=== PATIENT | female | born 1975 | race Caucasian/White ===

== ENCOUNTER 2020-03-01 13:54 | Outpatient (REF) | payer OTHER, SELFPAY ==
--- NOTE | 2020-03-01 | US_ITS ---
EXAMINATION: US RETROPERITONEAL LIMITED (RENAL ONLY) CLINICAL INFORMATION: Renal stones. COMPARISON: Previous KUB most recent September 2019, renal ultrasound most recent September [address] most recent November 1999 and TECHNIQUE: Grayscale and color imaging of the kidneys FINDINGS: RIGHT KIDNEY: 13.3 x 5.2 x 4.9 cm (SAG x AP x TRV). The kidney is normal in size, contour, and echogenicity. Renal cortical thickness is normal. There are echogenic pyramids suggestive of medullary nephrocalcinosis. No discrete stone is seen. No focal parenchymal lesions. No hydronephrosis. LEFT KIDNEY: 11.8 x 6.5 x 6.3 cm (SAG x AP x TRV). The kidney is normal in size, contour, and echogenicity. Renal cortical thickness is normal. There are echogenic pyramids suggestive of medullary nephrocalcinosis. No discrete stone is seen. No focal parenchymal lesions. No hydronephrosis. IMPRESSION: Echogenic renal pyramids suggestive of medullary nephrocalcinosis.
== END 2020-03-01 13:55 | disposition home or self-care (01) ==
LOC: HO.HMGCX 13:54
PROVIDERS: PCP Internal Medicine; Visit Provider Urology
DX: R10.9 Unspecified abdominal pain (principal)
CPT/HCPCS: 76775

== ENCOUNTER 2020-03-07 15:45 | Outpatient (REF) | payer OTHER, SELFPAY ==
--- NOTE | 2020-03-07 | MM_ITS ---
EXAMINATION: MM SCREENING DIGITAL BREAST TOMOSYNTHESIS, BILATERAL CLINICAL INFORMATION: Screening. Asymptomatic. Family history premenopausal breast cancer in paternal cousin. The lifetime risk of breast cancer based on the Tyrer-Cuzick Model is 6%. COMPARISON: Mammography: 02/22/2018, 07/14/2014 (baseline). TECHNIQUE: Digital breast tomosynthesis is performed in both the craniocaudal and mediolateral oblique views along with computer-aided detection (CAD). Synthesized 2D images are generated from the tomosynthesis. FINDINGS: There are scattered areas of fibroglandular density (ACR BI-RADS breast composition Category b). There are no significant masses, abnormal calcifications, or other abnormalities. Parenchymal pattern is similar to prior studies. MM/MM tomosynthesis screening BI IMPRESSION: No significant changes from prior exams. ASSESSMENT: BI-RADS 1: Negative RECOMMENDATION: Routine annual mammography screening. This patient's information was entered into a reminder system with a target due date for their next mammogram.
== END 2020-03-07 15:46 | disposition home or self-care (01) ==
LOC: HO.MAMMO 15:45
PROVIDERS: PCP Internal Medicine; Visit Provider Internal Medicine
DX: Z12.31 Encounter for screening mammogram for malignant neoplasm of breast (principal)
CPT/HCPCS: 77063; 77067

== ENCOUNTER → 2020-05-03 14:36 | Outpatient (BNVA) | payer OTHER, SELFPAY | PROVIDERS: PCP Internal Medicine; Visit Provider Internal Medicine Pulmonary Disease | DX: D86.9 Sarcoidosis, unspecified (principal); R91.8 Other nonspecific abnormal finding of lung field | CPT/HCPCS: 99212 ==

== ENCOUNTER 2020-05-04 08:00 | Outpatient (RCR) | payer OTHER, SELFPAY ==
--- NOTE | 2020-04-06 09:54 | MHC.PT.EP ---
[facility] [place] [facility] [place] [facility] [address] Ronaldo Fisher [address] [phone] F: [phone] F: [phone] F: [phone] F: [phone] Physical Therapy Plan of Care Date of Evaluation: 04/06/20 Date of Surgery: n/a Diagnosis: R sided sciatica Assessment: Patient is a 44 year old R handed female who presents with s/s consistent with R sided sciatica. She works with daily job demands including driving, sitting, walking. Patient past medical history includes RA. Current impairments include pain, ROM, strength, safety, independence, activity tolerance and functional mobility. Functional limitations include decreased ability to walk, stand, transfer, negotiate stairs, and perform weight bearing activities.. Patient is motivated with good rehab potential. Skilled PT will address impairments and functional limitations in order to achieve goals. Frequency and Duration: The patient will be seen 2x/week for 6 weeks Short Term Goals: I with HEP - 2 weeks s/s centralized - 3 weeks I with transfer/squat mechanics - 3 weeks Halfway Goals: Pain free ADLs - 5 weeks Oswestry 10% or less - 6 weeks Pain free full sleep - 6 weeks Treatment Plan: Modalities to reduce pain, spasms and effusion. Manual therapy to restore motion and function. Therapeutic exercise to improve strength and flexibility. Neuromuscular re-education for posture and balance. Therapeutic activities to return to functional activities of daily living. Please sign and return to therapist. Thank you for your referral.
--- NOTE | 2020-06-06 11:29 | MHC.PT.DC ---
[facility] [place] [facility] [place] [facility] [place] [facility] [address] Ronaldo Fisher [address] [phone] F: [phone] F: [phone] F: [phone] F: [phone] Physical Therapy Discharge Report Diagnosis: R sided sciatica Date of Surgery: n/a Date of Evaluation: 04/06/20 Date of Discharge: 06/06/20 Treatments to Date: 6 Cancellations to Date: No Shows to Date: Discharge Status: Achieved Goals Discharge Summary: Pt progressed well over the course of skilled PT making progress on impairments and functional limitations resulting in an improved quality of life. Pt is I with HEP and appropriate to d/c to HEP at this time. Electronically signed by: Wily Lawrence, PT Please sign and return to therapist. Thank you for your referral.
== END 2020-06-06 11:30 | disposition home or self-care (01) ==
LOC: HO.PTCHIC 08:00
PROVIDERS: PCP Internal Medicine; Visit Provider Internal Medicine
DX: M54.31 Sciatica, right side (principal)
CPT/HCPCS: 97110; 97140; 97161

== ENCOUNTER → 2020-05-20 11:34 | Outpatient (BNVA) | payer OTHER, SELFPAY | PROVIDERS: PCP Internal Medicine; Visit Provider Urology | DX: Z76.89 Persons encountering health services in other specified circumstances (principal) ==

== ENCOUNTER 2020-07-01 09:02 | Outpatient (REF) | payer OTHER, SELFPAY ==
[2020-07-01 11:58] LABS: Alanine Aminotransferase 27 U/L (0-31); Aspartate Amino Transferase 20 U/L (5-31); Cholesterol 192 mg/dL; HDL Cholesterol 60 mg/dL; LDL Cholesterol Calculated 108 mg/dl; Triglycerides 120 mg/dL
== END 2020-07-01 09:03 | disposition home or self-care (01) ==
LOC: HO.HMGCLDS 09:02
PROVIDERS: PCP Internal Medicine; Visit Provider Internal Medicine
DX: E78.2 Mixed hyperlipidemia (principal)
CPT/HCPCS: 36415; 80061; 84450; 84460

== ENCOUNTER 2020-09-07 15:13 | Outpatient (REF) | payer OTHER, SELFPAY ==
--- NOTE | ~2020-09-07 | CT_ITS ---
EXAMINATION: CT CHEST WITHOUT CONTRAST CLINICAL INFORMATION: Pulmonary nodules COMPARISON: Previous chest CT August [address] October 2018 TECHNIQUE: Multidetector volumetric CT imaging of the chest was done. Axial MIP volume rendering provided. Sagittal and coronal reformatted images were obtained. This CT examination was performed using dose optimization techniques as appropriate, variously including the following: *Automated exposure control *Adjustment of mA and/or kV according to patient size (this includes techniques or standardized protocols for targeted exams where dose is matched to indication/reason for exam; i.e. extremities or head) *Use of iterative reconstruction technique DLP: 192 mGy-cm FINDINGS: LUNGS: There is no appreciable change in the numerous bilateral pulmonary nodules from previous exams. Largest right pulmonary nodule is a peripheral or subpleural right middle lobe nodule adjacent to the minor fissure axial image 194 series 7 and measures 4 mm. Largest left pulmonary nodule is a 3 mm peripheral left lower lobe nodule axial image 317 series 7. No new pulmonary nodules are seen. MEDIASTINUM: The mediastinum is normal. The previously identified mediastinal lymphadenopathy is no longer seen. PLEURA: There is no pleural effusion. No pleural mass or thickening. AXILLA: No lymphadenopathy. UPPER ABDOMEN: The gallbladder has been removed. There is a small stone in the upper pole of the left kidney. There may be diverticulosis of the colon OSSEOUS STRUCTURES: There are degenerative changes of the spine. CT/CT chest wo con IMPRESSION: No appreciable change in the multiple small bilateral pulmonary nodules. Resolved mediastinal lymphadenopathy.
== END 2020-09-07 15:14 | disposition home or self-care (01) ==
LOC: HO.CT 15:13
PROVIDERS: Visit Provider Internal Medicine Pulmonary Disease
DX: R91.8 Other nonspecific abnormal finding of lung field (principal)
CPT/HCPCS: 71250

== ENCOUNTER → 2020-09-13 14:55 | Outpatient (BNVA) | payer OTHER, SELFPAY | PROVIDERS: PCP Internal Medicine; Visit Provider Internal Medicine Pulmonary Disease | DX: D86.9 Sarcoidosis, unspecified (principal) | CPT/HCPCS: 99212 ==

== ENCOUNTER 2020-09-30 11:30 | Outpatient (REF) | payer OTHER, SELFPAY ==
--- NOTE | ~2020-09-30 | US_ITS ---
EXAMINATION: US RETROPERITONEAL COMPLETE (RENAL) CLINICAL INFORMATION: Abdominal pain. COMPARISON: None TECHNIQUE: Real-time imaging of the kidneys and bladder. FINDINGS: RIGHT KIDNEY: 12.7 x 5 x 5.9 cm (SAG x AP x TRV). The kidney is normal in size and contour. Renal cortical thickness is normal. There are echogenic renal pyramids suggestive of nephrocalcinosis. No discrete stone is seen. No mass. No hydronephrosis. LEFT KIDNEY: 12.7 x 6.7 x 5.4 cm (SAG x AP x TRV). The kidney is normal in size and contour. Renal cortical thickness is normal. There are echogenic renal pyramids suggestive of nephrocalcinosis. There are several discrete stones measuring in the midpole 3 x 3 x 5 mm and lower pole 2 x 2 x 3 mm. No renal mass. No hydronephrosis. BLADDER: Well distended and normal. Bilateral ureteral jets are demonstrated. Prevoid bladder volume is 462 mL. Postvoid bladder volume is 33 mL. US/US retroperitoneal comp IMPRESSION: Echogenic renal pyramids suggestive of nephrocalcinosis. 2 small left renal stones. No hydronephrosis. Small 33 mL postvoid bladder residual.
== END 2020-09-30 11:31 | disposition home or self-care (01) ==
LOC: HO.HMGCX 11:30
PROVIDERS: PCP Internal Medicine; Visit Provider Internal Medicine
DX: R10.9 Unspecified abdominal pain (principal)
CPT/HCPCS: 76770

== ENCOUNTER → 2020-10-25 14:05 | Outpatient (BNVA) | payer OTHER, SELFPAY | PROVIDERS: PCP Internal Medicine; Visit Provider Urology ==

== ENCOUNTER 2020-11-05 08:23 | Outpatient (REF) | payer OTHER, SELFPAY ==
[2020-11-05 09:18] LABS: Alanine Aminotransferase 20 U/L (0-31); Aspartate Amino Transferase 17 U/L (5-31); Cholesterol 176 mg/dL; HDL Cholesterol 63 mg/dL; LDL Cholesterol Calculated 94 mg/dl; Triglycerides 95 mg/dL
== END 2020-11-05 08:24 | disposition home or self-care (01) ==
LOC: HO.LAB 08:23
PROVIDERS: PCP Internal Medicine; Visit Provider Internal Medicine
DX: Z00.01 Encounter for general adult medical examination with abnormal findings (principal); E78.2 Mixed hyperlipidemia
CPT/HCPCS: 36415; 80061; 84450; 84460

== ENCOUNTER → 2021-02-14 15:47 | Outpatient (BNVA) | payer OTHER, SELFPAY | PROVIDERS: PCP Internal Medicine; Referring Provider Surgery; Visit Provider Physician Assistant Surgical ==

== ENCOUNTER → 2021-03-03 08:12 | Outpatient (BNVA) | payer OTHER, SELFPAY | PROVIDERS: PCP Internal Medicine; Visit Provider Surgery ==

== ENCOUNTER 2021-03-13 15:48 | Outpatient (REF) | payer OTHER, SELFPAY ==
--- NOTE | ~2021-03-13 | XR_ITS ---
EXAMINATION: XR CHEST CLINICAL INFORMATION: Obesity COMPARISON: Previous chest x-ray August [address] August 2020 TECHNIQUE: 2 views of the chest were obtained. FINDINGS: No significant abnormality is noted involving the heart, lungs, mediastinum, bony thorax or soft tissues. The small pulmonary nodules seen by CT scan are not appreciated by chest x-ray. XR/XR chest 2V IMPRESSION: Unremarkable examination.
--- NOTE | ~2021-03-13 | MM_ITS ---
EXAMINATION: MM SCREENING DIGITAL BREAST TOMOSYNTHESIS, BILATERAL CLINICAL INFORMATION: Screening. Asymptomatic. The lifetime risk of breast cancer based on the Tyrer-Cuzick Model is 8%. COMPARISON: Mammography: 03/07/2020, 02/22/2018, 07/14/2014 TECHNIQUE: Digital breast tomosynthesis is performed in both the craniocaudal and mediolateral oblique views along with computer-aided detection (CAD). Synthesized 2D images are generated from the tomosynthesis. FINDINGS: There are scattered areas of fibroglandular density (ACR BI-RADS breast composition Category b). There are no significant masses, abnormal calcifications, or other abnormalities. MM/MM tomosynthesis screening BI IMPRESSION: No mammographic evidence of malignancy. ASSESSMENT: BI-RADS 1: Negative RECOMMENDATION: Routine annual mammography screening. This patient's information was entered into a reminder system with a target due date for their next mammogram.
== END 2021-03-13 15:49 | disposition home or self-care (01) ==
LOC: HO.MAMMO 15:48
PROVIDERS: Absent Provider Surgery; PCP Internal Medicine; Visit Provider Internal Medicine
DX: Z12.31 Encounter for screening mammogram for malignant neoplasm of breast (principal); E66.9 Obesity, unspecified; K21.9 Gastro-esophageal reflux disease without esophagitis; D86.9 Sarcoidosis, unspecified; F41.8 Other specified anxiety disorders; Z68.38 Body mass index [BMI] 38.0-38.9, adult
CPT/HCPCS: 71046; 77063; 77067

== ENCOUNTER → 2021-03-16 15:20 | Outpatient (REF) | payer OTHER, SELFPAY ==
--- NOTE | 2021-03-16 15:45 | ECG_ITS ---
Test Reason : obesity Blood Pressure : / mmHG Vent. Rate : 067 BPM Atrial Rate : 067 BPM P-R Int : 164 ms QRS Dur : 076 ms QT Int : 400 ms P-R-T Axes : 020 016 033 degrees QTc Int : 422 ms Normal sinus rhythm Normal ECG No previous ECGs available Referred By: Montana Gaffney Electronically Signed By:CHADD CAZARES MD
== END ==
LOC: HO.CARD 15:20
PROVIDERS: Absent Provider Surgery; PCP Internal Medicine; Visit Provider Internal Medicine Pulmonary Disease
DX: E66.9 Obesity, unspecified (principal); Z68.38 Body mass index [BMI] 38.0-38.9, adult; J45.909 Unspecified asthma, uncomplicated; D86.9 Sarcoidosis, unspecified; F41.8 Other specified anxiety disorders; K21.9 Gastro-esophageal reflux disease without esophagitis; Z79.899 Other long term (current) drug therapy
CPT/HCPCS: 93005; 99212

== ENCOUNTER 2021-03-24 10:57 | Outpatient (REF) | payer OTHER, SELFPAY ==
[2021-03-24 11:08] LABS: MANUAL DIFF FLAG NO
[2021-03-24 11:46] LABS: Basophils Percent Auto 0.5 % (0-2); Eosinophils Absolute Auto 0.2 X10*3/uL (0.0-0.4); Hematocrit 41.5 % (37.0-47.0); Hemoglobin 13.5 g/dl (12.0-16.0); Imm Gran Abs Auto 0.01 X10*3/uL (0.00-0.03); Imm Gran Pct Auto 0.3 % (0.0-0.4); Lymphocytes Absolute Auto 0.9 X10*3/uL (1.2-4.9); Lymphocytes Percent Auto 22.8 % (20-40); Mean Corpuscular HGB Conc 32.5 g/dl (31.0-35.0); Mean Corpuscular Hemoglobin 28.3 pg (27.0-33.0); Mean Platelet Volume 10.8 fL (9.4-12.3); Monocytes Absolute Auto 0.3 X10*3/uL (0.1-1.2); Monocytes Percent Auto 8.9 % (2-11); Neutrophils Absolute Auto 2.4 x10*3/uL (2.0-8.3); Neutrophils Percent Auto 63.5 % (45-73); Platelet Count 248 X10*3/uL (160-400); Red Blood Count 4.77 X10*6/uL (4.20-5.50); Red Cell Distribution Width 13.6 % (11.0-16.0); White Blood Count 3.7 X10*3/uL (4.8-10.8)
[2021-03-24 12:16] LABS: Alanine Aminotransferase 25 U/L (0-31); Albumin Level 4.3 g/dL (3.5-5.0); Alkaline Phosphatase 67 U/L (39-117); Anion Gap 9 (12-20); Aspartate Amino Transferase 20 U/L (5-31); Bilirubin Total 1.1 mg/dL (0.0-1.0); Blood Urea Nitrogen 14 mg/dL (9-16); C Reactive Protein 0.33 mg/dL (< or = 0.50); Calcium 9.1 mg/dL (8.4-10.2); Carbon Dioxide 27 mmol/L (22-29); Chloride 106 mmol/L (96-108); Cholesterol 149 mg/dL; Estimated Glomerular Filt Rate > 60; Glucose Random 93 mg/dL (60-115); HDL Cholesterol 47 mg/dL; Iron 80 mcg/dL (30-160); LDL Cholesterol Calculated 83 mg/dl; Percent Iron Saturation 30 % (15-50); Potassium 3.8 mmol/L (3.3-5.1); Sodium 138 mmol/L (135-145); Total Iron Binding Capacity 270 mcg/dL (228-428); Total Protein 6.9 g/dL (6.5-8.0); Triglycerides 98 mg/dL; Unsaturated Iron Binding 190 ug/dL
[2021-03-24 12:32] LABS: Ferritin 80 ng/mL (10-250); Insulin 7 uU/mL (2-29); TSH reflex Free T4 0.42 uIU/mL (0.32-4.0); Vitamin D 25-OH Total 11.2 ng/mL (>30)
[2021-03-24 12:51] LABS: Estimated Average Glucose 94 mg/dL; Hemoglobin A1c % 4.9 %
[2021-03-24 12:56] LABS: Folate 10.9 ng/mL (> or = 4.0); Vitamin B12 321 pg/mL (200-900)
[2021-03-27 06:22] LABS: Vitamin B1 7 nmol/L (8-30)
[2021-03-27 12:01] LABS: Calcium (PTHI) 9.1 mg/dL (8.6-10.2); PTHI 97 pg/mL (14-64)
[2021-03-28 02:32] LABS: Zinc 61 mcg/dL (60-130)
[2021-03-29 10:21] LABS: Vitamin A 51 mcg/dL (38-98)
== END 2021-03-24 10:58 | disposition home or self-care (01) ==
LOC: HO.LAB 10:57
PROVIDERS: Absent Provider Internal Medicine; PCP Internal Medicine; Visit Provider Surgery
DX: E66.9 Obesity, unspecified (principal); K21.9 Gastro-esophageal reflux disease without esophagitis; D86.9 Sarcoidosis, unspecified; F41.8 Other specified anxiety disorders; Z68.38 Body mass index [BMI] 38.0-38.9, adult
CPT/HCPCS: 36415; 80053; 80061; 82306; 82607; 82728; 82746; 83036; 83525; 83540; 83970; 84425; 84443; 84590; 84630; 85025; 86140

== ENCOUNTER 2021-04-04 09:43 | Outpatient (REF) | payer OTHER, SELFPAY ==
--- NOTE | ~2021-04-04 | US_ITS ---
EXAMINATION: US COMPLETE ABDOMEN WITH LIVER ELASTOGRAPHY CLINICAL INFORMATION: Obesity. COMPARISON: None. TECHNIQUE: Real-time imaging of the abdominal viscera. Noninvasive ultrasound liver fibrosis assessment is performed using Nida ElastPQ point quantification shear wave elastography (pSWE) with a C5-2 MHz transducer. Multiple elastography samples are obtained. FINDINGS: PANCREAS: Normal. The visualized pancreatic head and body are normal in appearance. The remainder of the pancreas is obscured from visualization by the overlying bowel gas. ABDOMINAL AORTA: The proximal, middle, and distal aortic segments are normal in caliber. INFERIOR VENA CAVA: Visualized portions are normal. LIVER: Normal. The liver demonstrates normal size, contour and echogenicity. No focal lesion or intrahepatic biliary duct dilatation. The right lobe measures 14.5 cm in length. The left lobe measures 10.2 cm in length. Portal flow is hepatopetal. Shear wave liver elastography median stiffness is 1.82 m/s (reference: normal median stiffness is 1.3 m/s or less). IQR/median stiffness to assess sampling precision is 0.13 (reference: good quality data set is IQR/median stiffness of 0.15 or less). GALLBLADDER: Normal. The gallbladder is physiologically distended without evidence of stones, sludge, polyps, wall thickening or pericholecystic fluid. COMMON BILE DUCT: Normal in caliber measuring 0.5 cm in diameter. RIGHT KIDNEY: Normal. No hydronephrosis. No renal calculi or focal parenchymal lesions. The kidney measures 12.6 cm in maximum dimension. LEFT KIDNEY: There are small echogenic foci with twinkle artifact. No hydronephrosis. No renal calculi or focal parenchymal lesions. The kidney measures 11.7 cm in maximum dimension. SPLEEN: Normal. The spleen measures 9.2 cm in maximum dimension. FREE FLUID: None. US/US abdomen comp w elastography IMPRESSION: 1. Mild hepatic steatosis without focal lesion. 2. Liver elastography: Median liver stiffness 1.82 m/s. Findings suggestive of cACLD. REFERENCE: Society of Radiologists in Ultrasound Liver Stiffness Thresholds (2020): LIVER STIFFNESS THRESHOLDS: *Liver Stiffness equal or less than 1.3 m/s: High probability of being normal. *Liver Stiffness less than 1.7 m/s: In the absence of other known clinical signs, rules out compensated advanced chronic liver disease. *Liver Stiffness 1.7-2.1 m/s: Suggestive of compensated advanced chronic liver disease but need further test for confirmation. *Liver Stiffness over 2.1 m/s: Rules in compensated advanced chronic liver disease. *Liver Stiffness over 2.4 m/s: Suggestive of clinically significant portal hypertension. QUALITY OF DATA SET: *IQR/Median value equal or less than 0.15 implies a quality data set. *IQR/Median value over 0.15 implies a poor quality data set. SIGNIFICANT CHANGE FROM PRIOR EXAM: Significant change if liver stiffness measurement is 10% or greater from prior exam. OTHER CONSIDERATIONS: The stage of liver fibrosis may be overestimated in the setting of acute hepatitis, liver inflammation, elevated liver function tests, hepatic vascular congestion, obstructive cholestasis, non-fasting state, and infiltrative diseases such as amyloidosis and lymphoma. In some patients with NAFLD, the liver stiffness thresholds for compensated advanced chronic liver disease may be lower. In causes other than viral hepatitis and NAFLD, liver stiffness thresholds are not well established.
== END 2021-04-04 09:44 | disposition home or self-care (01) ==
LOC: HO.SL 09:43
PROVIDERS: Visit Provider Surgery
DX: E66.9 Obesity, unspecified (principal); K21.9 Gastro-esophageal reflux disease without esophagitis; D86.9 Sarcoidosis, unspecified; F41.8 Other specified anxiety disorders; N20.0 Calculus of kidney; Z68.38 Body mass index [BMI] 38.0-38.9, adult
CPT/HCPCS: 76705; 76981; 95806

== ENCOUNTER 2021-04-05 08:15 | Outpatient (REF) | payer OTHER, SELFPAY ==
--- NOTE | ~2021-04-05 | FL_ITS ---
EXAMINATION: XR GI SERIES CLINICAL INFORMATION: Obesity. COMPARISON: None. TECHNIQUE: Routine upper GI air-contrast study was performed in upright and lying position. FINDINGS: Following oral administration of thick barium and effervescent granules, there is normal propagation bolus from the oral cavity through the pharynx and esophagus and into the stomach without any evidence of obstruction, narrowing or stricture. On placing patient supine and prone lying, the course, caliber and peristalsis of the stomach, gallbladder and the sweep are normal. The mucosal pattern of the stomach and duodenum is normal. No gastroesophageal reflux or hiatal hernia seen. FLUOROSCOPY TIME: 1.6 minutes. DOSE AREA PRODUCT: 25.201 uGy-m2 (microgray-meter squared). FL/FL upper GI series IMPRESSION: Unremarkable upper GI examination.
== END 2021-04-05 08:16 | disposition home or self-care (01) ==
LOC: HO.XRAY 08:15
PROVIDERS: Visit Provider Surgery
DX: Z01.818 Encounter for other preprocedural examination (principal); E66.9 Obesity, unspecified; K21.9 Gastro-esophageal reflux disease without esophagitis; D86.9 Sarcoidosis, unspecified; F41.8 Other specified anxiety disorders; Z68.38 Body mass index [BMI] 38.0-38.9, adult
CPT/HCPCS: 74240; 99211

== ENCOUNTER 2021-04-05 15:56 | Outpatient (REF) | payer OTHER, SELFPAY ==
[2021-04-07 07:18] LABS: H Pylori Breath Test Negative (Negative)
== END 2021-04-05 15:57 | disposition home or self-care (01) ==
LOC: HO.LNP 15:56
PROVIDERS: Visit Provider Surgery
DX: Z01.818 Encounter for other preprocedural examination (principal); E66.9 Obesity, unspecified; K21.9 Gastro-esophageal reflux disease without esophagitis; D86.9 Sarcoidosis, unspecified; F41.8 Other specified anxiety disorders; Z68.38 Body mass index [BMI] 38.0-38.9, adult; Z11.0 Encounter for screening for intestinal infectious diseases
CPT/HCPCS: 83013

== ENCOUNTER → 2021-04-21 08:09 | Outpatient (BNVA) | payer OTHER, SELFPAY | PROVIDERS: PCP Internal Medicine; Referring Provider Surgery; Visit Provider Dietitian, Registered | DX: E66.9 Obesity, unspecified (principal) | CPT/HCPCS: 97802 ==

== ENCOUNTER → 2021-05-11 13:03 | Outpatient (BNVA) | payer OTHER, SELFPAY | PROVIDERS: PCP Internal Medicine ==

== ENCOUNTER 2021-06-07 16:21 | Emergency (ER) | payer OTHER, SELFPAY ==
--- NOTE | ~2021-06-07 | CT_ITS ---
EXAMINATION: CT ABDOMEN AND PELVIS WITHOUT CONTRAST CLINICAL INFORMATION: Left flank pain COMPARISON: CT abdomen pelvis 06/06/2015 TECHNIQUE: Multidetector volumetric imaging was performed from the superior aspect of the liver through the pubic symphysis. Sagittal and coronal reformatted images were obtained on the technologist's workstation. This CT examination was performed using dose optimization techniques as appropriate, variously including the following: *Automated exposure control *Adjustment of mA and/or kV according to patient size (this includes techniques or standardized protocols for targeted exams where dose is matched to indication/reason for exam; i.e. extremities or head) *Use of iterative reconstruction technique DLP: 783 mGy-cm FINDINGS: LUNG BASES: The visualized lung bases are unremarkable. ABDOMINAL AND PELVIC WALL: Unremarkable. LIVER AND BILIARY TREE: Unremarkable GALLBLADDER: Unremarkable PANCREAS: Unremarkable SPLEEN: Unremarkable ADRENAL GLANDS: Unremarkable. KIDNEYS AND URETERS: Increased density in the renal medullary pyramids. No hydronephrosis. No obstructive ureterolithiasis. Bilateral nonobstructing renal stones the largest of which measures 2 mm in the left upper pole, the remainder of which appear punctate. UPPER GASTROINTESTINAL TRACT: The stomach and duodenum are unremarkable. VASCULAR: Unremarkable. LYMPH NODES: No lymphadenopathy. BLADDER: Unremarkable PELVIC VISCERA: Status post hysterectomy. LOWER GASTROINTESTINAL TRACT: The small and large bowel are unremarkable. No findings to suggest appendicitis. OSSEOUS STRUCTURES: Unremarkable CT/CT abdomen pelvis wo con IMPRESSION: Bilateral nonobstructing renal stones the largest of which measures 2 mm in the left upper pole, the remainder of which appear punctate. No hydronephrosis. No obstructive ureterolithiasis. Increased density in the renal medullary pyramids which can be seen in the setting of medullary nephrocalcinosis.
[2021-06-07 16:55] VITALS: BP 139/84; PULSE 75; RESP 18; TEMP 36.7; O2SAT 98; BMI 36.6
[2021-06-07 17:19] LABS: MANUAL DIFF FLAG NO
[2021-06-07 17:22] LABS: Appearance Urine CLEAR; Basophils Absolute Auto 0.1 X10*3/uL (0.0-0.2); Basophils Percent Auto 1.1 % (0-2); Color Urine STRAW; Eosinophils Absolute Auto 0.2 X10*3/uL (0.0-0.4); Eosinophils Percent Auto 3.4 % (0-4); Glucose Urine UA NEG (NEG); Hematocrit 40.5 % (37.0-47.0); Imm Gran Abs Auto 0.02 X10*3/uL (0.00-0.03); Imm Gran Pct Auto 0.4 % (0.0-0.4); Leukocyte Esterase Urine NEG (NEG); Lymphocytes Absolute Auto 1.1 X10*3/uL (1.2-4.9); Lymphocytes Percent Auto 22.7 % (20-40); Mean Corpuscular HGB Conc 32.1 g/dl (31.0-35.0); Mean Corpuscular Hemoglobin 29.2 pg (27.0-33.0); Mean Platelet Volume 9.6 fL (9.4-12.3); Monocytes Absolute Auto 0.6 X10*3/uL (0.1-1.2); Monocytes Percent Auto 11.8 % (2-11); Neutrophils Absolute Auto 2.9 x10*3/uL (2.0-8.3); Neutrophils Percent Auto 60.6 % (45-73); Nitrite Urine NEG (NEG); PH 6.5 (5.0-8.0); Platelet Count 288 X10*3/uL (160-400); Red Blood Count 4.45 X10*6/uL (4.20-5.50); Red Cell Distribution Width 14.1 % (11.0-16.0); Specific Gravity - Urine <= 1.005 (1.005-1.025); Urine Blood NEG (NEG); Urine Ketones NEG (NEG); Urine Protein NEG (NEG-TRACE); White Blood Count 4.8 X10*3/uL (4.8-10.8)
--- NOTE | 2021-06-07 17:44 | ED_ITS ---
HPI - Female Genitourinary General Chief complaint: Urogenital-Female Stated complaint: kidney pain Time Seen by Provider: 06/07/21 17:44 Source: patient Mode of arrival: ambulatory Limitations: no limitations History of Present Illness HPI Narrative: 45 year old female past medical history rheumatoid arthritis, depression, anxiety, recurrent nephrolithiasis, sarcoidosis presents to the emergency department left lower back pain, and nausea X1 week. Patient tells me this feels like her typical kidney stone. She cannot tell me what makes this pain better or worse. She denies urinary frequency, urgency, fevers, chills, chest pain, shortness of breath. She has had lithotripsy in the past. Pertinent past history: other (Previous nephrolithiasis.) Severity: severe Vaginal bleeding: none Exacerbating factors: none Treatment prior to arrival: none Patient : No Related Data Home Medications Medication Instructions Recorded Confirmed tofacitinib 11 mg tablet,extended 11 mg PO DAILY 03/09/20 03/17/21 release 24 hr (Xeljanz XR) lamotrigine 25 mg tablet 50 mg PO DAILY 05/20/20 03/17/21 leflunomide 20 mg tablet 20 mg PO DAILY 05/20/20 03/17/21 meloxicam 15 mg tablet 15 mg PO DAILY 05/20/20 03/17/21 omega-3 fatty acids 1,000 mg 1,000 mg PO DAILY 07/05/20 03/17/21 capsule (Fish Oil Concentrate) hydroxyzine HCl 10 mg tablet 10 mg PO BID PRN 10/25/20 03/17/21 omeprazole 20 mg capsule,delayed 20 mg PO DAILY 03/03/21 03/17/21 release lamotrigine 200 mg tablet 200 mg PO DAILY 03/16/21 03/17/21 Previous Rx's Medication Instructions Recorded pyridoxine (vitamin B6) 100 mg 100 mg PO DAILY 90 Days #90 tab 10/25/20 tablet rosuvastatin 5 mg tablet 5 mg PO DAILY #30 tab 11/07/20 conjugated estrogens 0.3 mg tablet 0.3 mg PO DAILY #30 tab 03/21/21 (Premarin) Symbicort 160 mcg-4.5 2 puff PO BID #10.2 g NS 04/03/21 mcg/actuation HFA aerosol inhaler (budesonide-formoterol) cholecalciferol (vitamin D3) 125 125 mcg PO DAILY #30 cap 04/08/21 mcg (5,000 unit) capsule mecobalamin (vitamin B12) 1,000 1,000 mcg SUBLINGUAL DAILY #30 04/08/21 tab mcg disintegrating tablet,sublingual thiamine HCl (vitamin B1) 100 mg 100 mg PO DAILY #30 tab 04/08/21 tablet morphine 15 mg immediate release 15 mg PO BID PRN #10 tab 06/07/21 tablet ondansetron 4 mg disintegrating 4 mg PO ONCE PRN #10 tab 06/07/21 tablet prednisone 20 mg tablet 40 mg PO DAILY 5 Days #10 tab 06/07/21 tamsulosin 0.4 mg capsule (Flomax) 0.4 mg PO DAILY #20 cap 06/07/21 Allergies Allergy/AdvReac Type Severity Reaction Status Date / Time tocilizumab [From Allergy Severe Difficulty Verified 06/07/21 15:08 Actemra] Breathing Review of Systems Verdana 4l Review of Systems: Verdana 4d Verdana 4d Constitutional : No Fever, No Chills ENT/Mouth : No sore throat Eyes: No Eye Pain, No Swelling, No Redness Cardiovascular : No Chest Pain, No SOB Respiratory : No Cough, No Sputum, No Wheezing Gastrointestinal : positive Nausea, No VomitingVomiting, No Diarrhea, positive abdominal pain Genitourinary : No Dysuria, No urinary frequency, No Hematuria, positive Flank Pain, No hesitancy Musculoskeletal : No joint pain, No Myalgias Skin : No Skin Lesions, No rash Neuro : No Weakness, No Numbness, No Headache Psych : No Anxiety/Panic, No Depression All other systems reviewed and are negative Yes all other systems are reviewed and are negative [facility] Past Medical History Attestation statement: The following information was validated with the patient. Source: old records reviewed and nursing notes reviewed Medical History Bilateral sacroiliitis BMI 38.0-38.9,adult Depression with anxiety GERD (gastroesophageal reflux disease) Mixed dyslipidemia Nephrolithiasis Obesity Obesity (BMI 35.0-39.9 without comorbidity) Renal stones Rheumatoid arthritis Surgical History H/O dilation and curettage H/O excision of ganglion cyst History of bilateral salpingectomy History of robot-assisted laparoscopic hysterectomy History of tubal ligation Hx laparoscopic cholecystectomy Hx of appendectomy Hx of myringotomy Hx of ovarian cystectomy Hx of tonsillectomy Previous section Status post laser lithotripsy of ureteral calculus Family History Family History Father HTN (hypertension) Diabetes mellitus Depression Dyslipidemia Substance use disorder Mental health disorder Mother Pancreatic cancer Anxiety Brother Substance use disorder Mental health disorder Daughter Mental health disorder Sister Substance use disorder Mental health disorder Maternal Uncle Mental health disorder Daughter Mental health disorder Daughter Mental health disorder Social History Social History Housing: Apartment Alcohol intake: current Alcohol intake frequency: holidays/special occasions only Patient Tobacco Use Status: Former Tobacco user Years Smoked: 25 yrs e-Cigarette/Vaping Use: Never Used Second Hand Smoke Exposure: No Advance Directives: No Advance Directives Information Provided: No Patient : No service: No Physical Exam Verdana 4l Vital Signs: Verdana 4d Verdana 4d Vital Signs: Verdana 4d Verdana 4Bd Last Vital Signs Verdana 4d Health And Wellness Coordinator New 4d Health And Wellness Coordinator New 4d Temp 98.0 F 06/07/21 16:55 Health And Wellness Coordinator New 4d Pulse 75 06/07/21 16:55 Health And Wellness Coordinator New 4d Resp 18 06/07/21 16:55 BP 139/84 06/07/21 16:55 Pulse Ox 98 06/07/21 16:55 BMI result Body Mass Index 36.6 VSS Appearance: Alert.? Oriented X3.? No acute distress.? Head: Normocephalic, atraumatic, no step-offs or deformities Eyes: Pupils equal, round and reactive to light.? ENT: Pharynx normal.? Neck: Normal inspection.? Neck supple.? CVS: Normal heart rate and rhythm.? Pulses normal.? Respiratory: No respiratory distress.? Breath sounds normal.? Abdomen: Soft and nontender.? Skin: Skin warm and dry.? Normal skin color.? Normal skin turgor.? Extremities: No lower extremity edema.? No calf ttp. 5/5 strength to bilateral upper and lower extremities Back: No midline tenderness, no C-spine tenderness, full range of motion, no CVA tenderness bilaterally Neuro: Oriented X 3.? No motor deficit.? No sensory deficit. Course Reevaluation(s) Reevaluation #1: CBC appears to be at patients baseline. Chemistry WNL. UA clean. CT scan with bilateral 2 mm nonobstructing stones. Based off patient's history, laboratory studies, imaging and physical examination unlikely that this is pyelonephritis, or obstructive uropathy. Pain likely secondary to small kidney stone that is passing, it is likely that patient already passed another stone due to her history and presentation. I will send her home on prednisone, Flomax, and provide her with Urology as contact information for follow-up. Patient agrees to the plan, educated patient on plan. Answered all questions. I outlined red flag symptoms and have advised her to return with new or worsening symptoms. Comfortable with discharge Time: 18:26 MDM - Female Genitourinary MDM Narrative Medical decision making narrative: 45 yo F pmhx RA, depression, anxiety, recurrent nephrolithiasis, sarcoidosis presents to ED w/ left sided back pain and nausea X1 week worsening. Denies urinary symptom, vomiting. Patient was covid + on 05/25/2021 PE significant for CVA tenderness b/l. Plan- labs, ct, UA, Medical Records Attestation: I reviewed the patient's medical records. Lab Data Attestation: I reviewed the patient's lab results. Result diagrams: 06/07/21 17:12 06/07/21 17:12 Labs: Lab Results 06/07/21 06/07/21 06/07/21 Range/Units 17:12 17:12 17:12 WBC 4.8 (4.8-10.8) X10*3/uL RBC 4.45 (4.20-5.50) X10*6/uL Hgb 13.0 (12.0-16.0) g/dl Hct 40.5 (37.0-47.0) % MCV 91.0 (80.0-98.0) fL MCH 29.2 (27.0-33.0) pg MCHC 32.1 (31.0-35.0) g/dl RDW 14.1 (11.0-16.0) % Plt Count 288 (160-400) X10*3/uL MPV 9.6 (9.4-12.3) fL Immature Gran % (Auto) 0.4 (0.0-0.4) % Neut % (Auto) 60.6 (45-73) % Lymph % (Auto) 22.7 (20-40) % [place] % (Auto) 11.8 H (2-11) % Eos % (Auto) 3.4 (0-4) % Baso % (Auto) 1.1 (0-2) % Lymph # (Auto) 1.1 L (1.2-4.9) X10*3/uL [place] # (Auto) 0.6 (0.1-1.2) X10*3/uL Eos # (Auto) 0.2 (0.0-0.4) X10*3/uL Baso # (Auto) 0.1 (0.0-0.2) X10*3/uL Abs Immat Gran (auto) 0.02 (0.00-0.03) X10*3/uL Absolute Neuts (auto) 2.9 (2.0-8.3) x10*3/uL Absolute Nucleated RBC 0.000 (0.0-0.012) X10*3/uL Nucleated RBC % (auto) 0.0 (0.0-0.2) /100WBC Sodium 141 (135-145) mmol/L Potassium 3.9 (3.3-5.1) mmol/L Chloride 106 (96-108) mmol/L Carbon Dioxide 29 (22-29) mmol/L Anion Gap 10 L (12-20) BUN 11 (9-16) mg/dL Creatinine 0.81 (0.5-1.4) mg/dL Estim Creat Clear Calc 96.5 Estimated GFR > 60 Random Glucose 86 (60-115) mg/dL Calcium 9.5 (8.4-10.2) mg/dL Urine Color STRAW Urine Appearance CLEAR Urine pH 6.5 (5.0-8.0) Ur Specific [place] <= 1.005 (1.005-1.025) Urine Protein NEG (NEG-TRACE) MG/DL Urine Glucose (UA) NEG (NEG) MG/DL Urine Ketones NEG (NEG) MG/DL Urine Blood NEG (NEG) Urine Nitrite NEG (NEG) Ur Leukocyte Esterase NEG (NEG) Critical Care Time Critical Care Time Critical Care Time: No Discharge Plan Discharge Clinical Impression: Nephrolithiasis Patient Disposition: Home, Self-Care Instructions: Kidney Stones (ED) Additional Instructions: Take your medications as prescribed. If you were prescribed antibiotics today, it is important that you take your medication to their entirety, do not skip any doses, do not finish them early. Follow-up with your primary care provider this week. Follow-up with urology if symptoms persist for more than a week. Or if your having severe symptoms even after said treatment. Return to the emergency department with new or worsening symptoms. In case of emergency call 911 Prescriptions: New tamsulosin [Flomax] 0.4 mg capsule 0.4 mg PO DAILY Qty: 20 0RF prednisone 20 mg tablet 40 mg PO DAILY 5 Days Qty: 10 0RF morphine 15 mg tablet 15 mg PO BID PRN (Reason: pain) Qty: 10 0RF Rx Instructions: Patient can partially fill prescription upon request. ondansetron 4 mg tablet,disintegrating 4 mg PO ONCE PRN (Reason: nausea and vomiting) Qty: 10 0RF No Action rosuvastatin 5 mg tablet 5 mg PO DAILY Qty: 30 6RF Premarin 0.3 mg tablet 0.3 mg PO DAILY Qty: 30 1RF budesonide-formoterol [Symbicort] 160-4.5 mcg/actuation HFA aerosol inhaler 2 puff PO BID Qty: 10.2 6RF thiamine HCl (vitamin B1) 100 mg tablet 100 mg PO DAILY Qty: 30 2RF mecobalamin (vitamin B12) 1,000 mcg tablet,disintegrating 1,000 mcg sublingual DAILY Qty: 30 2RF Rx Instructions: place tablet under tongue and allow to dissolve for at least30 secs before swallowing cholecalciferol (vitamin D3) 125 mcg (5,000 unit) capsule 125 mcg PO DAILY Qty: 30 2RF Xeljanz XR 11 mg tablet extended release 24 hr 11 mg PO DAILY 0RF omega-3 fatty acids [Fish Oil Concentrate] 1,000 mg capsule 1,000 mg PO DAILY 0RF leflunomide 20 mg tablet 20 mg PO DAILY 0RF lamotrigine 25 mg tablet 50 mg PO DAILY 0RF meloxicam 15 mg tablet 15 mg PO DAILY 0RF lamotrigine 200 mg tablet 200 mg PO DAILY 0RF hydroxyzine HCl 10 mg tablet 10 mg PO BID PRN0RF pyridoxine (vitamin B6) 100 mg tablet 100 mg PO DAILY 90 Days Qty: 90 1RF omeprazole 20 mg capsule,delayed release(DR/EC) 20 mg PO DAILY 0RF Referrals: Devon Jung MD [Physician] - 1 week Jeri Snyder MD [Primary Care Provider] - 2 days Stand Alone Forms: Work/School Release
[2021-06-07 17:59] LABS: Anion Gap 10 (12-20); Blood Urea Nitrogen 11 mg/dL (9-16); Calcium 9.5 mg/dL (8.4-10.2); Carbon Dioxide 29 mmol/L (22-29); Chloride 106 mmol/L (96-108); Creatinine Clr Calc Pharmacy 96.5; Estimated Glomerular Filt Rate > 60; Glucose Random 86 mg/dL (60-115); Potassium 3.9 mmol/L (3.3-5.1); Sodium 141 mmol/L (135-145)
== END 2021-06-07 18:56 | disposition home or self-care (01) ==
PROVIDERS: Emergency Provider Emergency Medicine; PCP Internal Medicine
DX: N20.0 Calculus of kidney (principal); M54.50 Low back pain, unspecified; Z87.442 Personal history of urinary calculi
CPT/HCPCS: 36415; 74176; 80048; 81003; 85025; 99284

== ENCOUNTER 2021-09-15 15:23 | Outpatient (REF) | payer OTHER, SELFPAY ==
--- NOTE | ~2021-09-15 | US_ITS ---
EXAMINATION: US RETROPERITONEAL LIMITED (RENAL ONLY) CLINICAL INFORMATION: Calculus of kidney. COMPARISON: CT abdomen and pelvis without contrast dated 06/07/2021. TECHNIQUE: Real-time imaging of the kidneys. FINDINGS: RIGHT KIDNEY: 12.8 x 4.3 x 5.6 cm (SAG x AP x TRV). The kidney is normal in size, contour, and echogenicity. Renal cortical thickness is normal. No focal parenchymal lesions or hydronephrosis. There are a few echogenic stones without caliectasis or hydronephrosis: 1. Upper pole calculi measuring 0.3 x 0.23 cm. 2. Midpole calculi measuring 0.46 x 0.47 cm. 3. Lower pole echogenic calculi measuring 0.32 x 0.16 cm. There is no caliectasis or hydronephrosis. LEFT KIDNEY: 12.1 x 6.3 x 5.0 cm (SAG x AP x TRV). The kidney is normal in size, contour, and echogenicity. Renal cortical thickness is normal. No focal parenchymal lesions or hydronephrosis. There are a few echogenic stones without caliectasis or hydronephrosis: 1. Midpole 0.5 x 0.256 cm. 2. Upper pole measuring 0.21 cm and 0.3 cm. 3. Lower pole 0.3 x 0.16. US/US renal BI IMPRESSION: Bilateral nonobstructive echogenic renal calculi. No hydronephrosis seen.
== END 2021-09-15 15:24 | disposition home or self-care (01) ==
LOC: HO.US 15:23
DX: N20.0 Calculus of kidney (principal)
CPT/HCPCS: 76775

== ENCOUNTER → 2021-09-26 15:03 | Outpatient (BNVA) | payer OTHER, SELFPAY | PROVIDERS: PCP Internal Medicine; Visit Provider Internal Medicine Pulmonary Disease | DX: D86.9 Sarcoidosis, unspecified (principal); U09.9 Post COVID-19 condition, unspecified; R06.00 Dyspnea, unspecified; Z87.891 Personal history of nicotine dependence | CPT/HCPCS: 99212 ==

== ENCOUNTER 2021-10-27 15:46 | Outpatient (REF) | payer OTHER, SELFPAY ==
--- NOTE | 2021-10-27 17:31 | PFT_ITS ---
INDICATION: Dyspnea. SPIROMETRY: FEV1 to FVC of 86% with an FEV1 of 2.8 L, which is 97% predicted. FVC of 3.25 L, which is 90% predicted. No significant response to bronchodilators noted. Maximum voluntary ventilation 108% predicted. LUNG VOLUMES: Total lung capacity 89% predicted with an expiratory reserve volume of 48% predicted. DIFFUSION CAPACITY: DLCO 103% predicted. COMPARISONS: PFTs in 2019. INTERPRETATION: No obstructive nor restrictive ventilatory defects identified. No significant response to bronchodilators noted. Normal maximum voluntary ventilation. Lung volumes are normal except for decrease in the expiratory reserve volume secondary to an elevated BMI. Diffusion capacity is within normal limits. When compared to 2019, there is a significant decrease in the FVC, a significant decrease in the FEV1, a trend increase in the total lung capacity, a significant decrease in the expiratory reserve volume, and a trend increase in the diffusing capacity. Clinical correlation warranted. MD RICARDO Maldonado/JIMBO / [id number]
== END 2021-10-27 15:47 | disposition home or self-care (01) ==
LOC: HO.RESP 15:46
PROVIDERS: PCP Internal Medicine; Visit Provider Internal Medicine Pulmonary Disease
DX: U09.9 Post COVID-19 condition, unspecified (principal)
CPT/HCPCS: 94060; 94727; 94729

== ENCOUNTER 2021-11-08 14:00 | Outpatient (RCR) | payer OTHER, SELFPAY ==
--- NOTE | 2021-10-11 16:01 | MHC.PT.EP ---
[facility] [place] Office [place] [facility] [place] Office [address] Ronaldo Fisher [address] [phone] F: [phone] F: [phone] F: [phone] F: [phone] Physical Therapy Plan of Care Date of Evaluation: Date of Surgery: n/a Diagnosis: strain of lower back Assessment: Patient is a 45 year old female presenting to PT with complaints of pain in her low back. Pt reports onset of pain began 1 month ago due to insidious onset. She presents today with impairments in pain, ROM, hip strength, core strength, posture, tenderness to piriformis. 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 Pt expresses jail goal of reducing pain, and is motivated to work towards this in PT. Clinical presentation today is most consistent with signs and sx associated with possible piriformis syndrome and pt will benefit from skilled PT to address the following problems and impairments noted upon evaluation: pain, ROM, hip strength, core strength, posture, tenderness to piriformis. These problems limit the patient with the following functional activities: ambulation, standing, ADLs. The prescribed treatment plan of care is medically necessary. Co-morbidities of RA were identified and taken into considerations of plan of care. Pt was educated on HEP, role of PT, prognosis, POC. Frequency and Duration: The patient will be seen 2 x week x 4 weeks Short Term Goals: Pt will demonstrate minimal tenderness to piriformis in 2 weeks. Pt will demonstrate improved hip abd to at least 4+/5 in 2 weeks for improved lumbopelvic stability. Pt will demonstrate ability to perform PPT with good TA recruitment in 2 weeks. Pt will demonstrate improved postural awareness by sitting with biomechanically correct posture without cues throughout session to improve overall postural function in 2 weeks. Mcfp Goals: Pt will demonstrate improved Sridvei score by 10% in 4 weeks for improved functional mobility. Pt will demonstrate ability to ambulate with min to no pain in 4 weeks for improved tolerance to community ambulation. Pt will demonstrate ability to complete ADLs with min to no pain in 4 weeks for return to PLOF. Treatment Plan: Modalities to reduce pain, spasms and effusion. Manual therapy to restore motion and function. Therapeutic exercise to improve strength and flexibility. Neuromuscular re-education for posture and balance. Therapeutic activities to return to functional activities of daily living. Electronically signed by: Mecca Matos PT, DPT, ATC Please sign and return to therapist. Thank you for your referral.
--- NOTE | 2021-11-20 12:49 | MHC.PT.DC ---
[facility] [place] [facility] [place] Office [place] Office [address] Ronaldo Fisher [address] [facility] [phone] F: [phone] F: [phone] F: [phone] F: [phone] Physical Therapy Discharge Report Diagnosis: strain of lower back Date of Surgery: n/a Date of Evaluation: 10/11/21 Date of Discharge: 11/20/21 Treatments to Date: 7 Cancellations to Date: 2 No Shows to Date: 2 Discharge Status: Patient Elected to Stop Discharge Summary: Pt requesting to stop PT as she is following up with her doctor and getting imaging. Electronically signed by: Mecca Matos, PT, DPT, ATC Please sign and return to therapist. Thank you for your referral.
== END 2021-11-20 12:49 | disposition home or self-care (01) ==
LOC: HO.PTCHIC 14:00
PROVIDERS: PCP Internal Medicine; Visit Provider Physician Assistant
DX: S39.012D Strain of muscle, fascia and tendon of lower back, subsequent encounter (principal)
CPT/HCPCS: 97110; 97140; 97161

== ENCOUNTER 2021-11-16 16:41 | Outpatient (REF) | payer OTHER, SELFPAY ==
--- NOTE | ~2021-11-16 | XR_ITS ---
EXAMINATION: XR HIP, RIGHT CLINICAL INFORMATION: M54.16 - Radiculopathy, lumbar region COMPARISON: CT abdomen and pelvis 06/07/2021 TECHNIQUE: AP view pelvis is performed along with AP and frog-lateral projections of the right hip. FINDINGS: Normal bony mineralization. No fracture, dislocation, destructive process. The SI joints appear normal. There is mild spurring from the superior pubis. No erosive change. The right hip shows no fracture or dislocation or arthropathy. No joint narrowing or erosive change. Soft tissue planes are unremarkable. XR/XR hip RT w PEL1V IMPRESSION: Normal right hip.
== END 2021-11-16 16:42 | disposition home or self-care (01) ==
LOC: HO.XRAY 16:41
PROVIDERS: PCP Internal Medicine; Visit Provider Internal Medicine
DX: M54.16 Radiculopathy, lumbar region (principal)
CPT/HCPCS: 73502

== ENCOUNTER → 2021-11-24 15:38 | Outpatient (BNVA) | payer OTHER, SELFPAY | PROVIDERS: PCP Internal Medicine; Visit Provider Internal Medicine Pulmonary Disease | DX: D86.9 Sarcoidosis, unspecified (principal); J45.909 Unspecified asthma, uncomplicated; Z87.891 Personal history of nicotine dependence | CPT/HCPCS: 99212 ==

== ENCOUNTER 2022-02-22 08:39 | Outpatient (REF) | payer OTHER, SELFPAY ==
[2022-02-22 12:02] LABS: Vitamin D 25-OH Total 69.8 ng/mL (>30)
[2022-02-22 12:05] LABS: Alanine Aminotransferase 36 U/L (0-31); Anion Gap 14 (12-20); Aspartate Amino Transferase 30 U/L (5-31); Blood Urea Nitrogen 14 mg/dL (9-16); Calcium 9.8 mg/dL (8.4-10.2); Carbon Dioxide 28 mmol/L (22-29); Chloride 104 mmol/L (96-108); Cholesterol 215 mg/dL; Estimated Glomerular Filt Rate > 60; Glucose Fasting 96 mg/dL (60-99); HDL Cholesterol 60 mg/dL; LDL Cholesterol Calculated 120 mg/dl; Potassium 4.2 mmol/L (3.3-5.1); Sodium 142 mmol/L (135-145); Triglycerides 176 mg/dL
== END 2022-02-22 08:40 | disposition home or self-care (01) ==
LOC: HO.HMGCLDS 08:39
PROVIDERS: PCP Internal Medicine; Visit Provider Internal Medicine
DX: Z00.01 Encounter for general adult medical examination with abnormal findings (principal); E66.9 Obesity, unspecified; E55.9 Vitamin D deficiency, unspecified; D86.9 Sarcoidosis, unspecified; E78.2 Mixed hyperlipidemia; M06.9 Rheumatoid arthritis, unspecified
CPT/HCPCS: 36415; 80048; 80061; 82306; 84450; 84460

== ENCOUNTER 2022-03-01 19:20 | Emergency (ER) | payer OTHER, SELFPAY ==
--- NOTE | 2022-03-01 19:26 | ECG_ITS ---
Test Reason : HEART PALP Blood Pressure : / mmHG Vent. Rate : 073 BPM Atrial Rate : 073 BPM P-R Int : 192 ms QRS Dur : 074 ms QT Int : 380 ms P-R-T Axes : 028 014 025 degrees QTc Int : 418 ms Normal sinus rhythm Normal ECG When compared with ECG of 16-MAR-2021 15:47, No significant change was found Referred By: Generic ED Physician Electronically Signed By:CHADD CAZARES MD
[2022-03-01 19:43] VITALS: BP 152/71; PULSE 82; RESP 16; TEMP 36.4; O2SAT 96; BMI 40.1
[2022-03-01 19:58] LABS: Hematocrit 40.6 % (37.0-47.0); Hemoglobin 13.3 g/dl (12.0-16.0); Mean Corpuscular HGB Conc 32.8 g/dl (31.0-35.0); Mean Corpuscular Volume 88.5 fL (80.0-98.0); Platelet Count 230 X10*3/uL (160-400); Red Blood Count 4.59 X10*6/uL (4.20-5.50); Red Cell Distribution Width 13.2 % (11.0-16.0); White Blood Count 5.5 X10*3/uL (4.8-10.8)
[2022-03-01 20:10] LABS: Anion Gap 15 (12-20); Blood Urea Nitrogen 13 mg/dL (9-16); Calcium 9.8 mg/dL (8.4-10.2); Carbon Dioxide 26 mmol/L (22-29); Chloride 105 mmol/L (96-108); Creatinine Clr Calc Pharmacy 99.3; Estimated Glomerular Filt Rate > 60; Glucose Random 91 mg/dL (60-115); Potassium 3.6 mmol/L (3.3-5.1); Sodium 142 mmol/L (135-145)
[2022-03-01 20:16] LABS: Troponin-I High Sensitivity < 3.5 ng/L (<3.5-17.0)
[2022-03-01 21:33] VITALS: BP 146/71; PULSE 72; RESP 18; TEMP 36.6; O2SAT 98
--- NOTE | 2022-03-01 21:35 | ED_ITS ---
HPI - Arrhythmia/Palpitations General Chief Complaint: Arrhythmia/Palpitations Stated Complaint: Palpitations Time Seen by Provider: 03/01/22 21:33 Mode of arrival: ambulatory Limitations: no limitations History of Present Illness HPI narrative: Patient with history of asthma chronic back pain, sarcoidosis been having episode of palpitation for last 1 week lasting 2-3 minutes with dizziness no chest pain no shortness of breath no fever since arrival in the ER patient did not have any episodes Related Data Home Medications Medication Instructions Recorded Confirmed tofacitinib 11 mg tablet,extended 11 mg PO DAILY 03/09/20 03/17/21 release 24 hr (Xeljanz XR) lamotrigine 25 mg tablet 50 mg PO DAILY 05/20/20 03/17/21 leflunomide 20 mg tablet 20 mg PO DAILY 05/20/20 03/17/21 meloxicam 15 mg tablet 15 mg PO DAILY 05/20/20 03/17/21 omega-3 fatty acids 1,000 mg 1,000 mg PO DAILY 07/05/20 03/17/21 capsule (Fish Oil Concentrate) hydroxyzine HCl 10 mg tablet 10 mg PO BID PRN 10/25/20 03/17/21 omeprazole 20 mg capsule,delayed 20 mg PO DAILY 03/03/21 03/17/21 release lamotrigine 200 mg tablet 200 mg PO DAILY 03/16/21 03/17/21 Previous Rx's Medication Instructions Recorded pyridoxine (vitamin B6) 100 mg 100 mg PO DAILY 90 days #90 tabs 10/25/20 tablet cholecalciferol (vitamin D3) 125 125 mcg PO DAILY #30 caps 04/08/21 mcg (5,000 unit) capsule mecobalamin (vitamin B12) 1,000 1,000 mcg sublingual DAILY #30 tabs 04/08/21 mcg disintegrating tablet,sublingual rosuvastatin 5 mg tablet 5 mg PO DAILY #90 tabs 06/23/21 Breo Ellipta 200 mcg-25 mcg/dose 1 inh inhalation DAILY 30 days #1 11/24/21 powder for inhalation (fluticasone ea furoate-vilanterol) Allergies Allergy/AdvReac Type Severity Reaction Status Date / Time tocilizumab [From Actemra] Allergy Severe Difficulty Verified 01/09/22 13:05 Breathing Review of Systems Review of Systems: Yes all other systems are reviewed and are negative PMFSH Past Medical History Attestation statement: The following information was validated with the patient. Medical History Bilateral sacroiliitis BMI 38.0-38.9,adult Depression with anxiety GERD (gastroesophageal reflux disease) Mixed dyslipidemia Nephrolithiasis Obesity Obesity (BMI 35.0-39.9 without comorbidity) Renal stones Rheumatoid arthritis Skin tag Surgical History H/O dilation and curettage H/O excision of ganglion cyst History of bilateral salpingectomy History of robot-assisted laparoscopic hysterectomy History of tubal ligation Hx laparoscopic cholecystectomy Hx of appendectomy Hx of myringotomy Hx of ovarian cystectomy Hx of tonsillectomy Previous section Status post laser lithotripsy of ureteral calculus Family History Family History Father HTN (hypertension) Diabetes mellitus Depression Dyslipidemia Substance use disorder Mental health disorder Mother Pancreatic cancer Anxiety Brother Substance use disorder Mental health disorder Daughter Mental health disorder Sister Substance use disorder Mental health disorder Maternal Uncle Mental health disorder Daughter Mental health disorder Daughter Mental health disorder Social History Social History Housing: Apartment Alcohol intake: current Alcohol intake frequency: holidays/special occasions only Patient Tobacco Use Status: Former Tobacco user Years Smoked: 25 yrs e-Cigarette/Vaping Use: Never Used Second Hand Smoke Exposure: No Advance Directives: No Advance Directives Information Provided: No service: No Cognitive needs: No Hearing needs: No Vision needs: No Physical Exam Vital Signs: Vital Signs: Last Vital Signs Temp 97.9 F 03/01/22 21:33 Pulse 77 03/01/22 22:23 Resp 18 03/01/22 21:33 BP 126/80 03/01/22 22:23 Pulse Ox 98 03/01/22 21:33 O2 Del Method 03/01/22 21:33 BMI result Body Mass Index 40.1 Appearance: Alert. Oriented X3. No acute distress. Eyes: PERRLA, No Nystagmus ENT: Pharynx normal. Oral Mucosa moist Neck: Normal inspection. Neck supple. CVS: Normal heart rate and rhythm. Pulses normal. No murmur rub or gallop Respiratory: No respiratory distress. Equal air entry bilateral, no whee zing/rales/rhonchi Abdomen: Soft and nontender. Bowel sounds are present, no mass palpable, no CVA tenderness Skin: Skin warm and dry. Normal skin color. Normal skin turgor. Extremities: No lower extremity edema. No calf tenderness Neuro: Oriented X 3. No motor deficit. No sensory deficit.No cerebellar signs , cranial nerves II-XII intact MDM - Arrhythmia/Palpitations MDM Narrative Medical decision making narrative: Since patient came here any episode palpate clinically seems benign sinus tachycardia likely SVT patient denies any caffeine intake plan to DC Lab Data Attestation: I reviewed the patient's lab results. Result diagrams: 03/01/22 19:50 03/01/22 19:50 Labs: Lab Results 03/01/22 03/01/22 03/01/22 Range/Units 19:50 19:50 19:50 WBC 5.5 (4.8-10.8) X10*3/uL RBC 4.59 (4.20-5.50) X10*6/uL Hgb 13.3 (12.0-16.0) g/dl Hct 40.6 (37.0-47.0) % MCV 88.5 (80.0-98.0) fL MCH 29.0 (27.0-33.0) pg MCHC 32.8 (31.0-35.0) g/dl RDW 13.2 (11.0-16.0) % Plt Count 230 (160-400) X10*3/uL MPV 10.0 (9.4-12.3) fL Absolute Nucleated RBC 0.000 (0.0-0.012) X10*3/uL Nucleated RBC % (auto) 0.0 (0.0-0.2) /100WBC Sodium 142 (135-145) mmol/L Potassium 3.6 (3.3-5.1) mmol/L Chloride 105 (96-108) mmol/L Carbon Dioxide 26 (22-29) mmol/L Anion Gap 15 (12-20) BUN 13 (9-16) mg/dL Creatinine 0.82 (0.5-1.4) mg/dL Estim Creat Clear Calc 99.3 Estimated GFR > 60 Random Glucose 91 (60-115) mg/dL Calcium 9.8 (8.4-10.2) mg/dL Troponin I High Sens < 3.5 (<3.5-17.0) ng/L ECG Data Attestation: I personally reviewed and interpreted this ECG as follows: Interpretation: Normal sinus rhythm heart rate 73 beats per minute normal intervals normal axis no acute ST changes no acute ischemic Discharge Plan Discharge Clinical Impression: Palpitations Patient Disposition: Home, Self-Care Instructions: Heart Palpitations (ED) Additional Instructions: Cause of your palpitations not very clear you to follow-up reimbursement manager for Holter monitoring and further evaluation Report to the ED if episode of palpitation last longer than usual/passing out episode Prescriptions: No Action mecobalamin (vitamin B12) 1,000 mcg tablet,disintegrating 1,000 mcg sublingual DAILY Qty: 30 2RF Rx Instructions: place tablet under tongue and allow to dissolve for at least30 secs before swallowing cholecalciferol (vitamin D3) 125 mcg (5,000 unit) capsule 125 mcg PO DAILY Qty: 30 2RF rosuvastatin 5 mg tablet 5 mg PO DAILY Qty: 90 3RF Xeljanz XR 11 mg tablet extended release 24 hr 11 mg PO DAILY omega-3 fatty acids [Fish Oil Concentrate] 1,000 mg capsule 1,000 mg PO DAILY leflunomide 20 mg tablet 20 mg PO DAILY lamotrigine 25 mg tablet 50 mg PO DAILY meloxicam 15 mg tablet 15 mg PO DAILY lamotrigine 200 mg tablet 200 mg PO DAILY hydroxyzine HCl 10 mg tablet 10 mg PO BID PRN pyridoxine (vitamin B6) 100 mg tablet 100 mg PO DAILY 90 Days Qty: 90 1RF omeprazole 20 mg capsule,delayed release(DR/EC) 20 mg PO DAILY fluticasone furoate-vilanterol [Breo Ellipta] 200-25 mcg/dose blister with device 1 inh inhalation DAILY 30 Days Qty: 1 6RF Referrals: Danny Almonte MD [Physician] - 5 days Interventions: ED Discharge Assessment Last Done: 03/01/22 23:21 Discharge Date/Time: 03/01/22 23:21
[2022-03-01 22:22] VITALS: BP 129/68; BP 133/75; PULSE 74; PULSE 78
[2022-03-01 22:23] VITALS: BP 126/80; PULSE 77
--- NOTE | 2022-03-01 23:16 | PC.NURSE ---
pt denies any chest pain or sob. Reviewed discharge instruction with pt . pt verbalized understanding.
== END 2022-03-01 23:21 | disposition home or self-care (01) ==
PROVIDERS: Emergency Provider Internal Medicine; PCP Internal Medicine
DX: R00.2 Palpitations (principal); M54.50 Low back pain, unspecified; Z20.822 Contact with and (suspected) exposure to COVID-19; Z79.899 Other long term (current) drug therapy; Z87.891 Personal history of nicotine dependence
CPT/HCPCS: 36415; 80048; 84484; 85027; 93005; 99283; 99284

== ENCOUNTER 2022-03-07 12:31 | Outpatient (REF) | payer OTHER, SELFPAY ==
[2022-03-07 14:50] LABS: TSH reflex Free T4 0.81 uIU/mL (0.32-4.0)
== END 2022-03-07 12:32 | disposition home or self-care (01) ==
LOC: HO.HMGCLDS 12:31
PROVIDERS: PCP Internal Medicine; Visit Provider Internal Medicine
DX: R00.2 Palpitations (principal)
CPT/HCPCS: 36415; 84443

== ENCOUNTER 2022-03-19 15:32 | Outpatient (REF) | payer OTHER, SELFPAY ==
--- NOTE | ~2022-03-19 | MM_ITS ---
EXAMINATION: MM SCREENING DIGITAL BREAST TOMOSYNTHESIS, BILATERAL CLINICAL INFORMATION: Screening. Asymptomatic. COMPARISON: Mammography: March 13, 2021 and studies dating back to July 14, 2014 TECHNIQUE: Digital breast tomosynthesis is performed in both the craniocaudal and mediolateral oblique views along with computer-aided detection (CAD). Synthesized 2D images are generated from the tomosynthesis. FINDINGS: There are scattered areas of fibroglandular density (ACR BI-RADS breast composition Category b). There are no significant masses, abnormal calcifications, or other abnormalities. MM/MM tomosynthesis screening BI IMPRESSION: No significant changes from prior exam. ASSESSMENT: BI-RADS 1: Negative RECOMMENDATION: Routine annual mammography screening. This patient's information was entered into a reminder system with a target due date for their next mammogram.
== END 2022-03-19 15:33 | disposition home or self-care (01) ==
LOC: HO.MAMMO 15:32
PROVIDERS: PCP Internal Medicine; Visit Provider Internal Medicine
DX: Z12.31 Encounter for screening mammogram for malignant neoplasm of breast (principal)
CPT/HCPCS: 77063; 77067

== ENCOUNTER → 2022-03-21 15:33 | Outpatient (BNVA) | payer OTHER, SELFPAY | PROVIDERS: PCP Internal Medicine; Visit Provider Internal Medicine Pulmonary Disease | DX: J45.909 Unspecified asthma, uncomplicated (principal); D86.9 Sarcoidosis, unspecified | CPT/HCPCS: 99212 ==

== ENCOUNTER → 2022-03-27 14:33 | Outpatient (BNVA) | payer OTHER, SELFPAY | PROVIDERS: PCP Internal Medicine; Visit Provider Nurse Practitioner Family | DX: R00.2 Palpitations (principal); R42 Dizziness and giddiness; E66.9 Obesity, unspecified; Z68.41 Body mass index [BMI] 40.0-44.9, adult | CPT/HCPCS: 99202 ==

== ENCOUNTER → 2022-04-02 12:55 | Outpatient (REF) | payer OTHER, SELFPAY ==
--- NOTE | 2022-04-02 12:57 | CA_ITS ---
Transthoracic Echocardiogram Amended Patient (Last, First, Middle): Alejandra Ortega L Gender: Female Date of : 1975 Age: 46 Procedure Date: 04/02/2022 Procedure Type: Transthoracic Echocardiogram Location: OP Height: 160.02 cm Weight: 102.97 kg BSA: 2.04 m2 Heart Rate: bpm BP: 155 / 96 mmHg Manager Cost: DASIA Referring MD: Araceli Leonard DRAWER MAKERLincoln Symptoms: R00.2 - Palpitations Study Quality: Adequate ECG Rhythm: Sinus Conclusions: - The left ventricular systolic function is normal. The visually estimated ejection fraction is between 65-70%. - No obvious valvular pathology seen on this study. Findings Left Ventricle Normal left ventricular cavity size. There is normal left ventricular wall thickness. The left ventricular systolic function is normal. The visually estimated ejection fraction is between 65-70%. There is no evidence of regional wall motion abnormalities. There is mild septal asymmetric hypertrophy. LV peak GLS -19%. Right Ventricle Normal right ventricular cavity size and systolic function. Atria Both atria are normal in size. Aortic Valve There is a normal trileaflet aortic valve. There is no aortic valve stenosis. There is no aortic valve regurgitation. Mitral Valve The mitral valve appears normal. There is no mitral valve regurgitation. There is no mitral valve stenosis. Pulmonic Valve The pulmonic valve is likely normal. Tricuspid Valve Normal tricuspid valve structure. There is trace tricuspid valve regurgitation. There is no evidence of pulmonary hypertension. Great Vessels The asc aorta and aortic arch are normal in size. Venous The inferior vena cava is normal in size and collapses greater than 50% with inspiration. Pericardium/Pleural There is no evidence of pericardial effusion. Prior Study Comparison No significant change compared to prior study dated: 02/19/2018. Recommendations, Care & Conclusions No obvious valvular pathology seen on this study. Measurements 2D Linear Measurements IVSd: 0.90 0.6-0.9/0.6-1.0 cm LVIDd: 4.99 3.9-5.3/4.2-5.9 cm LVIDd Index: 2.45 2.4-3.2/2.2-3.1 cm/m2 LVIDs: 2.43 2.0-3.6 cm LVPWd: 0.97 0.7-1.1 cm LA Diam: 3.40 2.7-3.8/3.0-4.0 cm LAIDs Index: 1.67 1.5-2.3 cm/m2 LV Mass: 205.79 67-162/88-224 g LV Mass Index: 100.88 43-95/49-115 g/m2 LVOT Diam: 2.00 3.0+(-)1.3 cm 2D Volumes LA Vol: 23.00 2D Systolic Function EF 4C: 63.90 >55% EF 2C: 55.80 >55% EF BiP: 61.30 >55% Mitral Valve MV Pk E: 0.74 MV PK A: 0.69 MV Decel Time: 227.00 E/A: 1.10 E'Lateral: 10.30 E'Medial: 7.29 E/E' Med: 10.10 E/E' Lat: 7.20 PHT: 67.00 MVA PHT: 3.28 Decel [place]: 3.24 Aortic Valve AoV Pk Brooks: 1.55 AoV Mn Brooks: 1.00 AoV VTI: 0.33 AoV Pk Grad: 10.00 Aov Mn Grad: 5.00 JUSTYNA Cont.VTI: 2.36 LVOT LVOT Pk Brooks: 1.23 LVOT Mn [place]: 0.81 LVOT VTI: 0.25 LVOT Pk Grad: 6.00 LVOT Mn Grad: 3.00 LVOT Diam: 2.00 LVOT Area: 3.14 Diastolic Function MV Pk E: 0.74 MV Pk A: 0.69 E/A: 1.10 E'Medial: 7.29 E/E' Med: 10.10 E' Laterial: 10.30 E/E' Lat: 7.20 Right Ventricle TAPSE (mm): 18.90 TVS' Brooks: 10.30 Tricuspid Valve TR Pk Brooks: 1.97 TR Pk Grad: 16.00 RA Press: 3.00 RVSP: 19.00 Great Vessels Aorta Sinus of Valsalva: 3.01 2.0-3.[address] [place]: 2.52 1.7-3.4 cm Ao Asc: 3.00 2.1-3.4 cm Ao Arch: 2.70 Updated in Other Vendor System with Status of Final Jamie Hood MD electronically signed on 04/03/2022 1:21:38 PM with status of Final
== END ==
LOC: HO.CARD 12:55
PROVIDERS: PCP Internal Medicine; Visit Provider Nurse Practitioner Family
DX: R00.2 Palpitations (principal); R42 Dizziness and giddiness
CPT/HCPCS: 93306; 93356

== ENCOUNTER 2022-04-11 08:41 | Outpatient (REF) | payer OTHER, SELFPAY ==
--- NOTE | ~2022-04-11 | US_ITS ---
EXAMINATION: US RETROPERITONEAL LIMITED (RENAL ONLY) CLINICAL INFORMATION: Calculus of kidney. COMPARISON: Renal ultrasound 09/15/2021. CT abdomen and pelvis 06/07/2021. TECHNIQUE: Real-time imaging of the kidneys. FINDINGS: RIGHT KIDNEY: 12.5 x 4.6 x 5.0 cm (SAG x AP x TRV). The kidney is normal in size, contour, and echogenicity. Renal cortical thickness is normal. No focal parenchymal lesions or hydronephrosis. A previously seen 3 mm upper pole renal stone is no longer identified. A 3 mm midpole renal stone previously measured 5 mm and a 4 mm lower pole renal stone previously measured 3 mm. LEFT KIDNEY: 11.5 x 6.4 x 4.8 cm (SAG x AP x TRV). The kidney is normal in size, contour, and echogenicity. Renal cortical thickness is normal. No focal parenchymal lesions or hydronephrosis. Multiple previously seen stones are no longer identified. A 3 mm lower pole renal stone is unchanged. US/US renal BI IMPRESSION: Bilateral nonobstructing renal stones as detailed above multiple of which are no longer identified, and others are stable, slightly increased or slightly decreased in size, the largest measuring 4 mm in the right lower pole.
== END 2022-04-11 08:42 | disposition home or self-care (01) ==
LOC: HO.US 08:41
DX: N20.0 Calculus of kidney (principal)
CPT/HCPCS: 76775

== ENCOUNTER → 2022-04-23 10:54 | Outpatient (REF) | payer OTHER, SELFPAY ==
--- NOTE | 2022-04-23 10:57 | HM_ITS ---
* Total monitoring time about 7 days. * Underlying rhythm is sinus. Average ventricular rate 82/Min. Range 61 to 129/Min. * No evidence of atrial fibrillation or flutter. * Very rare PACs. * No significant pauses or AV blocks. * Patient symptoms including racing, dizzy, lightheadedness, heavy chest, associated with sinus rhythm and sinus tachycardia. MTDD
== END ==
LOC: HO.CARD 10:54
PROVIDERS: PCP Internal Medicine; Visit Provider Nurse Practitioner Family
DX: R00.2 Palpitations (principal); R42 Dizziness and giddiness
CPT/HCPCS: 93242

== ENCOUNTER 2022-05-25 11:19 | Outpatient (REF) | payer OTHER, SELFPAY ==
[2022-05-25 12:31] LABS: Influenza A PCR NEGATIVE (Negative); Influenza B PCR NEGATIVE (Negative); Resp Syncy Virus RNA Qual PCR NEGATIVE (Negative); SARS COV2 PCR INHOUSE NEGATIVE (Negative)
== END 2022-05-25 11:20 | disposition home or self-care (01) ==
LOC: HO.LNP 11:19
PROVIDERS: Visit Provider Nurse Practitioner Family
DX: R09.89 Other specified symptoms and signs involving the circulatory and respiratory systems (principal); J06.9 Acute upper respiratory infection, unspecified; Z20.822 Contact with and (suspected) exposure to COVID-19
CPT/HCPCS: 0241U

== ENCOUNTER → 2022-06-12 15:10 | Outpatient (BNVA) | payer OTHER, SELFPAY | PROVIDERS: PCP Internal Medicine; Visit Provider Nurse Practitioner Family | DX: N20.0 Calculus of kidney (principal) | CPT/HCPCS: 99212 ==

== ENCOUNTER → 2022-06-19 13:00 | Outpatient (BNVA) | payer OTHER, SELFPAY | PROVIDERS: PCP Internal Medicine; Referring Provider Internal Medicine; Visit Provider Nurse Practitioner Family | DX: R00.2 Palpitations (principal); I42.2 Other hypertrophic cardiomyopathy; E66.9 Obesity, unspecified; Z68.41 Body mass index [BMI] 40.0-44.9, adult | CPT/HCPCS: 99212 ==

== ENCOUNTER 2022-08-14 08:45 | Outpatient (REF) | payer OTHER, SELFPAY ==
--- NOTE | ~2022-08-14 | CT_ITS ---
EXAMINATION: CT CHEST WITHOUT CONTRAST CLINICAL INFORMATION: Sarcoidosis. COMPARISON: 09/07/2020 TECHNIQUE: Multidetector volumetric CT imaging of the chest was done. Axial MIP volume rendering provided. Sagittal and coronal reformatted images were obtained. This CT examination was performed using dose optimization techniques as appropriate, variously including the following: *Automated exposure control *Adjustment of mA and/or kV according to patient size (this includes techniques or standardized protocols for targeted exams where dose is matched to indication/reason for exam; i.e. extremities or head) *Use of iterative reconstruction technique DLP: 200 mGy-cm FINDINGS: LUNGS: Central airways are patent. No bronchial wall thickening is seen. No bronchiectasis. No confluent parenchymal disease. There is a noncalcified well-circumscribed 4 mm nodule seen within the left lower lobe on image [address] series #9. No significant interstitial lung disease is appreciated. No reticulonodular disease is seen. No significant air trapping is appreciated. MEDIASTINUM: Visualized thyroid gland appears unremarkable. Heart normal size. No pericardial effusion. No thoracic aortic aneurysm. No mediastinal or hilar lymphadenopathy. CORONARY ARTERY CALCIFICATION: None visualized on this study. PLEURA: There is no pleural effusion. No pleural mass or thickening. AXILLA: No lymphadenopathy. UPPER ABDOMEN: Unremarkable. OSSEOUS STRUCTURES: No acute or destructive bony lesions identified. CT/CT chest wo IV con IMPRESSION: No significant changes of sarcoidosis identified with no evidence of reticulonodular disease or interstitial lung disease and without mediastinal lymphadenopathy. No specific findings of air trapping identified. Solitary 4 mm noncalcified nodule within the left lower lobe. According to the UPDATED 2017 Fleischner Society recommendations, the advised follow-up imaging for solid nodules < 6 mm is: LOW RISK PATIENT: No routine follow-up. HIGH RISK PATIENT: Optional CT at 12 months.
== END 2022-08-14 08:46 | disposition home or self-care (01) ==
LOC: HO.CT 08:45
PROVIDERS: PCP Internal Medicine; Visit Provider Internal Medicine Pulmonary Disease
DX: D86.9 Sarcoidosis, unspecified (principal)
CPT/HCPCS: 71250

== ENCOUNTER 2022-09-27 09:04 | Outpatient (REF) | payer OTHER, SELFPAY ==
--- NOTE | ~2022-09-27 | XR_ITS ---
EXAMINATION: XR FOOT, RIGHT CLINICAL INFORMATION: Right foot pain COMPARISON: None available. TECHNIQUE: AP, lateral, and oblique views of the right foot. FINDINGS: The bones and soft tissues are normal. No fracture. Alignment is anatomic. Joint spaces are maintained. XR/XR foot RT min 3V IMPRESSION: Normal right foot.
== END 2022-09-27 09:05 | disposition home or self-care (01) ==
LOC: HO.HMGCX 09:04
PROVIDERS: PCP Internal Medicine; Visit Provider Internal Medicine
DX: M79.671 Pain in right foot (principal)
CPT/HCPCS: 73630

== ENCOUNTER 2022-12-31 10:47 | Outpatient (REF) | payer OTHER, SELFPAY ==
--- NOTE | ~2022-12-31 | US_ITS ---
EXAMINATION: US RETROPERITONEAL LIMITED (RENAL ONLY) CLINICAL INFORMATION: Calculus of kidney. COMPARISON: Bilateral renal ultrasound dated 04/11/2022 and 09/15/2021. CT abdomen and pelvis without contrast dated 06/07/2021. KUB dated 09/16/2019 and 08/08/2016. TECHNIQUE: Real-time imaging of the kidneys. Limited visualization due to bowel gas. FINDINGS: RIGHT KIDNEY: 12.3 x 5.1 x 5.9 cm (SAG x AP x TRV). Right renal 0.3 cm upper pole echogenic focus characteristic of a calculus. No hydronephrosis. Limited visualization. LEFT KIDNEY: 11.9 x 5.7 x 4.8 cm (SAG x AP x TRV). Renal 0.3 cm mid pole echogenic focus characteristic of a calculus. No hydronephrosis. Limited visualization. US/US renal BI IMPRESSION: Tiny bilateral renal calculi. No hydronephrosis.
[2022-12-31 14:28] LABS: Alanine Aminotransferase 56 U/L (0-31); Aspartate Amino Transferase 35 U/L (5-31); Cholesterol 188 mg/dL (<200); Glucose Fasting 92 mg/dL (60-99); HDL Cholesterol 61 mg/dL (>40); LDL Cholesterol Calculated 97 mg/dL (<100); Triglycerides 150 mg/dL (<150)
== END 2022-12-31 10:48 | disposition home or self-care (01) ==
LOC: HO.HMGCX 10:47
PROVIDERS: Absent Provider Internal Medicine; PCP Internal Medicine; Visit Provider Nurse Practitioner Family
DX: Z00.01 Encounter for general adult medical examination with abnormal findings (principal); E78.2 Mixed hyperlipidemia; D86.9 Sarcoidosis, unspecified; E55.9 Vitamin D deficiency, unspecified; E66.9 Obesity, unspecified; M06.9 Rheumatoid arthritis, unspecified; N20.0 Calculus of kidney
CPT/HCPCS: 36415; 76775; 80061; 82947; 84450; 84460

== ENCOUNTER 2023-01-01 09:06 | Outpatient (AMB) | payer OTHER, SELFPAY ==
--- NOTE | 2023-01-01 09:16 | A.OFFVIS_ITS ---
Intake Vital Signs 01/01/23 09:18 Height 5 ft 3 in Weight 237 lb BMI 42.0 BP 117/77 Blood Pressure Location Rt brachial Position Sitting Pulse 72 Pulse Oximetry (%) 96 Oxygen Delivery Method Room Air Intake Visit Reasons: Asthma Allergies tocilizumab [From Actemra] Allergy (Severe, Verified 01/01/23 09:17) Difficulty Breathing HPI Asthma HPI Details 47-year-old lady, recent approximately 15 pack-year smoker, quit 2018, with underlying rheumatoid arthritis followed for sarcoidosis with asthma features and pulmonary nodules. Patient continues on Breo and albuterol MDI with excellent control of her symptoms. She has had her CT chest in August of 2022 showing new 4 mm nodules, otherwise stable. She denies any recent exacerbations. [facility] Medical History Bilateral sacroiliitis BMI 38.0-38.9,adult Depression with anxiety GERD (gastroesophageal reflux disease) Intermittent palpitations Mixed dyslipidemia Nephrolithiasis Obesity Obesity (BMI 35.0-39.9 without comorbidity) Renal stones Rheumatoid arthritis Skin tag Surgical History H/O dilation and curettage H/O excision of ganglion cyst History of bilateral salpingectomy History of robot-assisted laparoscopic hysterectomy History of tubal ligation Hx laparoscopic cholecystectomy Hx of appendectomy Hx of myringotomy Hx of ovarian cystectomy Hx of tonsillectomy Previous section Status post laser lithotripsy of ureteral calculus Family History Father HTN (hypertension) Diabetes mellitus Depression Dyslipidemia Substance use disorder Mental health disorder Mother Pancreatic cancer Anxiety Brother Substance use disorder Mental health disorder Daughter Mental health disorder Sister Substance use disorder Mental health disorder Maternal Uncle Mental health disorder Daughter Mental health disorder Daughter Mental health disorder Social History Housing: Apartment Alcohol intake: current Alcohol intake frequency: holidays/special occasions only Patient Tobacco Use Status: Former Tobacco user Years Smoked: 25 yrs e-Cigarette/Vaping Use: Never Used Second Hand Smoke Exposure: No service: No Current occupational status: employed Cognitive needs: No Hearing needs: No Vision needs: No Review of Systems Const Denies daytime sleepiness, Denies excessive sweating, Denies fatigue, Denies fever(s), Denies lethargy, Denies malaise, Denies night sweats, Denies snoring and Denies weight loss Eyes Denies blurry vision and Denies itchy eyes ENT Denies nasal congestion, Denies post nasal drip, Denies sinus pain, Denies sinus pressure and Denies other ( Thrush) Card Denies chest pain, Denies pedal edema, Denies dyspnea, Denies orthopnea and Denies paroxysmal nocturnal dyspnea Resp Denies cough, Denies hemoptysis, Denies excessive phlegm production, Denies dyspnea, Denies snoring and Denies wheezing GI Denies abdominal pain and Denies heartburn Musc Denies myalgias, Denies arthralgias and Denies joint swelling Skin/Breast Denies rash Neuro Denies memory loss and Denies seizure-like activity Psych Denies abnormal sleep pattern, Denies anxiety and Denies memory loss Endo Denies excessive sweating, Denies fatigue and Denies heat intolerance Tim/Lymph Denies easy bruising Aller/Immun Denies itchy eyes, Denies seasonal rhinorrhea and Denies wheezing Physical Exam Vital Signs: Last Vital Signs Pulse 72 01/01/23 09:18 BP 117/77 01/01/23 09:18 Pulse Ox 96 01/01/23 09:18 Oxygen Delivery Method Room Air 01/01/23 09:18 BMI result Body Mass Index 42.0 Const General: no acute distress and alert Nutritional Appearance: not obese Orientation/consciousness: Other orientation findings ( oriented) HEENT Head: Yes atraumatic Eyes General: appearance normal, both eyes and all related structures Sclerae: sclerae normal EOM: EOMs intact bilaterally Neck Neck: Yes supple Lymphatic: no lymphadenopathy noted Resp Effort & Inspection: normal respiratory effort and no use of accessory muscles Auscultation: clear to auscultation bilaterally Cardio Rate: regular rate Rhythm: regular rhythm Heart sounds: no gallops, no murmurs and no rubs Skin General skin exam: other ( warm) Extrem General: No clubbing, No cyanosis and No edema Assessment & Plan Assessment & Plan (1) Sarcoidosis: Code(s): D86.9 - Sarcoidosis, unspecified Plan: No recent exacerbations. Continue to monitor clinically. (2) Asthma: Code(s): J45.909 - Unspecified asthma, uncomplicated Plan: Well controlled on current regimen of Breo and albuterol MDI. Continue current regimen. (3) Pulmonary nodule: Code(s): R91.1 - Solitary pulmonary nodule Plan: Results of CT chest from August of 2022 reviewed, new 4 mm nodule. Will repeat CT chest in August of 2023. Orders: Orders CT chest wo IV con 09/02/23 R91.1 - Solitary pulmonary nodule Coding Level of Care Code Est Pt Level 4 (83909) Diagnoses Sarcoidosis D86.9 Asthma J45.909 Pulmonary nodule R91.1
[2023-01-01 09:18] VITALS: BP 117/77; PULSE 72; O2SAT 96; BMI 42.0
== END 2023-01-01 09:46 | disposition home or self-care (01) ==
PROVIDERS: PCP Internal Medicine; Visit Provider Internal Medicine Pulmonary Disease
DX: D86.9 Sarcoidosis, unspecified (principal); J45.909 Unspecified asthma, uncomplicated; R91.1 Solitary pulmonary nodule
CPT/HCPCS: 99214

== ENCOUNTER → 2023-01-01 09:06 | Outpatient (BNVA) | payer OTHER, SELFPAY | PROVIDERS: Visit Provider Internal Medicine Pulmonary Disease ==

== ENCOUNTER 2023-01-10 13:51 | Outpatient (AMB) | payer OTHER, SELFPAY ==
--- NOTE | 2023-01-10 14:00 | A.OFFPC_ITS ---
<Statement entered by Jeri Snyder MD - 09/16/24 15:20> This note has been administratively?closed. Vital Signs 01/10/23 14:03 Height 5 ft 3 in Weight 232 lb BMI 41.1 BP 120/78 Blood Pressure Location Lt brachial Position Sitting Pulse 76 Pulse Source Pulse Oximeter Pulse Oximetry (%) 96 Oxygen Delivery Method Room Air Intake Visit Reasons: PE Intake Note: Pt is here today for her PE Allergies tocilizumab [From Actemra] Allergy (Severe, Verified 01/29/24 14:42) Difficulty Breathing Medication List - Last Reconciled 01/10/23 by Jeri Snyder MD Breo Ellipta 200-25 mcg/dose (fluticasone furoate-vilanterol) 1 inh inhalation DAILY 30 days NS cholecalciferol (vitamin D3) 125 mcg PO DAILY hydroxyzine HCl 10 mg PO BID PRN lamotrigine 50 mg PO DAILY lamotrigine 200 mg PO DAILY leflunomide 20 mg PO DAILY meloxicam 15 mg PO DAILY omega-3 fatty acids (Fish Oil Concentrate) 1,000 mg PO DAILY pyridoxine (vitamin B6) 100 mg PO DAILY 90 days rosuvastatin 5 mg PO DAILY tofacitinib ER (Xeljanz XR) 11 mg PO DAILY Tobacco use date assessed: 01/10/23 Dental Screening Dental Screen Date: 01/10/23 Did you have a dental visit in the last 12 months?: Yes Did you have a dental problem in the last 6 months where you did not have access to dental care?: No Was dental information given to patient?: Patient has dentist HPI PE HPI Details 47-year-old lady here today for physical exam. She has history of kidney stones bilateral, mild intermittent asthma, history of binge eating disorder, GERD, obesity, sarcoidosis and depression anxiety followed at [facility]. She is up-to-date with her screening mammogram, due again March 2023 [facility] Medical History Restless leg syndrome History of nephrolithiasis GERD (gastroesophageal reflux disease) BMI 38.0-38.9,adult Obesity (BMI 35.0-39.9 without comorbidity) Nephrolithiasis Bilateral sacroiliitis Depression with anxiety Rheumatoid arthritis Mixed dyslipidemia Surgical History History of bilateral salpingectomy History of robot-assisted laparoscopic hysterectomy Hx of ovarian cystectomy H/O dilation and curettage Status post laser lithotripsy of ureteral calculus History of tubal ligation Hx of myringotomy H/O excision of ganglion cyst Previous section Hx of appendectomy Hx laparoscopic cholecystectomy Hx of tonsillectomy Family History Father HTN (hypertension) Diabetes mellitus Depression Dyslipidemia Substance use disorder Mental health disorder Mother Pancreatic cancer Anxiety Brother Substance use disorder Mental health disorder Daughter Mental health disorder Sister Substance use disorder Mental health disorder Maternal Uncle Mental health disorder Daughter Mental health disorder Daughter Mental health disorder Social History Housing: Apartment Alcohol intake: current Alcohol intake frequency: does not drink Patient Tobacco Use Status: Former Tobacco user Years Smoked: 25 yrs e-Cigarette/Vaping Use: Never Used Second Hand Smoke Exposure: No service: No Current occupational status: employed Cognitive needs: No Hearing needs: No Vision needs: Yes Questionnaire PHQ-9 Over the last 2 weeks, how often have you been bothered by any of the following problems? 1. Little interest or pleasure in doing things: not at all 2. Feeling down, depressed, or hopeless: not at all 3. Trouble falling or staying asleep, or sleeping too much: more than half the days 4. Feeling tired or having little energy: several days 5. Poor appetite or overeating: not at all 6. Feeling bad about yourself - or that you are a failure or have let yourself or your family down: not at all 7. Trouble concentrating on things, such as reading the newspaper or watching television: several days 8. Moving or speaking so slowly that other people could have noticed. Or the opposite - being so fidgety or restless that you have been moving around a lot more than usual: not at all 9. Thoughts that you would be better off or of hurting yourself in some way: not at all Total score: 4 Source: Developed by Drs. Ralph Dozier, Gogo Larkin, Christopher Patrick and colleagues, with an educational annabelle from [employer]. Thrive Questionnaire Date Thrive assessed: 01/10/23 I am a: Patient What is your living situation today?: I have a steady place to live Within the past 12 months, did the food you bought not last and you didn't have the money to get more?: Never true Within the past 12 months, did you worry whether your food would run out before you got money to buy more?: Sometimes True Do you have trouble paying for medicines?: Yes Do you have trouble getting transportation to medical appointments?: No Do you have trouble paying your heating and electricity bill?: No Do you have trouble taking care of your child, family member or friend?: No Do you have trouble with day-to-day activities such as bathing, preparing meals, shopping, managing finances, etc.?: No Are you currently unemployed and looking for a job?: No Are you interested in more education?: No AUDIT C Alcohol Use Questionnaire (AUDIT-C) 1. How often do you have a drink containing alcohol?: Monthly or less 2. How many drinks containing alcohol do you have on a typical day when you are drinking?: 1 or 2 3. How often do you have six or more drinks on one occasion?: Never Total Score: 1 MATT-7 AMB Questionnaire MATT-7 Date MATT - 7 assessed: 01/10/23 Feeling nervous, anxious, or on edge: 1 = Several days Not being able to stop or control worryin = Not at all Worrying too much about different things: 0 = Not at all Trouble relaxin = Several days Being so restless that it is hard to sit still: 0 = Not at all Becoming easily annoyed or irritable: 0 = Not at all Feeling afraid as if something awful might happen: 0 = Not at all Total MATT-7 score (0-4 normal; 5-9 mild; 10-14 moderate; 15-21 severe): 2 Source: Developed by Drs. aRlph Dozier, Gogo Larkin, Christopher Patrick and colleagues, with an educational annabelle from [employer]. ACT Questionnaire In the past 4 weeks, how much of the time did your asthma keep you from getting as much done at work, school or at home?: A little of the time During the past 4 weeks, how often have you had shortness of breath?: 3-6 times a week During the past 4 weeks, how often did your asthma symptoms wake you up at night or earlier than usual in the morning?: Not at all During the past 4 weeks, how often have you had to use your rescue inhaler or nebulizer medication?: Once a week or less How would you rate your asthma control during the past 4 weeks?: Well controlled Score: 20 Physical exam (Primary Care) Vital Signs: Last Vital Signs Pulse 76 01/10/23 14:03 BP 120/78 01/10/23 14:03 Pulse Ox 96 01/10/23 14:03 Oxygen Delivery Method Room Air 01/10/23 14:03 BMI result Body Mass Index 41.1 Tobacco/Smoking Status: Tobacco use Status Tobacco use date assessed 01/10/23 01/10/23 14:09 Patient Tobacco Use Status Former Tobacco user 01/10/23 14:03 e-Cigarette/Vaping Use Never Used 01/10/23 14:03 PHQ-9: PHQ-9 Score PHQ-9: Total score 4 01/10/23 15:01 Thrive Assessment: Date of Thrive Assessment Date Thrive assessed 01/10/23 01/10/23 14:29 Assessment and Plan Assessment & Plan (1) Mixed dyslipidemia: Code(s): E78.2 - Mixed hyperlipidemia (2) Colon cancer screening: Code(s): Z12.11 - Encounter for screening for malignant neoplasm of colon (3) Chronic heartburn: Code(s): R12 - Heartburn (4) Vitamin B12 deficiency: Code(s): E53.8 - Deficiency of other specified B group vitamins Orders: Orders Lipid Panel 07/12/23 E53.8 - Deficiency of other specified B group vitamins, E55.9 - Vitamin D deficiency, unspecified, E78.2 - Mixed hyperlipidemia Vitamin D 25-OH Total 07/12/23 E53.8 - Deficiency of other specified B group vitamins, E55.9 - Vitamin D deficiency, unspecified, E78.2 - Mixed hyperlipidemia Vitamin B12 and Folate 07/12/23 E53.8 - Deficiency of other specified B group vitamins, E55.9 - Vitamin D deficiency, unspecified, E78.2 - Mixed hyperlipidemia Referrals Gastroenterology Referral Z12.11 - Encounter for screening for malignant neoplasm of colon, E78.2 - Mixed hyperlipidemia Medications: New omeprazole 20 mg PO DAILY PRN 30 caps 1RF heartburn R12 - Heartburn omeprazole 20 mg PO DAILY PRN 30 caps 1RF heartburn R12 - Heartburn Coding Level of Care Code Est Pt Prev Care 40-64y(68222) Diagnoses Mixed dyslipidemia E78.2 Colon cancer screening Z12.11 Chronic heartburn R12 Vitamin B12 deficiency E53.8
[2023-01-10 14:03] VITALS: BP 120/78; PULSE 76; O2SAT 96; BMI 41.1
== END 2023-01-10 15:04 | disposition home or self-care (01) ==
PROVIDERS: PCP Internal Medicine; Visit Provider Internal Medicine
DX: E78.2 Mixed hyperlipidemia (principal); Z12.11 Encounter for screening for malignant neoplasm of colon; R12 Heartburn; E53.8 Deficiency of other specified B group vitamins
CPT/HCPCS: 99499

== ENCOUNTER 2023-01-11 15:18 | Outpatient (AMB) | payer OTHER, SELFPAY ==
--- NOTE | 2023-01-11 15:25 | MHC.OFFVIS ---
Intake Intake Visit Reasons: 6m follow up/US(SET) Intake Note: Patient presents for ultrasound follow up renal stones (imaging 12/31/22) Urology Medication: Vitamin B6 Blood Thinner: none Weight And Balance Control Agent Required: No Accompanied by: Self / Same As Patient Allergies tocilizumab [From Actemra] Allergy (Severe, Verified 01/11/23 15:49) Difficulty Breathing Medication List - Last Reconciled 01/11/23 by SUNITA Suarez Breo Ellipta 200-25 mcg/dose (fluticasone furoate-vilanterol) 1 inh inhalation DAILY 30 days NS cholecalciferol (vitamin D3) 125 mcg PO DAILY hydroxyzine HCl 10 mg PO BID PRN lamotrigine 50 mg PO DAILY lamotrigine 200 mg PO DAILY leflunomide 20 mg PO DAILY meloxicam 15 mg PO DAILY omega-3 fatty acids (Fish Oil Concentrate) 1,000 mg PO DAILY omeprazole 20 mg PO DAILY PRN pyridoxine (vitamin B6) 100 mg PO DAILY 90 days rosuvastatin 5 mg PO DAILY tofacitinib ER (Xeljanz XR) 11 mg PO DAILY HPI HPI Comments History of Present Illness Details Alejandra Lennon is a pleasant 47-year-old female patient of Dr. Snyder. She has past medical history of depression, anxiety, GERD, mixed dyslipidemia, obesity, rheumatoid arthritis, and nephrolithiasis. She presents to the office today for follow-up regarding her nephrolithiasis. When asked patient reports to be doing well. Recent renal imaging results reviewed with the patient today. Right renal 0.3 cm upper pole echogenic focus characteristic of a calculus. No hydronephrosis noted. Left kidney with 0.3 cm mid pole echogenic focus characteristic the calculus. No hydronephrosis noted. She denies any urological issues/concerns at this time. Patient denies flank pain, fever, chills, and or hematuria. Patient continues to be compliant with vitamin B6 and drinks plenty of fluid daily and adds lemon juice to her water. In office urinalysis results reviewed with the patient today. She otherwise offers no other issues or concerns at this time. [facility] Medical History Bilateral sacroiliitis BMI 38.0-38.9,adult Chronic heartburn Depression with anxiety GERD (gastroesophageal reflux disease) Intermittent palpitations Mixed dyslipidemia Nephrolithiasis Obesity Obesity (BMI 35.0-39.9 without comorbidity) Renal stones Rheumatoid arthritis Skin tag Surgical History H/O dilation and curettage H/O excision of ganglion cyst History of bilateral salpingectomy History of robot-assisted laparoscopic hysterectomy History of tubal ligation Hx laparoscopic cholecystectomy Hx of appendectomy Hx of myringotomy Hx of ovarian cystectomy Hx of tonsillectomy Previous section Status post laser lithotripsy of ureteral calculus Family History Father HTN (hypertension) Diabetes mellitus Depression Dyslipidemia Substance use disorder Mental health disorder Mother Pancreatic cancer Anxiety Brother Substance use disorder Mental health disorder Daughter Mental health disorder Sister Substance use disorder Mental health disorder Maternal Uncle Mental health disorder Daughter Mental health disorder Daughter Mental health disorder Social History Housing: Apartment Alcohol intake: current Alcohol intake frequency: holidays/special occasions only Patient Tobacco Use Status: Former Tobacco user Years Smoked: 25 yrs e-Cigarette/Vaping Use: Never Used Second Hand Smoke Exposure: No service: No Current occupational status: employed Cognitive needs: No Hearing needs: No Vision needs: Yes Review of Systems Const All systems reviewed & are unremarkable except as noted in HPI and below Reports no additional complaints Eyes Reports no additional complaints ENT Reports no additional complaints Card Reports no additional complaints Resp Reports no additional complaints GI Reports no additional complaints Reports as per HPI Musc Reports no additional complaints Neuro Reports no additional complaints Psych Reports no additional complaints Endo Reports no additional complaints Tim/Lymph Reports no additional complaints and Reports lymphadenopathy Aller/Immun Reports no additional complaints Physical Exam Const General: cooperative, healthy appearing, comfortable, no acute distress, well developed, alert and awake Orientation/consciousness: patient oriented x3 Limitations: no limitations HEENT Head: Yes normal to inspection, Yes normocephalic and Yes atraumatic Ears: hearing grossly normal bilaterally Eyes General: appearance normal, both eyes and all related structures Neck Neck: Yes normal visual inspection and Yes trachea midline Chest Chest palpation & inspection: normal inspection of the chest Resp Effort & Inspection: normal respiratory effort and able to speak in complete sentences Cardio Rate: regular rate General: Yes no CVA tenderness Back/Spine/Pelvis Back: no CVA tenderness Neuro General: patient oriented x3 Extrem General: Yes normal to inspection and Yes full ROM Psych Appearance: grossly normal and well kempt Mental Status: mental status grossly normal Speech and movement: Normal speech and movement present and Clear speech present Affect: normal affect Attitude: cooperative Thought process: Normal thought process present Thought content: Normal thought content present Insight: Good insight present (Psych) Judgement: Good judgement present (Psych) Results AMB Urinalysis, Automated UA Leukoctes 0 Garth/uL Last Edit by [employer] on 01/11/23 15:48 UA Nitrite Last Edit by [employer] on 01/11/23 15:48 UA Urobilinogen 0.2 mg/dL Last Edit by [employer] on 01/11/23 15:48 UA Protein 0 mg/dL Last Edit by [employer] on 01/11/23 15:48 UA pH 6.0 Last Edit by [employer] on 01/11/23 15:48 UA Blood 0 Maicol/uL Last Edit by [employer] on 01/11/23 15:48 UA Specific Buda 1.015 Last Edit by [employer] on 01/11/23 15:48 UA Ketone Negative Last Edit by [employer] on 01/11/23 15:48 UA Bilirubin 0 mg/dL Last Edit by [employer] on 01/11/23 15:48 UA Glucose 0 mg/dL Last Edit by [employer] on 01/11/23 15:48 Results Reviewed Results Reviewed: Laboratory Last Values Urine pH (Auto) 6.0 01/11/23 15:31 Specific Buda (Auto) 1.015 01/11/23 15:31 Urine Protein (Auto) 0 mg/dL 01/11/23 15:31 Glucose (UA)(Auto) 0 mg/dL 01/11/23 15:31 Urine Ketones (Auto) Negative 01/11/23 15:31 Urine Blood (Auto) 0 Maicol/uL 01/11/23 15:31 Urine Bilirubin (Auto) 0 mg/dL 01/11/23 15:31 Urine Urobilinogen (Auto) 0.2 mg/dL 01/11/23 15:31 Leukocyte Esterase (Auto) 0 Garth/uL 01/11/23 15:31 Date of Service: 12/31/22 EXAMINATION: US RETROPERITONEAL LIMITED (RENAL ONLY) FINDINGS: RIGHT KIDNEY: 12.3 x 5.1 x 5.9 cm (SAG x AP x TRV). Right renal 0.3 cm upper pole echogenic focus characteristic of a calculus. No hydronephrosis. Limited visualization. LEFT KIDNEY: 11.9 x 5.7 x 4.8 cm (SAG x AP x TRV). Renal 0.3 cm mid pole echogenic focus characteristic of a calculus. No hydronephrosis. Limited visualization. IMPRESSION: Tiny bilateral renal calculi. No hydronephrosis. Assessment & Plan Assessment & Plan (1) Renal calculus, bilateral: Code(s): N20.0 - Calculus of kidney Plan In office urinalysis results reviewed with the patient today; as noted above. Recent renal imaging results reviewed with the patient today; as noted above; stable Will continue with surveillance monitoring Continue vitamin B6 as discussed and prescribed. Patient denies any bothersome urinary issues or concerns at this time. Educated, encouraged, instructed on the importance of drinking plenty of water daily. Renal ultrasound in 1 year. Follow-up in 1 year with imaging to be completed prior; or sooner with any issues, concerns, and or questions Orders: Orders AMB Urinalysis Automated 01/11/23 Z13.9 - Encounter for screening, unspecified Patient Instructions: The patient had an opportunity to ask questions regarding the treatment plan. All questions were answered. Physical exam, labs, and imaging were discussed and reviewed in detail. As well as risks, benefits, and discussion of treatment choices. No major barriers to understanding were identified. The patient expressed understanding and agreement with the above treatment plan. The patient was made aware they should contact our office by phone for worsening of their current condition, the appearance of new symptoms, or with any questions or concerns. Compliance is encouraged with any medications and follow up testing that is ordered. It is a privilege to be allowed the opportunity to participate in? your urological care.? Again, if you have any questions or concerns If you have any questions or concerns please do not hesitate to contact me. The office is [phone]. This note is constructed using voice recognition software. While every effort has been made to ensure accuracy dinkey dispatcher errors may have been included. Yours sincerely, Joelle Cruz, OPHTHALMIC LENS INSPECTOR-BC Coding Level of Care Code Est Pt Level 3 (11623) Diagnoses Renal calculus, bilateral N20.0
== END 2023-01-11 15:49 | disposition home or self-care (01) ==
PROVIDERS: PCP Internal Medicine; Visit Provider Nurse Practitioner Family
DX: N20.0 Calculus of kidney (principal)
CPT/HCPCS: 99213

== ENCOUNTER → 2023-01-11 15:18 | Outpatient (BNVA) | payer OTHER, SELFPAY | PROVIDERS: Visit Provider Nurse Practitioner Family | DX: N20.0 Calculus of kidney (principal) | CPT/HCPCS: 81003 ==

== ENCOUNTER 2023-01-13 22:13 | Emergency (ER) | payer OTHER, SELFPAY ==
--- NOTE | ~2023-01-13 | XR_ITS ---
EXAMINATION: XR SHOULDER, RIGHT CLINICAL INFORMATION: Pain COMPARISON: None available. TECHNIQUE: 3 views of the right shoulder. FINDINGS: The bones and soft tissues are normal. No fracture. Glenohumeral and acromioclavicular alignment is anatomic with normal joint space. No abnormal soft tissue calcifications. XR/XR shoulder RT min 2V IMPRESSION: No significant abnormality identified.
[2023-01-13 22:22] VITALS: BP 124/67; PULSE 78; RESP 15; TEMP 36.6; O2SAT 94; BMI 40.2
[2023-01-14 00:13] VITALS: BP 130/67; PULSE 74; RESP 14; TEMP 36.5; O2SAT 94
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
[2023-01-14] MEDS: Ketorolac Tromethamine 15 MG/ML VIAL IM (00:54)
[2023-01-14] MEDS: Lidocaine 4 % Patch ADH..PATCH 1 PATCH TRANSDERMA (00:54)
[2023-01-14] MEDS: Acetaminophen 325 MG TABLET 975 MG PO (00:54)
== END 2023-01-14 01:20 | disposition home or self-care (01) ==
PROVIDERS: Emergency Provider Student in an Organized Health Care Education/Training Program; PCP Internal Medicine
DX: S13.4XXA Sprain of ligaments of cervical spine, initial encounter (principal); M54.50 Low back pain, unspecified; R51.9 Headache, unspecified; M54.2 Cervicalgia; M79.10 Myalgia, unspecified site; M25.511 Pain in right shoulder; V43.52XA Car driver injured in collision with other type car in traffic accident, initial encounter; Y93.9 Activity, unspecified; Y92.410 Unspecified street and highway as the place of occurrence of the external cause; Y99.9 Unspecified external cause status; Z79.899 Other long term (current) drug therapy
CPT/HCPCS: 73030; 96372; 99284; J1885

== ENCOUNTER 2023-01-25 15:21 | Outpatient (AMB) | payer OTHER, SELFPAY ==
--- NOTE | 2023-01-25 15:26 | A.OFFVIS_ITS ---
Intake Vital Signs 01/25/23 15:35 Height 5 ft 3 in Weight 227 lb BMI 40.2 BP 133/66 Blood Pressure Location Lt brachial Position Sitting Pulse 83 Intake Visit Reasons: colonoscopy screening Intake Note: Patient new consult for Pre Colonoscopy and EGD screening Patient cc: acid reflex with burning sensation, nauseas, abdominal pain with bloating, and really gassy. Evaporator Supervisor Required: No Accompanied by: Self / Same As Patient Allergies tocilizumab [From Actemra] Allergy (Severe, Verified 01/25/23 15:26) Difficulty Breathing HPI colonoscopy screening HPI Details 47 year old? female with past medical hi story of plantar fasciitis, asthma, vitamin-D deficiency, vitamin B12 deficiency, GERD, obesity, sarcoidosis, depression, rheumatoid arthritis is here today for pre colonoscopy screening.? Patient was sent to us by her PCP.? This is her first colonoscopy screening.? Patient denies any gastrointestinal symptoms in the past or at present.? However patient does report acid reflux. In the past couple of months she reports that she has been having increased dyspepsia. Patient denies dysphagia or odynophagia. Reports that omeprazole 20 mg is not working. Patient also reports postprandial abdominal bloating. Denies any personal or family history of gastrointestinal disease, colon polyps, or cancer.? Denies history of difficulty with sedation or anesthesia in the past.? Negative for history of sleep apnea.? Denies any history of cardiac, renal, pulmonary, or hepatic disease.?? No history of infectious? diseases like hepatitis A, B, C, HIV or tuberculosis.? Patient is not on any anticoagulation therapy. [facility] Medical History Bilateral sacroiliitis BMI 38.0-38.9,adult Chronic heartburn Depression with anxiety GERD (gastroesophageal reflux disease) Intermittent palpitations Mixed dyslipidemia Nephrolithiasis Obesity Obesity (BMI 35.0-39.9 without comorbidity) Renal stones Rheumatoid arthritis Skin tag Surgical History History of bilateral salpingectomy History of robot-assisted laparoscopic hysterectomy Hx of ovarian cystectomy H/O dilation and curettage Status post laser lithotripsy of ureteral calculus History of tubal ligation Hx of myringotomy H/O excision of ganglion cyst Previous section Hx of appendectomy Hx laparoscopic cholecystectomy Hx of tonsillectomy Family History Father HTN (hypertension) Diabetes mellitus Depression Dyslipidemia Substance use disorder Mental health disorder Mother Pancreatic cancer Anxiety Brother Substance use disorder Mental health disorder Daughter Mental health disorder Sister Substance use disorder Mental health disorder Maternal Uncle Mental health disorder Daughter Mental health disorder Daughter Mental health disorder Social History Housing: Apartment Alcohol intake: current Alcohol intake frequency: does not drink Patient Tobacco Use Status: Former Tobacco user Years Smoked: 25 yrs e-Cigarette/Vaping Use: Never Used Second Hand Smoke Exposure: No service: No Current occupational status: employed Cognitive needs: No Hearing needs: No Vision needs: Yes Review of Systems Const Denies weight gain and Denies weight loss ENT Reports no additional complaints, Denies dysphagia and Denies odynophagia Card Reports no additional complaints Resp Reports no additional complaints GI Denies abdominal pain, Denies belching, Denies melena, Denies bloating, Denies change in bowel habits, Denies dysphagia, Denies excessive flatus, Reports dyspepsia, Reports heartburn, Denies diarrhea, Denies loose stools, Reports nausea, Denies odynophagia and Denies vomiting Reports no additional complaints Musc Reports no additional complaints Neuro Reports no additional complaints Psych Reports no additional complaints Endo Reports no additional complaints Physical Exam Vital Signs: Last Vital Signs Pulse 83 01/25/23 15:35 BP 133/66 01/25/23 15:35 BMI result Body Mass Index 40.2 Const General: healthy appearing, no acute distress and well developed Nutritional Appearance: obese Orientation/consciousness: patient oriented x3 HEENT Head: Yes normal to inspection, Yes normocephalic and Yes atraumatic Face and sinus: Yes normal facial exam Mouth: Normal oral and palatal mucosa present Throat: Yes posterior oropharynx normal, Yes tonsils normal and Yes uvula midline Eyes General: appearance normal, both eyes and all related structures Neck Neck: Yes normal visual inspection, Yes full ROM and Yes trachea midline Thyroid: Thyroid normal Resp Effort & Inspection: normal respiratory effort, able to speak in complete sentences, no tracheal deviation and symmetric chest movement Auscultation: clear to auscultation bilaterally Cardio Rate: regular rate Heart sounds: S1 normal heart sound present and S2 normal heart sound present GI Inspection: Yes normal to inspection, No distended and Yes obesity Palpation (GI): Soft to palpation, not firm, nontender and No hepatosplenomegaly present Auscultation: normal bowel sounds General: Yes no CVA tenderness Back/Spine/Pelvis Back: no CVA tenderness Skin General skin exam: elasticity normal, turgor normal and dry skin Neuro General: patient oriented x3 Psych Appearance: grossly normal Mental Status: mental status grossly normal Speech and movement: Normal speech and movement present Assessment & Plan Assessment & Plan (1) Chronic heartburn: Code(s): R12 - Heartburn (2) GERD (gastroesophageal reflux disease): Code(s): K21.9 - Gastro-esophageal reflux disease without esophagitis Qualifiers: Esophagitis presence: esophagitis presence not specified Qualified Code(s): K21.9 - Gastro-esophageal reflux disease without esophagitis Plan: Will start patient on pantoprazole and stop omeprazole. Patient reports in the morning she wakes up feeling nauseous and feeling better after eating breakfast. Will send script for famotidine. Discussed with patient the importance of avoiding dietary triggers in late night snacking. Staying upright for minimum 3 hours after meals discussed with patient. Patient will be sent for upper endoscopy to rule out gastritis, duodenitis, esophagitis, gastric or peptic ulcers, H pylori. Patient does have a history of rheumatoid arthritis and is taking NSAIDs frequently. Patient was encouraged to decrease the amount of medications she is taking and take it with food (3) Colon cancer screening: Code(s): Z12.11 - Encounter for screening for malignant neoplasm of colon Plan: Patient denies any cardiac or respiratory symptoms.? Denies any issues with anesthesia in the past.? Denies any history of sleep apnea.? No history infectious diseases in the past or present.? Not on any anticoagulation therapy.? No family or personal history of colon cancer or polyps.? Patient denies melena, hematochezia, unintentional weight loss or ribbon like stools.? Discussed at length the pre-procedure,? prep, diet & medications as well as what to expect prior, during and after the procedure.?? Stressed the importance of good bowel prep. ?Recommended the use of Vaseline or Calmoseptine OTC & baby w ipes with bowel movements to promote comfort.? ?History of sarcoidosis and asthma. 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 Patient verbalizes understanding and agrees to plan of care.? She was given the opportunity to ask questions and all questions answered.? We will see her after the procedure.? Medications: New pantoprazole take one tablet half an hour before breakfast 40 mg PO DAILY 30 tabs 2RF K21.9 - Gastro-esophageal reflux disease without esophagitis bisacodyl (Dulcolax (bisacodyl)) take 2 tabs at noon the day before your colonoscopy 10 mg (2 x 5 mg) PO ONCE 1 day 2 tabs 0RF Z12.11 - Encounter for screening for malignant neoplasm of colon polyethylene glycol 3350 (Miralax) As directed by gastroenterology department at [facility] 238 grams PO ONCE 238 grams 0RF Z12.11 - Encounter for screening for malignant neoplasm of colon famotidine (Pepcid) 20 mg PO BEDTIME 30 tabs 3RF K21.9 - Gastro-esophageal reflux disease without esophagitis Discontinued ketorolac Patient received Toradol in the emergency room. Discontinued Reason: Doctor's Order 10 mg PO Q6H 5 days PRN 20 tabs 0RF pain omeprazole Discontinued Reason: Doctor's Order 20 mg PO DAILY PRN 30 caps 1RF heartburn R12 - Heartburn Coding Level of Care Code New Pt Level 3 (42120) Diagnoses Chronic heartburn R12 Gastroesophageal reflux disease, unspecified whether esophagitis present K21.9 Esophagitis presence: esophagitis presence not specified Colon cancer screening Z12.11 Time Spent (min) 40 Comment 30 minutes spent with patient and additional 10 minutes spent reviewing records
[2023-01-25 15:35] VITALS: BP 133/66; PULSE 83; BMI 40.2
== END 2023-01-25 16:03 | disposition home or self-care (01) ==
PROVIDERS: PCP Internal Medicine; Visit Provider Nurse Practitioner Family
DX: R12 Heartburn (principal); K21.9 Gastro-esophageal reflux disease without esophagitis; Z12.11 Encounter for screening for malignant neoplasm of colon
CPT/HCPCS: 99203

== ENCOUNTER → 2023-01-25 15:21 | Outpatient (BNVA) | payer OTHER, SELFPAY | PROVIDERS: PCP Internal Medicine; Visit Provider Nurse Practitioner Family ==

== ENCOUNTER 2023-03-14 12:29 | Outpatient (AMB) | payer OTHER, SELFPAY ==
[2023-03-14 13:07] VITALS: BP 126/80; PULSE 85; TEMP 36.6; O2SAT 98; BMI 41.9
--- NOTE | 2023-03-14 13:07 | MHC.OFFWIV ---
Intake Vital Signs 03/14/23 13:07 Height 5 ft 3 in Weight 236 lb 8 oz BMI 41.9 BP 126/80 Blood Pressure Location Lt brachial Position Sitting Pulse 85 Pulse Source Pulse Oximeter Temp 97.8 F Temp Source Temporal Artery Scan Pulse Oximetry (%) 98 Intake Visit Reasons: EP Left Knee pain Intake Note: pt is here for c/o leftk nee pain, fell at home moping the floor Patient Tobacco Use Status: Former Tobacco user Allergies tocilizumab [From Actemra] Allergy (Severe, Verified 03/14/23 13:08) Difficulty Breathing Do you need a note to return to daycare/school/sports/work: Yes HPI EP Left Knee pain HPI Details Patient is a 47-year-old female in today for a sick visit. Patient has a past medical history significant for rheumatoid arthritis. Three days prior to appointment patient states she slipped on the floor while mopping and hurt her left knee. Patient has poor point tenderness on the medial aspect of her left knee. Patient has been utilizing meloxicam which she uses for her rheumatoid arthritis. In addition patient also states 1 day prior to visit that she developed dull left calf pain. Also reports swelling. Findings from the physical exam noted swelling of the left knee, point tenderness to the medial aspect of the knee, with no bruising, scarring or erythema. Popliteal and pedal pulses are +2. Swelling to the left calf with no erythema or bruising. Patient able to bear weight on extremity. Likely left knee strain with reference pain down calf. Will obtain venous ultrasound of left calf to rule out deep VT, patient at increased risk of clotting due to rheumatoid arthritis. Obtained left venous lower extremity ultrasound. Obtained x-ray of left knee. Provide stabilizing knee device. Patient does not want pain medication. Educated on signs and symptoms in which she should return to the office. [facility] Medical History Bilateral sacroiliitis BMI 38.0-38.9,adult Chronic heartburn Depression with anxiety GERD (gastroesophageal reflux disease) Intermittent palpitations Mixed dyslipidemia Nephrolithiasis Obesity Obesity (BMI 35.0-39.9 without comorbidity) Renal stones Rheumatoid arthritis Skin tag Surgical History History of bilateral salpingectomy History of robot-assisted laparoscopic hysterectomy Hx of ovarian cystectomy H/O dilation and curettage Status post laser lithotripsy of ureteral calculus History of tubal ligation Hx of myringotomy H/O excision of ganglion cyst Previous section Hx of appendectomy Hx laparoscopic cholecystectomy Hx of tonsillectomy Family History Father HTN (hypertension) Diabetes mellitus Depression Dyslipidemia Substance use disorder Mental health disorder Mother Pancreatic cancer Anxiety Brother Substance use disorder Mental health disorder Daughter Mental health disorder Sister Substance use disorder Mental health disorder Maternal Uncle Mental health disorder Daughter Mental health disorder Daughter Mental health disorder Social History Housing: Apartment Alcohol intake: current Alcohol intake frequency: does not drink Patient Tobacco Use Status: Former Tobacco user Years Smoked: 25 yrs e-Cigarette/Vaping Use: Never Used Second Hand Smoke Exposure: No service: No Current occupational status: employed Cognitive needs: No Hearing needs: No Vision needs: Yes Review of Systems Const Details: Constitutional : No Weight loss, No Fever, No Chills, No Fatigue, No Malaise Musculoskeletal : Reports left knee pain, left calf pain, left calf swelling. Skin : Denies bruising Neuro : No Numbness or tingling. Psych : No Anxiety/Panic, No Depression PV: + 2 pedal and popliteal pulses All other systems reviewed and are negative All systems reviewed & are unremarkable except as noted in HPI and below Physical Exam Vital Signs: Last Vital Signs Temp 97.8 F 03/14/23 13:07 Pulse 85 03/14/23 13:07 BP 126/80 03/14/23 13:07 Pulse Ox 98 03/14/23 13:07 BMI result Body Mass Index 41.9 Vital signs reviewed and stable Appearance: Alert.? Oriented X3.? No acute distress.? Skin: Skin warm and dry.? Normal skin color.? Normal skin turgor.? Extremities: LLE Swelling. Pain with flexion. No gross deformities. Point tenderness the left knee. Back: No midline tenderness, no C-spine tenderness, full range of motion, no CVA tenderness bilaterally Neuro: Oriented X 3.? Assessment & Plan Assessment & Plan (1) Left knee pain: Code(s): M25.562 - Pain in left knee Qualifiers: Chronicity: acute Qualified Code(s): M25.562 - Pain in left knee Plan: Patient will get x-ray of left knee. Will be given knee stabilization device. Patient denies medication, already taking meloxicam home. Patient advised to follow-up if condition does not improve over the next week. (2) Pain of left calf: Code(s): M79.662 - Pain in left lower leg Plan: Will obtain ultrasound of the left calf muscle to rule out DVT. Patient educated on signs and symptoms in which she should return to the clinic or emergency room. Patient denies medication for the pain. Orders: Orders US venous duplex LE LT Today M79.89 - Other specified soft tissue disorders Coding Level of Care Code Est Pt Level 4 (16114) Diagnoses Acute pain of left knee M25.562 Chronicity: acute Pain of left calf M79.662 Time Spent (min) 30
== END 2023-03-14 16:02 | disposition home or self-care (01) ==
PROVIDERS: PCP Internal Medicine; Visit Provider Nurse Practitioner Primary Care
DX: M25.562 Pain in left knee (principal); M79.662 Pain in left lower leg
CPT/HCPCS: 99214; 99499

== ENCOUNTER 2023-03-14 14:01 | Outpatient (REF) | payer OTHER, SELFPAY ==
--- NOTE | ~2023-03-14 | XR_ITS ---
EXAMINATION: XR KNEE, LEFT CLINICAL INFORMATION: Pain COMPARISON: None available. TECHNIQUE: Four views of the left knee. FINDINGS: There does appear to be joint effusion. Some spurring at the insertion of the quadriceps on the patella. There is no acute fracture or dislocation. Some tibial spine spurring is seen and some medial compartment joint space loss is noted. No bony erosion. XR/XR knee LT 4V IMPRESSION: Mild degenerative changes and possible small effusion.
--- NOTE | ~2023-03-14 | US_ITS ---
EXAMINATION: US VENOUS ULTRASOUND WITH DOPPLER LOWER EXTREMITY, LEFT CLINICAL INFORMATION: Left calf swelling, pain. COMPARISON: No similar priors. TECHNIQUE: Ultrasound of the deep veins is performed from the hip to the calf with compression sonography and color and pulse Doppler assessment. Spectral analysis with color-flow imaging is performed. FINDINGS: There is normal venous compression and respiratory variation and augmented flow. The visualized left common femoral vein, superficial femoral vein, profunda femoral vein, popliteal vein, and the trifurcation region shows no evidence of deep venous thrombosis. There is a 4 x 0.6 x 3.3 cm avascular, anechoic fluid collection along the inferior aspect of the popliteal fossa. US/US venous duplex LE LT IMPRESSION: 1. No DVT demonstrated in the left lower extremity. If the patient's symptoms persist, followup ultrasound in 5 days 7 days might be of value to exclude proximal propagation from a non-visualized calf vein. 2. There is a 4 cm avascular, anechoic fluid collection along the inferior aspect of the popliteal fossa which could represent a Mahoney's cyst, although it does not demonstrate the typical location/shape. Recommend correlation with physical examination and a short-term follow-up ultrasound.
== END 2023-03-14 14:02 | disposition home or self-care (01) ==
LOC: HO.HMGCX 14:01
PROVIDERS: PCP Internal Medicine; Visit Provider Nurse Practitioner Primary Care
DX: M25.562 Pain in left knee (principal); R60.0 Localized edema
CPT/HCPCS: 73564; 93971

== ENCOUNTER 2023-03-29 11:30 | Outpatient (REF) | payer OTHER, SELFPAY ==
[2023-03-29 14:20] LABS: B Type Natriuretic Peptide < 10 pg/mL (<100)
[2023-03-29 14:21] LABS: Anion Gap 12 (12-20); Blood Urea Nitrogen 15 mg/dL (9-16); Calcium 9.6 mg/dL (8.4-10.2); Carbon Dioxide 28 mmol/L (22-29); Chloride 106 mmol/L (96-108); Estimated Glomerular Filt Rate > 60; Glucose Random 102 mg/dL (60-115); Potassium 3.8 mmol/L (3.3-5.1); Sodium 142 mmol/L (135-145)
== END 2023-03-29 11:31 | disposition home or self-care (01) ==
LOC: HO.HMGCLDS 11:30
PROVIDERS: PCP Internal Medicine; Visit Provider Nurse Practitioner Family
DX: R60.9 Edema, unspecified (principal)
CPT/HCPCS: 36415; 80048; 83880

== ENCOUNTER 2023-03-30 09:48 | Outpatient (REF) | payer OTHER, SELFPAY | END 2023-03-30 09:49 | disposition home or self-care (01) | LOC: HO.MAMMO 09:48 | PROVIDERS: PCP Internal Medicine; Visit Provider Internal Medicine | DX: Z12.31 Encounter for screening mammogram for malignant neoplasm of breast (principal) | CPT/HCPCS: 77063; 77067 ==

== ENCOUNTER → 2023-03-30 10:00 | Outpatient (BNV) | payer OTHER, SELFPAY | PROVIDERS: PCP Internal Medicine; Visit Provider Radiology Diagnostic Radiology | DX: Z12.31 Encounter for screening mammogram for malignant neoplasm of breast (principal) | CPT/HCPCS: 77063; 77067 ==

== ENCOUNTER 2023-04-19 13:02 | Outpatient (AMB) | payer OTHER, SELFPAY ==
[2023-04-19 14:06] VITALS: BP 120/80; PULSE 93; TEMP 36.2; O2SAT 98; BMI 42.2
--- NOTE | 2023-04-19 14:06 | MHC.OFFWIV ---
Intake Vital Signs 04/19/23 14:06 Height 5 ft 3 in Weight 238 lb BMI 42.2 BP 120/80 Blood Pressure Location Rt brachial Position Sitting Pulse 93 Pulse Source Pulse Oximeter Temp 97.1 F Temp Source Temporal Artery Scan Pulse Oximetry (%) 98 Oxygen Delivery Method Room Air Intake Visit Reasons: EST/rash that is really itchy(lobby masked) Intake Note: pt is here today for rash that is really itchy started this morning Patient Tobacco Use Status: Former Tobacco user Allergies tocilizumab [From Actemra] Allergy (Severe, Verified 04/19/23 14:11) Difficulty Breathing Do you need a note to return to daycare/school/sports/work: Yes HPI HPI Comments History of Present Illness Details This is a 47-year-old female who presents to the office today complaining of a rash. The patient states she woke up this morning with a pruritic rash of her face, chest, and back. She denies any known exposure to new creams, lotions, detergents, soaps, medications, or foods. She denies any chest tightness, wheezing, shortness of breath, difficulty swallowing, or throat swelling. She does report a mildly scratchy throat. [facility] Medical History Bilateral sacroiliitis BMI 38.0-38.9,adult Chronic heartburn Depression with anxiety GERD (gastroesophageal reflux disease) Intermittent palpitations Mixed dyslipidemia Nephrolithiasis Obesity Obesity (BMI 35.0-39.9 without comorbidity) Renal stones Rheumatoid arthritis Skin tag Surgical History History of bilateral salpingectomy History of robot-assisted laparoscopic hysterectomy Hx of ovarian cystectomy H/O dilation and curettage Status post laser lithotripsy of ureteral calculus History of tubal ligation Hx of myringotomy H/O excision of ganglion cyst Previous section Hx of appendectomy Hx laparoscopic cholecystectomy Hx of tonsillectomy Family History Father HTN (hypertension) Diabetes mellitus Depression Dyslipidemia Substance use disorder Mental health disorder Mother Pancreatic cancer Anxiety Brother Substance use disorder Mental health disorder Daughter Mental health disorder Sister Substance use disorder Mental health disorder Maternal Uncle Mental health disorder Daughter Mental health disorder Daughter Mental health disorder Social History Housing: Apartment Alcohol intake: current Alcohol intake frequency: does not drink Patient Tobacco Use Status: Former Tobacco user Years Smoked: 25 yrs e-Cigarette/Vaping Use: Never Used Second Hand Smoke Exposure: No service: No Current occupational status: employed Cognitive needs: No Hearing needs: No Vision needs: Yes Review of Systems Const All systems reviewed & are unremarkable except as noted in HPI and below Reports no additional complaints Eyes Reports no additional complaints ENT Reports no additional complaints Card Reports no additional complaints Resp Reports no additional complaints GI Reports no additional complaints Reports no additional complaints Musc Reports no additional complaints Skin/Breast Reports system reviewed and no additional complaints, except as documented Neuro Reports no additional complaints Psych Reports no additional complaints Endo Reports no additional complaints Tim/Lymph Reports no additional complaints Aller/Immun Reports no additional complaints Physical Exam Vital Signs: Last Vital Signs Temp 97.1 F 04/19/23 14:06 Pulse 93 04/19/23 14:06 BP 120/80 04/19/23 14:06 Pulse Ox 98 04/19/23 14:06 Oxygen Delivery Method Room Air 04/19/23 14:06 BMI result Body Mass Index 42.2 Const Other: Vital signs reviewed. Constitutional: Non-toxic appearing. No acute distress. Well-developed and well-nourished. HEENT: Normocephalic and atraumatic. Skin: Diffuse maculopapular rash on patient's neck, chest, and upper back. Neck: Full and painless range of motion. No cervical lymphadenopathy. Cardio: Regular rate and rhythm. No murmurs, gallops, or rubs. No lower extremity edema. No JVD. Pulmonary: No respiratory distress. No accessory muscle usage. No wheezing or stridor. Gastrointestinal: Soft, non-tender, and non-distended in all 4 quadrants. Musculoskeletal: Normal range of motion in joints throughout the body. No deformity or other signs of injury. Neuro: Alert and oriented x4. Cranial nerves 2-12 grossly intact. No focal deficits appreciated. Psych: Normal mood and affect. Assessment & Plan Assessment & Plan (1) Irritant contact dermatitis: Code(s): L24.9 - Irritant contact dermatitis, unspecified cause Plan: This is a 47-year-old female who presented to the office complaining of a pruritic rash of her face, chest, and back. She denies any known exposures to new creams, soaps, detergents, medications, or food. On physical examination, she has a diffuse maculopapular rash of her lower face, neck, chest, and upper back. History and physical most consistent with an irritant contact dermatitis of unknown etiology. Patient has been sent home on oral prednisone taper given the rash is widespread as well as triamcinolone ointment for the chest and back for itch relief. Patient was advised not to use the steroid cream on her face. Patient was advised to proceed directly to the emergency room if she were to develop wheezing, stridor, chest tightness, difficulty breathing, throat swelling, or trouble swallowing. Patient verbalized understanding and she is in agreement with the plan. Medications: New prednisone take 4 tablets daily x 2 days followed by 3 tablets daily x 2 days followed by 2 tablets x 2 days followed by 1 tablet daily x 2 days follower by 1/2 tablet daily x 2 days 10 mg PO DIRECTED 21 tabs 0RF triamcinolone acetonide 0.5% DO not apply to face. 1 appl topical BID 15 grams 0RF Coding Level of Care Code Est Pt Level 3 (37077) Diagnoses Irritant contact dermatitis L24.9
== END 2023-04-19 15:27 | disposition home or self-care (01) ==
PROVIDERS: PCP Internal Medicine; Visit Provider Physician Assistant Medical
DX: L24.9 Irritant contact dermatitis, unspecified cause (principal)
CPT/HCPCS: 99213

== ENCOUNTER 2023-06-17 13:19 | Outpatient (REF) | payer OTHER, SELFPAY ==
--- NOTE | ~2023-06-17 | XR_ITS ---
EXAMINATION: XR ABDOMEN KUB CLINICAL INDICATION: Calculus of kidney COMPARISON: Renal ultrasound 12/31/2022, abdominal ultrasound 04/05/2021, KUB 09/16/2019 TECHNIQUE: AP view of the abdomen. FINDINGS: The bowel gas pattern is normal with no evidence of ileus or obstruction. No visible urinary tract calculi are seen. The kidneys are partly obscured by overlying bowel gas and stool. 2 small calculi in the right side of the pelvis are unchanged and likely represent phleboliths. Surgical clips are again seen in the right upper quadrant consistent with prior cholecystectomy. There is moderate stool within the ascending, transverse and descending colon. A tampon is in place. The lung bases are clear. Bones are unremarkable. XR/XR KUB IMPRESSION: No visible urinary tract calculi on plain film.
== END 2023-06-17 13:20 | disposition home or self-care (01) ==
LOC: HO.HMGCX 13:19
PROVIDERS: PCP Internal Medicine; Visit Provider Nurse Practitioner Family
DX: N20.0 Calculus of kidney (principal); R10.9 Unspecified abdominal pain
CPT/HCPCS: 74018

== ENCOUNTER 2023-06-20 08:07 | Day surgery (SDC) | payer OTHER, SELFPAY ==
[2023-06-18 11:06] VITALS: BMI 40.2
--- NOTE | 2023-06-19 10:02 | HO.ANESPROP2 ---
HPI - Anesthesia Eval Consult details Narrative: 47yo F for Upper Endoscopy and Colonoscopy s/p hysterectomy RA and sarcoid - no chronic steroid PMFSH Active Problems Active Problems: All Active Problems (Updated 03/28/23 @ 21:46 by Araceli Leonard NP-C) Edema (Acute) Chronic heartburn (Acute) Pulmonary nodule (Acute) Plantar fasciitis of right foot (Acute) Foot pain, right (Acute) Asymmetric septal hypertrophy (Acute) Renal calculus, bilateral (Acute) Upper respiratory infection (Acute) Dizziness (Acute) Heart palpitations (Acute) Intermittent palpitations (Acute) Asthma (Acute) Lumbar back pain with radiculopathy affecting right lower extremity (Acute) Post covid-19 condition, unspecified (Acute) Lumbar strain (Acute) Skin tag (Acute) Acute left flank pain (Acute) Vitamin D deficiency (Acute) Vitamin B12 deficiency (Acute) Vitamin B1 deficiency (Acute) Binge eating disorder (Acute) Hot flashes due to surgical menopause (Acute) GERD (gastroesophageal reflux disease) (Acute) BMI 38.0-38.9,adult (Acute) Obesity (Acute) Hx of ovarian cystectomy (Acute) Obesity (BMI 35.0-39.9 without comorbidity) (Acute) Hot flashes due to surgical menopause (Chronic) Renal stones (Acute) Sarcoidosis (Acute) Nephrolithiasis (Acute) Bilateral sacroiliitis (Acute) Depression with anxiety (Acute) Rheumatoid arthritis (Acute) Mixed dyslipidemia (Acute) Sciatica associated with disorder of lumbar spine (Acute) Past Medical History Medical History Bilateral sacroiliitis BMI 38.0-38.9,adult Chronic heartburn Depression with anxiety GERD (gastroesophageal reflux disease) Intermittent palpitations Mixed dyslipidemia Nephrolithiasis Obesity Obesity (BMI 35.0-39.9 without comorbidity) Renal stones Rheumatoid arthritis Skin tag Family History Family History Father HTN (hypertension) Diabetes mellitus Depression Dyslipidemia Substance use disorder Mental health disorder Mother Pancreatic cancer Anxiety Brother Substance use disorder Mental health disorder Daughter Mental health disorder Sister Substance use disorder Mental health disorder Maternal Uncle Mental health disorder Daughter Mental health disorder Daughter Mental health disorder Surgical History Surgical History History of bilateral salpingectomy History of robot-assisted laparoscopic hysterectomy Hx of ovarian cystectomy H/O dilation and curettage Status post laser lithotripsy of ureteral calculus History of tubal ligation Hx of myringotomy H/O excision of ganglion cyst Previous section Hx of appendectomy Hx laparoscopic cholecystectomy Hx of tonsillectomy Social History Social History Housing: Apartment Alcohol intake: current Alcohol intake frequency: does not drink Patient Tobacco Use Status: Former Tobacco user Years Smoked: 25 yrs e-Cigarette/Vaping Use: Never Used Second Hand Smoke Exposure: No service: No Current occupational status: employed Cognitive needs: No Hearing needs: No Vision needs: Yes Meds Allergies Allergy/AdvReac Type Severity Reaction Status Date / Time tocilizumab [From Actemra] Allergy Severe Difficulty Verified 04/19/23 14:11 Breathing Home Medications Medication Instructions Recorded Confirmed Last Taken Type tofacitinib 11 mg tablet,extended 11 mg PO DAILY 03/09/20 01/10/23 Unknown History release 24 hr (Xeljanz XR) lamotrigine 25 mg tablet 50 mg PO DAILY 05/20/20 01/10/23 Unknown History leflunomide 20 mg tablet 20 mg PO DAILY 05/20/20 01/10/23 Unknown History omega-3 fatty acids 1,000 mg 1,000 mg PO DAILY 07/05/20 01/10/23 Unknown History capsule (Fish Oil Concentrate) hydroxyzine HCl 10 mg tablet 10 mg PO BID PRN 10/25/20 01/10/23 Unknown History lamotrigine 200 mg tablet 200 mg PO DAILY 03/16/21 01/10/23 Unknown History omeprazole 20 mg capsule,delayed 20 mg PO DAILY 03/14/23 Unknown History release Exam Height,Weight and Vital Signs: Height 5 ft 3 in Weight 102.965 kg Pertinent Lab Results Pertinent Lab Results: Laboratory Tests 03/29/23 11:37 Sodium 142 Potassium 3.8 Chloride 106 Carbon Dioxide 28 BUN 15 Creatinine 0.81 Narrative Narrative: ECHO 2021 Conclusions: - The left ventricular systolic function is normal. The visually estimated ejection fraction is between 65-70%. - No obvious valvular pathology seen on this study. Assessment and Plan Assessment Anesthesia Assessment: Chart Reviewed
[2023-06-20 08:17] VITALS: BP 150/101; PULSE 84; RESP 20; TEMP 36.6; O2SAT 97; BMI 46.4
[2023-06-20 08:35] VITALS: BP 140/85
[2023-06-20] MEDS: Lactated Ringers 1,000 ML 100 ML IVCONT (08:40)
--- NOTE | 2023-06-20 09:31 | P.HPSUR_ITS ---
Pre-Procedural Eval Section A - 24 Hr Update-Section A only Date of Service: 06/20/23 Section B - Complete if H&P > 30 days Chief Complaint: reflux and colon screening Relevant Family History (Specify if Yes): No Relevant Social History: None Present Medications: see Short Stay Collaborative assessment Medical History: Significant History (Bilateral sacroiliitis BMI 38.0-38.9,adult Chronic heartburn Depression with anxiety GERD (gastroesophageal reflux disease) Intermittent palpitations Mixed dyslipidemia Nephrolithiasis Obesity Obesity (BMI 35.0-39.9 without comorbidity) Renal stones Rheumatoid arthritis Skin tag) History of Previous Operations: Relevant previous surgery/procedure and date(s) (History of bilateral salpingectomy History of robot-assisted laparoscopic hys terectomy Hx of ovarian cystectomy H/O dilation and curettage Status post laser lithotripsy of ureteral calculus History of tubal ligation Hx of myringotomy H/O excision of ganglion cyst Previous section Hx of appe) Allergies: Allergies Allergy/AdvReac Type Severity Reaction Status Date / Time tocilizumab [From Actemra] Allergy Severe Difficulty Verified 04/19/23 14:11 Breathing Review of Systems Sugical H&P ROS: Negative: Constitution, Cardiovascular, Respiratory, Neurological, Psychiatric, Hem-Onc, Allergic/Immunologic, Gastrointestinal, Genitourinary, Musculoskeletal, Integumentary, Endocrine and Eyes/Ears/Nose/Throat Exam Surgical H&P Exam: Normal: HEENT, Normal: Heart, Normal: Lungs, Normal: Extremities, Normal: Abdomen, Normal: Skin and Normal: Neurological Plan Diagnosis/Plan: Unchanged I have reviewed the history and physical and performed a pertinent physical examination on my patient. No changes have occurred unless specified. Time Spent With Patient Time: Total time managing care of this patient today ____ minutes.
--- NOTE | 2023-06-20 09:34 | P.OP_ITS ---
Operative Note Operative Note Date of Service: 06/20/23 Narrative: Operative Information Procedure Description: EGD, Colonoscopy Indication: screening, and GERD Anesthesia: MAC FLEXIBLE TRANSORAL UPPER GASTROINTESTINAL ENDOSCOPY AND COLONOSCOPY PROCEDURE NOTE UPPER ENDOSCOPY Consent: Indications for the procedure and potential complications of bleeding, perforation, reaction to medications and missed diagnosis were discussed with the patient and informed consent was obtained. Instrument: Olympus GIF H 190 J mid size upper endoscope Monitoring: Vital signs and clinical assessment, continuous EKG monitoring, Pulse oximetry, Carbon Dioxide monitoring and blood pressure monitoring were done throughout the procedure. Procedure: The patient was placed in the left lateral decubitis position and pre-procedure medications were administered and a bite block was placed. The endoscope was inserted into the mouth and advanced under direct vision to the third part of duodenum. A careful inspection was made as the upper endoscope was withdrawn including a retroflexed examination of the proximal stomach; Findings and interventions are described below. Findings: Larynx:normal Esophagus: GE junction at 35 cm, diaphragm hiatus at 37 cm, consistent with 2 cm sliding hiatal hernia, schatzki ring also noted along with LA grade B streaky erosive esophagitis. bx taken from GEJ, distal and proximal esophagus Stomach: granularity and erythema. Biopsies were obtained. Grade 2 flap valve on retroflexed examination of the cardia. Duodenum: Mild duodenitis, bx taken Intervention: Biopsies as noted above COLONOSCOPY Instrument: Olympus variable stiffness pediatric scope 190L Colonoscopy Monitoring: Vital signs and clinical assessment, continuous EKG monitoring, Pulse oximetry, Carbon Dioxide monitoring and blood pressure monitoring were done throughout the procedure. Colon withdrawal time was 8 minutes. Procedure: The patient was placed in the left lateral decubitis position and pre-procedure medications were administered. After a digital rectal examination of the ano-rectum, the video colonoscope was inserted into the rectum and advanced through the colon to the cecum/TI. The colonoscope was slowly withdrawn in a retrograde panoramic fashion and the colon mucosa was carefully examined including a retroflexed view of the rectum. Findings and interventions are described below. Procedure Difficulty:easy Findings: Terminal Ileum-normal Cecum:normal Right sided retroflexion- normal Ascending Colon: normal Transverse Colon -normal Descending Colon:normal Sigmoid Colon: normal Rectum: Retroflexion with small internal hemorrhoids, grade I Anorectum - normal Colon preparation: [place] Bowel Preparation Scale Right colon; 2 Transverse colon: 2 Left colon; 3 (0 = Unprepared colon segment with mucosa not seen due to solid stool that cannot be cleared. 1 = Portion of mucosa of the colon segment seen, but other areas of the colon segment not well seen due to staining, residual stool and/or opaque liquid. 2 = Minor amount of residual staining, small fragments of stool and/or opaque liquid, but mucosa of colon segment seen well. 3 = Entire mucosa of colon segment seen well with no residual staining, small fragments of stool or opaque liquid) Impression and Post Procedure Diagnosis: Endoscopy Findings: schatzki ring hiatal hernia gastritis erosive esophagitis Colonoscopy Findings: internal hemorrhoids Plan: Await Pathology results Repeat Colonoscopy in 10 years or earlier if clinically indicated High fiber diet leaflet avoid straining at stool, epsom salts and sitz bath, anusol supps or cream check compliance with PPI, might need to increase dose or change Above findings were reviewed with the patient and relevant handouts were provided if indicated.
[2023-06-20 10:22] VITALS: BP 132/92; PULSE 97; RESP 16; TEMP 36.5
[2023-06-20 10:37] VITALS: BP 154/103; PULSE 82; RESP 20; TEMP 36.2; O2SAT 97
--- NOTE | 2023-06-20 11:02 | PC.NURSE ---
patient aware to stop taking meloxicam as ordered by doctor and to supervisor opening and picking prescription for celebrex as ordered.
== END 2023-06-20 11:08 | disposition home or self-care (01) ==
PROVIDERS: PCP Internal Medicine; Visit Provider Internal Medicine Gastroenterology
PROC: (CPT 43239; principal; 2023-06-20 10:10)
DX: K22.2 Esophageal obstruction (principal); K22.10 Ulcer of esophagus without bleeding; K29.80 Duodenitis without bleeding; K29.60 Other gastritis without bleeding; K44.9 Diaphragmatic hernia without obstruction or gangrene; K21.9 Gastro-esophageal reflux disease without esophagitis; Z12.11 Encounter for screening for malignant neoplasm of colon; K64.0 First degree hemorrhoids
CPT/HCPCS: 43239; 45378; 88305; 88313; 88342; J1596; J2704

== ENCOUNTER → 2023-06-20 08:07 | Outpatient (BNV) | payer OTHER, SELFPAY | PROVIDERS: PCP Internal Medicine; Visit Provider Internal Medicine Gastroenterology | DX: Z12.11 Encounter for screening for malignant neoplasm of colon (principal); K64.0 First degree hemorrhoids; K21.00 Gastro-esophageal reflux disease with esophagitis, without bleeding; K22.2 Esophageal obstruction; K29.80 Duodenitis without bleeding; K29.70 Gastritis, unspecified, without bleeding | CPT/HCPCS: 43239; 45378 ==

== ENCOUNTER 2023-07-05 10:20 | Outpatient (AMB) | payer OTHER, SELFPAY ==
--- NOTE | 2023-07-05 10:23 | A.OFFVIS_ITS ---
Intake Vital Signs 07/05/23 10:24 Height 5 ft 3 in Weight 235 lb BMI 41.6 BP 138/76 Blood Pressure Location Lt brachial Position Sitting Pulse 80 Pulse Source Monitor Intake Visit Reasons: s/p DBL Intake Note: Patient states shes feeling fine no GI concerns at this moment. Calender Inspector Required: No Accompanied by: Self / Same As Patient Allergies tocilizumab [From Actemra] Allergy (Severe, Verified 07/05/23 10:26) Difficulty Breathing HPI s/p DBL HPI Details LAST VISIT Chronic heartburn GERD (gastroesophageal reflux disease) Will start patient on pantoprazole and stop omeprazole. Patient reports in the morning she wakes up feeling nauseous and feeling better after eating breakfast. Will send script for famotidine. Discussed with patient the importance of avoiding dietary triggers in late night snacking. Staying upright for minimum 3 hours after meals discussed with patient. Patient will be sent for upper endoscopy to rule out gastritis, duodenitis, esophagitis, gastric or peptic ulcers, H pylori. Patient does have a history of rheumatoid arthritis and is taking NSAIDs frequently. Patient was encouraged to decrease the amount of medications she is taking and take it with food Colon cancer screening ? Patient denies any cardiac or respiratory symptoms.? Denies any issues with anesthesia in the past.? Denies any history of sleep apnea.? No history infectious diseases in the past or present.? Not on any anticoagulation therapy.? No family or personal history of colon cancer or polyps.? Patient denies melena, hematochezia, unintentional weight loss or ribbon like stools.? Discussed at length the pre-procedure,? prep, diet & medications as well as what to expect prior, during and after the procedure.?? Stressed the importance of good bowel prep. ?Recommended the use of Vaseline or Calmoseptine OTC & baby wipes with bowel movements to promote comfort.? ?History of sarcoidosis and asthma. Seen by her [employer] resource [employer] teacher last month, doing well. Patient verbalizes understanding and agrees to plan of care.? She was given the opportunity to ask questions and all questions answered.? We will see her after the procedure.? Plan Medications New pantoprazole take one tablet half an hour before breakfast 40 mg PO DAILY 30 tabs 2RF K21.9 bisacodyl (Dulcolax (bisacodyl)) take 2 tabs at noon the day before your colonoscopy 10 mg (2 x 5 mg) PO ONCE 1 day 2 tabs 0R F Z12.11 polyethylene glycol 3350 (Miralax) As directed by gastroenterology department at [facility] 238 grams PO ONCE 238 grams 0RF Z12.11 famotidine (Pepcid) 20 mg PO BEDTIME 30 tabs 3RF K21.9 Discontinued ketorolac Patient received Toradol in the emergency room. Discontinued Reason: Doctor's Order 10 mg PO Q6H 5 days PRN 20 tabs 0RF pain omeprazole Discontinued Reason: Doctor's Order 20 mg PO DAILY PRN 30 caps 1RF heartburn R12 UPPER ENDOSCOPY AND COLONOSCOPY Findings: Larynx:normal Esophagus: GE junction at 35 cm, diaphragm hiatus at 37 cm, consistent with 2 cm sliding hiatal hernia, schatzki ring also noted along with LA grade B streaky erosive esophagitis. bx taken from GEJ, distal and proximal esophagus Stomach: granularity and erythema. Biopsies were obtained. Grade 2 flap valve on retroflexed examination of the cardia. Duodenum: Mild duodenitis, bx taken Intervention: Biopsies as noted above Findings: Terminal Ileum-normal Cecum:normal Right sided retroflexion- normal Ascending Colon: normal Transverse Colon -normal Descending Colon:normal Sigmoid Colon: normal Rectum: Retroflexion with small internal hemorrhoids, grade I Anorectum - normal Colon preparation: [place] Bowel Preparation Scale Right colon; 2 Transverse colon: 2 Left colon; 3 (0 = Unprepared colon segment with mucos a not seen due to solid stool that cannot be cleared. 1 = Portion of mucosa of the colon segme nt seen, but other areas of the colon segment not well seen due to staining, residual stool and/or opaque liquid. 2 = Minor amount of residual staining, s mall fragments of stool and/or opaque liquid, but mucosa of colon segment seen well. 3 = Entire mucosa of colon segment seen well with no residual staining, small fragments of stool or opaque liquid) Impression and Post Procedure Diagnosis: Endoscopy Findings: schatzki ring hiatal hernia gastritis erosive esophagitis Colonoscopy Findings: internal hemorrhoids Plan: Await Pathology results Repeat Colonoscopy in 10 years or earlier if clinically indicated High fiber diet leaflet avoid straining at stool, epsom salts and sitz bath, anusol supps or cream check compliance with PPI, might need to increase dose or change PATHOLOGY RESULTS Diagnosis A. Duodenum, biopsy: Chronic inactive duodenitis. B. Stomach, biopsy: Antral-type and oxyntic mucosa within normal limits; no Helicobacter organisms seen. C. EG junction, biopsy: - Cardiac-type mucosa with mild chronic inactive inflammation; no intestinal metaplasia seen. - Active erosive esophagitis (neutrophil s). D. Esophagus, distal, biopsy: Squamous epithelium within normal limits; no inflammation seen. E. Esophagus, proximal, biopsy: Squamous epithelium within normal limits; no inflammation seen TODAY'S VISIT: Patient is here today for follow-up and to discuss upper endoscopy and colonoscopy results. Patient denies any effects from the prep, anesthesia or procedure itself. Patient reports to have sore throat for few days after the procedure. Her meloxicam was changed to Celebrex as duodenitis found on endoscopy. Patient reports that she forgets to take pantoprazole in the morning and sometimes forgets to take famotidine at bedtime. Patient reports feeling frustrated with her weight. Is trying to lose weight, however she now that sometimes she does not eat food that is right. Patient admits that she is dizzy and sometimes will drive to [employer] for fast food quick meal. Patient tried to see bariatric 6, however unable to do medical weight management at that time. Patient states that only surgical weight loss was offered. Patient would like not to go for surgery if she does not have to. Would like to lose weight on her own. [facility] Medical History Bilateral sacroiliitis BMI 38.0-38.9,adult Chronic heartburn Depression with anxiety GERD (gastroesophageal reflux disease) Intermittent palpitations Mixed dyslipidemia Nephrolithiasis Obesity Obesity (BMI 35.0-39.9 without comorbidity) Renal stones Rheumatoid arthritis Skin tag Surgical History History of bilateral salpingectomy History of robot-assisted laparoscopic hysterectomy Hx of ovarian cystectomy H/O dilation and curettage Status post laser lithotripsy of ureteral calculus History of tubal ligation Hx of myringotomy H/O excision of ganglion cyst Previous section Hx of appendectomy Hx laparoscopic cholecystectomy Hx of tonsillectomy Family History Father HTN (hypertension) Diabetes mellitus Depression Dyslipidemia Substance use disorder Mental health disorder Mother Pancreatic cancer Anxiety Brother Substance use disorder Mental health disorder Daughter Mental health disorder Sister Substance use disorder Mental health disorder Maternal Uncle Mental health disorder Daughter Mental health disorder Daughter Mental health disorder Social History Housing: Apartment Alcohol intake: current Alcohol intake frequency: does not drink Patient Tobacco Use Status: Former Tobacco user Years Smoked: 25 yrs e-Cigarette/Vaping Use: Never Used Second Hand Smoke Exposure: No service: No Current occupational status: employed Cognitive needs: No Hearing needs: No Vision needs: Yes Review of Systems Const Denies weight gain and Denies weight loss ENT Reports no additional complaints, Denies dysphagia and Denies odynophagia Card Reports no additional complaints Resp Reports no additional complaints GI Denies abdominal pain, Denies belching, Denies melena, Denies bloating, Denies change in bowel habits, Denies dysphagia, Denies excessive flatus, Denies dyspepsia, Reports heartburn (Occasional), Denies diarrhea, Denies loose stools, Denies nausea, Denies odynophagia and Denies vomiting Musc Reports no additional complaints Neuro Reports no additional complaints Psych Reports no additional complaints Endo Reports no additional complaints Physical Exam Vital Signs: Last Vital Signs Pulse 80 07/05/23 10:24 BP 138/76 07/05/23 10:24 BMI result Body Mass Index 41.6 Const General: healthy appearing, no acute distress and well developed Nutritional Appearance: obese Orientation/consciousness: patient oriented x3 Resp Effort & Inspection: normal respiratory effort, able to speak in complete sentences, no tracheal deviation and symmetric chest movement Auscultation: clear to auscultation bilaterally Cardio Rate: regular rate GI Inspection: Yes normal to inspection, No distended and Yes obesity Palpation (GI): Soft to palpation, not firm, nontender and No hepatosplenomegaly present Auscultation: normal bowel sounds General: Yes no CVA tenderness Back/Spine/Pelvis Back: no CVA tenderness Skin General skin exam: elasticity normal, turgor normal and dry skin Neuro General: patient oriented x3 Psych Appearance: grossly normal Mental Status: mental status grossly normal Assessment & Plan Assessment & Plan (1) Chronic heartburn: Code(s): R12 - Heartburn (2) GERD (gastroesophageal reflux disease): Code(s): K21.9 - Gastro-esophageal reflux disease without esophagitis Qualifiers: Esophagitis presence: esophagitis presence not specified Qualified Code(s): K21.9 - Gastro-esophageal reflux disease without esophagitis (3) Obesity: Code(s): E66.9 - Obesity, unspecified Qualifiers: Obesity type: due to excess calories Obesity classification: adult class 3 (BMI >= 40) Serious obesity comorbidity presence: unspecified whether serious comorbidity present Body mass index: BMI 40.0-44.9 Qualified Code(s): E66.01 - Morbid (severe) obesity due to excess calories; Z68.41 - Body mass index [BMI] 40.0-44.9, adult Plan Patient will continue pantoprazole in the morning and famotidine at bedtime. Patient was encouraged to try to remember to take the medications without skipping. Patient will continue avoiding dietary triggers in late night snacking. Staying upright for minimum 3 hours after meals discussed with everardo younger. Discussed with patient good choices in order to help her lose weight. Eating more vegetables, avoiding sugars. Patient was also encouraged to increase fluid intake and activity to promote better bowel motility. I will see patient in 6 months, sooner on as needed basis. Patient is agreeable to this and verbalizes understanding of instructions. She was given the opportunity to ask questions and all questions answered. Thank you for allowing me to participate in her care Coding Level of Care Code Est Pt Level 4 (36725) Diagnoses Chronic heartburn R12 Gastroesophageal reflux disease, unspecified whether esophagitis present K21.9 Esophagitis presence: esophagitis presence not specified Class 3 severe obesity due to excess calories with body mass index (BMI) of 40.0 to 44.9 in adult, unspecified whether serious comorbidity present E66.01; Z68.41 Obesity type: due to excess calories Obesity classification: adult class 3 (BMI >= 40) Serious obesity comorbidity presence: unspecified whether serious comorbidity present Body mass index: BMI 40.0-44.9 Time Spent (min) 35 Comment 20 minutes spent with patient and additional 15 minutes spent reviewing her records
[2023-07-05 10:24] VITALS: BP 138/76; PULSE 80; BMI 41.6
== END 2023-07-05 11:14 | disposition home or self-care (01) ==
PROVIDERS: PCP Internal Medicine; Visit Provider Nurse Practitioner Family
DX: R12 Heartburn (principal); K21.9 Gastro-esophageal reflux disease without esophagitis; E66.01 Morbid (severe) obesity due to excess calories; Z68.41 Body mass index [BMI] 40.0-44.9, adult
CPT/HCPCS: 99214

== ENCOUNTER → 2023-07-05 10:20 | Outpatient (BNVA) | payer OTHER, SELFPAY | PROVIDERS: PCP Internal Medicine; Visit Provider Nurse Practitioner Family ==

== ENCOUNTER 2023-07-12 08:27 | Outpatient (REF) | payer OTHER, SELFPAY ==
[2023-07-12 11:42] LABS: Cholesterol 219 mg/dL (<200); HDL Cholesterol 57 mg/dL (>40); LDL Cholesterol Calculated 129 mg/dL (<100); Triglycerides 169 mg/dL (<150)
[2023-07-12 12:07] LABS: Vitamin B12 1298 pg/mL (200-900); Vitamin D 25-OH Total 66.8 ng/mL (>30)
== END 2023-07-12 08:28 | disposition home or self-care (01) ==
LOC: HO.HMGCLDS 08:27
PROVIDERS: PCP Internal Medicine; Visit Provider Internal Medicine
DX: E53.8 Deficiency of other specified B group vitamins (principal); E55.9 Vitamin D deficiency, unspecified; E78.2 Mixed hyperlipidemia
CPT/HCPCS: 36415; 80061; 82306; 82607; 82746

== ENCOUNTER 2023-07-15 10:42 | Outpatient (AMB) | payer OTHER, SELFPAY ==
[2023-07-15 10:44] VITALS: BP 110/74; PULSE 76; O2SAT 97; BMI 41.1
--- NOTE | 2023-07-15 10:44 | MHC.PC.OV ---
Vital Signs 07/15/23 10:44 Height 5 ft 3 in Weight 232 lb BMI 41.1 BP 110/74 Blood Pressure Location Lt brachial Position Sitting Pulse 76 Pulse Source Pulse Oximeter Pulse Oximetry (%) 97 Oxygen Delivery Method Room Air Intake Visit Reasons: 6 month follow up Intake Note: Pt is here today for 6 months follow up visit. Allergies tocilizumab [From Actemra] Allergy (Severe, Verified 07/15/23 11:17) Difficulty Breathing Medication List - Last Reconciled 07/15/23 by Jeri Snyder MD betamethasone dipropionate 0.05% 1 appl topical BID Breo Ellipta 200-25 mcg/dose (fluticasone furoate-vilanterol) 1 inh inhalation DAILY 30 days NS celecoxib (Celebrex) 100 mg PO Q12H cholecalciferol (vitamin D3) 125 mcg PO DAILY clindamycin phosphate 1% topical doxycycline hyclate 100 mg PO BID famotidine (Pepcid) 20 mg PO BEDTIME hydroxyzine HCl 10 mg PO BID PRN lamotrigine 50 mg PO DAILY lamotrigine 200 mg PO DAILY leflunomide 20 mg PO DAILY omega-3 fatty acids (Fish Oil Concentrate) 1,000 mg PO DAILY pantoprazole 40 mg PO DAILY pyridoxine (vitamin B6) 100 mg PO DAILY 90 days rosuvastatin 5 mg PO DAILY spironolactone 50 mg PO BID tofacitinib ER (Xeljanz XR) 11 mg PO DAILY Tobacco use date assessed: 07/15/23 Dental Screening Dental Screen Date: 07/15/23 Did you have a dental visit in the last 12 months?: Yes Did you have a dental problem in the last 6 months where you did not have access to dental care?: No Was dental information given to patient?: Patient has dentist HPI 6 month follow up HPI Details 47-year-old lady with mixed dyslipidemia, depression with anxiety, and history of vitamin B12 deficiency, here today for her follow-up. She has been taking her medications as directed but has not been compliant with diet, admits to frequent snacking and eating late at night. She also states that she has not been exercising regularly and hand has gained weight over the last several months. [facility] Medical History Chronic heartburn Intermittent palpitations Skin tag GERD (gastroesophageal reflux disease) BMI 38.0-38.9,adult Obesity Obesity (BMI 35.0-39.9 without comorbidity) Renal stones Nephrolithiasis Bilateral sacroiliitis Depression with anxiety Rheumatoid arthritis Mixed dyslipidemia Surgical History History of bilateral salpingectomy History of robot-assisted laparoscopic hysterectomy Hx of ovarian cystectomy H/O dilation and curettage Status post laser lithotripsy of ureteral calculus History of tubal ligation Hx of myringotomy H/O excision of ganglion cyst Previous section Hx of appendectomy Hx laparoscopic cholecystectomy Hx of tonsillectomy Family History Father HTN (hypertension) Diabetes mellitus Depression Dyslipidemia Substance use disorder Mental health disorder Mother Pancreatic cancer Anxiety Brother Substance use disorder Mental health disorder Daughter Mental health disorder Sister Substance use disorder Mental health disorder Maternal Uncle Mental health disorder Daughter Mental health disorder Daughter Mental health disorder Social History Housing: Apartment Alcohol intake: current Alcohol intake frequency: does not drink Patient Tobacco Use Status: Former Tobacco user Years Smoked: 25 yrs e-Cigarette/Vaping Use: Never Used Second Hand Smoke Exposure: No service: No Current occupational status: employed Cognitive needs: No Hearing needs: No Vision needs: Yes Questionnaire PHQ-9 Over the last 2 weeks, how often have you been bothered by any of the following problems? Depression Screening Interpretation: Negative Depression Screening Done: Yes Source: Developed by Drs. Ralph Dozier, Gogo Larkin, Christopher Patrick and colleagues, with an educational annabelle from [employer].. Thrive Questionnaire Date Thrive assessed: 01/10/23 I am a: Patient What is your living situation today?: I have a steady place to live Within the past 12 months, did the food you bought not last and you didn't have the money to get more?: Never true Within the past 12 months, did you worry whether your food would run out before you got money to buy more?: Never true THRIVE Score: 0 AUDIT C Alcohol Use Questionnaire (AUDIT-C) 1. How often do you have a drink containing alcohol?: Monthly or less 2. How many drinks containing alcohol do you have on a typical day when you are drinking?: 3 or 4 3. How often do you have six or more drinks on one occasion?: Never Total Score: 2 MATT-7 AMB Questionnaire MATT-7 Date MATT - 7 assessed: 01/10/23 Feeling nervous, anxious, or on edge: 1 = Several days Not being able to stop or control worryin = Not at all Worrying too much about different things: 0 = Not at all Trouble relaxin = Several days Being so restless that it is hard to sit still: 0 = Not at all Becoming easily annoyed or irritable: 1 = Several days Feeling afraid as if something awful might happen: 0 = Not at all Total MATT-7 score (0-4 normal; 5-9 mild; 10-14 moderate; 15-21 severe): 3 Source: Developed by Drs. Ralph Dozier, Gogo Larkin, Christopher Patrick and colleagues, with an educational annabelle from [employer].. Review of Systems Const Denies chills, Denies fever(s) and Denies weakness Eyes Denies change in vision ENT Reports no additional complaints Card Denies chest pain, Denies rapid heart rate, Denies edema, Denies claudication, Denies leg edema, Denies dyspnea and Denies orthopnea Resp Denies cough and Denies dyspnea GI Denies abdominal pain, Denies change in bowel habits, Denies change in stool character and Denies heartburn Denies hematuria, Denies urinary frequency and Denies dysuria Musc Reports arthralgias, Denies muscle weakness and Reports stiffness Skin/Breast Details: Sees Dr. Ghosh for tx of hydradenitis suppurativa, mainly under breasts and inguinal area Neuro Reports no additional complaints and Denies weakness Endo Reports no additional complaints Aller/Immun Reports no additional complaints Physical exam (Primary Care) Vital Signs: Last Vital Signs Pulse 76 07/15/23 10:44 BP 110/74 07/15/23 10:44 Pulse Ox 97 07/15/23 10:44 Oxygen Delivery Method Room Air 07/15/23 10:44 BMI result Body Mass Index 41.1 BMI Assessment/Plan discussion: High BMI High, discussed plan: lifestyle, weight reduction, dietary and physical activity Tobacco/Smoking Status: Tobacco use Status Tobacco use date assessed 07/15/23 07/15/23 10:52 Patient Tobacco Use Status Former Tobacco user 07/15/23 10:52 e-Cigarette/Vaping Use Never Used 07/15/23 10:46 Depression Screening Interpretation: Negative Thrive Assessment: Date of Thrive Assessment Date Thrive assessed 01/10/23 07/15/23 10:46 Const General: no acute distress Orientation/consciousness: patient oriented x3 HENMT Ears: hearing grossly normal bilaterally, external ears normal and TM's normal bilaterally General nose exam: Normal external nose present Mouth: Normal oral and palatal mucosa present and moist mucous membranes Eyes General: appearance normal, both eyes and all related structures Neck Neck: Yes full ROM, Yes no lymphadenopathy and Yes supple Resp Effort & Inspection: normal respiratory effort and able to speak in complete sentences Auscultation: clear to auscultation bilaterally Cardio Rate: regular rate Rhythm: regular rhythm Heart sounds: S1 normal heart sound present and S2 normal heart sound present GI Inspection: Yes normal to inspection Palpation (GI): Soft to palpation, nontender and no masses Auscultation: normal bowel sounds Skin Other: Red slightly raised dry patches under both breasts Neuro General: patient oriented x3, tone normal, moves all extremities, no focal motor deficits and CN's II-XI intact bilaterally Extrem General: Yes full ROM, Yes no joint enlargement, Yes no clubbing, cyanosis or edema and Yes normal gait Results Reviewed Results Reviewed: SPEC : [id number] JANE: 07/12/23 STATUS: COMP REQ : [id number] RECD: 07/12/[address]: Jeri Snyder MD COMP: 07/12/23 ENTERED: 07/12/23 [facility]: ORDERED: Lipid Panel, Vitamin D 25-OH Test Result Flag Reference Triglyceride 169 H <150 mg/dL Desirable Triglyceride: less than 150 mg/dL Borderline High Triglyceride 150-199 mg/dL High Triglyceride: 200-499 mg/dL Very High Triglyceride: greater than or equal to 5OO mg/dL Cholesterol 219 H <200 mg/dL Desirable Cholesterol: less than 200 mg/dL Borderline High Cholesterol: 200-239 mg/dL High Cholesterol: greater than 239 mg/dL LDL Calculated 129 H <100 mg/dL Desirable LDL: less than 100 mg/dL Near Optimal/Above Optimal LDL: 110-129 mg/dL Borderline High LDL: 130-159 mg/dL High LDL: 160-189 mg/dL Very High LDL: greater than or equal to 190 mg/dL HDL 57 >40 mg/dL Desirable HDL: greater than 40 mg/dL Note: This HDL assay may give artificially low results in patients with liver disease. Vit D 25-OH Tot 66.8 >30 ng/mL Health Based Reference Values* < 20 ng/mL Deficient 20-30 ng/mL Insufficient > 30 ng/mL Sufficient Assessment and Plan Assessment & Plan (1) Mixed dyslipidemia: Code(s): E78.2 - Mixed hyperlipidemia Plan: Reviewed recent fasting lipid profile with patient with mild elevation in both triglycerides and LDL cholesterol . Continue with rosuvastatin 5 mg daily , in addition to adherence to low-cholesterol diet and regular exercise, at least 30 minutes 3 to 4 times a week. Advised patient to make healthy food choices, eat more fruits, vegetables, whole grains, wild caught fish and low-fat dairy. Limit amount of meat and fried or fatty food products, as well as processed foods and fast foods. Follow-up scheduled with repeat fasting lipid panel in 3 months. Orders: Orders Lipid Panel 10/28/23 E78.2 - Mixed hyperlipidemia Aspartate Amino Transferase 10/28/23 E78.2 - Mixed hyperlipidemia Vitamin B12 and Folate 10/28/23 E78.2 - Mixed hyperlipidemia Alanine Aminotransferase 10/28/23 E78.2 - Mixed hyperlipidemia Medications: Refilled rosuvastatin 5 mg PO DAILY 90 tabs 1RF E78.2 - Mixed hyperlipidemia Coding Level of Care Code Est Pt Level 3 (51653) Diagnoses Mixed dyslipidemia E78.2
== END 2023-07-15 11:35 | disposition home or self-care (01) ==
PROVIDERS: PCP Internal Medicine; Visit Provider Internal Medicine
DX: E78.2 Mixed hyperlipidemia (principal)
CPT/HCPCS: 99213

== ENCOUNTER 2023-09-03 08:47 | Outpatient (REF) | payer OTHER, SELFPAY ==
--- NOTE | ~2023-09-03 | CT_ITS ---
EXAMINATION: CT CHEST WITHOUT CONTRAST CLINICAL INFORMATION: Solitary pulmonary nodule. COMPARISON: Prior chest CT examinations, most recently 08/14/2022. TECHNIQUE: Multidetector volumetric CT imaging of the chest was done. Axial MIP volume rendering provided. Sagittal and coronal reformatted images were obtained. This CT examination was performed using dose optimization techniques as appropriate, variously including the following: *Automated exposure control *Adjustment of mA and/or kV according to patient size (this includes techniques or standardized protocols for targeted exams where dose is matched to indication/reason for exam; i.e. extremities or head) *Use of iterative reconstruction technique DLP: 201 mGy-cm FINDINGS: BACKSIDE GRINDER: The lungs are symmetrically well-expanded and grossly clear. There are right upper quadrant surgical clips. LUNGS: At the lateral basal segment of the left lower lobe (7:375), a stable 4 mm noncalcified nodule is seen, unchanged from prior CT examinations including 10/31/2018 (6:381). There is minimal adjacent linear scar/atelectasis, without associated focal airway obstruction. There are foci of minor scar/subsegmental atelectasis within the lingula and at the medial right base, without associated focal airway obstruction. No new nodule, mass, infiltrate or groundglass opacity is seen. There is no generalized increase in peripheral interlobular septal markings. No bleb or bullous formation is seen. No generalized small airway thickening is seen. The central airways appear patent. MEDIASTINUM: The thyroid is unremarkable. There is no thoracic aortic aneurysm. There is very mild atherosclerotic calcification of the thoracic aorta. No mediastinal or hilar lymphadenopathy is seen. CORONARY ARTERY CALCIFICATION: None visualized on this study. PLEURA: There is no pleural effusion. No pleural mass or thickening. AXILLA: No lymphadenopathy. UPPER ABDOMEN: The gallbladder surgically absent. The adrenal glands are normal. OSSEOUS STRUCTURES: There is multi-level mild thoracic spondylosis. No acute or aggressive osseous finding is seen. CT/CT chest wo IV con IMPRESSION: 1. A benign, stable 4 mm nodule is redemonstrated at the lateral basal segment of the left lower lobe. No further imaging follow-up is recommended. 2. No new nodule, mass, infiltrate or groundglass opacity is seen. 3. There are bilateral scattered foci of minor scar/subsegmental atelectasis, without associated focal airway obstruction. 4. No thoracic lymphadenopathy or pleural effusion is seen. 5. There is no aggressive osseous lesion. Fleischner guidelines were followed.
== END 2023-09-03 08:48 | disposition home or self-care (01) ==
LOC: HO.CT 08:47
PROVIDERS: PCP Internal Medicine; Visit Provider Internal Medicine Pulmonary Disease
DX: R91.1 Solitary pulmonary nodule (principal)
CPT/HCPCS: 71250

== ENCOUNTER 2023-09-17 10:28 | Outpatient (AMB) | payer OTHER, SELFPAY ==
--- NOTE | 2023-09-17 10:53 | A.OFFPC_ITS ---
Vital Signs 09/17/23 10:54 Height 5 ft 3 in Weight 235 lb BMI 41.6 BP 112/70 Blood Pressure Location Rt brachial Position Sitting Pulse 72 Pulse Source Pulse Oximeter Pulse Oximetry (%) 97 Oxygen Delivery Method Room Air Intake Visit Reasons: possible TIA Intake Note: pt is here for follow up regarding a possible TIA Lithographic Platemaker Required: No Accompanied by: Self / Same As Patient Allergies tocilizumab [From Actemra] Allergy (Severe, Verified 09/17/23 11:17) Difficulty Breathing Medication List - Last Reconciled 09/17/23 by Jeri Snyder MD betamethasone dipropionate 0.05% 1 appl topical BID Breo Ellipta 200-25 mcg/dose (fluticasone furoate-vilanterol) 1 inh inhalation DAILY 30 days NS celecoxib (Celebrex) 100 mg PO Q12H cholecalciferol (vitamin D3) 125 mcg PO DAILY clindamycin phosphate 1% topical famotidine (Pepcid) 20 mg PO BEDTIME hydroxyzine HCl 10 mg PO BID PRN lamotrigine 50 mg PO DAILY lamotrigine 200 mg PO DAILY leflunomide 20 mg PO DAILY omega-3 fatty acids (Fish Oil Concentrate) 1,000 mg PO DAILY pantoprazole 40 mg PO DAILY pyridoxine (vitamin B6) 100 mg PO DAILY 90 days rosuvastatin 5 mg PO DAILY spironolactone 50 mg PO BID tofacitinib ER (Xeljanz XR) 11 mg PO DAILY Tobacco use date assessed: 07/15/23 Dental Screening Dental Screen Date: 07/15/23 HPI possible TIA HPI Details 47-year-old lady history of rheumatoid a rthritis, hyperlipidemia , sarcoidosis, GERD, depression, nephrolithiasis, obesity, here today for follow- up after recent hospital admission at [place] September 08-2023, where she presented with sudden onset left facial numbness left arm numbness that began proximally 45 minutes prior to her arrival to ER. There was no accompanying visual field changes, no slurred speech, altered mental status, no weakness, or gait disturbance. Labs drawn during admission were unrevealing my EKG showed normal sinus rhythm, CT of the brain without contrast showed no acute intracranial findings, CTA of neck showed no hemodynamically significant stenosis or occlusion, MRI of brain without contrast, also came back negative. Symptoms resolve spontaneously and patient was discharged home and continued on her current medication. Lyme titer was also obtain with results still pending. At present patient states that she is back to her baseline , except for some pain and stiffness in posterior neck and occasional tingling going down left arm, no weakness. [facility] Medical History (Updated 09/18/23 @ 01:26 by Jeri Snyder MD) Intermittent palpitations GERD (gastroesophageal reflux disease) BMI 38.0-38.9,adult Obesity (BMI 35.0-39.9 without comorbidity) Nephrolithiasis Bilateral sacroiliitis Depression with anxiety Rheumatoid arthritis Mixed dyslipidemia Surgical History History of bilateral salpingectomy History of robot-assisted laparoscopic hysterectomy Hx of ovarian cystectomy H/O dilation and curettage Status post laser lithotripsy of ureteral calculus History of tubal ligation Hx of myringotomy H/O excision of ganglion cyst Previous section Hx of appendectomy Hx laparoscopic cholecystectomy Hx of tonsillectomy Family History Father HTN (hypertension) Diabetes mellitus Depression Dyslipidemia Substance use disorder Mental health disorder Mother Pancreatic cancer Anxiety Brother Substance use disorder Mental health disorder Daughter Mental health disorder Sister Substance use disorder Mental health disorder Maternal Uncle Mental health disorder Daughter Mental health disorder Daughter Mental health disorder Social History Housing: Apartment Alcohol intake: current Alcohol intake frequency: does not drink Patient Tobacco Use Status: Former Tobacco user Years Smoked: 25 yrs e-Cigarette/Vaping Use: Never Used Second Hand Smoke Exposure: No service: No Current occupational status: employed Cognitive needs: No Hearing needs: No Vision needs: Yes Questionnaire Thrive Questionnaire Date Thrive assessed: 09/17/23 I am a: Patient What is your living situation today?: I have a steady place to live Within the past 12 months, did the food you bought not last and you didn't have the money to get more?: Never true Within the past 12 months, did you worry whether your food would run out before you got money to buy more?: Never true Do you have trouble paying for medicines?: No Do you have trouble getting transportation to medical appointments?: No Do you have trouble paying your heating and electricity bill?: No Do you have trouble taking care of your child, family member or friend?: No Do you have trouble with day-to-day activities such as bathing, preparing meals, shopping, managing finances, etc.?: No Are you currently unemployed and looking for a job?: No Are you interested in more education?: No THRIVE Score: 0 MATT-7 AMB Questionnaire MATT-7 Date MATT - 7 assessed: 01/10/23 Source: Developed by Drs. Ralph Dozier, Gogo Larkin, Christopher Patrick and colleagues, with an educational annabelle from [employer]. Review of Systems Const Denies chills, Denies fever(s) and Denies weakness Eyes Denies change in vision ENT Reports no additional complaints Card Denies chest pain, Denies rapid heart rate, Denies edema, Denies claudication, Denies leg edema and Denies dyspnea Resp Denies cough and Denies dyspnea GI Denies abdominal pain, Denies change in bowel habits, Denies change in stool character and Denies heartburn Denies urinary frequency and Denies dysuria Musc Reports arthralgias, Denies muscle weakness and Reports stiffness Neuro Reports no additional complaints and Denies weakness Endo Reports no additional complaints Tim/Lymph Reports no additional complaints Aller/Immun Reports no additional complaints Physical exam (Primary Care) Vital Signs: Last Vital Signs Pulse 72 09/17/23 10:54 BP 112/70 09/17/23 10:54 Pulse Ox 97 09/17/23 10:54 Oxygen Delivery Method Room Air 09/17/23 10:54 BMI result Body Mass Index 41.6 Tobacco/Smoking Status: Tobacco use Status Tobacco use date assessed 07/15/23 09/17/23 10:56 Patient Tobacco Use Status Former Tobacco user 09/17/23 10:56 e-Cigarette/Vaping Use Never Used 09/17/23 10:56 Thrive Assessment: Date of Thrive Assessment Date Thrive assessed 01/10/23 09/17/23 10:56 Const General: no acute distress Orientation/consciousness: patient oriented x3 HENMT Ears: hearing grossly normal bilaterally and external ears normal General nose exam: Normal external nose present Mouth: Normal oral and palatal mucosa present and moist mucous membranes Eyes General: appearance normal, both eyes and all related structures Neck Neck: Yes full ROM, Yes no lymphadenopathy and Yes supple Resp Effort & Inspection: normal respiratory effort and able to speak in complete sentences Auscultation: clear to auscultation bilaterally Cardio Rate: regular rate Rhythm: regular rhythm Heart sounds: S1 normal heart sound present and S2 normal heart sound present GI Inspection: Yes normal to inspection Palpation (GI): Soft to palpation, nontender and no masses Auscultation: normal bowel sounds Back/Spine/Pelvis Other: Slight tenderness over posterior neck and trapezius muscle Skin General skin exam: no rashes or lesions noted Neuro General: patient oriented x3, tone normal, moves all extremities, no focal motor deficits and CN's II-XI intact bilaterally Cognition (Neuro): normal cognition Gait exam (Neuro): Normal gait present Sensory Exam: double simultaneous stimulation for sensation normal Coordination: tandem gait normal and Romberg test negative Romberg Test: Negative Extrem General: Yes full ROM, Yes no joint enlargement, Yes no clubbing, cyanosis or edema and Yes normal gait Assessment and Plan Assessment & Plan (1) Neck Pain: Code(s): M54.2 - Cervicalgia Plan: Ordered cervical spine x-ray, (2) History of weakness of extremity: Code(s): Z87.39 - Personal history of other diseases of the musculoskeletal system and connective tissue Plan: Completely resolved, reinforced importance of getting blood pressure, cholesterol levels and fasting glucose levels under good control. Advised patient to go to the ER if symptoms recurs. Coding Level of Care Code Est Pt Level 4 (96596) Diagnoses Neck Pain M54.2 History of weakness of extremity Z87.39
[2023-09-17 10:54] VITALS: BP 112/70; PULSE 72; O2SAT 97; BMI 41.6
== END 2023-09-17 12:20 | disposition home or self-care (01) ==
PROVIDERS: PCP Internal Medicine; Visit Provider Internal Medicine
DX: M54.2 Cervicalgia (principal); Z87.39 Personal history of other diseases of the musculoskeletal system and connective tissue
CPT/HCPCS: 99214

== ENCOUNTER 2023-09-17 11:36 | Outpatient (REF) | payer OTHER, SELFPAY ==
--- NOTE | ~2023-09-17 | XR_ITS ---
EXAMINATION: XR CERVICAL SPINE CLINICAL INFORMATION: Cervicalgia COMPARISON: None available. TECHNIQUE: 5 views of the cervical spine, inclusive of both oblique views, were obtained. FINDINGS: C7 is obscured by the soft tissues of the patient's shoulders on the lateral view and is obscured by the clavicle on the Swimmer's view. No fracture. Prevertebral soft tissues are within normal limits. There is straightening of the usual cervical lordosis which can be seen with muscle spasm or due to patient positioning. There is disc space narrowing at C6-C7 consistent with degenerative disc disease. The neural foramina are patent. XR/XR cervical spine 5V IMPRESSION: 1. Degenerative disc disease at C6-C7. 2. Straightening of the usual cervical lordosis which can be seen with muscle spasm or due to patient positioning.
== END 2023-09-17 11:37 | disposition home or self-care (01) ==
LOC: HO.HMGCX 11:36
PROVIDERS: PCP Internal Medicine; Visit Provider Internal Medicine
DX: M54.2 Cervicalgia (principal)
CPT/HCPCS: 72050

== ENCOUNTER → 2023-10-03 15:19 | Outpatient (BNVA) | payer OTHER, SELFPAY | PROVIDERS: PCP Internal Medicine; Visit Provider Physician Assistant Surgical ==

== ENCOUNTER 2023-11-09 08:34 | Outpatient (REF) | payer OTHER, SELFPAY ==
[2023-11-09 11:47] LABS: Alanine Aminotransferase 40 U/L (0-31); Aspartate Amino Transferase 25 U/L (5-31); Cholesterol 221 mg/dL (<200); HDL Cholesterol 68 mg/dL (>40); LDL Cholesterol Calculated 123 mg/dL (<100); Triglycerides 150 mg/dL (<150)
[2023-11-09 12:07] LABS: Folate 3.7 ng/mL (> or = 4.0); Vitamin B12 495 pg/mL (200-900)
== END 2023-11-09 08:35 | disposition home or self-care (01) ==
LOC: HO.HMGCLDS 08:34
PROVIDERS: PCP Internal Medicine; Visit Provider Internal Medicine
DX: E78.2 Mixed hyperlipidemia (principal)
CPT/HCPCS: 36415; 80061; 82607; 82746; 84450; 84460

== ENCOUNTER 2023-11-15 08:32 | Outpatient (AMB) | payer OTHER, SELFPAY ==
--- NOTE | 2023-11-15 08:37 | MHC.PC.OV ---
Intake Visit Reasons: f/u labs Andriod [phone] Allergies tocilizumab [From Actemra] Allergy (Severe, Verified 11/15/23 08:42) Difficulty Breathing Medication List - Last Reconciled 11/15/23 by Jeri Snyder MD betamethasone dipropionate 0.05% 1 appl topical BID celecoxib (Celebrex) 100 mg PO Q12H cholecalciferol (vitamin D3) 125 mcg PO DAILY clindamycin phosphate 1% topical famotidine (Pepcid) 20 mg PO BEDTIME hydroxyzine HCl 10 mg PO BID PRN lamotrigine 50 mg PO DAILY lamotrigine 200 mg PO DAILY leflunomide 20 mg PO DAILY omega-3 fatty acids (Fish Oil Concentrate) 1,000 mg PO DAILY pantoprazole 40 mg PO DAILY pyridoxine (vitamin B6) 100 mg PO DAILY 90 days rosuvastatin 5 mg PO DAILY spironolactone 50 mg PO BID tofacitinib ER (Xeljanz XR) 11 mg PO DAILY Tobacco use date assessed: 07/15/23 Dental Screening Dental Screen Date: 07/15/23 HPI f/u labs Andriod [phone] HPI Details 48-year-old lady here today for follow-up on her hyperlipidemia. She is currently taking [place] 3 fatty acid supplements, and rosuvastatin 5 mg daily recent fasting labs showed LDL cholesterol at 123 with a total cholesterol of 221, HDL 68 and triglycerides 150, not much change from last visit. Has been compliant with taking her medications, and follows recommended diet but admits to not getting any regular exercise. Vitamin B12 is now within normal limits, but folic acid level is low. Complains of getting intermittent episodes of leg cramps over the last 2 weeks, [facility] Medical History (Updated 11/15/23 @ 09:09 by Jeri Snyder MD) History of nephrolithiasis GERD (gastroesophageal reflux disease) BMI 38.0-38.9,adult Obesity (BMI 35.0-39.9 without comorbidity) Nephrolithiasis Bilateral sacroiliitis Depression with anxiety Rheumatoid arthritis Mixed dyslipidemia Surgical History (Updated 11/15/23 @ 09:03 by Jeri Snyder MD) History of bilateral salpingectomy History of robot-assisted laparoscopic hysterectomy Hx of ovarian cystectomy H/O dilation and curettage Status post laser lithotripsy of ureteral calculus History of tubal ligation Hx of myringotomy H/O excision of ganglion cyst Previous section Hx of appendectomy Hx laparoscopic cholecystectomy Hx of tonsillectomy Family History Father HTN (hypertension) Diabetes mellitus Depression Dyslipidemia Substance use disorder Mental health disorder Mother Pancreatic cancer Anxiety Brother Substance use disorder Mental health disorder Daughter Mental health disorder Sister Substance use disorder Mental health disorder Maternal Uncle Mental health disorder Daughter Mental health disorder Daughter Mental health disorder Social History Housing: Apartment Alcohol intake: current Alcohol intake frequency: does not drink Patient Tobacco Use Status: Former Tobacco user Years Smoked: 25 yrs e-Cigarette/Vaping Use: Never Used Second Hand Smoke Exposure: No service: No Current occupational status: employed Cognitive needs: No Hearing needs: No Vision needs: Yes Questionnaire Thrive Questionnaire Date Thrive assessed: 09/17/23 MATT-7 AMB Questionnaire MATT-7 Date MATT - 7 assessed: 01/10/23 Source: Developed by Drs. Ralph Dozier, Gogo Larkin, Christopher Patrick and colleagues, with an educational annabelle from [employer]. Review of Systems Const Denies chills, Denies fever(s) and Denies weakness Eyes Denies change in vision ENT Reports no additional complaints Card Denies chest pain, Denies rapid heart rate, Denies edema, Denies claudication, Denies leg edema and Denies dyspnea Resp Denies cough and Denies dyspnea GI Denies abdominal pain, Denies change in bowel habits, Denies change in stool character and Denies heartburn Denies urinary frequency and Denies dysuria Musc Reports arthralgias, Denies muscle weakness and Reports stiffness Neuro Reports no additional complaints and Denies weakness Endo Reports no additional complaints Tim/Lymph Reports no additional complaints Aller/Immun Reports no additional complaints Physical exam (Primary Care) Tobacco/Smoking Status: Tobacco use Status Tobacco use date assessed 07/15/23 11/15/23 08:39 Patient Tobacco Use Status Former Tobacco user 11/15/23 08:39 e-Cigarette/Vaping Use Never Used 11/15/23 08:39 Thrive Assessment: Date of Thrive Assessment Date Thrive assessed 09/17/23 11/15/23 08:39 Telehealth Telehealth [facility] Location of provider rendering services: practice address Location of patient: address on file Patient Identification confirmed using: Name, : Yes Telehealth method: video Patient verbally consented to treatment: Yes Patient verbally consented to billing insurance company: Yes Patient informed of any privacy concerns related to visit: Yes Minutes spent on Phone/Video with Pt.: 15 Results Reviewed Results Reviewed: Name: Alejandra Ortega Age/Sex: 48/F : 1975 Unit#: [id number] Attend Dr: Jeri Snyder MD Re11/09/23 Status: DEP REF Location: [facility] Disch: SPEC : [id number] JANE: 11/09/23 STATUS: COMP REQ : [id number] RECD: 11/09/[address]: Jeri Snyder MD COMP: 11/09/23 ENTERED: 11/09/[address]: ORDERED: AST, ALT, Lipid Panel Test Result Flag Reference AST (GOT) 25 5-31 U/L ALT (GPT) 40 H 0-31 U/L Triglyceride 150 H <150 mg/dL Desirable Triglyceride: less than 150 mg/dL Borderline High Triglyceride 150-199 mg/dL High Triglyceride: 200-499 mg/dL Very High Triglyceride: greater than or equal to 5OO mg/dL Cholesterol 221 H <200 mg/dL Desirable Cholesterol: less than 200 mg/dL Borderline High Cholesterol: 200-239 mg/dL High Cholesterol: greater than 239 mg/dL LDL Calculated 123 H <100 mg/dL Desirable LDL: less than 100 mg/dL Near Optimal/Above Optimal LDL: 110-129 mg/dL Borderline High LDL: 130-159 mg/dL High LDL: 160-189 mg/dL Very High LDL: greater than or equal to 190 mg/dL HDL 68 >40 mg/dL Desirable HDL: greater than 40 mg/dL Note: This HDL assay may give artificially low results in patients with liver disease. Assessment and Plan Assessment & Plan (1) Mixed dyslipidemia: Code(s): E78.2 - Mixed hyperlipidemia Plan: Continue on rosuvastatin 5 mg daily, reinforced adherence to low-cholesterol diet and getting at least 15 minutes of cardio exercises daily. Repeat levels again in 2 months (2) Folic acid deficiency: Code(s): E53.8 - Deficiency of other specified B group vitamins Plan: Prescription sent for folic acid 800 mcg taken once a day, recheck levels again in 01/2024 (3) Cramps of lower extremity: Code(s): R25.2 - Cramp and spasm Plan: Started on magnesium oxide 250 mg per tablet taken 1 once a day recheck levels again in 2 months Orders: Orders Vitamin B12 and Folate 01/12/24 E53.8 - Deficiency of other specified B group vitamins, E78.2 - Mixed hyperlipidemia, R25.2 - Cramp and spasm Basic Metabolic Panel Fasting 01/12/24 D86.9 - Sarcoidosis, unspecified, E66.9 - Obesity, unspecified, F50.81 - Binge eating disorder, K21.9 - Gastro-esophageal reflux disease without esophagitis, M06.9 - Rheumatoid arthritis, unspecified Lipid Panel 01/12/24 E53.8 - Deficiency of other specified B group vitamins, E78.2 - Mixed hyperlipidemia, R25.2 - Cramp and spasm Creatine Kinase Total 01/12/24 E53.8 - Deficiency of other specified B group vitamins, E78.2 - Mixed hyperlipidemia, R25.2 - Cramp and spasm Aspartate Amino Transferase 01/12/24 E53.8 - Deficiency of other specified B group vitamins, E78.2 - Mixed hyperlipidemia, R25.2 - Cramp and spasm Alanine Aminotransferase 01/12/24 E53.8 - Deficiency of other specified B group vitamins, E78.2 - Mixed hyperlipidemia, R25.2 - Cramp and spasm Vitamin D 25-OH Total 01/12/24 E53.8 - Deficiency of other specified B group vitamins, E78.2 - Mixed hyperlipidemia, R25.2 - Cramp and spasm Magnesium 01/12/24 E53.8 - Deficiency of other specified B group vitamins, E78.2 - Mixed hyperlipidemia, R25.2 - Cramp and spasm Medications: New magnesium oxide 250 mg PO DAILY 30 tabs 3RF folic acid 0.8 mg PO DAILY 30 tabs 2RF E53.8 - Deficiency of other specified B group vitamins, R25.2 - Cramp and spasm Refilled rosuvastatin 5 mg PO DAILY 90 tabs 1RF E78.2 - Mixed hyperlipidemia Coding Level of Care Code Tele Est Pt Level 4 (30599) Diagnoses Mixed dyslipidemia E78.2 Folic acid deficiency E53.8 Cramps of lower extremity R25.2
== END 2023-11-15 09:13 | disposition home or self-care (01) ==
LOC: HO.HMGC 08:32
PROVIDERS: PCP Internal Medicine; Visit Provider Internal Medicine
DX: E78.2 Mixed hyperlipidemia (principal); E53.8 Deficiency of other specified B group vitamins; R25.2 Cramp and spasm
CPT/HCPCS: 99214

== ENCOUNTER 2023-12-09 09:03 | Outpatient (AMB) | payer OTHER, SELFPAY ==
--- NOTE | 2023-12-09 09:18 | AM.OFFWIN_ITS ---
Intake Vital Signs 12/09/23 09:22 Height 5 ft 3 in Weight 229 lb BMI 40.6 BP 106/76 Blood Pressure Location Lt brachial Position Sitting Pulse 70 Pulse Source Pulse Oximeter Temp 98.3 F Temp Source Oral Pulse Oximetry (%) 98 Oxygen Delivery Method Room Air Intake Visit Reasons: rash from face to mid stomach Intake Note: pt c/o rash from face to mid abdomen. Started on neck and chest Saturday. Itchy and painful Patient Tobacco Use Status: Former Tobacco user Allergies tocilizumab [From Actemra] Allergy (Severe, Verified 12/09/23 09:21) Difficulty Breathing Do you need a note to return to daycare/school/sports/work: Yes HPI rash from face to mid stomach HPI Details This note is constructed using voice recognition software. While every effort has been made to ensure accuracy, make ready mechanic errors may have been included. The patient is a 48 year old female who presents to the clinic today with rash starting on her neck and then progressing up her head and down her arm several days ago. She notes that the rash is worse when she is in the heat, or having a shower. If she applies cool the rash seems to get better. The area seems to be painful and itchy. She has had no new soaps, lotions, perfumes, detergents, or foods. The rash started flat and has remained flat, has been red, and without lesions or discharge. [facility] Medical History (Updated 11/15/23 @ 09:09 by Jeri Snyder MD) History of nephrolithiasis GERD (gastroesophageal reflux disease) BMI 38.0-38.9,adult Obesity (BMI 35.0-39.9 without comorbidity) Nephrolithiasis Bilateral sacroiliitis Depression with anxiety Rheumatoid arthritis Mixed dyslipidemia Surgical History (Updated 11/15/23 @ 09:03 by Jeri Snyder MD) History of bilateral salpingectomy History of robot-assisted laparoscopic hysterectomy Hx of ovarian cystectomy H/O dilation and curettage Status post laser lithotripsy of ureteral calculus History of tubal ligation Hx of myringotomy H/O excision of ganglion cyst Previous section Hx of appendectomy Hx laparoscopic cholecystectomy Hx of tonsillectomy Family History Father HTN (hypertension) Diabetes mellitus Depression Dyslipidemia Substance use disorder Mental health disorder Mother Pancreatic cancer Anxiety Brother Substance use disorder Mental health disorder Daughter Mental health disorder Sister Substance use disorder Mental health disorder Maternal Uncle Mental health disorder Daughter Mental health disorder Daughter Mental health disorder Social History Housing: Apartment Alcohol intake: current Alcohol intake frequency: does not drink Patient Tobacco Use Status: Former Tobacco user Years Smoked: 25 yrs e-Cigarette/Vaping Use: Never Used Second Hand Smoke Exposure: No service: No Current occupational status: employed Cognitive needs: No Hearing needs: No Vision needs: Yes Review of Systems Const All systems reviewed & are unremarkable except as noted in HPI and below Physical Exam Vital Signs: Last Vital Signs Temp 98.3 F 12/09/23 09:22 Pulse 70 12/09/23 09:22 BP 106/76 12/09/23 09:22 Pulse Ox 98 12/09/23 09:22 Oxygen Delivery Method Room Air 12/09/23 09:22 BMI result Body Mass Index 40.6 Const General: cooperative, healthy appearing, comfortable, no acute distress and alert Orientation/consciousness: patient oriented x3 Limitations: no limitations Skin Other: Erythematous macules to upper trunk and face. No warmth, discharge, open lesions. General skin exam: elasticity normal and turgor normal Neuro General: patient oriented x3 Psych Appearance: grossly normal Mental Status: mental status grossly normal Speech and movement: Normal speech and movement present Affect: normal affect Assessment & Plan Assessment & Plan (1) Tinea versicolor: Code(s): B36.0 - Pityriasis versicolor Plan: Advised trial Selsun blue shampoo, as well as ketoconazole which was prescribed. Discussed additional symptomatic treatment such as prednisone, patient to try a prednisone burst for 3 days. Reviewed risk associated with use of prednisone. Advised patient to follow up with PCP with worsening symptoms or failure to resolve. Plan See above for full details and plan. Medications: New ketoconazole 2% 1 appl topical 2XW 120 mL 0RF prednisone 40 mg (2 x 20 mg) PO DAILY 3 days 6 tabs 0RF Coding Level of Care Code Est Pt Level 3 (26116) Diagnoses Tinea versicolor B36.0
[2023-12-09 09:22] VITALS: BP 106/76; PULSE 70; TEMP 36.8; O2SAT 98; BMI 40.6
== END 2023-12-09 10:33 | disposition home or self-care (01) ==
PROVIDERS: PCP Internal Medicine; Visit Provider Registered Nurse
DX: B36.0 Pityriasis versicolor (principal)
CPT/HCPCS: 99213

== ENCOUNTER 2024-01-07 09:23 | Outpatient (REF) | payer OTHER, SELFPAY ==
--- NOTE | ~2024-01-07 | US_ITS ---
EXAMINATION: US RETROPERITONEAL COMPLETE (RENAL) CLINICAL INFORMATION: Renal calculus. COMPARISON: [facility] 06/17/2023. Renal ultrasound 12/12/2022. CT abdomen and pelvis 06/07/2021. TECHNIQUE: Real-time imaging of the kidneys. FINDINGS: RIGHT KIDNEY: 12.8 x 4.8 x 4.3 cm (SAG x AP x TRV). The kidney is normal in size, contour, and echogenicity. Renal cortical thickness is normal. No focal parenchymal lesions. Two (2) mid renal echogenic foci are seen measuring 3 mm in size each consistent with nonobstructing calculi. At the time of the prior ultrasound exam, only one small calculus was seen. Some cortical calcifications is seen in the mid kidney. No hydronephrosis. LEFT KIDNEY: 12.2 x 5.6 x 4.3 cm (SAG x AP x TRV). The kidney is normal in size, contour, and echogenicity. Renal cortical thickness is normal. No calculi or focal parenchymal lesions. No hydronephrosis. Two (2) upper pole renal calculus seen at the time of the prior CT scan are not identified on the current exam. US/US renal BI IMPRESSION: Two small nonobstructing right renal calculi. Electronically signed by: Dany Gamez MD 01/14/2024 12:36 AM EDT
== END 2024-01-07 09:24 | disposition home or self-care (01) ==
LOC: HO.US 09:23
PROVIDERS: PCP Internal Medicine; Visit Provider Nurse Practitioner Family
DX: N20.0 Calculus of kidney (principal)
CPT/HCPCS: 76775

== ENCOUNTER 2024-01-15 11:31 | Outpatient (AMB) | payer OTHER, SELFPAY ==
--- NOTE | 2024-01-15 11:41 | A.OFFVIS_ITS ---
Intake Visit Reasons: 1y/US(set) Intake Note: Patient presents for ultrasound follow up renal stones Imaging Completed: 01/07/24 Urology Medication: Vitamin B6 Blood Thinner: none Esol Teacher Assistant Required: No Accompanied by: Self / Same As Patient Allergies tocilizumab [From Actemra] Allergy (Severe, Verified 01/15/24 12:13) Difficulty Breathing Medication List - Last Reconciled 01/15/24 by Joelle Cruz, MODEL MAKER APPRENTICE- betamethasone dipropionate 0.05% 1 appl topical BID celecoxib (Celebrex) 100 mg PO Q12H cholecalciferol (vitamin D3) 125 mcg PO DAILY clindamycin phosphate 1% topical famotidine (Pepcid) 20 mg PO BEDTIME folic acid 0.8 mg PO DAILY ketoconazole 2% 1 appl topical 2XW lamotrigine 50 mg PO DAILY lamotrigine 200 mg PO DAILY leflunomide 20 mg PO DAILY magnesium oxide 250 mg PO DAILY omega-3 fatty acids (Fish Oil Concentrate) 1,000 mg PO DAILY pantoprazole 40 mg PO DAILY pyridoxine (vitamin B6) 100 mg PO DAILY 90 days rosuvastatin 5 mg PO DAILY spironolactone 50 mg PO BID tofacitinib ER (Xeljanz XR) 11 mg PO DAILY HPI Comments Details: Alejandra Lennon is a pleasant 48-year-old female patient of Dr. Snyder. She has past medical history of depression, anxiety, GERD, mixed dyslipidemia, obesity, rheumatoid arthritis, and nephrolithiasis. She presents to the office today for follow-up regarding her nephrolithiasis. When asked patient reports to be doing well. Recent renal imaging results reviewed with the patient today. Bilateral kidneys are normal in size, contour, and echogenicity, right side echogenic foci measuring approximately 3 mm consistent with nonobstructing calculi. No hydronephrosis noted bilaterally. No left-sided renal calculi noted.She denies any urological issues or concerns at this time. Patient denies flank pain, fever, chills, and or hematuria. Patient continues to be compliant with vitamin B6 and drinks plenty of fluid daily and adds lemon juice to her water daily. In office urinalysis results reviewed with the patient today. She otherwise offers no other issues or concerns at this time. [facility] Medical History History of nephrolithiasis GERD (gastroesophageal reflux disease) BMI 38.0-38.9,adult Obesity (BMI 35.0-39.9 without comorbidity) Nephrolithiasis Bilateral sacroiliitis Depression with anxiety Rheumatoid arthritis Mixed dyslipidemia Surgical History (Updated 11/15/23 @ 09:03 by Jeri Snyder MD) History of bilateral salpingectomy History of robot-assisted laparoscopic hysterectomy Hx of ovarian cystectomy H/O dilation and curettage Status post laser lithotripsy of ureteral calculus History of tubal ligation Hx of myringotomy H/O excision of ganglion cyst Previous section Hx of appendectomy Hx laparoscopic cholecystectomy Hx of tonsillectomy Family History Father HTN (hypertension) Diabetes mellitus Depression Dyslipidemia Substance use disorder Mental health disorder Mother Pancreatic cancer Anxiety Brother Substance use disorder Mental health disorder Daughter Mental health disorder Sister Substance use disorder Mental health disorder Maternal Uncle Mental health disorder Daughter Mental health disorder Daughter Mental health disorder Social History Housing: Apartment Alcohol intake: current Alcohol intake frequency: does not drink Patient Tobacco Use Status: Former Tobacco user Years Smoked: 25 yrs e-Cigarette/Vaping Use: Never Used Second Hand Smoke Exposure: No service: No Current occupational status: employed Cognitive needs: No Hearing needs: No Vision needs: Yes Review of Systems Const All systems reviewed & are unremarkable except as noted in HPI and below Reports no additional complaints Eyes Reports no additional complaints ENT Reports no additional complaints Card Reports no additional complaints Resp Reports no additional complaints GI Reports no additional complaints Reports as per HPI Musc Reports no additional complaints Neuro Reports no additional complaints Psych Reports no additional complaints Endo Reports no additional complaints Tim/Lymph Reports no additional complaints and Reports lymphadenopathy Aller/Immun Reports no additional complaints Physical Exam Const General: cooperative, healthy appearing, comfortable, no acute distress, well developed, alert and awake Orientation/consciousness: patient oriented x3 Limitations: no limitations HEENT Head: Yes normal to inspection, Yes normocephalic and Yes atraumatic Ears: hearing grossly normal bilaterally Eyes General: appearance normal, both eyes and all related structures Neck Neck: Yes normal visual inspection and Yes trachea midline Chest Chest palpation & inspection: normal inspection of the chest Resp Effort & Inspection: normal respiratory effort and able to speak in complete sentences Cardio Rate: regular rate General: Yes no CVA tenderness Back/Spine/Pelvis Back: no CVA tenderness Neuro General: patient oriented x3 Extrem General: Yes normal to inspection and Yes full ROM Psych Appearance: grossly normal and well kempt Mental Status: mental status grossly normal Speech and movement: Normal speech and movement present and Clear speech present Affect: normal affect Attitude: cooperative Thought process: Normal thought process present Thought content: Normal thought content present Insight: Fair insight present (Psych) Judgement: Fair judgement present (Psych) Results AMB Urinalysis, Automated UA Leukoctes 0 Garth/uL Last Edit by [employer] on 01/15/24 11:52 UA Nitrite Last Edit by [employer] on 01/15/24 11:52 UA Urobilinogen 0.2 mg/dL Last Edit by [employer] on 01/15/24 11:52 UA Protein 0 mg/dL Last Edit by [employer] on 01/15/24 11:52 UA pH 6.0 Last Edit by [employer] on 01/15/24 11:52 UA Blood 0 Maicol/uL Last Edit by [employer] on 01/15/24 11:52 UA Specific Bonner 1.015 Last Edit by [employer] on 01/15/24 11:52 UA Ketone Negative Last Edit by [employer] on 01/15/24 11:52 UA Bilirubin 0 mg/dL Last Edit by [employer] on 01/15/24 11:52 UA Glucose 0 mg/dL Last Edit by [employer] on 01/15/24 11:52 Results Reviewed Results Reviewed: Laboratory Last Values Urine pH (Auto) 6.0 01/15/24 11:50 Specific Bonner (Auto) 1.015 01/15/24 11:50 Urine Protein (Auto) 0 mg/dL 01/15/24 11:50 Glucose (UA)(Auto) 0 mg/dL 01/15/24 11:50 Urine Ketones (Auto) Negative 01/15/24 11:50 Urine Blood (Auto) 0 Maicol/uL 01/15/24 11:50 Urine Bilirubin (Auto) 0 mg/dL 01/15/24 11:50 Urine Urobilinogen (Auto) 0.2 mg/dL 01/15/24 11:50 Leukocyte Esterase (Auto) 0 Garth/uL 01/15/24 11:50 Date of Service: 01/07/24 EXAMINATION: US RETROPERITONEAL COMPLETE (RENAL) FINDINGS: RIGHT KIDNEY: 12.8 x 4.8 x 4.3 cm (SAG x AP x TRV). The kidney is normal in size, contour, and echogenicity. Renal cortical thickness is normal. No focal parenchymal lesions. Two (2) mid renal echogenic foci are seen measuring 3 mm in size each consistent with nonobstructing calculi. At the time of the prior ultrasound exam, only one small calculus was seen. Some cortical calcifications is seen in the mid kidney. No hydronephrosis. LEFT KIDNEY: 12.2 x 5.6 x 4.3 cm (SAG x AP x TRV). The kidney is normal in size, contour, and echogenicity. Renal cortical thickness is normal. No calculi or focal parenchymal lesions. No hydronephrosis. Two (2) upper pole renal calculus seen at the time of the prior CT scan are not identified on the current exam. IMPRESSION: Two small nonobstructing right renal calculi. Assessment & Plan Assessment & Plan (1) Renal calculus, bilateral: Code(s): N20.0 - Calculus of kidney Category: Medical Plan In office urinalysis results reviewed with the patient today; as noted above. Recent renal imaging results reviewed with the patient today; as noted above; stable Will continue with surveillance monitoring Continue vitamin B6 as discussed and prescribed. Patient denies any bothersome urinary issues or concerns at this time. Educated, encouraged, instructed on the importance of drinking plenty of water daily. Renal ultrasound in 1 year. Follow-up in 1 year with imaging to be completed prior; or sooner with any issues, concerns, and or questions Orders: Orders AMB Urinalysis Automated Today Z13.9 - Encounter for screening, unspecified US renal BI 1 Year N20.0 - Calculus of kidney Patient Instructions: The patient had an opportunity to ask questions regarding the treatment plan. All questions were answered. Physical exam, labs, and imaging were discussed and reviewed in detail. As well as risks, benefits, and discussion of treatment choices. No major barriers to understanding were identified. The patient expressed understanding and agreement with the above treatment plan. The patient was made aware they should contact our office by phone for worsening of their current condition, the appearance of new symptoms, or with any questi ons or concerns. Compliance is encouraged with any medications and follow up testing that is ordered. It is a privilege to be allowed the opportunity to participate in? your urological care.? Again, if you have any questions or concerns If you have any questions or concerns please do not hesitate to contact me. The office is [phone]. This note is constructed using voice recognition software. While every effort has been made to ensure accuracy quality control associate errors may have been included. Yours sincerely, SUNITA Suarez Coding Level of Care Code Est Pt Level 3 (95627) Diagnoses Renal calculus, bilateral N20.0
== END 2024-01-15 12:16 | disposition home or self-care (01) ==
PROVIDERS: PCP Internal Medicine; Visit Provider Nurse Practitioner Family
DX: N20.0 Calculus of kidney (principal); Z13.9 Encounter for screening, unspecified
CPT/HCPCS: 99213

== ENCOUNTER → 2024-01-15 11:31 | Outpatient (BNVA) | payer OTHER, SELFPAY | PROVIDERS: PCP Internal Medicine; Visit Provider Nurse Practitioner Family | DX: N20.0 Calculus of kidney (principal) | CPT/HCPCS: 81003 ==

== ENCOUNTER 2024-01-18 09:28 | Outpatient (AMB) | payer OTHER, SELFPAY ==
[2024-01-18 10:48] VITALS: BP 104/80; PULSE 71; TEMP 36.8; O2SAT 94; BMI 40.6
--- NOTE | 2024-01-18 10:48 | AM.OFFWIN_ITS ---
Intake Vital Signs 01/18/24 10:48 Height 5 ft 3 in Weight 229 lb BMI 40.6 BP 104/80 Blood Pressure Location Lt brachial Position Sitting Pulse 71 Pulse Source Pulse Oximeter Temp 98.2 F Temp Source Oral Pulse Oximetry (%) 94 Oxygen Delivery Method Room Air Intake Visit Reasons: EP Cough, sob, pain when breathing Intake Note: Pt is here today c/o cough,SOB bodyaches x3days Patient Tobacco Use Status: Former Tobacco user Allergies tocilizumab [From Actemra] Allergy (Severe, Verified 01/18/24 11:34) Difficulty Breathing Medication List - Last Reconciled 01/18/24 by Desire Clark, REDUCING SYSTEM OPERATOR- betamethasone dipropionate 0.05% 1 appl topical BID celecoxib (Celebrex) 100 mg PO Q12H cholecalciferol (vitamin D3) 125 mcg PO DAILY clindamycin phosphate 1% topical famotidine (Pepcid) 20 mg PO BEDTIME folic acid 0.8 mg PO DAILY hydroxyzine HCl 10 mg PO BID lamotrigine 50 mg PO DAILY lamotrigine 200 mg PO DAILY leflunomide 20 mg PO DAILY magnesium oxide 250 mg PO DAILY omega-3 fatty acids (Fish Oil Concentrate) 1,000 mg PO DAILY pantoprazole 40 mg PO DAILY pyridoxine (vitamin B6) 100 mg PO DAILY 90 days rosuvastatin 5 mg PO DAILY spironolactone 50 mg PO BID tofacitinib ER (Xeljanz XR) 11 mg PO DAILY HPI HPI Comments History of Present Illness Details 48-YEAR-OLD FEMALE WITH SARCOIDOSIS HERE TODAY WITH COMPLAINTS OF A COUGH. SHE REPORTS THAT SHE BECAME ILL ON SATURDAY WITH A RUNNY NOSE AND A COUGH. THE NEXT DAY HER COUGH BECAME WORSE. SHE HAD EPISODES OF COUGHING WHERE SHE VOMITS. SHE REPORTS THAT OVERALL THE COUGH IS BETTER. HOWEVER SHE FEELS SHORT OF BREATH WHICH IS WORSE WHEN SHE IS LYING DOWN. SHE DENIES HOME COVID TEST ON SATURDAY WHICH WAS NEGATIVE. SHE ALSO HAS A SORE THROAT. SHE DENIES ANY FEVER, CHILLS, HEMOPTYSIS, CHEST PAIN. EXAM AWAKE ALERT NAD, MILDLY ILL-APPEARING SCLERA AND CONJUNCTIVA CLEAR BILAT NARES PATENT, TURBINATES WITHIN NORMAL LIMITS, NO SINUS TENDERNESS WITH PALPATION BILAT TM INTACT AND CLEAR BILAT MMM, PHARYNX WNL RRR LS DIM THROUGHOUT, OCCASIONAL COUGH PLAN OFFERED AND DECLINED A VIRAL SWAB. SHE REPORTS THAT SHE HAS RESPONDED WELL TO BREO AND ALBUTEROL IN THE PAST. I WILL PRESCRIBE THAT TO HER ALONG WITH TESSALON TO HELP WITH THE COUGH TO AVOID VOMITING. SHE IS ACTIVE WITH A SEISMIC ENGINEER. I HAVE ADVISED HER TO CALL SATURDAY MORNING TO ARRANGE FOR FOLLOW- UP TO ENSURE SHE IS GETTING BETTER. SHE ALSO STATES SHE HAS A APPOINTMENT WITH HER PRIMARY CARE PROVIDER ON SATURDAY. EDUCATED ON REASONS TO RETURN TO THE OFFICE BUT STRONGLY ENCOURAGED FOLLOW-UP WITH HER CARE TEAM. THIS NOTE IS CONSTRUCTED USING VOICE RECOGNITION SOFTWARE. WHILE EVERY EFFORT HAS BEEN MADE TO ENSURE ACCURACY IN NETWORKS SOFTWARE CONSULTANT, STILL ERRORS MAY HAVE BEEN INCLUDED SOMETIMES, THESE ERRORS MAY AFFECT THE CONTENT OR MEANING OF THE GIVEN SENTENCE . [facility] Medical History History of nephrolithiasis GERD (gastroesophageal reflux disease) BMI 38.0-38.9,adult Obesity (BMI 35.0-39.9 without comorbidity) Nephrolithiasis Bilateral sacroiliitis Depression with anxiety Rheumatoid arthritis Mixed dyslipidemia Surgical History (Updated 11/15/23 @ 09:03 by Jrei Snyder MD) History of bilateral salpingectomy History of robot-assisted laparoscopic hysterectomy Hx of ovarian cystectomy H/O dilation and curettage Status post laser lithotripsy of ureteral calculus History of tubal ligation Hx of myringotomy H/O excision of ganglion cyst Previous section Hx of appendectomy Hx laparoscopic cholecystectomy Hx of tonsillectomy Family History Father HTN (hypertension) Diabetes mellitus Depression Dyslipidemia Substance use disorder Mental health disorder Mother Pancreatic cancer Anxiety Brother Substance use disorder Mental health disorder Daughter Mental health disorder Sister Substance use disorder Mental health disorder Maternal Uncle Mental health disorder Daughter Mental health disorder Daughter Mental health disorder Social History Housing: Apartment Alcohol intake: current Alcohol intake frequency: does not drink Patient Tobacco Use Status: Former Tobacco user Years Smoked: 25 yrs e-Cigarette/Vaping Use: Never Used Second Hand Smoke Exposure: No service: No Current occupational status: employed Cognitive needs: No Hearing needs: No Vision needs: Yes Physical Exam Vital Signs: Last Vital Signs Temp 98.2 F 01/18/24 10:48 Pulse 71 01/18/24 10:48 BP 104/80 01/18/24 10:48 Pulse Ox 94 01/18/24 10:48 Oxygen Delivery Method Room Air 01/18/24 10:48 BMI result Body Mass Index 40.6 Assessment & Plan Assessment & Plan (1) Sarcoidosis: Code(s): D86.9 - Sarcoidosis, unspecified Plan: . (2) Asthma exacerbation: Code(s): J45.901 - Unspecified asthma with (acute) exacerbation Qualifiers: Asthma severity: mild Asthma persistence: persistent Qualified Code(s): J45.31 - Mild persistent asthma with (acute) exacerbation Plan: . (3) Viral respiratory illness: Code(s): J98.8 - Other specified respiratory disorders; B97.89 - Other viral agents as the cause of diseases classified elsewhere Plan: . Medications: New albuterol sulfate 90 mcg/actuation 2 puffs inhalation Q4-6H 30 days PRN 8.5 grams 0RF shortness of breath or wheezing benzonatate 100 mg PO TID 10 days PRN 30 caps 1RF cough fluticasone furoate-vilanterol 100-25 mcg/dose (Breo Ellipta) 1 inh inhalation DAILY 30 days 60 ea 0RF Coding Level of Care Code Est Pt Level 4 (12258) Diagnoses Sarcoidosis D86.9 Mild persistent asthma with exacerbation J45.31 Asthma severity: mild Asthma persistence: persistent Viral respiratory illness J98.8; B97.89
== END 2024-01-18 12:08 | disposition home or self-care (01) ==
PROVIDERS: PCP Internal Medicine; Visit Provider Nurse Practitioner Family
DX: D86.9 Sarcoidosis, unspecified (principal); J45.31 Mild persistent asthma with (acute) exacerbation; J98.8 Other specified respiratory disorders; B97.89 Other viral agents as the cause of diseases classified elsewhere
CPT/HCPCS: 99214

== ENCOUNTER 2024-01-21 12:15 | Outpatient (AMB) | payer OTHER, SELFPAY ==
--- NOTE | 2024-01-21 12:40 | MHC.PC.OV ---
Vital Signs 01/21/24 12:41 Height 5 ft 3 in Weight 230 lb BMI 40.7 BP 126/82 Blood Pressure Location Lt brachial Position Sitting Pulse 78 Pulse Source Pulse Oximeter Pulse Oximetry (%) 97 Oxygen Delivery Method Room Air Intake Visit Reasons: PE Intake Note: Patient here for physical exam. last mammo: 2022 due this february colon: 2023 at [facility] Allergies tocilizumab [From Actemra] Allergy (Severe, Verified 01/21/24 12:49) Difficulty Breathing Medication List - Last Reconciled 01/21/24 by Jeri Snyder MD albuterol sulfate 90 mcg/actuation 2 puffs inhalation Q4-6H PRN 30 days benzonatate 100 mg PO TID PRN 10 days betamethasone dipropionate 0.05% 1 appl topical BID celecoxib (Celebrex) 100 mg PO Q12H cholecalciferol (vitamin D3) 125 mcg PO DAILY clindamycin phosphate 1% topical famotidine (Pepcid) 20 mg PO BEDTIME fluticasone furoate-vilanterol 100-25 mcg/dose (Breo Ellipta) 1 inh inhalation DAILY 30 days folic acid 0.8 mg PO DAILY hydroxyzine HCl 10 mg PO BID lamotrigine 50 mg PO DAILY lamotrigine 200 mg PO DAILY leflunomide 20 mg PO DAILY magnesium oxide 250 mg PO DAILY omega-3 fatty acids (Fish Oil Concentrate) 1,000 mg PO DAILY pantoprazole 40 mg PO DAILY pyridoxine (vitamin B6) 100 mg PO DAILY 90 days rosuvastatin 5 mg PO DAILY spironolactone 50 mg PO BID tofacitinib ER (Xeljanz XR) 11 mg PO DAILY Tobacco use date assessed: 07/15/23 Dental Screening Dental Screen Date: 07/15/23 HPI PE HPI Details 48 year-old lady history of rheumatoid arthritis, mixed dyslipidemia , sarcoidosis, GERD, depression, nephrolithiasis, mild intermittent asthma, depression with anxiety, and DUB s/p TAHBSO, here today for physical exam. She is up-to-date with her screening mammogram due again later this year. Had an upper endoscopy done 07/10/[address] Parson which showed Erosive esophagitis, gastritis, duodenitis, Schatzki's Ring, hiatal hernia, currently on pantoprazole 40 mg daily and famotidine 20 mg at bedtime. Screening colonoscopy done during the same day showed only presence of internal hemorrhoids. [facility] Medical History (Updated 01/26/24 @ 04:18 by Jeri Snyder MD) Restless leg syndrome History of nephrolithiasis GERD (gastroesophageal reflux disease) BMI 38.0-38.9,adult Obesity (BMI 35.0-39.9 without comorbidity) Nephrolithiasis Bilateral sacroiliitis Depression with anxiety Rheumatoid arthritis Mixed dyslipidemia Surgical History (Updated 01/21/24 @ 12:56 by Jeri Snyder MD) History of bilateral salpingectomy History of robot-assisted laparoscopic hysterectomy Hx of ovarian cystectomy H/O dilation and curettage Status post laser lithotripsy of ureteral calculus History of tubal ligation Hx of myringotomy H/O excision of ganglion cyst Previous section Hx of appendectomy Hx laparoscopic cholecystectomy Hx of tonsillectomy Family History Father HTN (hypertension) Diabetes mellitus Depression Dyslipidemia Substance use disorder Mental health disorder Mother Pancreatic cancer Anxiety Brother Substance use disorder Mental health disorder Daughter Mental health disorder Sister Substance use disorder Mental health disorder Maternal Uncle Mental health disorder Daughter Mental health disorder Daughter Mental health disorder Social History Housing: Apartment Alcohol intake: current Alcohol intake frequency: does not drink Patient Tobacco Use Status: Former Tobacco user Years Smoked: 25 yrs e-Cigarette/Vaping Use: Never Used Second Hand Smoke Exposure: No service: No Current occupational status: employed Cognitive needs: No Hearing needs: No Vision needs: Yes Questionnaire PHQ-9 Over the last 2 weeks, how often have you been bothered by any of the following problems? 1. Little interest or pleasure in doing things: not at all 2. Feeling down, depressed, or hopeless: not at all 3. Trouble falling or staying asleep, or sleeping too much: more than half the days 4. Feeling tired or having little energy: several days 5. Poor appetite or overeating: several days 6. Feeling bad about yourself - or that you are a failure or have let yourself or your family down: not at all 7. Trouble concentrating on things, such as reading the newspaper or watching television: several days 8. Moving or speaking so slowly that other people could have noticed. Or the opposite - being so fidgety or restless that you have been moving around a lot more than usual: not at all 9. Thoughts that you would be better off or of hurting yourself in some way: not at all Total score: 5 Depression Screening Interpretation: Negative Depression Screening Done: Yes 16800 - PHQ-9 Billing: Yes Source: Developed by Drs. Ralph Dozier, Gogo Larkin, Christopher Patrick and colleagues, with an educational annabelle from [employer]. Thrive Questionnaire Date Thrive assessed: 01/16/24 I am a: Patient What is your living situation today?: I have a steady place to live Within the past 12 months, did the food you bought not last and you didn't have the money to get more?: Never true Within the past 12 months, did you worry whether your food would run out before you got money to buy more?: Never true Do you have trouble paying for medicines?: No Do you have trouble getting transportation to medical appointments?: No Do you have trouble paying your heating and electricity bill?: No Do you have trouble taking care of your child, family member or friend?: No Do you have trouble with day-to-day activities such as bathing, preparing meals, shopping, managing finances, etc.?: No Are you currently unemployed and looking for a job?: No Are you interested in more education?: No Please select the resources that you would like help with: None Currently or been in a relationship where the following occur: No concerns reported THRIVE Score: 0 AUDIT C Alcohol Use Questionnaire (AUDIT-C) 1. How often do you have a drink containing alcohol?: Monthly or less 2. How many drinks containing alcohol do you have on a typical day when you are drinking?: 3 or 4 3. How often do you have six or more drinks on one occasion?: Less than monthly Total Score: 3 MATT-7 AMB Questionnaire MATT-7 Date MATT - 7 assessed: 01/10/23 Feeling nervous, anxious, or on edge: 1 = Several days Not being able to stop or control worryin = Not at all Worrying too much about different things: 0 = Not at all Trouble relaxin = Several days Being so restless that it is hard to sit still: 1 = Several days Becoming easily annoyed or irritable: 1 = Several days Feeling afraid as if something awful might happen: 0 = Not at all Total MATT-7 score (0-4 normal; 5-9 mild; 10-14 moderate; 15-21 severe): 4 Source: Developed by Drs. Ralph Dozier, Gogo Larkin, Christopher Patrick and colleagues, with an educational annabelle from [employer]. MATT-7 Assessment Billing MATT-7 Assessment Tool: MATT-7 Assessment 21598 Review of Systems Const Reports excessive sweating (hot flashes) Eyes Details: Goes to [facility], sees Dr. Hurtado Reports no additional complaints ENT Reports no additional complaints Card Reports no additional complaints Resp Reports no additional complaints GI Reports no additional complaints Reports as per HPI Musc Details: sees Dr Morris for her rheumatoid arthritis Denies deformity, Denies joint swelling and Reports stiffness Skin/Breast Denies breast skin changes, Denies breast pain, Denies breast mass, Denies lesions and Denies rash Neuro Reports no additional complaints Psych Details: sees Claudia Self at [facility] Reports no additional complaints Endo Reports no additional complaints and Reports excessive sweating (hot flashes) Tim/Lymph Reports no additional complaints Aller/Immun Reports no additional complaints Physical exam (Primary Care) Vital Signs: Last Vital Signs Pulse 78 01/21/24 12:41 BP 126/82 01/21/24 12:41 Pulse Ox 97 01/21/24 12:41 Oxygen Delivery Method Room Air 01/21/24 12:41 BMI result Body Mass Index 40.7 Tobacco/Smoking Status: Tobacco use Status Tobacco use date assessed 07/15/23 01/21/24 12:41 Patient Tobacco Use Status Former Tobacco user 01/21/24 12:41 e-Cigarette/Vaping Use Never Used 01/21/24 12:41 PHQ-9: PHQ-9 Score PHQ-9: Total score 5 01/21/24 12:51 Depression Screening Interpretation: Negative Thrive Assessment: Date of Thrive Assessment Date Thrive assessed 01/16/24 01/21/24 12:41 Currently or been in a relationship where the following occur: No concerns reported Const General: no acute distress Orientation/consciousness: patient oriented x3 HENMT Ears: hearing grossly normal bilaterally and external ears normal General nose exam: Normal external nose present Mouth: Normal oral and palatal mucosa present and moist mucous membranes Eyes General: appearance normal, both eyes and all related structures Neck Neck: Yes full ROM, Yes no lymphadenopathy and Yes supple Chest Breast/axilla palpation: normal palpation of the breasts Resp Effort & Inspection: normal respiratory effort and able to speak in complete sentences Auscultation: clear to auscultation bilaterally Cardio Rate: regular rate Rhythm: regular rhythm Heart sounds: S1 normal heart sound present and S2 normal heart sound present GI Inspection: Yes normal to inspection Palpation (GI): Soft to palpation, nontender and no masses Auscultation: normal bowel sounds General: Yes no CVA tenderness and Yes deferred Back/Spine/Pelvis Back: no CVA tenderness Skin General skin exam: no rashes or lesions noted Neuro General: patient oriented x3, tone normal, moves all extremities, no focal motor deficits and CN's II-XI intact bilaterally Cognition (Neuro): normal cognition Gait exam (Neuro): Normal gait present Romberg Test: Negative Extrem General: Yes full ROM, Yes no joint enlargement, Yes no clubbing, cyanosis or edema and Yes normal gait Psych Appearance: grossly normal and well kempt Mental Status: mental status grossly normal Speech and movement: Normal speech and movement present Affect: normal affect Thought process: Normal thought process present Thought content: Normal thought content present Results Reviewed Results Reviewed: Name: Alejandra Ortega Age/Sex: 48/F : 1975 Unit#: [id number] Attend Dr: Jeri Snyder MD Re11/09/23 Status: DEP REF Location: [facility] Disch: SPEC : [id number] JANE: 11/09/23 STATUS: COMP REQ : [id number] RECD: 11/09/23-[address]: Jeri Snyder MD COMP: 11/09/23 ENTERED: 11/09/[address]: ORDERED: AST, ALT, Lipid Panel Test Result Flag Reference AST (GOT) 25 5-31 U/L ALT (GPT) 40 H 0-31 U/L Triglyceride 150 H <150 mg/dL Desirable Triglyceride: less than 150 mg/dL Borderline High Triglyceride 150-199 mg/dL High Triglyceride: 200-499 mg/dL Very High Triglyceride: greater than or equal to 5OO mg/dL Cholesterol 221 H <200 mg/dL Desirable Cholesterol: less than 200 mg/dL Borderline High Cholesterol: 200-239 mg/dL High Cholesterol: greater than 239 mg/dL LDL Calculated 123 H <100 mg/dL Desirable LDL: less than 100 mg/dL Near Optimal/Above Optimal LDL: 110-129 mg/dL Borderline High LDL: 130-159 mg/dL High LDL: 160-189 mg/dL Very High LDL: greater than or equal to 190 mg/dL HDL 68 >40 mg/dL Desirable HDL: greater than 40 mg/dL Note: This HDL assay may give artificially low results in patients with liver disease. Assessment and Plan Assessment & Plan (1) Annual visit for general adult medical examination with abnormal findings: Code(s): Z00.01 - Encounter for general adult medical examination with abnormal findings Plan: Reminded to get fasting labs done, already ordered. Recommended dental visit every 6 months and regular eye exams, at least every 2 years. Take adequate calcium in diet and vitamin-D 3 at 2000 IU per cap once a day, in addition to weight-bearing exercises to help maintain good muscle tone and weight control. Instructed to do self-breast exam, and r continue with yearly mammogram, ordered. Up-to-date with her screening colonoscopy. She is up-to-date with her Tdap, reminded to get her COVID booster and yearly flu vaccine (2) Sarcoidosis: Code(s): D86.9 - Sarcoidosis, unspecified Plan: Followed at [facility] by Dr. Yepez, last seen 12/30/2022, followed for sarcoidosis with asthma features and pulmonary nodules, on Breo and albuterol MDI with excellent control of her symptoms. She has had her CT chest in August of 2022 showing new 4 mm nodules, otherwise stable with repeat CT chest this year showing a benign, stable 4 mm nodule redemonstrated at the lateral basal segment of the left lower lobe. No further imaging follow-up is recommended... No new nodule, mass, infiltrate or groundglass opacity is seen.. There are bilateral scattered foci of minor scar/subsegmental atelectasis, without associated focal airway obstruction.4. No thoracic lymphadenopathy or pleural effusion is seen.. . There is no aggressive osseous lesion. (3) Mixed dyslipidemia: Code(s): E78.2 - Mixed hyperlipidemia Plan: Reviewed last fasting lipid profile with patient with levels within normal limit, repeat lipid panel already ordered . Continue rosuvastatin 5 mg daily , in addition to adherence to low-cholesterol diet and regular exercise, at least 30 minutes 3 to 4 times a week. Advised patient to make healthy food choices, eat more fruits, vegetables, whole grains, wild caught fish and low-fat dairy. Limit amount of meat and fried or fatty food products, as well as processed foods and fast foods. (4) Obesity (BMI 35.0-39.9 without comorbidity): Code(s): E66.9 - Obesity, unspecified Plan: Referred to [facility] weight management [facility] (5) Rheumatoid arthritis: Comment: Followed by Dr. morris Code(s): M06.9 - Rheumatoid arthritis, unspecified Qualifiers: Rheumatoid arthritis location: multiple sites Plan: Currently followed by Dr. Morris, on leflunomide and Xeljanz XR, takes celecoxib as needed joint (6) Depression with anxiety: Comment: goes to [facility] Code(s): F41.8 - Other specified anxiety disorders Plan: Followed at [facility], takes hydroxyzine 10 mg twice a day as needed for anxiety attacks and is on lamotrigine (7) Restless leg syndrome: Code(s): G25.81 - Restless legs syndrome Plan: Labs ordered to check vitamin-D, vitamin B12 magnesium level. Empirically started on ropinirole 0.25 mg to take 1 tablet at bedtime 30 tablets with 1 refill. If no improvement of symptoms Orders: Orders MM tomosynthesis screening BI 01/21/24 Z12.31 - Encounter for screening mammogram for malignant neoplasm of breast Referrals Medical Weight Management Referral E66.9 - Obesity, unspecified Medications: New ropinirole administer 1-3 hours before bedtime 0.25 mg PO BEDTIME 30 tabs 1RF Coding Level of Care Code Est Pt Prev Care 40-64y(79737) Diagnoses Annual visit for general adult medical examination with abnormal findings Z00.01 Sarcoidosis D86.9 Mixed dyslipidemia E78.2 Obesity (BMI 35.0-39.9 without comorbidity) E66.9 Rheumatoid arthritis M06.9 Rheumatoid arthritis location: multiple sites Depression with anxiety F41.8 Restless leg syndrome G25.81 Additional Codes MATT-7 Assessment Billing - MATT-7 Assessment Tool: MATT-7 Assessment 19709 ([id number])
[2024-01-21 12:41] VITALS: BP 126/82; PULSE 78; O2SAT 97; BMI 40.7
== END 2024-01-21 13:15 | disposition home or self-care (01) ==
PROVIDERS: PCP Internal Medicine; Visit Provider Internal Medicine
DX: Z00.00 Encounter for general adult medical examination without abnormal findings (principal); M06.9 Rheumatoid arthritis, unspecified; Z68.41 Body mass index [BMI] 40.0-44.9, adult; E66.9 Obesity, unspecified; D86.9 Sarcoidosis, unspecified; E78.2 Mixed hyperlipidemia; F41.8 Other specified anxiety disorders; G25.81 Restless legs syndrome
CPT/HCPCS: 99396

== ENCOUNTER 2024-01-29 14:38 | Outpatient (AMB) | payer OTHER, SELFPAY ==
[2024-01-29 14:41] VITALS: BP 114/60; PULSE 70; O2SAT 97; BMI 40.5
--- NOTE | 2024-01-29 14:41 | MHC.OFFVIS ---
Vital Signs 01/29/24 14:41 Height 5 ft 3 in Weight 228 lb 13.437 oz BMI 40.5 BP 114/60 Blood Pressure Location Rt brachial Position Sitting Pulse 70 Pulse Source Pulse Oximeter Pulse Oximetry (%) 97 Oxygen Delivery Method Room Air Intake Visit Reasons: 6 mos FUV. R/S from 01/03/2024 Intake Note: Alejandra presents in office today for a scheduled 6 mos FUV. CC; Pt reports that they have remained stable since their last visit, however; they have not seen any signficant improvement since their last visit. Pt still complaining of moderate to severe nausea. Pt reports needing refills of both their famotidine and their pantoprazole. Conference Producer Required: No Allergies tocilizumab [From [employer]verify] Allergy (Severe, Verified 01/29/24 14:42) Difficulty Breathing HPI HPI 6 mos FUV. R/S from 01/03/2024: Details: LAST VISIT: Chronic heartburn GERD (gastroesophageal reflux disease) Obesity Plan Patient will continue pantoprazole in the morning and famotidine at bedtime. Patient was encouraged to try to remember to take the medications without skipping. Patient will continue avoiding dietary triggers in late night snacking. Staying upright for minimum 3 hours after meals discussed with patient. Discussed with patient good choices in order to help her lose weight. Eating more vegetables, avoiding sugars. Patient was also encouraged to increase fluid intake and activity to promote better bowel motility. I will see patient in 6 months, sooner on as needed basis. Patient is agreeable to this and verbalizes understanding of instructions. She was given the opportunity to ask questions and all questions answered. TODAY'S VISIT Patient is here today for follow-up. Patient reports that she is feeling better, however she continues to have nausea. Patient states that she wakes up with nausea in the morning. Takes pantoprazole and throughout the day her symptoms are mainly suppressed. Occasional epigastric discomfort. Patient states that she is not eating late at night. Avoiding sugars and eating more vegetables. Patient reports that she is moving her bowels well without any issues. Patient denies any melena, hematochezia, unintentional weight loss or ribbon like stools. Patient denies any other GI concerning symptoms. ? [facility] Medical History Restless leg syndrome History of nephrolithiasis GERD (gastroesophageal reflux disease) BMI 38.0-38.9,adult Obesity (BMI 35.0-39.9 without comorbidity) Nephrolithiasis Bilateral sacroiliitis Depression with anxiety Rheumatoid arthritis Mixed dyslipidemia Surgical History History of bilateral salpingectomy History of robot-assisted laparoscopic hysterectomy Hx of ovarian cystectomy H/O dilation and curettage Status post laser lithotripsy of ureteral calculus History of tubal ligation Hx of myringotomy H/O excision of ganglion cyst Previous section Hx of appendectomy Hx laparoscopic cholecystectomy Hx of tonsillectomy Family History Father HTN (hypertension) Diabetes mellitus Depression Dyslipidemia Substance use disorder Mental health disorder Mother Pancreatic cancer Anxiety Brother Substance use disorder Mental health disorder Daughter Mental health disorder Sister Substance use disorder Mental health disorder Maternal Uncle Mental health disorder Daughter Mental health disorder Daughter Mental health disorder Social History Housing: Apartment Alcohol intake: current Alcohol intake frequency: does not drink Patient Tobacco Use Status: Former Tobacco user Years Smoked: 25 yrs e-Cigarette/Vaping Use: Never Used Second Hand Smoke Exposure: No service: No Current occupational status: employed Cognitive needs: No Hearing needs: No Vision needs: Yes Review of Systems Const Denies weight gain and Denies weight loss ENT Reports no additional complaints, Denies dysphagia and Denies odynophagia Card Reports no additional complaints Resp Reports no additional complaints GI Reports abdominal pain (epigastric), Denies belching, Denies melena, Denies bloating, Denies change in bowel habits, Denies dysphagia, Denies excessive flatus, Denies dyspepsia, Reports heartburn, Denies diarrhea, Denies loose stools, Reports nausea, Denies odynophagia and Denies vomiting Reports no additional complaints Musc Reports no additional complaints Neuro Reports no additional complaints Psych Reports no additional complaints Endo Reports no additional complaints Physical Exam Vital Signs: Last Vital Signs Pulse 70 01/29/24 14:41 BP 114/60 01/29/24 14:41 Pulse Ox 97 01/29/24 14:41 Oxygen Delivery Method Room Air 01/29/24 14:41 BMI result Body Mass Index 40.5 Const General: healthy appearing, no acute distress and well developed Nutritional Appearance: obese Orientation/consciousness: patient oriented x3 Resp Effort & Inspection: normal respiratory effort, able to speak in complete sentences, no tracheal deviation and symmetric chest movement Auscultation: clear to auscultation bilaterally Cardio Rate: regular rate GI Inspection: Yes normal to inspection, No distended and Yes obesity Palpation (GI): Soft to palpation, not firm, nontender and No hepatosplenomegaly present Auscultation: normal bowel sounds General: Yes no CVA tenderness Back/Spine/Pelvis Back: no CVA tenderness Skin General skin exam: elasticity normal, turgor normal and dry skin Neuro General: patient oriented x3 Psych Appearance: grossly normal Mental Status: mental status grossly normal Assessment & Plan Assessment & Plan (1) Chronic heartburn: Code(s): R12 - Heartburn Category: Medical (2) GERD (gastroesophageal reflux disease): Code(s): K21.9 - Gastro-esophageal reflux disease without esophagitis Category: Medical Qualifiers: Esophagitis presence: esophagitis presence not specified Qualified Code(s): K21.9 - Gastro-esophageal reflux disease without esophagitis (3) Obesity: Code(s): E66.9 - Obesity, unspecified Category: Medical Qualifiers: Obesity type: due to excess calories Obesity classification: adult class 3 (BMI >= 40) Serious obesity comorbidity presence: unspecified whether serious comorbidity present Body mass index: BMI 40.0-44.9 Qualified Code(s): E66.01 - Morbid (severe) obesity due to excess calories; Z68.41 - Body mass index [BMI] 40.0-44.9, adult (4) Nausea: Code(s): R11.0 - Nausea Plan Patient continues to have nausea. Epigastric pain postprandially. Will check transglutaminase. Patient will continue taking pantoprazole and will hold famotidine for now. Start sucralfate at bedtime. Avoid dietary triggers and late night snacking. Staying upright for minimum 3 hours after meals discussed with patient. Patient will follow-up in 6 months, sooner on as needed basis. She is agreeable to this plan and verbalizes understanding of instructions. She was given the opportunity to ask questions and all questions answered. Thank you for allowing me to participate in her care Orders: Orders Transglutaminase Ab IgG 01/29/24 R10.9 - Unspecified abdominal pain Transglutaminase IgA 01/29/24 R10.9 - Unspecified abdominal pain Medications: New sucralfate 1 g PO DAILY@1700 30 tabs 4RF R19.7 - Diarrhea, unspecified Refilled pantoprazole take one tablet half an hour before breakfast 40 mg PO DAILY 90 tabs 2RF K21.9 - Gastro-esophageal reflux disease without esophagitis On Hold famotidine (Pepcid) Hold Comment: Doctor's Order 20 mg PO BEDTIME 30 tabs 3RF K21.9 - Gastro-esophageal reflux disease without esophagitis Coding Level of Care Code Est Pt Level 3 (83470) Diagnoses Chronic heartburn R12 Gastroesophageal reflux disease, unspecified whether esophagitis present K21.9 Esophagitis presence: esophagitis presence not specified Class 3 severe obesity due to excess calories with body mass index (BMI) of 40.0 to 44.9 in adult, unspecified whether serious comorbidity present E66.01; Z68.41 Obesity type: due to excess calories Obesity classification: adult class 3 (BMI >= 40) Serious obesity comorbidity presence: unspecified whether serious comorbidity present Body mass index: BMI 40.0-44.9 Nausea R11.0 Time Spent (min) 25 Comment 15 minutes spent with patient and additional 10 minutes spent reviewing her records
== END 2024-01-29 15:17 | disposition home or self-care (01) ==
PROVIDERS: PCP Internal Medicine; Visit Provider Nurse Practitioner Family
DX: R12 Heartburn (principal); K21.9 Gastro-esophageal reflux disease without esophagitis; E66.01 Morbid (severe) obesity due to excess calories; Z68.41 Body mass index [BMI] 40.0-44.9, adult; R11.0 Nausea
CPT/HCPCS: 99213

== ENCOUNTER → 2024-01-29 14:38 | Outpatient (BNVA) | payer OTHER, SELFPAY | LOC: CF 15:31 | PROVIDERS: PCP Internal Medicine; Visit Provider Nurse Practitioner Family ==

== ENCOUNTER 2024-02-28 14:19 | Outpatient (AMB) | payer OTHER, SELFPAY ==
[2024-02-28 14:22] VITALS: BP 142/74; PULSE 77; TEMP 36.7; O2SAT 96; BMI 40.4
--- NOTE | 2024-02-28 14:22 | AM.OFFWIN_ITS ---
Intake Vital Signs 3 02/28/24 14:22 Height 5 ft 3 in Weight 228 lb BMI 40.4 BP 142/74 H Blood Pressure Location Rt brachial Position Sitting Pulse 77 Pulse Source Pulse Oximeter Temp 98.1 F Temp Source Oral Pulse Oximetry (%) 96 Oxygen Delivery Method Room Air Intake Visit Reasons: EP-lt hand biten by a cat/swollen Intake Note: Pt is here today Lt hand cat bite Hand is swollen Patient Tobacco Use Status: Former Tobacco user Allergies tocilizumab [From Actemra] Allergy (Severe, Verified 02/28/24 14:23) Difficulty Breathing HPI HPI Comments 2 History of Present Illness0 Details 48 y/o female patient who presents to [facility] walk [facility] clinic with c/o Cat bite on her hand. Pt reports that, her Cats were fighting and went to break up the fight when one of them Bit her Hand. She immediately washed the area with soap and water. Reports very little bleeding, only has 3 superficial puncture wounds. These were her In door Cats, fully vaccinated with no chance of Rabies or other diseases. Pt is uptodate with Tetanus Shots. [facility] Medical History Restless leg syndrome History of nephrolithiasis GERD (gastroesophageal reflux disease) BMI 38.0-38.9,adult Obesity (BMI 35.0-39.9 without comorbidity) Nephrolithiasis Bilateral sacroiliitis Depression with anxiety Rheumatoid arthritis Mixed dyslipidemia Surgical History History of bilateral salpingectomy History of robot-assisted laparoscopic hysterectomy Hx of ovarian cystectomy H/O dilation and curettage Status post laser lithotripsy of ureteral calculus History of tubal ligation Hx of myringotomy H/O excision of ganglion cyst Previous section Hx of appendectomy Hx laparoscopic cholecystectomy Hx of tonsillectomy Family History Father HTN (hypertension) Diabetes mellitus Depression Dyslipidemia Substance use disorder Mental health disorder Mother Pancreatic cancer Anxiety Brother Substance use disorder Mental health disorder Daughter Mental health disorder Sister Substance use disorder Mental health disorder Maternal Uncle Mental health disorder Daughter Mental health disorder Daughter Mental health disorder Social History (Reviewed 01/29/24 @ 14:42 by WENDY Morocho Housing: Apartment Alcohol intake: current Alcohol intake frequency: does not drink Patient Tobacco Use Status: Former Tobacco user Years Smoked: 25 yrs e-Cigarette/Vaping Use: Never Used Second Hand Smoke Exposure: No service: No Current occupational status: employed Cognitive needs: No Hearing needs: No Vision needs: Yes Review of Systems Const All systems reviewed & are unremarkable except as noted in HPI and below Physical Exam Vital Signs: Last Vital Signs Temp 98.1 F 02/28/24 14:22 Pulse 77 02/28/24 14:22 BP 142/74 H 02/28/24 14:22 Pulse Ox 96 02/28/24 14:22 Oxygen Delivery Method Room Air 02/28/24 14:22 BMI result Body Mass Index 40.4 Const General: cooperative and no acute distress Nutritional Appearance: obese Orientation/consciousness: patient oriented x3 Skin Other: 3 Small superficial Puncture wounds left dorsal hand. Mild swelling and tender to touch. Neuro General: patient oriented x3, gait normal and moves all extremities Extrem Right upper extremity: normal to inspection and full ROM Left upper extremity: hand Details: normal capillary refill, neurosensory exam normal, tenderness Location: of the dorsal hand Location: proximally, vascular exam and normal ROM of fingers (limited due to pain) Hand/finger images: 2 1. 3 Small superficial Puncture wounds left dorsal hand. Mild swelling and tender to touch. Psych Speech and movement: Normal speech and movement present Assessment & Plan Assessment & Plan (1) Cat bite of hand: Code(s): S61.459A - Open bite of unspecified hand, initial encounter; W55.01XA - Bitten by cat, initial encounter Qualifiers: Encounter type: initial encounter Laterality: left Qualified Code(s): S61.452A - Open bite of left hand, initial encounter; W55.01XA - Bitten by cat, initial encounter Plan: Ordered Augmentin for 5 days. NSAIDs for pain relief. IceHot Wrapped Hand with Alexis bandage compress. Medications: New 2 amoxicillin-pot clavulanate 875-125 mg 1 tab PO BID 5 days 10 tabs 0RF S61.452A - Open bite of left hand, initial encounter, W55.01XA - Bitten by cat, initial encounter Coding Level of Care Code Est Pt Level 3 (44803) Diagnoses Cat bite of left hand, initial encounter S61.452A; W55.01XA Encounter type: initial encounter Laterality: left Time Spent (min) 15
== END 2024-02-28 14:46 | disposition home or self-care (01) ==
PROVIDERS: PCP Internal Medicine; Visit Provider Nurse Practitioner Family
DX: S61.452A Open bite of left hand, initial encounter (principal); W55.01XA Bitten by cat, initial encounter

== ENCOUNTER → 2024-02-28 14:19 | Outpatient (BNVA) | payer OTHER, SELFPAY | PROVIDERS: PCP Internal Medicine; Visit Provider Nurse Practitioner Family ==

== ENCOUNTER 2024-02-29 09:01 | Emergency (ER) | payer OTHER, SELFPAY ==
--- NOTE | ~2024-02-29 | XR_ITS ---
EXAMINATION: XR HAND, LEFT CLINICAL INFORMATION: Cat bite. COMPARISON: Radiograph left wrist 03/27/2018. TECHNIQUE: PA, lateral, and oblique views of the left hand. FINDINGS: No unexpected radiopaque foreign bodies. No acute fractures or dislocation. Suggestion of soft tissue swelling along the dorsal surface of the hand on the lateral view. XR/XR hand LT min 3V IMPRESSION: 1. No acute fractures or dislocation. 2. No unexpected radiopaque foreign bodies. Electronically signed by: Diana Cameron MD 02/29/2024 11:25 AM EDT
[2024-02-29 09:09] VITALS: BP 143/85; PULSE 96; RESP 18; TEMP 36.6; O2SAT 98; BMI 40.4
--- NOTE | 2024-02-29 09:35 | PC.NURSE ---
pt a&ox3, c/o 11/19 pain to area of bite. cat updated on all shorts, had recent tetanus in november.
[2024-02-29] MEDS: Ibuprofen 600 MG TABLET PO (09:38)
[2024-02-29] MEDS: Amoxicillin/Potassium Clav 875 MG TABLET PO (09:38)
--- NOTE | 2024-02-29 09:40 | PC.NURSE ---
pt medicated per order
--- NOTE | 2024-02-29 09:40 | PC.NURSE ---
pt soaking lt hand
--- NOTE | 2024-02-29 09:54 | ED.ANIMALBIT ---
HPI - Animal Bite General Chief Complaint: Animal Bite Stated Complaint: cat bite Time Seen by Provider: 02/29/24 09:34 Source: patient Mode of arrival: ambulatory Limitations: no limitations History of Present Illness ED Provider: Geraldine Mcdonald PA-C HPI narrative: 48 yo right hand dominant female presents to the ER for evaluation of cat bite to her left hand that happened yesterday. She was trying to split up a fight between her two cats and one bit her left hand. She had an immediate severe, sharp pain. She was seen at an Urgent Care yesterday and was prescribed antibiotics but was not able to get to the pharmacy to start them last night. She woke up today with worsening swelling in the back of the left hand with pain with movement of the digits. pain with making a fist. no numbness, tingling. no fevers. no streaking up the arm. cat utd on vaccinations. MD complaint: animal bite Onset (ago): day(s) (1) Animal: cat Description of animal: household pet Mechanism: bite Location - Extremities: left: hand Pain description: sharp Severity scale (1-10): 9 Context: animals fighting Associated symptoms: weakness and erythema Treatments prior to arrival: irrigation Related Data Patient tetanus UTD: Yes Home Medications ?Medication ?Instructions ?Recorded ?Confirmed tofacitinib 11 mg tablet,extended 11 mg PO DAILY 03/09/20 01/18/24 release 24 hr (Xeljanz XR) lamotrigine 25 mg tablet 50 mg PO DAILY 05/20/20 01/18/24 leflunomide 20 mg tablet 20 mg PO DAILY 05/20/20 01/18/24 omega-3 fatty acids 1,000 mg 1,000 mg PO DAILY 07/05/20 01/18/24 capsule (Fish Oil Concentrate) lamotrigine 200 mg tablet 200 mg PO DAILY 03/16/21 01/18/24 clindamycin phosphate 1 % lotion topical 07/05/23 01/18/24 spironolactone 50 mg tablet 50 mg PO BID 07/05/23 01/18/24 betamethasone dipropionate 0.05 % 1 appl topical BID 07/15/23 01/18/24 topical ointment hydroxyzine HCl 10 mg tablet 10 mg PO BID 01/18/24 01/18/24 Previous Rx's ?Medication ?Instructions ?Recorded cholecalciferol (vitamin D3) 125 125 mcg PO DAILY #30 caps 04/08/21 mcg (5,000 unit) capsule celecoxib 100 mg capsule (Celebrex) 100 mg PO Q12H #60 caps 06/20/23 pyridoxine (vitamin B6) 100 mg 100 mg PO DAILY 90 days #90 tabs 06/20/23 tablet folic acid 800 mcg tablet 0.8 mg PO DAILY #30 tabs 11/15/23 magnesium oxide 250 mg PO DAILY #30 tabs 11/15/23 rosuvastatin 5 mg tablet 5 mg PO DAILY #90 tabs 11/15/23 famotidine 20 mg tablet (Pepcid) 20 mg PO BEDTIME #30 tabs 11/25/23 fluticasone furoate 100 1 inh inhalation DAILY 30 days #60 01/18/24 mcg-vilanterol 25 mcg/dose ea inhalation powder (Breo Ellipta) ropinirole 0.25 mg tablet 0.25 mg PO BEDTIME #30 tabs 01/21/24 albuterol sulfate 90 mcg/actuation 2 puff inhalation Q6H PRN 01/28/24 aerosol inhaler (Ventolin HFA) shortness of breath or wheezing #8.5 grams pantoprazole 40 mg tablet,delayed 40 mg PO DAILY #90 tabs 01/29/24 release sucralfate 1 gram tablet 1 g PO DAILY@1700 #30 tabs 01/29/24 amoxicillin 875 mg-potassium 1 tab PO BID 5 days #10 tabs 02/28/24 clavulanate 125 mg tablet amoxicillin 875 mg-potassium 1 tab PO BID #4 tabs 02/29/24 clavulanate 125 mg tablet oxycodone 5 mg tablet 5 mg PO BID PRN severe pain (scale 02/29/24 score 7-10) #4 tabs Allergies Allergy/AdvReac Type Severity Reaction Status Date / Time tocilizumab [From Actra] Allergy Severe Difficulty Verified 02/29/24 09:11 Breathing Review of Systems Review of Systems: Yes all other systems are reviewed and are negative PMF Past Medical History Medical History Restless leg syndrome History of nephrolithiasis GERD (gastroesophageal reflux disease) BMI 38.0-38.9,adult Obesity (BMI 35.0-39.9 without comorbidity) Nephrolithiasis Bilateral sacroiliitis Depression with anxiety Rheumatoid arthritis Mixed dyslipidemia Surgical History History of bilateral salpingectomy History of robot-assisted laparoscopic hysterectomy Hx of ovarian cystectomy H/O dilation and curettage Status post laser lithotripsy of ureteral calculus History of tubal ligation Hx of myringotomy H/O excision of ganglion cyst Previous section Hx of appendectomy Hx laparoscopic cholecystectomy Hx of tonsillectomy Family History Family History Father HTN (hypertension) Diabetes mellitus Depression Dyslipidemia Substance use disorder Mental health disorder Mother Pancreatic cancer Anxiety Brother Substance use disorder Mental health disorder Daughter Mental health disorder Sister Substance use disorder Mental health disorder Maternal Uncle Mental health disorder Daughter Mental health disorder Daughter Mental health disorder Social History Social History Housing: Apartment Alcohol intake: current Alcohol intake frequency: does not drink Patient Tobacco Use Status: Former Tobacco user Years Smoked: 25 yrs e-Cigarette/Vaping Use: Never Used Second Hand Smoke Exposure: No Advance Directives: No Advance Directives Information Provided: No Do you have a plan to hurt others: No Plan service: No Current occupational status: employed Cognitive needs: No Hearing needs: No Vision needs: Yes Physical Exam ED Vital Signs: Vital Signs - 24 hr 02/29/24 09:09 02/29/24 10:41 Temperature 97.8 F 98.0 F Pulse Rate 96 91 Respiratory Rate 18 18 Blood Pressure 143/85 H 138/88 Pulse Oximetry 98 98 Oxygen Delivery Method Room Air Room Air BMI result Body Mass Index 40.4 Appearance: Alert. Oriented X3. No acute distress. HEENT: normal inspection CVS: Normal heart rate and rhythm. Pulses normal. Respiratory: No respiratory distress. Skin: Skin warm and dry. Normal skin color. Normal skin turgor. No rashes. Extremities: dorsum of the left hand is moderately swollen with 3 puncture wounds present, mild erythema and diffuse tenderness. pain with extension of the digits and flexion but she is able to fully range. left hand grasp is weak due to pain. weak finger abduction due to pain. no swelling or tenderness of the fingers. Neuro: Oriented X 3. No motor deficit. No sensory deficit. Medications Administered Discontinued Medications Generic Name Dose Route Start Last Admin Trade Name Isac PRN Reason Stop Dose Admin Amoxicillin/Clavulanate Potassium 875 mg 02/29/24 09:35 02/29/24 09:38 Amoxicillin/Potassium Clav 875 Mg Tablet PO 02/29/24 09:36 875 mg ONCE ONE Administration Ibuprofen 600 mg 02/29/24 09:35 02/29/24 09:38 Ibuprofen 600 Mg Tablet PO 02/29/24 09:36 600 mg ONCE ONE Administration Medical Decision Making Medical Decision Making MDM Narrative: 48-year-old female presents to the ER for evaluation of a cat bite to her left hand that occurred yesterday. She was prescribed antibiotics was unable to pick them up. She was given p.o. Augmentin on arrival to the ER. Her exam was consistent with cellulitis. She does have pain with flexion of the digits and extension of the digits which may be due to an early tenosynovitis versus localized inflammatory affects. She has no fever or tachycardia. No significant erythema, no fluctuance to suggest an abscess. XR unremarkable. wound care and abx course d/w patient along w/ return precautions and need for close outpatient follow up. encouraged PCP and hand evaluations this week. stable for d/c home Differential Diagnosis Differential Diagnoses: The differential diagnosis associated with the presentation includes infected cat bite, open fracture, tenosynovitis Admission/Observation Consideration of admission/observation: Escalation of care including admission/observation considered Independent Interpretation I performed an independent interpretation of an: Plain X-Ray Interpretation: no acute fx or fb appreciated Radiology Impression Discussion of test interpretation with radiology: I have reviewed the radiologist's reading. Radiologist Impression: XR/XR hand LT min 3V IMPRESSION: 1. No acute fractures or dislocation. 2. No unexpected radiopaque foreign bodies. External Record Review External record reviewed: Prior outpatient labs Tests considered The following testing was considered but not selected: considered basic labs, low suspicion for sepsis or need for surgical wash out at this time Prescription Management I considered prescription management with: Pain Medication and Antibiotic Critical Care Time Critical Care Time Critical Care Time: No Discharge Plan Discharge Clinical Impression: Cat bite Qualifiers: Encounter type: initial encounter Qualified Code(s): W55.01XA - Bitten by cat, initial encounter Patient Disposition: Home, Self-Care Instructions: Animal Bite (ED) Additional Instructions: Take the prescribed antibiotics as directed, complete the entire course and do not miss any doses. Next dose is due this evening. Complete a full 7 day course Elevate your hand whenever possible. Use warm compresses or soaks several times per day Follow up with your doctor next week Recommend following up with Orthopedics/Hand Specialist next week as well, call for an appointment If you develop new or worsening symptoms call 911 or come back to the ER for further evaluation. If your x-ray shows concerning findings, we will call you Prescriptions: New amoxicillin-pot clavulanate 875-125 mg tablet 1 tab PO BID Qty: 4 0RF oxycodone 5 mg tablet 5 mg PO BID PRN (Reason: severe pain (scale score 7-10)) Qty: 4 0RF Rx Instructions: Partial Fill upon patient request. No Action cholecalciferol (vitamin D3) 125 mcg (5,000 unit) capsule 125 mcg PO DAILY Qty: 30 2RF pyridoxine (vitamin B6) 100 mg tablet 100 mg PO DAILY 90 Days Qty: 90 3RF famotidine [Pepcid] 20 mg tablet 20 mg PO BEDTIME Qty: 30 3RF albuterol sulfate [Ventolin HFA] 90 mcg/actuation HFA aerosol inhaler 2 puff inhalation Q6H PRN (Reason: shortness of breath or wheezing) Qty: 8.5 1RF celecoxib [Celebrex] 100 mg capsule 100 mg PO Q12H Qty: 60 3RF Xeljanz XR 11 mg tablet extended release 24 hr 11 mg PO DAILY omega-3 fatty acids [Fish Oil Concentrate] 1,000 mg capsule 1,000 mg PO DAILY ropinirole 0.25 mg tablet 0.25 mg PO BEDTIME Qty: 30 1RF Rx Instructions: administer 1-3 hours before bedtime magnesium oxide 250 mg magnesium tablet 250 mg PO DAILY Qty: 30 3RF folic acid 800 mcg tablet 0.8 mg PO DAILY Qty: 30 2RF rosuvastatin 5 mg tablet 5 mg PO DAILY Qty: 90 1RF hydroxyzine HCl 10 mg tablet 10 mg PO BID fluticasone furoate-vilanterol [Breo Ellipta] 100-25 mcg/dose blister with device 1 inh inhalation DAILY 30 Days Qty: 60 0RF betamethasone dipropionate 0.05 % ointment 1 appl topical BID leflunomide 20 mg tablet 20 mg PO DAILY lamotrigine 25 mg tablet 50 mg PO DAILY lamotrigine 200 mg tablet 200 mg PO DAILY spironolactone 50 mg tablet 50 mg PO BID clindamycin phosphate 1 % lotion topical sucralfate 1 gram tablet 1 g PO DAILY@1700 Qty: 30 4RF pantoprazole 40 mg tablet,delayed release (DR/EC) 40 mg PO DAILY Qty: 90 2RF Rx Instructions: take one tablet half an hour before breakfast amoxicillin-pot clavulanate 875-125 mg tablet 1 tab PO BID 5 Days Qty: 10 0RF Referrals: [facility] [place] [facility] [Provider Group] Jeri Snyder MD [Primary Care Provider] - Stand Alone Forms: Work/School Release Interventions: ED Discharge Assessment Last Done: 02/29/24 10:41 Discharge Date/Time: 02/29/24 10:42 Print Language: Armenian
[2024-02-29 10:41] VITALS: BP 138/88; PULSE 91; RESP 18; TEMP 36.7; O2SAT 98
== END 2024-02-29 10:42 | disposition home or self-care (01) ==
PROVIDERS: Emergency Provider Emergency Medicine; PCP Internal Medicine
DX: S61.452A Open bite of left hand, initial encounter (principal); W55.01XA Bitten by cat, initial encounter; Y93.89 Activity, other specified; Y92.019 Unspecified place in single-family (private) house as the place of occurrence of the external cause; Y99.9 Unspecified external cause status
CPT/HCPCS: 73130; 99283

== ENCOUNTER 2024-03-02 14:29 | Inpatient (IN) | payer OTHER, SELFPAY ==
--- NOTE | ~2024-03-02 | XR_ITS ---
EXAMINATION: XR HAND, LEFT CLINICAL INFORMATION: Hand pain, bit by cat COMPARISON: None available. TECHNIQUE: PA, lateral, and oblique views of the left hand. FINDINGS: The bones and soft tissues are normal. No fracture. Alignment is anatomic. Joint spaces are maintained. No erosions or soft tissue calcifications. XR/XR hand LT min 3V IMPRESSION: Unremarkable plain radiographs of the left hand. Electronically signed by: Silverio Drake MD 03/02/2024 04:41 PM EDT
[2024-03-02 14:38] VITALS: BP 139/77; PULSE 86; RESP 16; TEMP 36.4; O2SAT 98; BMI 40.7
--- NOTE | 2024-03-02 14:41 | ED.GENADULT ---
HPI - General Adult General Chief complaint: Animal Bite Stated complaint: Hand injury Time Seen by Provider: 03/02/24 16:07 Source: patient Mode of arrival: ambulatory Limitations: no limitations History of Present Illness ED Provider: Rachelle Roberts PA-C HPI narrative: Patient is a 48 year old assigned female at with a history of depression, anxiety, GERD, and asthma presenting to the emergency department today with worsening left hand pain after a cat bite. Patient states that on 02/28/2024 she was bit by her cat and immediately had pain and swelling. Patient was seen on 02/29/2024 in our ED and was started on antibiotics. Patient states that she is taking her oral antibiotics as prescribed but her hand is getting worse and is painful to move. Patient denies any dizziness, lightheadedness, abdominal pain, nausea, vomiting, fever, chills, blurry vision, double vision, loss of vision, chest pain, difficulty breathing, shortness of breath, back pain, night sweats, pain with urination, increased urinary frequency, increased urinary urgency, blood in her urine or stool, syncope or a near syncopal episode, recent trauma or falls, bowel incontinence, bladder incontinence, or any other complaints at this time. Onset (ago): day(s) (3) Location: left and upper extremity Relieving factors: none Exacerbating factors: movement Associated symptoms: denies other symptoms Treatments prior to arrival: other (Augmentin as prescribed) Related Data Home Medications ?Medication ?Instructions ?Recorded ?Confirmed tofacitinib 11 mg tablet,extended 11 mg PO BEDTIME 03/09/20 03/02/24 release 24 hr (Xeljanz XR) lamotrigine 25 mg tablet 50 mg PO BEDTIME 05/20/20 03/02/24 leflunomide 20 mg tablet 20 mg PO BEDTIME 05/20/20 03/02/24 lamotrigine 200 mg tablet 200 mg PO BEDTIME 03/16/21 03/02/24 clindamycin phosphate 1 % lotion 1 appl topical DAILY 07/05/23 03/02/24 spironolactone 50 mg tablet 50 mg PO BID 07/05/23 03/02/24 betamethasone dipropionate 0.05 % 1 appl topical BID 07/15/23 03/02/24 topical ointment hydroxyzine HCl 10 mg tablet 10 mg PO BEDTIME 01/18/24 03/02/24 fluticasone furoate 100 1 ea inhalation DAILY 03/02/24 03/02/24 mcg-vilanterol 25 mcg/dose inhalation powder (Breo Ellipta) hydroxyzine HCl 10 mg tablet 5 mg PO DAILY PRN Anxiety 03/02/24 03/02/24 magnesium oxide 250 mg PO BEDTIME 03/02/24 03/02/24 omega-3 fatty acids 1,000 mg 1,000 mg PO DAILY 03/02/24 03/02/24 capsule pantoprazole 40 mg tablet,delayed 40 mg PO DAILY@0630 03/02/24 03/02/24 release rosuvastatin 5 mg tablet 5 mg PO BEDTIME 03/02/24 03/02/24 Previous Rx's ?Medication ?Instructions ?Recorded cholecalciferol (vitamin D3) 125 125 mcg PO DAILY #30 caps 04/08/21 mcg (5,000 unit) capsule celecoxib 100 mg capsule (Celebrex) 100 mg PO Q12H #60 caps 06/20/23 pyridoxine (vitamin B6) 100 mg 100 mg PO DAILY 90 days #90 tabs 06/20/23 tablet folic acid 800 mcg tablet 0.8 mg PO DAILY #30 tabs 11/15/23 famotidine 20 mg tablet (Pepcid) 20 mg PO BEDTIME #30 tabs 11/25/23 ropinirole 0.25 mg tablet 0.25 mg PO BEDTIME #30 tabs 01/21/24 albuterol sulfate 90 mcg/actuation 2 puff inhalation Q6H PRN 01/28/24 aerosol inhaler (Ventolin HFA) shortness of breath or wheezing #8.5 grams sucralfate 1 gram tablet 1 g PO DAILY@1700 #30 tabs 01/29/24 amoxicillin 875 mg-potassium 1 tab PO BID 5 days #10 tabs 02/28/24 clavulanate 125 mg tablet Allergies Allergy/AdvReac Type Severity Reaction Status Date / Time tocilizumab [From Actra] Allergy Severe Difficulty Verified 03/02/24 14:43 Breathing Review of Systems Constitutional: Constitutional: Reports no additional constitutional complaints, Denies chills, Denies fever(s) and Denies night sweats Eyes: Eyes: Reports no additional eye complaints, Denies blurry vision, Denies change in vision, Denies diplopia, Denies eye discharge, Denies loss of vision and Denies eye pain ENT: Denies dizziness Cardiovascular: Cardiovascular: Reports no additional cardiovascular complaints, Denies chest pain, Denies lightheadedness, Denies Loss of Consciousness and Denies dyspnea Respiratory: Respiratory: Reports no additional respiratory complaints and Denies dyspnea Gastrointestinal: Gastrointestinal: Reports no additional gastrointestinal complaints, Denies abdominal pain, Denies melena, Denies hematochezia, Denies change in bowel habits and Denies change in stool character Genitourinary: Genitourinary: Denies hematuria, Denies urinary frequency, Denies dysuria, Denies urinary incontinence, Denies urinary hesitancy and Denies urinary urgency Musculoskeletal: Musculoskeletal: Reports no additional musculoskeletal complaints, Denies numbness and Denies tingling Comments: left hand pain, swelling Neurologic: Denies dizziness, Denies loss of vision, Denies numbness and Denies tingling Psychiatric: Psychiatric: Reports no additional psychiatric complaints Endocrine: Endocrine: Reports no additional endocrine complaints Hematologic/Lymphatic: Hematologic/Lymphatic: Reports no additional hematologic/lymphatic complaints Allergic/Immunologic: Allergic/Immunologic: Reports no additional allergic/immunologic complaints [facility] Past Medical History Attestation statement: The following information was validated with the patient. Source: old records reviewed and nursing notes reviewed Medical History Restless leg syndrome History of nephrolithiasis GERD (gastroesophageal reflux disease) BMI 38.0-38.9,adult Obesity (BMI 35.0-39.9 without comorbidity) Nephrolithiasis Bilateral sacroiliitis Depression with anxiety Rheumatoid arthritis Mixed dyslipidemia Surgical History History of bilateral salpingectomy History of robot-assisted laparoscopic hysterectomy Hx of ovarian cystectomy H/O dilation and curettage Status post laser lithotripsy of ureteral calculus History of tubal ligation Hx of myringotomy H/O excision of ganglion cyst Previous section Hx of appendectomy Hx laparoscopic cholecystectomy Hx of tonsillectomy Family History Family History Father HTN (hypertension) Diabetes mellitus Depression Dyslipidemia Substance use disorder Mental health disorder Mother Pancreatic cancer Anxiety Brother Substance use disorder Mental health disorder Daughter Mental health disorder Sister Substance use disorder Mental health disorder Maternal Uncle Mental health disorder Daughter Mental health disorder Daughter Mental health disorder Social History Social History Housing: Apartment Alcohol intake: current Alcohol intake frequency: does not drink Patient Tobacco Use Status: Former Tobacco user Years Smoked: 25 yrs Smoked in Last 30 Days: No e-Cigarette/Vaping Use: Never Used Second Hand Smoke Exposure: No Use of substances other than those prescribed or required for medical reasons: No Advance Directives: No Advance Directives Information Provided: Yes Do you have a plan to hurt others: No Plan service: No Current occupational status: employed Cognitive needs: No Hearing needs: No Vision needs: Yes Physical Exam ED Vital Signs: Vital Signs - 24 hr 03/02/24 14:38 03/02/24 17:09 Temperature 97.6 F 97.8 F Pulse Rate 86 73 Respiratory Rate 16 16 Blood Pressure 139/77 141/64 H Pulse Oximetry 98 98 Oxygen Delivery Method Room Air Room Air BMI result Body Mass Index 40.7 Const General: cooperative, no acute distress, alert and awake Nutritional Appearance: well nourished Orientation/consciousness: patient oriented x3 Limitations: no limitations HENMT Head: Yes normal to inspection and Yes atraumatic Ears: hearing grossly normal bilaterally and external ears normal General nose exam: Normal external nose present, no nasal discharge noted and no epistaxis Face and sinus: Yes normal facial exam, No abrasion and No laceration Mouth: Normal oral and palatal mucosa present, no drooling and no muffled voice Eyes General: appearance normal, both eyes and all related structures Periorbital: periorbital findings normal Eyelids: Yes eyelids normal Conjunctivae: conjunctivae normal Pupils: Equal, round and reactive pupils present EOM: EOMs intact bilaterally Neck Neck: Yes normal visual inspection, Yes full ROM and Yes no lymphadenopathy Chest Chest palpation & inspection: normal inspection of the chest Resp Effort & Inspection: normal respiratory effort and able to speak in complete sentences GI Inspection: Yes normal to inspection Neuro General: patient oriented x3 and moves all extremities Cranial nerves: Yes Equal, round and reactive pupils present Cognition (Neuro): normal cognition Extrem Other: General: Yes capillary refill normal Psych Appearance: grossly normal Mental Status: mental status grossly normal Affect: normal affect Attitude: cooperative Thought process: Normal thought process present Thought content: Normal thought content present Insight: Good insight present (Psych) Course Course Course Narrative: RME performed by Rachelle Roberts PA-C. Patient is a 48 year old assigned female at presenting to the emergency department with left hand swelling. Patient states that she was bit by her cat, given antibiotics, but her left hand continues to swell and have pain. Detailed physical exam and review of systems are deferred to the carnival worker. Labs and imaging ordered. Patient placed back in the waiting room pending room availability and results. Medications Administered Discontinued Medications Generic Name Dose Route Start Last Admin Trade Name Isac PRN Reason Stop Dose Admin Piperacillin Sod/Tazobactam 50 mls @ 100 mls/hr 03/02/24 16:08 03/02/24 17:23 Sod 3.375 gm/ Sodium Chloride IV 03/02/24 16:37 Infused ONCE ONE Infusion Medical Decision Making Medical Decision Making MDM Narrative: Patient is a 48 year old assigned female at with a history of depression, anxiety, GERD, and asthma presenting to the emergency department today with worsening left hand pain after a cat bite. Patient's physical exam was as noted in the physical exam portion of this note. Patient's blood work showed an elevated ESR and CRP but were otherwise unremarkable. Patient's left hand x-ray showed no acute process. I explained my physical exam findings as well as all test results to the patient. I spoke with the orthopedic team who recommended medical admission with IV antibiotics. I spoke to the hospitalist team who agreed to admission. Patient was given IV Zosyn but is not considered septic. I answered all questions asked by the patient. Patient verbalized agreement and understanding with this treatment plan and admission. Differential Diagnosis Differential Diagnoses: The differential diagnosis associated with the presentation includes Hand cellulitis Cat bite Admission/Observation Consideration of admission/observation: Escalation of care including admission/observation considered Patient admitted. Consult Healthcare Provider Management of the patient was discussed with: Hospitalist (agreed to admission.) and Vocational Technical Education Teacher (spoke to the orthopedic team as noted in the MDM Rationale portion of this note.) Lab Data [facility] Lab Attestation statement: I reviewed the patient's lab results. My interpretation of these results are in the MDM Rationale portion of this note. 03/02/24 15:28 03/02/24 15:28 Labs: Lab Results 03/02/24 Range/Units 15:28 WBC 5.1 (4.8-10.8) X10*3/uL RBC 4.84 (4.20-5.50) X10*6/uL Hgb 13.5 (12.0-16.0) g/dl Hct 42.6 (37.0-47.0) % MCV 88.0 (80.0-98.0) fL MCH 27.9 (27.0-33.0) pg MCHC 31.7 (31.0-35.0) g/dl RDW 14.2 (11.0-16.0) % Plt Count 249 (160-400) X10*3/uL MPV 9.9 (9.4-12.3) fL Immature Gran % (Auto) 0.2 (0.0-0.4) % Neut % (Auto) 61.3 (45-73) % Lymph % (Auto) 22.8 (20-40) % [place] % (Auto) 11.3 H (2-11) % Eos % (Auto) 3.6 (0-4) % Baso % (Auto) 0.8 (0-2) % Lymph # (Auto) 1.2 (1.2-4.9) X10*3/uL [place] # (Auto) 0.6 (0.1-1.2) X10*3/uL Eos # (Auto) 0.2 (0.0-0.4) X10*3/uL Baso # (Auto) 0.0 (0.0-0.2) X10*3/uL Abs Immat Gran (auto) 0.01 (0.00-0.03) X10*3/uL Absolute Neuts (auto) 3.1 (2.0-8.3) x10*3/uL Absolute Nucleated RBC 0.000 (0.0-0.012) X10*3/uL Nucleated RBC % (auto) 0.0 (0.0-0.2) /100WBC ESR 67 H (0-20) MM/HR Sodium 143 (135-145) mmol/L Potassium 3.5 (3.3-5.1) mmol/L Chloride 107 (96-108) mmol/L Carbon Dioxide 26 (22-29) mmol/L Anion Gap 14 (12-20) BUN 9 (9-16) mg/dL Creatinine 0.83 (0.5-1.4) mg/dL Estim Creat Clear Calc 96.7 Estimated GFR > 60 Random Glucose 103 (60-115) mg/dL Calcium 9.9 (8.4-10.2) mg/dL Magnesium 1.9 (1.6-2.6) mg/dL Total Bilirubin 0.9 (0.0-1.0) mg/dL AST 22 (5-31) U/L ALT 29 (0-31) U/L Alkaline Phosphatase 87 (39-117) U/L C-Reactive Protein 2.21 H (< or = 0.50) mg/dL Total Protein 7.5 (6.5-8.0) g/dL Albumin 4.3 (3.5-5.0) g/dL Independent Interpretation I performed an independent interpretation of an: Plain X-Ray Interpretation: My interpretation is in agreement with the radiologist's impression of this imaging study. EXAMINATION: XR HAND, LEFT CLINICAL INFORMATION: Hand pain, bit by cat COMPARISON: None available. TECHNIQUE: PA, lateral, and oblique views of the left hand. FINDINGS: The bones and soft tissues are normal. No fracture. Alignment is anatomic. Joint spaces are maintained. No erosions or soft tissue calcifications. XR/XR hand LT min 3V IMPRESSION: Unremarkable plain radiographs of the left hand. Electronically signed by: Silverio Drake MD 03/02/2024 04:41 PM EDT Dictated By: Silverio Drake MD Signed By: Electronically signed by Silverio Drake MD 03/02/24 1645 Radiology Impression Discussion of test interpretation with radiology: I have reviewed the radiologist's reading. Critical Care Time Critical Care Time Critical Care Time: Yes Total Critical Care Time: 48 Attestation: I spent 48 minutes of Critical Care Time with this patient. This does not include time spent on separately reported billable procedures. Discharge Plan Discharge Clinical Impression: Cellulitis, Animal bite Patient Disposition: Admitted As Inpatient
[2024-03-02 15:35] LABS: MANUAL DIFF FLAG NO
[2024-03-02 15:39] LABS: Basophils Percent Auto 0.8 % (0-2); Eosinophils Absolute Auto 0.2 X10*3/uL (0.0-0.4); Eosinophils Percent Auto 3.6 % (0-4); Hematocrit 42.6 % (37.0-47.0); Hemoglobin 13.5 g/dl (12.0-16.0); Imm Gran Abs Auto 0.01 X10*3/uL (0.00-0.03); Imm Gran Pct Auto 0.2 % (0.0-0.4); Lymphocytes Absolute Auto 1.2 X10*3/uL (1.2-4.9); Lymphocytes Percent Auto 22.8 % (20-40); Mean Corpuscular HGB Conc 31.7 g/dl (31.0-35.0); Mean Corpuscular Hemoglobin 27.9 pg (27.0-33.0); Mean Platelet Volume 9.9 fL (9.4-12.3); Monocytes Absolute Auto 0.6 X10*3/uL (0.1-1.2); Monocytes Percent Auto 11.3 % (2-11); Neutrophils Absolute Auto 3.1 x10*3/uL (2.0-8.3); Neutrophils Percent Auto 61.3 % (45-73); Platelet Count 249 X10*3/uL (160-400); Red Blood Count 4.84 X10*6/uL (4.20-5.50); Red Cell Distribution Width 14.2 % (11.0-16.0); White Blood Count 5.1 X10*3/uL (4.8-10.8)
[2024-03-02 15:55] LABS: Alanine Aminotransferase 29 U/L (0-31); Albumin Level 4.3 g/dL (3.5-5.0); Alkaline Phosphatase 87 U/L (39-117); Anion Gap 14 (12-20); Aspartate Amino Transferase 22 U/L (5-31); Bilirubin Total 0.9 mg/dL (0.0-1.0); Blood Urea Nitrogen 9 mg/dL (9-16); C Reactive Protein 2.21 mg/dL (< or = 0.50); Calcium 9.9 mg/dL (8.4-10.2); Carbon Dioxide 26 mmol/L (22-29); Chloride 107 mmol/L (96-108); Creatinine Clr Calc Pharmacy 96.7; Estimated Glomerular Filt Rate > 60; Glucose Random 103 mg/dL (60-115); Magnesium 1.9 mg/dL (1.6-2.6); Potassium 3.5 mmol/L (3.3-5.1); Sodium 143 mmol/L (135-145); Total Protein 7.5 g/dL (6.5-8.0)
[2024-03-02 16:32] LABS: Erythrocyte Sedimentation Rate 67 MM/HR (0-20)
--- NOTE | 2024-03-02 16:42 | PM.IMHP ---
History of Present Illness Date of Service: 03/02/24 Chief Complaint: hand swelling 48 year old femalewith a history of depression, anxiety, GERD, and asthma presenting to the emergency department today with worsening left hand pain after a cat bite. Patient states that on 02/28/2024 she was bit by her cat and immediately had pain and swelling. Patient was seen on 02/29/2024 in our ED and was started on Augmentin. Unfortunately, seems as though her hand is not getting better and actually getting worse, she was unable to flex or extend at the wrist or make a full fist. She returned back to the ER for re-evaluation. Denied fever, chills, nausea, vomiting, diarrhea. CRP 2.21, ESR 67, no fever leukocytosis. Patient given a dose of IV Zosyn. She will be admitted for further management and treatment of cat bite requiring IV antibiotics. Review of Systems Review of Systems: Denies any recent fever chills or decrease in appetite respiratory denies any shortness of breath or cough cardiovascular denied any chest pain gastrointestinal denies any dysphagia abdominal pain nausea vomiting or diarrhea genitourinary denies any dysuria frequency or hematuria musculoskeletal see HPI neuropsych denies any weakness or seizures all other systems reviewed are negative [facility] Medical History Restless leg syndrome History of nephrolithiasis GERD (gastroesophageal reflux disease) BMI 38.0-38.9,adult Obesity (BMI 35.0-39.9 without comorbidity) Nephrolithiasis Bilateral sacroiliitis Depression with anxiety Rheumatoid arthritis Mixed dyslipidemia Family History Father HTN (hypertension) Diabetes mellitus Depression Dyslipidemia Substance use disorder Mental health disorder Mother Pancreatic cancer Anxiety Brother Substance use disorder Mental health disorder Daughter Mental health disorder Sister Substance use disorder Mental health disorder Maternal Uncle Mental health disorder Daughter Mental health disorder Daughter Mental health disorder Surgical History History of bilateral salpingectomy History of robot-assisted laparoscopic hysterectomy Hx of ovarian cystectomy H/O dilation and curettage Status post laser lithotripsy of ureteral calculus History of tubal ligation Hx of myringotomy H/O excision of ganglion cyst Previous section Hx of appendectomy Hx laparoscopic cholecystectomy Hx of tonsillectomy Social History Housing: Apartment Alcohol intake: current Alcohol intake frequency: does not drink Patient Tobacco Use Status: Former Tobacco user Years Smoked: 25 yrs Smoked in Last 30 Days: No e-Cigarette/Vaping Use: Never Used Second Hand Smoke Exposure: No Use of substances other than those prescribed or required for medical reasons: No Advance Directives: No Advance Directives Information Provided: Yes Do you have a plan to hurt others: No Plan service: No Current occupational status: employed Cognitive needs: No Hearing needs: No Vision needs: Yes Meds Allergies Allergy/AdvReac Type Severity Reaction Status Date / Time tocilizumab [From Actemra] Allergy Severe Difficulty Verified 03/02/24 14:43 Breathing Home Medications ?Medication ?Instructions ?Recorded ?Confirmed ?Last Taken ?Type tofacitinib 11 mg tablet,extended 11 mg PO DAILY 03/09/20 01/18/24 Unknown History release 24 hr (Xeljanz XR) lamotrigine 25 mg tablet 50 mg PO DAILY 05/20/20 01/18/24 Unknown History leflunomide 20 mg tablet 20 mg PO DAILY 05/20/20 01/18/24 Unknown History omega-3 fatty acids 1,000 mg 1,000 mg PO DAILY 07/05/20 01/18/24 Unknown History capsule (Fish Oil Concentrate) lamotrigine 200 mg tablet 200 mg PO DAILY 03/16/21 01/18/24 Unknown History clindamycin phosphate 1 % lotion topical 07/05/23 01/18/24 Unknown History spironolactone 50 mg tablet 50 mg PO BID 07/05/23 01/18/24 Unknown History betamethasone dipropionate 0.05 % 1 appl topical BID 07/15/23 01/18/24 Unknown History topical ointment hydroxyzine HCl 10 mg tablet 10 mg PO BID 01/18/24 01/18/24 Unknown History Physical Exam Vital Signs and Narrative: Vital Signs: Last Vital Signs Temp 97.6 F 03/02/24 14:38 Pulse 86 03/02/24 14:38 Resp 16 03/02/24 14:38 BP 139/77 03/02/24 14:38 Pulse Ox 98 03/02/24 14:38 O2 Del Method Room Air 03/02/24 14:38 BMI result Body Mass Index 40.7 Appearing in no acute distress head is normocephalic atraumatic eyes pupils are PERRLA sclera is anicteric mouth throat mucous membranes are intact and moist neck is supple no lymphadenopathy, no JVD noted lung sounds are clear to auscultation heart regular rate rhythm, clear S1, S2 positive bowel sounds, abdomen is soft, nontender neuro patient is alert x3, no focal deficits Left hand cat bite, edema, mild erythema, unable to flex or extend fully, unable to make a full fist Results Labs 03/02/24 15:28 03/02/24 15:28 Labs: Laboratory Results - last 24 hr 03/02/24 15:28 MCV 88.0 MCH 27.9 MCHC 31.7 RDW 14.2 Plt Count 249 MPV 9.9 Immature Gran % (Auto) 0.2 Neut % (Auto) 61.3 Lymph % (Auto) 22.8 [place] % (Auto) 11.3 H Eos % (Auto) 3.6 Baso % (Auto) 0.8 Lymph # (Auto) 1.2 [place] # (Auto) 0.6 Eos # (Auto) 0.2 Baso # (Auto) 0.0 Abs Immat Gran (auto) 0.01 Absolute Neuts (auto) 3.1 Absolute Nucleated RBC 0.000 Nucleated RBC % (auto) 0.0 ESR 67 H Anion Gap 14 Estim Creat Clear Calc 96.7 Estimated GFR > 60 Random Glucose 103 Calcium 9.9 Magnesium 1.9 Total Bilirubin 0.9 AST 22 ALT 29 Alkaline Phosphatase 87 C-Reactive Protein 2.21 H Total Protein 7.5 Albumin 4.3 Assessment and Plan (1) Animal bite: Status: Acute (2) Cellulitis: Status: Acute Plan 48-year-old woman admitted for cat bite requiring IV antibiotics Cat bite with cellulitis No sepsis Failed outpatient therapy with Augmentin Start IV zosyn ID, orthopedic surgery consultation Pain management Follow blood cultures Hyperlipidemia Continue statin History of rheumatoid arthritis In remission, no flare Mental health Continue home medications med rec pending DVT prophylaxis with ambulation Full code Quality Stroke Does the patient have a stroke diagnosis?: No VTE Prior VTE?: No VTE Risk Level:: Medical - moderate - high VTE Device Contraindication: Treatment Not Indicated VTE Drug Contraindication: Treatment Not Indicated
[2024-03-02] MEDS: Piperacillin Sodium/Tazobactam 3.375 GM in 0.9 % Sodium Chloride 50 ML IV ×2 (16:49→22:43)
[2024-03-02 17:09] VITALS: BP 141/64; PULSE 73; RESP 16; TEMP 36.6; O2SAT 98
--- NOTE | 2024-03-02 17:21 | PC.NURSE ---
Pt presents to ED from home, reports cat scratch from her own cat on Saturday. Reports she went to walk in clinic and got oral ABX, has been taking them. Since Saturday night noticed worsening in swelling, pain and redness. Denies fevers, N/V/D, sob, CP. Alert and oriented, breathing even and unlabored. Plan to admit for IV ABX.
--- NOTE | 2024-03-02 17:23 | P.CONOP_ITS ---
History of Present Illness HPI Consult date: 03/02/24 Chief complaint: Cat bite with cellulitis Narrative: Patient is a 48-year-old female who presented to the emergency department for repeat evaluation after a cat bite. Original injury occurred on 02/28/2024, and the patient was evaluated in our emergency department on 02/29/24. At that time, she was placed on p.o. Augmentin and discharged, however the patient did present back to the emergency department today after she noticed the pain, redness, and swelling on the dorsal aspect of the left hand worsening. Patient reports that she is significantly tender to palpation about the entire dorsum of the left hand, and she is unable to fully flex or extend the fingers of the left hand without severe amounts of pain on the dorsal right hand. The patient reports that she did have the hand wrapped in an Alexis bandage, but her fingers did grow swollen when the Alexis wrap was not applied. Patient denies any active discharge from the wound site. Patient denies numbness or tingling of the left hand. No other acute complaints or concerns at this time. [facility] Past Medical History Medical History Restless leg syndrome History of nephrolithiasis GERD (gastroesophageal reflux disease) BMI 38.0-38.9,adult Obesity (BMI 35.0-39.9 without comorbidity) Nephrolithiasis Bilateral sacroiliitis Depression with anxiety Rheumatoid arthritis Mixed dyslipidemia Family History Family History Father HTN (hypertension) Diabetes mellitus Depression Dyslipidemia Substance use disorder Mental health disorder Mother Pancreatic cancer Anxiety Brother Substance use disorder Mental health disorder Daughter Mental health disorder Sister Substance use disorder Mental health disorder Maternal Uncle Mental health disorder Daughter Mental health disorder Daughter Mental health disorder Surgical History Surgical History History of bilateral salpingectomy History of robot-assisted laparoscopic hysterectomy Hx of ovarian cystectomy H/O dilation and curettage Status post laser lithotripsy of ureteral calculus History of tubal ligation Hx of myringotomy H/O excision of ganglion cyst Previous section Hx of appendectomy Hx laparoscopic cholecystectomy Hx of tonsillectomy Social History Social History Housing: Apartment Alcohol intake: current Alcohol intake frequency: does not drink Patient Tobacco Use Status: Former Tobacco user Years Smoked: 25 yrs Smoked in Last 30 Days: No e-Cigarette/Vaping Use: Never Used Second Hand Smoke Exposure: No Use of substances other than those prescribed or required for medical reasons: No Advance Directives: No Advance Directives Information Provided: Yes Do you have a plan to hurt others: No Plan service: No Current occupational status: employed Cognitive needs: No Hearing needs: No Vision needs: Yes Meds Allergies Allergy/AdvReac Type Severity Reaction Status Date / Time tocilizumab [From Actemra] Allergy Severe Difficulty Verified 03/02/24 14:43 Breathing Active Medications: Current Medications Acetaminophen (Acetaminophen 325 Mg Tablet) 650 mg PO Q6H PRN PRN Reason: Pain, Mild (Pain Scale 1-3), fever or headache Calcium Carbonate (Calcium Carbonate 750 Mg Tab.Chew) 750 mg PO Q4H PRN PRN Reason: Heartburn Piperacillin Sod/Tazobactam (Sod 3.375 gm/ Sodium Chloride) 50 mls @ 100 mls/hr IV Q6H [facility] Magnesium Hydroxide (Milk Of Magnesia 30 Ml Oral.Susp) 30 ml PO DAILY PRN PRN Reason: Constipation Melatonin (Melatonin 3 Mg Tablet) 6 mg PO BEDTIME PRN PRN Reason: Insomnia Ondansetron HCl (Ondansetron Hcl 4 Mg/2 Ml Vial) 4 mg IVPUSH Q8H PRN PRN Reason: Nausea and Vomiting Oxycodone HCl (Oxycodone Hcl Immed Release 5 Mg Tablet) 5 mg PO Q6H PRN PRN Reason: Pain, Severe (Pain Scale 7-10) Sodium Chloride (0.9 % Sodium Chloride Flush 3 Ml Syringe) 3 ml IVFLUSH QSHIFT [facility] Home Medications ?Medication ?Instructions ?Recorded ?Confirmed ?Last Taken ?Type tofacitinib 11 mg tablet,extended 11 mg PO DAILY 03/09/20 01/18/24 Unknown History release 24 hr (Xeljanz XR) lamotrigine 25 mg tablet 50 mg PO DAILY 05/20/20 01/18/24 Unknown History leflunomide 20 mg tablet 20 mg PO DAILY 05/20/20 01/18/24 Unknown History omega-3 fatty acids 1,000 mg 1,000 mg PO DAILY 07/05/20 01/18/24 Unknown History capsule (Fish Oil Concentrate) lamotrigine 200 mg tablet 200 mg PO DAILY 03/16/21 01/18/24 Unknown History clindamycin phosphate 1 % lotion topical 07/05/23 01/18/24 Unknown History spironolactone 50 mg tablet 50 mg PO BID 07/05/23 01/18/24 Unknown History betamethasone dipropionate 0.05 % 1 appl topical BID 07/15/23 01/18/24 Unknown History topical ointment hydroxyzine HCl 10 mg tablet 10 mg PO BID 01/18/24 01/18/24 Unknown History Physical Exam 2 Vital Signs: Vital Signs: Last Vital Signs Temp 97.8 F 03/02/24 17:09 Pulse 73 03/02/24 17:09 Resp 16 03/02/24 17:09 BP 141/64 H 03/02/24 17:09 Pulse Ox 98 03/02/24 17:09 O2 Del Method Room Air 03/02/24 17:09 BMI result Body Mass Index 40.7 Extrem: Other: Patient is alert, oriented, and in no acute distress. Neuro: Normal sensation of the tips of all digits of the left hand at this time Vascular: Cap refill brisk Pain: Patient reports significant tenderness to palpation diffusely throughout the dorsum of the left hand No tenderness to palpation of the volar left hand Patient reports minimal tenderness to palpation about the dorsal left wrist Patient reports significant pain with attempted passive flexion of the left fingers No tenderness with axial loading of the left wrist or any of the digits of the left hand ROM: Flexion of the index, middle, and ring fingers limited significantly due to pain Patient is able to flex and extend the small finger of the left hand without difficulty Patient is able to extend all digits of the left hand without difficulty Patient is able to flex the left wrist to approximately 45 degrees beyond neutral without difficulty Patient is able to extend the left wrist to approximately 10 degrees beyond neutral, but experiences significant discomfort beyond this Skin: 2 small, punctate open areas noted on th e dorsum of the left hand No active discharge at this time General: There is noted to be mild edema noted on the proximal and dorsal aspect of the digits of the left hand There is also noted to be overlying edema throughout the dorsum of the left hand No ecchymosis at this time There is no area of fluctuance to palpation of the dorsal left hand Psych: Appears grossly normal Affect normal Attitude cooperative Results Labs 03/02/24 15:28 03/02/24 15:28 Labs: Abnormal lab results 03/02/24 Range/Units 15:28 Lynn % (Auto) 11.3 H (2-11) % ESR 67 H (0-20) MM/HR C-Reactive Protein 2.21 H (< or = 0.50) mg/dL H & H 03/02/24 Range/Units 15:28 Hgb 13.5 (12.0-16.0) g/dl Hct 42.6 (37.0-47.0) % All other labs normal. Diagnostic results Wrist/Hand x-ray: report reviewed and image reviewed (X-rays obtained in the ED today and independently reviewed by me, Jayy Carroll PA-C, demonstrate no fracture, acute bony abnormality, or radiopaque foreign body. ) Assessment and Plan (1) Cat bite of left hand: Status: Acute (2) Cellulitis of left hand: Status: Acute Plan 1. Cat bite of dorsum of left hand with associated cellulitis Date of injury 02/28/2024 At this time, patient should be admitted to the hospital for IV antibiotics for treatment of cellulitis No focal area of fluctuance noted No evidence of septic joint or flexor tenosynovitis at this time No acute surgical intervention indicated at this time Encourage warm compresses on the right hand for pain relief Patient will be re-evaluated in the a.m. to reassess and determine if there is any further intervention indicated at that time Continue with all other recommendations per Medicine Procedures Date of Service Date of Service: 03/02/24
--- NOTE | 2024-03-02 18:01 | PHA.MEDREC ---
Addendum entered by Benjy Forrest [facility] 03/02/24 18:30: MED REC CHECKED BY [facility] Original Note: Pharmacy Consult ? Medication Reconciliation Pharmacy has completed the medication reconciliation. Spoke to patient and she confirmed her medications. She confirmed she started her Amoxicillin 875mg- potassium Clavulanate 125mg tabs Saturday02/29/24 and is on day 3 off it and claims she took one dose of it this morning. She also claims she is still taking Hydroxyzine 10mg one tab at bed time and if needed she will take a half tab in the morning. She states she never started the Oxycodone 5mg regimen and has it at home but states she does not have to take it if she does not half to. She confirmed she is taking Hydroxizine 10mg tabs, Lamotrigine 200mg, Lamotrigine 25mg, Leflunomide 20mg, Rosuvastatin 5mg, and Tofacitinib 11mg tabs at bedtime. She states she took her morning medications this morning around 0900 and nothing else.
[2024-03-02 20:46] VITALS: BP 141/89; PULSE 71; RESP 16; TEMP 36.3; O2SAT 97
[2024-03-02 21:32] VITALS: BMI 40.7
[2024-03-02] MEDS: Atorvastatin Calcium 20 MG TABLET PO (22:40)
[2024-03-02] MEDS: Spironolactone 25 MG TABLET 50 MG PO (22:41)
[2024-03-02] MEDS: lamoTRIgine 100 MG TABLET 200 MG PO (22:41)
[2024-03-02] MEDS: hydrOXYzine HCL 10 MG TABLET PO (22:41)
[2024-03-02] MEDS: Magnesium Oxide 400 MG TABLET PO (22:41)
[2024-03-02] MEDS: lamoTRIgine 25 MG TABLET 50 MG PO (22:41)
[2024-03-02] MEDS: Famotidine 20 MG TABLET PO (22:42)
[2024-03-02] MEDS: rOPINIRole HCL 0.25 MG TABLET PO (22:42)
[2024-03-02] MEDS: Flu Vacc TS2024-25(6mos up)/PF 0.5 ML SYRINGE IM (22:45)
[2024-03-02] MEDS: Leflunomide 10 MG TABLET 20 MG PO (22:58)
[2024-03-02] MEDS: Celecoxib 100 MG CAPSULE PO (22:58)
[2024-03-02 23:26] VITALS: BP 140/78; PULSE 80; RESP 20; TEMP 36.2; O2SAT 96
[2024-03-03] MEDS: 0.9 % Sodium Chloride Flush 3 ML SYRINGE IVFLUSH ×4 (01:33→19:52)
[2024-03-03 03:40] VITALS: BP 109/60; PULSE 73; RESP 18; TEMP 36.3; O2SAT 95
[2024-03-03] MEDS: Acetaminophen 325 MG TABLET 650 MG PO (04:48)
[2024-03-03] MEDS: Piperacillin Sodium/Tazobactam 3.375 GM in 0.9 % Sodium Chloride 50 ML IV ×4 (04:59→22:30)
[2024-03-03] MEDS: Omeprazole 20 MG CAPSULE.DR PO (05:04)
[2024-03-03 05:15] LABS: Hematocrit 36.8 % (37.0-47.0); Mean Corpuscular HGB Conc 32.6 g/dl (31.0-35.0); Mean Corpuscular Hemoglobin 28.2 pg (27.0-33.0); Mean Corpuscular Volume 86.4 fL (80.0-98.0); Mean Platelet Volume 9.8 fL (9.4-12.3); Platelet Count 242 X10*3/uL (160-400); Red Blood Count 4.26 X10*6/uL (4.20-5.50); Red Cell Distribution Width 14.2 % (11.0-16.0); White Blood Count 4.4 X10*3/uL (4.8-10.8)
[2024-03-03 05:36] LABS: Alanine Aminotransferase 23 U/L (0-31); Albumin Level 3.7 g/dL (3.5-5.0); Alkaline Phosphatase 75 U/L (39-117); Anion Gap 11 (12-20); Aspartate Amino Transferase 23 U/L (5-31); Bilirubin Total 0.7 mg/dL (0.0-1.0); Blood Urea Nitrogen 11 mg/dL (9-16); Calcium 9.6 mg/dL (8.4-10.2); Carbon Dioxide 26 mmol/L (22-29); Chloride 108 mmol/L (96-108); Creatinine Clr Calc Pharmacy 105.7; Estimated Glomerular Filt Rate > 60; Glucose Random 101 mg/dL (60-115); Potassium 3.8 mmol/L (3.3-5.1); Sodium 141 mmol/L (135-145); Total Protein 6.4 g/dL (6.5-8.0)
[2024-03-03] MEDS: oxyCODONE HCl Immed Release 5 MG TABLET PO (05:48)
[2024-03-03 07:21] VITALS: BP 133/83; PULSE 70; RESP 16; TEMP 36.9; O2SAT 95
[2024-03-03] MEDS: Fluticasone/Vilanterol 100/25 BLST.W.DEV 1 PUFF INHALE (07:54)
[2024-03-03 07:55] VITALS: PULSE 82; RESP 16; O2SAT 96
[2024-03-03] MEDS: Folic Acid 1 MG TABLET PO (07:59)
[2024-03-03] MEDS: Spironolactone 25 MG TABLET 50 MG PO ×2 (07:59→19:49)
[2024-03-03] MEDS: Celecoxib 100 MG CAPSULE PO ×2 (08:00→19:52)
[2024-03-03] MEDS: Pyridoxine HCl (Vitamin B6) 50 MG TABLET 100 MG PO (08:00)
[2024-03-03] MEDS: Cholecalciferol (Vitamin D3) 25 MCG TABLET 125 MCG PO (08:00)
[2024-03-03] MEDS: Triamcinolone Acet 0.5 % Cream 15 GM TUBE 1 APPL TOPICAL ×2 (08:09→19:53)
--- NOTE | 2024-03-03 08:41 | P.PNIM_ITS ---
Subjective Subjective Date of Service: 03/03/24 Review of Systems Follow up CAT bite, cellulitis Feeling better, better range of motion to left hand Complaints of migraine headache Physical Exam 2 Vital Signs: Vital Signs: Last Vital Signs Temp 98.4 F 03/03/24 07:21 Pulse 82 03/03/24 07:55 Resp 16 03/03/24 07:55 BP 133/83 03/03/24 07:21 Pulse Ox 95 03/03/24 07:21 O2 Del Method Room Air 03/03/24 07:21 O2 Flow Rate 96 03/03/24 07:21 BMI result Body Mass Index 40.7 Appearing in no acute distress lung sounds are clear to auscultation heart regular rate rhythm, clear S1, S2 positive bowel sounds, abdomen is soft, nontender neuro patient is alert x3, no focal deficits 2 small puncture wounds on dorsum of left hand from cat bite, mild erythema and edema Objective Data Active Medications Acetaminophen (Acetaminophen 325 Mg Tablet) 650 mg PO Q6H PRN PRN Reason: Pain, Mild (Pain Scale 1-3), fever or headache Last Admin: 03/03/24 04:48 Dose: 650 mg Documented By: MARIAN Albuterol Sulfate (Albuterol Sulfate 90 Mcg 8 Gm Inhaler) 2 puff INHALE Q6H PRN PRN Reason: shortness of breath or wheezing Atorvastatin Calcium (Atorvastatin Calcium 20 Mg Tablet) 20 mg PO BEDTIME [facility] Last Admin: 03/02/24 22:40 Dose: 20 mg Documented By: MARIAN Calcium Carbonate (Calcium Carbonate 750 Mg Tab.Chew) 750 mg PO Q4H PRN PRN Reason: Heartburn Celecoxib (Celecoxib 100 Mg Capsule) 100 mg PO BID [facility] Last Admin: 03/03/24 08:00 Dose: 100 mg Documented By: LEFTY Famotidine (Famotidine 20 Mg Tablet) 20 mg PO BEDTIME [facility] Last Admin: 03/02/24 22:42 Dose: 20 mg Documented By: MARIAN Fluticasone/Vilanterol (Fluticasone/Vilanterol 100/25 Blst.W.Dev) 1 puff INHALE RDAILY [facility] Last Admin: 03/03/24 07:54 Dose: 1 puff Documented By: PENNY Folic Acid (Folic Acid 1 Mg Tablet) 1 mg PO DAILY [facility] Last Admin: 03/03/24 07:59 Dose: 1 mg Documented By: LEFTY Hydroxyzine HCl (Hydroxyzine Hcl 10 Mg Tablet) 5 mg PO DAILY PRN PRN Reason: Anxiety Hydroxyzine HCl (Hydroxyzine Hcl 10 Mg Tablet) 10 mg PO BEDTIME [facility] Last Admin: 03/02/24 22:41 Dose: 10 mg Documented By: MARIAN Piperacillin Sod/Tazobactam (Sod 3.375 gm/ Sodium Chloride) 50 mls @ 100 mls/hr IV Q6H [facility] Last Infusion: 03/03/24 05:31 Dose: Infused Documented By: MARIAN Lamotrigine (Lamotrigine 25 Mg Tablet) 50 mg PO BEDTIME [facility] Last Admin: 03/02/24 22:41 Dose: 50 mg Documented By: MARIAN Lamotrigine (Lamotrigine 100 Mg Tablet) 200 mg PO BEDTIME [facility] Last Admin: 03/02/24 22:41 Dose: 200 mg Documented By: MARIAN Leflunomide (Leflunomide 10 Mg Tablet) 20 mg PO BEDTIME [facility] Last Admin: 03/02/24 22:58 Dose: 20 mg Documented By: MARIAN Magnesium Hydroxide (Milk Of Magnesia 30 Ml Oral.Susp) 30 ml PO DAILY PRN PRN Reason: Constipation Magnesium Oxide (Magnesium Oxide 400 Mg Tablet) 400 mg PO BEDTIME [facility] Last Admin: 03/02/24 22:41 Dose: 400 mg Documented By: MARIAN Melatonin (Melatonin 3 Mg Tablet) 6 mg PO BEDTIME PRN PRN Reason: Insomnia Non-Formulary Medication (Clindamycin Phosphate) 1 appl TOPICAL DAILY [facility] Non-Formulary Medication (Tofacitinib [Xeljanz Xr]) 11 mg PO BEDTIME [facility] Omeprazole (Omeprazole 20 Mg Capsule.Dr) 20 mg PO DAILY@0630 [facility] Last Admin: 03/03/24 05:04 Dose: 20 mg Documented By: MARIAN Ondansetron HCl (Ondansetron Hcl 4 Mg/2 Ml Vial) 4 mg IVPUSH Q8H PRN PRN Reason: Nausea and Vomiting Oxycodone HCl (Oxycodone Hcl Immed Release 5 Mg Tablet) 5 mg PO Q6H PRN PRN Reason: Pain, Severe (Pain Scale 7-10) Last Admin: 03/03/24 05:48 Dose: 5 mg Documented By: MARIAN Pyridoxine HCl (Pyridoxine Hcl (Vitamin B6) 50 Mg Tablet) 100 mg PO DAILY [facility] Last Admin: 03/03/24 08:00 Dose: 100 mg Documented By: LEFTY Ropinirole HCl (Ropinirole Hcl 0.25 Mg Tablet) 0.25 mg PO BEDTIME [facility] Last Admin: 03/02/24 22:42 Dose: 0.25 mg Documented By: MARIAN Sodium Chloride (0.9 % Sodium Chloride Flush 3 Ml Syringe) 3 ml IVFLUSH QSHIFT [facility] Last Admin: 03/03/24 07:58 Dose: 3 ml Documented By: LEFTY Spironolactone (Spironolactone 25 Mg Tablet) 50 mg PO BID [facility]; Protocol Last Admin: 03/03/24 07:59 Dose: 50 mg Documented By: LEFTY Sucralfate (Sucralfate 1 Gm Tablet) 1 gm PO DAILY@1700 [facility] Triamcinolone Acetonide (Triamcinolone Acet 0.5 % Cream 15 Gm Tube) 1 appl TOPICAL BID [facility] Last Admin: 03/03/24 08:09 Dose: 1 appl Documented By: LEFTY Vitamin D (Cholecalciferol (Vitamin D3) 25 Mcg Tablet) 125 mcg PO DAILY [facility] Last Admin: 03/03/24 08:00 Dose: 125 mcg Documented By: LEFTY Labs 03/03/24 04:29 03/03/24 04:29 Labs: Laboratory Results - last 24 hr 03/02/24 03/03/24 15:28 04:29 MCV 88.0 86.4 MCH 27.9 28.2 MCHC 31.7 32.6 RDW 14.2 14.2 Plt Count 249 242 MPV 9.9 9.8 Immature Gran % (Auto) 0.2 Neut % (Auto) 61.3 Lymph % (Auto) 22.8 [place] % (Auto) 11.3 H Eos % (Auto) 3.6 Baso % (Auto) 0.8 Lymph # (Auto) 1.2 [place] # (Auto) 0.6 Eos # (Auto) 0.2 Baso # (Auto) 0.0 Abs Immat Gran (auto) 0.01 Absolute Neuts (auto) 3.1 Absolute Nucleated RBC 0.000 0.000 Nucleated RBC % (auto) 0.0 0.0 ESR 67 H Anion Gap 14 11 L Estim Creat Clear Calc 96.7 105.7 Estimated GFR > 60 > 60 Random Glucose 103 101 Calcium 9.9 9.6 Magnesium 1.9 Total Bilirubin 0.9 0.7 AST 22 23 ALT 29 23 Alkaline Phosphatase 87 75 C-Reactive Protein 2.21 H Total Protein 7.5 6.4 L Albumin 4.3 3.7 Assessment and Plan (1) Cellulitis of left hand: Status: Acute (2) Cat bite of left hand: Status: Acute Plan 48-year-old woman admitted for cat bite requiring IV antibiotics Cat bite with cellulitis No sepsis Failed outpatient therapy with Augmentin Continue IV zosyn Seen and evaluated by Orthopedic surgery> no evidence of septic joint or flexor tenosynovitis, no surgical intervention required, continue IV antibiotics Seen evaluated by Occupational therapy> patient education and therapeutic exercise ID consultation pending Pain management Migraine headache Sumatriptan x1 Hyperlipidemia Continue statin History of rheumatoid arthritis In remission, no flare Restless leg syndrome Continue allopurinol GERD Continue PPI Mental health Continue home medications Obesity class 3. BMI 40.7 Discussed importance of weight management as this may be contributing to worsening of other comorbidities DVT prophylaxis with ambulation Attending Dr. Parekh Full code Quality Stroke Does the patient have a stroke diagnosis?: No VTE Prior VTE?: No VTE Risk Level:: Medical - moderate - high VTE Device Contraindication: Treatment Not Indicated VTE Drug Contraindication: Treatment Not Indicated
--- NOTE | 2024-03-03 08:43 | P.PNOP_ITS ---
Subjective Subjective Date of Service: 03/03/24 Interval history: 48-year-old female admitted to the hospital for treatment of cellulitis of left hand secondary to cat bite Patient is resting in bed, reports migraine headache Patient reports that she feels the redness and swelling in her hand have improved significantly since yesterday Patient has improved range of motion of her left hand Worked with OT this morning Pain in hand better controlled than yesterday Patient reports a very small focal area of purulence at the site of 1 of the puncture wounds No other acute complaints or concerns at this time Physical Exam Vital Signs: Vital Signs: Last Vital Signs Temp 98.4 F 03/03/24 07:21 Pulse 82 03/03/24 07:55 Resp 16 03/03/24 07:55 BP 133/83 03/03/24 07:21 Pulse Ox 95 03/03/24 07:21 O2 Del Method Room Air 03/03/24 07:21 O2 Flow Rate 96 03/03/24 07:21 BMI result Body Mass Index 40.7 Extrem: Other: Patient is alert, oriented, and in no acute distress. Neuro: Normal sensation of the tips of all digits of the left hand at this time Vascular: Cap refill brisk Pain: Patient reports tenderness to palpation of the dorsum of the left hand, primarily over the 3rd and 4th metacarpals, improved from yesterday No tenderness to palpation of the volar left hand Patient reports minimal tenderness to palpation about the dorsal left wrist Patient reports improved pain with flexion of the left fingers No tenderness with axial loading of the left wrist or any of the digits of the left hand ROM: Flexion of the index, middle, and ring fingers limited due to pain, but improved from yesterday Patient is able to flex and extend the small finger of the left hand without difficulty Patient is able to extend all digits of the left hand without difficulty Patient is able to flex the left wrist to approximately 45 degrees beyond neutral without difficulty Patient is able to extend the left wrist to approximately 10 degrees beyond neutral, but experiences significant discomfort beyond this Skin: 2 small, punctate open areas noted on th e dorsum of the left hand Small, approximately 2-3 mm focal area of purulence noted superficially near 1 of the puncture wounds No active discharge at this time General: There is noted to be mild edema noted on the proximal and dorsal aspect of the digits of the left hand There is also noted to be overlying erythema on the dorsum of the left hand, improved from last visit No ecchymosis at this time There is no area of fluctuance to palpation of the dorsal left hand Psych: Appears grossly normal Affect normal Attitude cooperative Procedures Date of Service Date of Service: 03/03/24 Progress Note: A&P Assessment and plan (1) Cellulitis of left hand: Status: Acute (2) Cat bite of left hand: Status: Acute Plan Continue IV antibiotic therapy Continue OT evaluations to improve range of motion of left hand Encourage warm water soaks 2-3 times per day to encourage drainage of the small area of purulence that is formed at 1 of the wound sites No acute surgical intervention indicated at this time Continue pain management Continue with all other recommendations per Medicine Orthopedic surgery will continue to follow Time Spent With Patient Time: Total time managing care of this patient today ____ minutes. Quality Stroke Does the patient have a stroke diagnosis?: No VTE Prior VTE?: No VTE Risk Level:: Medical - moderate - high VTE Device Contraindication: Treatment Not Indicated VTE Drug Contraindication: Treatment Not Indicated
[2024-03-03] MEDS: SUMAtriptan succinate 50 MG TABLET PO (08:48)
[2024-03-03] MEDS: ondansetron HCL 4 MG/2 ML VIAL IVPUSH (08:51)
--- NOTE | 2024-03-03 09:43 | P.CDIM_ITS ---
PROVIDER RESPONSE TEXT: To clarify, the appropriate diagnosis supported by the clinical indicators: Morbid obesity QUERY TEXT: PHYSICIAN'S DOCUMENTATION REQUEST Date of Query: 03/03/2024 08:32 AM EDT Patient Name: Alejandra Ortega Admit Date: 03/02/2024 Dear Tracie Campbell [employer], A review of the medical record indicates additional documentation may be needed. Please review below and update the documentation accordingly. Clinical Indicators: Nursing assessment Height and Weight 03/02 - Extreme obesity class III with BMI 40.7 104.3kg 5ft 3in If possible, please provide an associated diagnosis related to the abnormal BMI, such as: Morbid obesity Obesity Other (explain) Clinically unable to determine (explain) Thank you, Zoila Singh, CCS, CDIS Use of terms such as suspected, likely, concern for, or probable (associated with a specific diagnosi s that is being evaluated, monitored, or treated as if it exists) are acceptable and can be coded in the inpatient se tting, when documented at the time of discharge. Please use your independent medical judgment in providing your response. THIS QUERY IS PART OF THE PERMANENT MEDICAL RECORD
--- NOTE | 2024-03-03 10:24 | MHC.CM.PN ---
pt lives with and children is independent and working will not need servies when dcd
[2024-03-03 15:00] VITALS: BP 128/82; PULSE 74; RESP 16; TEMP 36.9; O2SAT 94
[2024-03-03] MEDS: Sucralfate 1 GM TABLET PO (16:00)
[2024-03-03 19:29] VITALS: BP 128/93; RESP 18; TEMP 36.1; O2SAT 98
[2024-03-03] MEDS: Leflunomide 10 MG TABLET 20 MG PO (19:49)
[2024-03-03] MEDS: lamoTRIgine 100 MG TABLET 200 MG PO (19:50)
[2024-03-03] MEDS: Famotidine 20 MG TABLET PO (19:50)
[2024-03-03] MEDS: hydrOXYzine HCL 10 MG TABLET PO (19:51)
[2024-03-03] MEDS: Atorvastatin Calcium 20 MG TABLET PO (19:51)
[2024-03-03] MEDS: rOPINIRole HCL 0.25 MG TABLET PO (19:51)
[2024-03-03] MEDS: Magnesium Oxide 400 MG TABLET PO (19:52)
[2024-03-03] MEDS: lamoTRIgine 25 MG TABLET 50 MG PO (19:52)
[2024-03-04 04:00] VITALS: BP 136/69; PULSE 82; RESP 16; TEMP 36.2; O2SAT 94
[2024-03-04] MEDS: Piperacillin Sodium/Tazobactam 3.375 GM in 0.9 % Sodium Chloride 50 ML IV ×4 (05:40→23:10)
[2024-03-04] MEDS: Omeprazole 20 MG CAPSULE.DR PO (05:41)
[2024-03-04] MEDS: Acetaminophen 325 MG TABLET 650 MG PO (05:46)
[2024-03-04 07:37] VITALS: BP 112/68; PULSE 70; RESP 16; TEMP 36.9; O2SAT 94
[2024-03-04] MEDS: 0.9 % Sodium Chloride Flush 3 ML SYRINGE IVFLUSH ×3 (07:46→21:11)
[2024-03-04] MEDS: Cholecalciferol (Vitamin D3) 25 MCG TABLET 125 MCG PO (07:47)
[2024-03-04] MEDS: Celecoxib 100 MG CAPSULE PO ×2 (07:47→21:10)
[2024-03-04] MEDS: Pyridoxine HCl (Vitamin B6) 50 MG TABLET 100 MG PO (07:47)
[2024-03-04] MEDS: Spironolactone 25 MG TABLET 50 MG PO ×2 (07:47→21:10)
[2024-03-04] MEDS: Folic Acid 1 MG TABLET PO (07:47)
[2024-03-04] MEDS: Triamcinolone Acet 0.5 % Cream 15 GM TUBE 1 APPL TOPICAL ×2 (07:48→21:20)
[2024-03-04 08:03] VITALS: PULSE 70; RESP 16; O2SAT 94
[2024-03-04] MEDS: Fluticasone/Vilanterol 100/25 BLST.W.DEV 1 PUFF INHALE (08:03)
--- NOTE | 2024-03-04 08:51 | P.PNOP_ITS ---
Subjective Subjective Date of Service: 03/04/24 Interval history: 48-year-old female admitted to the hospital for treatment of cellulitis of left hand secondary to cat bite Patient is resting in bed Patient reports that she feels the redness and swelling in her hand have improved significantly since yesterday However, the patient reports that the area of purulence around the 2 puncture sites has grown slightly since yesterday morning Patient reports no drainage with warm water soaks yesterday Patient has improved range of motion of her left hand Worked with OT yesterday, but continues to work on range of motion in her room herself Pain in hand much better than yesterday No other acute complaints or concerns at this time Physical Exam Vital Signs: Vital Signs: Last Vital Signs Temp 98.4 F 03/04/24 07:37 Pulse 70 03/04/24 08:03 Resp 16 03/04/24 08:03 BP 112/68 03/04/24 07:37 Pulse Ox 94 03/04/24 07:37 O2 Del Method Room Air 03/04/24 07:37 O2 Flow Rate 96 03/03/24 07:21 BMI result Body Mass Index 40.7 Extrem: Other: Patient is alert, oriented, and in no acute distress. Neuro: Normal sensation of the tips of all digits of the left hand at this time Vascular: Cap refill brisk Pain: Patient reports tenderness to palpation of the dorsum of the left hand, joseph erma over the 3rd and 4th metacarpals, improved from yesterday No tenderness to palpation of the volar left hand Patient reports minimal tenderness to palpation about the dorsal left wrist Patient reports improved pain with flexion of the left fingers No tenderness with axial loading of the left wrist or any of the digits of the left hand ROM: Flexion of the index, middle, and ring fingers limited due to pain, but improved from yesterday Patient is able to flex and extend the small finger of the left hand without difficulty Patient is able to extend all digits of the left hand without difficulty Patient is able to flex the left wrist to approximately 45 degrees beyond neutral without difficulty Patient is able to extend the left wrist to approximately 10 degrees beyond neutral, but experiences significant discomfort beyond this Skin: 2 small, punctate open areas noted on th e dorsum of the left hand Small, approximately 2-3 mm focal area of purulence noted superficially near both of the puncture wounds No active discharge at this time General: There is noted to be mild edema noted on the proximal and dorsal aspect of the digits of the left hand There is also noted to be overlying erythema on the dorsum of the left hand, improved from last visit No ecchymosis at this time There is no area of fluctuance to palpation of the dorsal left hand Psych: Appears grossly normal Affect normal Attitude cooperative Procedures Date of Service Date of Service: 03/04/24 Progress Note: A&P Assessment and plan (1) Cellulitis of left hand: Status: Acute (2) Cat bite of left hand: Status: Acute Plan Areas of purulence noted around the puncture wounds were lanced with a 25 gauge needle today, and approximately 2-3 cc of purulent drainage were able to be expressed Light, nonstick dressing applied Continue IV antibiotic therapy Continue OT evaluations to improve range of motion of left hand Continue warm water soaks 2-3 times per day to encourage drainage of any remaining purulence in the puncture wounds No acute surgical intervention indicated at this time Continue pain management Continue with all other recommendations per Medicine Orthopedic surgery will continue to follow Time Spent With Patient Time: Total time managing care of this patient today ____ minutes. Quality Stroke Does the patient have a stroke diagnosis?: No VTE Prior VTE?: No VTE Risk Level:: Medical - moderate - high VTE Device Contraindication: Treatment Not Indicated VTE Drug Contraindication: Treatment Not Indicated
--- NOTE | 2024-03-04 12:01 | P.PNIM_ITS ---
Subjective Subjective Date of Service: 03/04/24 Interval History: L hand redness + swelling + pain improved purulent areas around puncture wounds lanced with 25ga needle at bedside this AM; 2-3mL purulent discharge expressed Review of Systems Review of Systems: Yes all other systems are reviewed and are negative Physical Exam 2 Vital Signs: Vital Signs: Last Vital Signs Temp 98.4 F 03/04/24 07:37 Pulse 70 03/04/24 08:03 Resp 16 03/04/24 08:03 BP 112/68 03/04/24 07:37 Pulse Ox 94 03/04/24 07:37 O2 Del Method Room Air 03/04/24 07:37 O2 Flow Rate 96 03/03/24 07:21 BMI result Body Mass Index 40.7 Gen: in no acute distress HEENT: sclera anicteric, moist mucus membranes Neck: supple Lungs: clear to auscultation bilaterally Heart: regular rate and rhythm, no murmurs, obese Abd: soft, non-tender, non-distended Ext: L hand in dry dressing over site of cat bite puncture wounds, distally neurovascularly intact Skin: warm/well-perfused Neuro: alert and oriented x3, no focal findings Psych: appropriate affect Objective Data Active Medications Acetaminophen (Acetaminophen 325 Mg Tablet) 650 mg PO Q6H PRN PRN Reason: Pain, Mild (Pain Scale 1-3), fever or headache Last Admin: 03/04/24 05:46 Dose: 650 mg Documented By: TRISTON Albuterol Sulfate (Albuterol Sulfate 90 Mcg 8 Gm Inhaler) 2 puff INHALE Q6H PRN PRN Reason: shortness of breath or wheezing Atorvastatin Calcium (Atorvastatin Calcium 20 Mg Tablet) 20 mg PO BEDTIME [facility] Last Admin: 03/03/24 19:51 Dose: 20 mg Documented By: RANI Calcium Carbonate (Calcium Carbonate 750 Mg Tab.Chew) 750 mg PO Q4H PRN PRN Reason: Heartburn Celecoxib (Celecoxib 100 Mg Capsule) 100 mg PO BID [facility] Last Admin: 03/04/24 07:47 Dose: 100 mg Documented By: LEFTY Famotidine (Famotidine 20 Mg Tablet) 20 mg PO BEDTIME [facility] Last Admin: 03/03/24 19:50 Dose: 20 mg Documented By: RANI Fluticasone/Vilanterol (Fluticasone/Vilanterol 100/25 Blst.W.Dev) 1 puff INHALE RDAILY [facility] Last Admin: 03/04/24 08:03 Dose: 1 puff Documented By: ROSARIO Folic Acid (Folic Acid 1 Mg Tablet) 1 mg PO DAILY [facility] Last Admin: 03/04/24 07:47 Dose: 1 mg Documented By: LEFTY Hydroxyzine HCl (Hydroxyzine Hcl 10 Mg Tablet) 5 mg PO DAILY PRN PRN Reason: Anxiety Hydroxyzine HCl (Hydroxyzine Hcl 10 Mg Tablet) 10 mg PO BEDTIME [facility] Last Admin: 03/03/24 19:51 Dose: 10 mg Documented By: RANI Piperacillin Sod/Tazobactam (Sod 3.375 gm/ Sodium Chloride) 50 mls @ 100 mls/hr IV Q6H [facility] Last Infusion: 03/04/24 10:48 Dose: Infused Documented By: LEFTY Lamotrigine (Lamotrigine 25 Mg Tablet) 50 mg PO BEDTIME [facility] Last Admin: 03/03/24 19:52 Dose: 50 mg Documented By: RANI Lamotrigine (Lamotrigine 100 Mg Tablet) 200 mg PO BEDTIME [facility] Last Admin: 03/03/24 19:50 Dose: 200 mg Documented By: RANI Leflunomide (Leflunomide 10 Mg Tablet) 20 mg PO BEDTIME [facility] Last Admin: 03/03/24 19:49 Dose: 20 mg Documented By: RANI Magnesium Hydroxide (Milk Of Magnesia 30 Ml Oral.Susp) 30 ml PO DAILY PRN PRN Reason: Constipation Magnesium Oxide (Magnesium Oxide 400 Mg Tablet) 400 mg PO BEDTIME [facility] Last Admin: 03/03/24 19:52 Dose: 400 mg Documented By: RANI Melatonin (Melatonin 3 Mg Tablet) 6 mg PO BEDTIME PRN PRN Reason: Insomnia Omeprazole (Omeprazole 20 Mg Capsule.Dr) 20 mg PO DAILY@0630 [facility] Last Admin: 03/04/24 05:41 Dose: 20 mg Documented By: TRISTON Ondansetron HCl (Ondansetron Hcl 4 Mg/2 Ml Vial) 4 mg IVPUSH Q8H PRN PRN Reason: Nausea and Vomiting Last Admin: 03/03/24 08:51 Dose: 4 mg Documented By: LEFTY Oxycodone HCl (Oxycodone Hcl Immed Release 5 Mg Tablet) 5 mg PO Q6H PRN PRN Reason: Pain, Severe (Pain Scale 7-10) Last Admin: 03/03/24 05:48 Dose: 5 mg Documented By: MARIAN Pyridoxine HCl (Pyridoxine Hcl (Vitamin B6) 50 Mg Tablet) 100 mg PO DAILY [facility] Last Admin: 03/04/24 07:47 Dose: 100 mg Documented By: LEFTY Ropinirole HCl (Ropinirole Hcl 0.25 Mg Tablet) 0.25 mg PO BEDTIME [facility] Last Admin: 03/03/24 19:51 Dose: 0.25 mg Documented By: RANI Sodium Chloride (0.9 % Sodium Chloride Flush 3 Ml Syringe) 3 ml IVFLUSH QSHIFT [facility] Last Admin: 03/04/24 07:46 Dose: 3 ml Documented By: LEFTY Spironolactone (Spironolactone 25 Mg Tablet) 50 mg PO BID [facility]; Protocol Last Admin: 03/04/24 07:47 Dose: 50 mg Documented By: LEFTY Sucralfate (Sucralfate 1 Gm Tablet) 1 gm PO DAILY@1700 [facility] Last Admin: 03/03/24 16:00 Dose: 1 gm Documented By: LEFTY Triamcinolone Acetonide (Triamcinolone Acet 0.5 % Cream 15 Gm Tube) 1 appl TOPICAL BID [facility] Last Admin: 03/04/24 07:48 Dose: 1 appl Documented By: LEFTY Vitamin D (Cholecalciferol (Vitamin D3) 25 Mcg Tablet) 125 mcg PO DAILY [facility] Last Admin: 03/04/24 07:47 Dose: 125 mcg Documented By: LEFTY Labs 03/03/24 04:29 03/03/24 04:29 Assessment and Plan (1) Cellulitis of left hand: Status: Acute (2) Cat bite of left hand: Status: Acute Plan d3 48yo F admitted with purulent cellulitis due to cat bite, failed outpt amoxicillin-clavulanate purulent cellulitis - continue pip-matias 03/02-, ID consult pending, eventual d/c home on amoxicillin- clavulanate - Ortho following; no septic joint or flexor tenosynovitis; needle aspiration of purulent discharge done today - continue warm soaks bid-tid - continue OT HLD - statin hx RA - leflunomide RLS - ropinirole GERD - PPI mood disorder - lamotrigine, hydroxyzine morbid obesity - diet/exercise counseling VTE prophylaxis - enoxaparin dispo - eventual home In my clinical judgment, the patient requires continued inpatient hospitalization for the following reasons: IV ABX, post-drainage care Total time managing care of this patient today: 35 minutes. Quality Stroke Does the patient have a stroke diagnosis?: No VTE Prior VTE?: No VTE Risk Level:: Medical - moderate - high VTE Device Contraindication: Treatment Not Indicated VTE Drug Contraindication: Treatment Not Indicated
--- NOTE | 2024-03-04 14:25 | MHC.CM.PN ---
requested financial to assist pt with her [employer] [facility] [place] that she is doing on her computer
--- NOTE | 2024-03-04 14:26 | MHC.CM.PN ---
per rounds pt will be ready for dc 1 to 2 days plan remains home no services
--- NOTE | 2024-03-04 15:01 | P.CNID_ITS ---
History of Present Illness Data of Consult Service Date: 03/03/24 Requesting physician: Tracie Campbell Primary Care Provider: Jeri Snyder MD HPI Reason for consult: cat bite left hand She was breaking up cat fight among her two female cats four days ago and was bit top of hand. Cats are UTD shots and indoor cats. She has RA and is on leflunomide and Zeljanz. Hand area is red. Review of Systems 2 Review of Systems: Yes all other systems are reviewed and are negative Musculoskeletal: Comments: hand pain PMFSH Past Medical History Medical History Restless leg syndrome History of nephrolithiasis GERD (gastroesophageal reflux disease) BMI 38.0-38.9,adult Obesity (BMI 35.0-39.9 without comorbidity) Nephrolithiasis Bilateral sacroiliitis Depression with anxiety Rheumatoid arthritis Mixed dyslipidemia Family History Family History Father HTN (hypertension) Diabetes mellitus Depression Dyslipidemia Substance use disorder Mental health disorder Mother Pancreatic cancer Anxiety Brother Substance use disorder Mental health disorder Daughter Mental health disorder Sister Substance use disorder Mental health disorder Maternal Uncle Mental health disorder Daughter Mental health disorder Daughter Mental health disorder Family history: reviewed and not pertinent Surgical History Surgical History History of bilateral salpingectomy History of robot-assisted laparoscopic hysterectomy Hx of ovarian cystectomy H/O dilation and curettage Status post laser lithotripsy of ureteral calculus History of tubal ligation Hx of myringotomy H/O excision of ganglion cyst Previous section Hx of appendectomy Hx laparoscopic cholecystectomy Hx of tonsillectomy Social History Social History Household Members: Family Housing: House Alcohol intake: current Alcohol intake frequency: does not drink Patient Tobacco Use Status: Former Tobacco user Years Smoked: 25 yrs e-Cigarette/Vaping Use: Never Used Second Hand Smoke Exposure: No service: No Current occupational status: employed Cognitive needs: No Hearing needs: No Vision needs: Yes Meds Allergies Allergy/AdvReac Type Severity Reaction Status Date / Time tocilizumab [From Actemra] Allergy Severe Difficulty Verified 03/02/24 14:43 Breathing Active Medications: Current Medications Acetaminophen (Acetaminophen 325 Mg Tablet) 650 mg PO Q6H PRN PRN Reason: Pain, Mild (Pain Scale 1-3), fever or headache Last Admin: 03/04/24 05:46 Dose: 650 mg Albuterol Sulfate (Albuterol Sulfate 90 Mcg 8 Gm Inhaler) 2 puff INHALE Q6H PRN PRN Reason: shortness of breath or wheezing Atorvastatin Calcium (Atorvastatin Calcium 20 Mg Tablet) 20 mg PO BEDTIME [facility] Last Admin: 03/03/24 19:51 Dose: 20 mg Calcium Carbonate (Calcium Carbonate 750 Mg Tab.Chew) 750 mg PO Q4H PRN PRN Reason: Heartburn Celecoxib (Celecoxib 100 Mg Capsule) 100 mg PO BID [facility] Last Admin: 03/04/24 07:47 Dose: 100 mg Famotidine (Famotidine 20 Mg Tablet) 20 mg PO BEDTIME [facility] Last Admin: 03/03/24 19:50 Dose: 20 mg Fluticasone/Vilanterol (Fluticasone/Vilanterol 100/25 Blst.W.Dev) 1 puff INHALE RDAILY [facility] Last Admin: 03/04/24 08:03 Dose: 1 puff Folic Acid (Folic Acid 1 Mg Tablet) 1 mg PO DAILY [facility] Last Admin: 03/04/24 07:47 Dose: 1 mg Hydroxyzine HCl (Hydroxyzine Hcl 10 Mg Tablet) 5 mg PO DAILY PRN PRN Reason: Anxiety Hydroxyzine HCl (Hydroxyzine Hcl 10 Mg Tablet) 10 mg PO BEDTIME [facility] Last Admin: 03/03/24 19:51 Dose: 10 mg Piperacillin Sod/Tazobactam (Sod 3.375 gm/ Sodium Chloride) 50 mls @ 100 mls/hr IV Q6H [facility] Last Infusion: 03/04/24 10:48 Dose: Infused Lamotrigine (Lamotrigine 25 Mg Tablet) 50 mg PO BEDTIME [facility] Last Admin: 03/03/24 19:52 Dose: 50 mg Lamotrigine (Lamotrigine 100 Mg Tablet) 200 mg PO BEDTIME [facility] Last Admin: 03/03/24 19:50 Dose: 200 mg Leflunomide (Leflunomide 10 Mg Tablet) 20 mg PO BEDTIME [facility] Last Admin: 03/03/24 19:49 Dose: 20 mg Magnesium Hydroxide (Milk Of Magnesia 30 Ml Oral.Susp) 30 ml PO DAILY PRN PRN Reason: Constipation Magnesium Oxide (Magnesium Oxide 400 Mg Tablet) 400 mg PO BEDTIME [facility] Last Admin: 03/03/24 19:52 Dose: 400 mg Melatonin (Melatonin 3 Mg Tablet) 6 mg PO BEDTIME PRN PRN Reason: Insomnia Omeprazole (Omeprazole 20 Mg Capsule.Dr) 20 mg PO DAILY@0630 [facility] Last Admin: 03/04/24 05:41 Dose: 20 mg Ondansetron HCl (Ondansetron Hcl 4 Mg/2 Ml Vial) 4 mg IVPUSH Q8H PRN PRN Reason: Nausea and Vomiting Last Admin: 03/03/24 08:51 Dose: 4 mg Oxycodone HCl (Oxycodone Hcl Immed Release 5 Mg Tablet) 5 mg PO Q6H PRN PRN Reason: Pain, Severe (Pain Scale 7-10) Last Admin: 03/03/24 05:48 Dose: 5 mg Pyridoxine HCl (Pyridoxine Hcl (Vitamin B6) 50 Mg Tablet) 100 mg PO DAILY [facility] Last Admin: 03/04/24 07:47 Dose: 100 mg Ropinirole HCl (Ropinirole Hcl 0.25 Mg Tablet) 0.25 mg PO BEDTIME [facility] Last Admin: 03/03/24 19:51 Dose: 0.25 mg Sodium Chloride (0.9 % Sodium Chloride Flush 3 Ml Syringe) 3 ml IVFLUSH QSHICHI [facility] Last Admin: 03/04/24 07:46 Dose: 3 ml Spironolactone (Spironolactone 25 Mg Tablet) 50 mg PO BID [facility]; Protocol Last Admin: 03/04/24 07:47 Dose: 50 mg Sucralfate (Sucralfate 1 Gm Tablet) 1 gm PO DAILY@1700 [facility] Last Admin: 03/03/24 16:00 Dose: 1 gm Triamcinolone Acetonide (Triamcinolone Acet 0.5 % Cream 15 Gm Tube) 1 appl TOPICAL BID [facility] Last Admin: 03/04/24 07:48 Dose: 1 appl Vitamin D (Cholecalciferol (Vitamin D3) 25 Mcg Tablet) 125 mcg PO DAILY [facility] Last Admin: 03/04/24 07:47 Dose: 125 mcg Home Medications ?Medication ?Instructions ?Recorded ?Confirmed ?Last Taken ?Type tofacitinib 11 mg tablet,extended 11 mg PO BEDTIME 03/09/20 03/02/24 03/01/24 History release 24 hr (Xeljanz XR) lamotrigine 25 mg tablet 50 mg PO BEDTIME 05/20/20 03/02/24 03/01/24 History leflunomide 20 mg tablet 20 mg PO BEDTIME 05/20/20 03/02/24 03/01/24 History lamotrigine 200 mg tablet 200 mg PO BEDTIME 03/16/21 03/02/24 03/01/24 History clindamycin phosphate 1 % lotion 1 appl topical DAILY 07/05/23 03/02/24 03/02/24 09:00 History spironolactone 50 mg tablet 50 mg PO BID 07/05/23 03/02/24 03/02/24 09:00 History betamethasone dipropionate 0.05 % 1 appl topical BID 07/15/23 03/02/24 03/02/24 09:00 History topical ointment hydroxyzine HCl 10 mg tablet 10 mg PO BEDTIME 01/18/24 03/02/24 03/01/24 History fluticasone furoate 100 1 ea inhalation DAILY 03/02/24 03/02/24 Unknown History mcg-vilanterol 25 mcg/dose inhalation powder (Breo Ellipta) hydroxyzine HCl 10 mg tablet 5 mg PO DAILY PRN Anxiety 03/02/24 03/02/24 Unknown History magnesium oxide 250 mg PO BEDTIME 03/02/24 03/02/24 03/01/24 History omega-3 fatty acids 1,000 mg 1,000 mg PO DAILY 03/02/24 03/02/24 03/02/24 09:00 History capsule pantoprazole 40 mg tablet,delayed 40 mg PO DAILY@0630 03/02/24 03/02/24 03/02/24 09:00 History release rosuvastatin 5 mg tablet 5 mg PO BEDTIME 03/02/24 03/02/24 03/01/24 History Physical Exam 2 Vital Signs: Vital Signs: Last Vital Signs Temp 98.4 F 03/04/24 07:37 Pulse 70 03/04/24 08:03 Resp 16 03/04/24 08:03 BP 112/68 03/04/24 07:37 Pulse Ox 94 03/04/24 07:37 O2 Del Method Room Air 03/04/24 07:37 O2 Flow Rate 96 03/03/24 07:21 BMI result Body Mass Index 40.7 Const: General: cooperative HEENT: Head: Yes normal to inspection Face and sinus: Yes normal facial exam Mouth: Normal oral and palatal mucosa present Teeth and gingiva: d entition normal Eyes: General: appearance normal, both eyes and all related structures P upils: Equal, round and reactive pupils present Resp: Effort & Inspection: normal respiratory effort Cardio: Rate: regular rate Rhythm: regular rhythm GI: Palpation (GI): Soft to palpation and nontender : General: Yes no CVA tenderness Back/Spine/Pelvis: Back: no CVA tenderness Skin: General skin exam: no rashes or lesions noted Neuro: General: moves all extremities Cranial nerves: Yes Equal, round and reactive pupils present Extrem: Other: left hand swollen dorsal Psych: Appearance: grossly normal Results Labs 03/03/24 04:29 03/03/24 04:29 Assessment and Plan (1) Cellulitis of left hand: Status: Acute (2) Cat bite of left hand: Status: Acute Plan Continue Zosyn Vancomycin if worse. Follow Hand. Await cultures as she said did not get better on Augmentin,2 days.
[2024-03-04 15:43] VITALS: BP 118/73; PULSE 80; RESP 16; TEMP 36.4; O2SAT 94
[2024-03-04] MEDS: Sucralfate 1 GM TABLET PO (16:06)
[2024-03-04 19:42] VITALS: BP 119/70; PULSE 79; RESP 16; TEMP 36.3; O2SAT 94
[2024-03-04 21:10] VITALS: BP 119/72
[2024-03-04] MEDS: lamoTRIgine 100 MG TABLET 200 MG PO (21:10)
[2024-03-04] MEDS: lamoTRIgine 25 MG TABLET 50 MG PO (21:10)
[2024-03-04] MEDS: Magnesium Oxide 400 MG TABLET PO (21:11)
[2024-03-04] MEDS: hydrOXYzine HCL 10 MG TABLET PO (21:11)
[2024-03-04] MEDS: rOPINIRole HCL 0.25 MG TABLET PO (21:11)
[2024-03-04] MEDS: Famotidine 20 MG TABLET PO (21:11)
[2024-03-04] MEDS: Atorvastatin Calcium 20 MG TABLET PO (21:11)
[2024-03-04] MEDS: Leflunomide 10 MG TABLET 20 MG PO (21:11)
[2024-03-05 03:37] VITALS: BP 112/61; PULSE 77; RESP 16; TEMP 36; O2SAT 93
[2024-03-05] MEDS: Piperacillin Sodium/Tazobactam 3.375 GM in 0.9 % Sodium Chloride 50 ML IV (05:09)
[2024-03-05] MEDS: Omeprazole 20 MG CAPSULE.DR PO (06:34)
[2024-03-05 07:19] VITALS: BP 101/61; PULSE 78; RESP 18; TEMP 36.6; O2SAT 95
--- NOTE | 2024-03-05 07:40 | P.PNOP_ITS ---
Subjective Subjective Date of Service: 03/05/24 Interval history: 48-year-old female admitted to the hospital for treatment of cellulitis of left hand secondary to cat bite Patient is resting in bed Patient reports that the redness and swelling in her hand have improved significantly since yesterday Be areas of purulence surrounding the puncture wounds have resolved since [place] yesterday The patient reports that the 1st warm water soak after drainage yesterday did bring out a significant amount of purulence, but the second soak decreased in volume significantly Patient has improved range of motion of her left hand Continues to work with occupational therapy Pain in hand much better than yesterday No other acute complaints or concerns at this time Physical Exam Vital Signs: Vital Signs: Last Vital Signs Temp 97.8 F 03/05/24 07:19 Pulse 78 03/05/24 07:19 Resp 18 03/05/24 07:19 BP 101/61 03/05/24 07:19 Pulse Ox 95 03/05/24 07:19 O2 Del Method Room Air 03/05/24 07:19 O2 Flow Rate 96 03/03/24 07:21 BMI result Body Mass Index 40.7 Extrem: Other: Patient is alert, oriented, and in no acute distress. Neuro: Normal sensation of the tips of all digits of the left hand at this time Vascular: Cap refill brisk Pain: Patient reports tenderness to palpation of the dorsum of the left hand, primarily over the 3rd and 4th metacarpals, improved from yesterday No tenderness to palpation of the volar left hand Patient reports minimal tenderness to palpation about the dorsal left wrist Patient reports improved pain with flexion of the left fingers No tenderness with axial loading of the left wrist or any of the digits of the left hand ROM: Flexion of the index, middle, and ring fingers limited due to pain, but improved from yesterday and close to making a closed fist Patient is able to flex and extend the small finger of the left hand without difficulty Patient is able to extend all digits of the left hand without difficulty Patient is able to flex the left wrist to approximately 45 degrees beyond neutral without difficulty Patient is able to extend the left wrist to approximately 10 degrees beyond neutral, but experiences significant discomfort beyond this Skin: 2 small, punctate open areas noted on th e dorsum of the left hand Areas of purulence surrounding these puncture wounds have resolved No active discharge at this time General: There is noted to be mild edema noted on the proximal and dorsal aspect of the digits of the left hand There is also noted to be some very mild overlying erythema on the dorsum of the left hand, improved from last visit No ecchymosis at this time There is no area of fluctuance to palpation of the dorsal left hand Psych: Appears grossly normal Affect normal Attitude cooperative Procedures Date of Service Date of Service: 03/05/24 Progress Note: A&P Assessment and plan (1) Cellulitis of left hand: Status: Acute (2) Cat bite of left hand: Status: Acute Plan Light, nonstick dressing changed this a.m. Continue IV antibiotic therapy Continue OT evaluations to improve range of motion of left hand Continue warm water soaks 2-3 times per day to encourage drainage of any remaining purulence in the puncture wounds If there continues to be no drainage with soaks, can be pushed to 1 per day No acute surgical intervention indicated at this time Continue pain management Continue with all other recommendations per Medicine Orthopedic surgery will continue to follow Time Spent With Patient Time: Total time managing care of this patient today ____ minutes. Quality Stroke Does the patient have a stroke diagnosis?: No VTE Prior VTE?: No VTE Risk Level:: Medical - moderate - high VTE Device Contraindication: Treatment Not Indicated VTE Drug Contraindication: Treatment Not Indicated
[2024-03-05] MEDS: Fluticasone/Vilanterol 100/25 BLST.W.DEV 1 PUFF INHALE (08:02)
[2024-03-05 08:04] VITALS: PULSE 77; RESP 18; O2SAT 94
[2024-03-05] MEDS: Cholecalciferol (Vitamin D3) 25 MCG TABLET 125 MCG PO (08:39)
[2024-03-05] MEDS: Pyridoxine HCl (Vitamin B6) 50 MG TABLET 100 MG PO (08:40)
[2024-03-05] MEDS: Celecoxib 100 MG CAPSULE PO (08:40)
[2024-03-05] MEDS: Spironolactone 25 MG TABLET 50 MG PO (08:40)
[2024-03-05] MEDS: Triamcinolone Acet 0.5 % Cream 15 GM TUBE 1 APPL TOPICAL (08:41)
[2024-03-05] MEDS: 0.9 % Sodium Chloride Flush 3 ML SYRINGE IVFLUSH (08:41)
[2024-03-05] MEDS: Folic Acid 1 MG TABLET PO (08:41)
[2024-03-05] MEDS: Fluconazole 150 MG TABLET PO (08:58)
--- NOTE | 2024-03-05 09:18 | PM.DS ---
DS: Providers Provider Date of Service: 03/05/24 Date of admission: 03/02/24 17:14 Date of discharge: 03/05/24 Primary care physician: Jeri Snyder MD Consults: 03/02/24 17:18 Consult to Infectious Diseases Routine Consulting Provider: [facility] Reason for consultation: cat bite Consult to Orthopedics Routine Consulting Provider: [facility] Reason for consultation: left hand edema, cat bite DS: Diagnosis Discharge Diagnosis (1) Cellulitis of left hand: Status: Acute (2) Cat bite of left hand: Status: Acute (3) Vaginal candidiasis: Status: Acute DS: Summary Hospital Course Hospital Course: From the history and physical by the admitting hospitalist, Tracie Campbell, 03/02/24: 48 year old female with a history of depression, anxiety, GERD, and asthma presenting to the emergency department today with worsening left hand pain after a cat bite. Patient states that on 02/28/2024 she was bit by her cat and immediately had pain and swelling. Patient was seen on 02/29/2024 in our ED and was started on Augmentin. Unfortunately, seems as though her hand is not getting better and actually getting worse, she was unable to flex or extend at the wrist or make a full fist. She returned back to the ER for re-evaluation. Denied fever, chills, nausea, vomiting, diarrhea. CRP 2.21, ESR 67, no fever leukocytosis. Patient given a dose of IV Zosyn. She will be admitted for further management and treatment of cat bite requiring IV antibiotics. 48yo F admitted to the medical-surgical unit with purulent cellulitis due to cat bite that failed outpatient management. She was treated with IV piperacillin-tazobactam. Infectious Disease and Orthopedics were controlled. There was no evidence of septic joint or flexor tenosynovitis. Purulent areas were noted at the cat bite puncture sites and needle aspiration of purulent discharge was done at bedside on 03/04/24. The cellulitis improved and she was discharged on 5 days of amoxicillin-clavulanate twice daily. She will continue hand therapy with outpatient OT and follow up with Orthopedics in 1 week. She was given a prescription for fluconazole for vaginal candidiasis provoked by antibiotic therapy. Time Attestation Discharge Coordination Time (in mins): 40 Quality: Safe Use of Opioids Does Pt have an Active Cancer Diagnosis on the Problem List?: No Quality: Stroke Does the patient have a stroke diagnosis?: No Physical Exam Vital Signs: Vital Signs: Last Vital Signs Temp 97.8 F 03/05/24 07:19 Pulse 77 03/05/24 08:04 Resp 18 03/05/24 08:04 BP 101/61 03/05/24 07:19 Pulse Ox 95 03/05/24 07:19 O2 Del Method Room Air 03/05/24 07:19 O2 Flow Rate 96 03/03/24 07:21 BMI result Body Mass Index 40.7 Gen: in no acute distress HEENT: sclera anicteric, moist mucus membranes Neck: supple Lungs: clear to auscultation bilaterally Heart: regular rate and rhythm, no murmurs, obese Abd: soft, non-tender, non-distended Ext: L hand in dry dressing over site of cat bite puncture wounds, distally neurovascularly intact Skin: warm/well-perfused Neuro: alert and oriented x3, no focal findings Psych: appropriate affect DS: Data Data Completed and Pending Completed studies during hospitalization [Text1]: Laboratory Results WBC 4.4 X10*3/uL (4.8-10.8) L 03/03/24 04:29 RBC 4.26 X10*6/uL (4.20-5.50) 03/03/24 04:29 Hgb 12.0 g/dl (12.0-16.0) 03/03/24 04:29 Hct 36.8 % (37.0-47.0) L 03/03/24 04:29 MCV 86.4 fL (80.0-98.0) 03/03/24 04:29 MCH 28.2 pg (27.0-33.0) 03/03/24 04:29 MCHC 32.6 g/dl (31.0-35.0) 03/03/24 04:29 RDW 14.2 % (11.0-16.0) 03/03/24 04:29 Plt Count 242 X10*3/uL (160-400) 03/03/24 04:29 MPV 9.8 fL (9.4-12.3) 03/03/24 04:29 Immature Gran % (Auto) 0.2 % (0.0-0.4) 03/02/24 15:28 Neut % (Auto) 61.3 % (45-73) 03/02/24 15: Lymph % (Auto) 22.8 % (20-40) 03/02/24 15: [place] % (Auto) 11.3 % (2-11) H 03/02/24 15: Eos % (Auto) 3.6 % (0-4) 03/02/24 15: Baso % (Auto) 0.8 % (0-2) 03/02/24 15: Lymph # (Auto) 1.2 X10*3/uL (1.2-4.9) 03/02/24 15: [place] # (Auto) 0.6 X10*3/uL (0.1-1.2) 03/02/24 15: Eos # (Auto) 0.2 X10*3/uL (0.0-0.4) 03/02/24 15: Baso # (Auto) 0.0 X10*3/uL (0.0-0.2) 03/02/24 15: Abs Immat Gran (auto) 0.01 X10*3/uL (0.00-0.03) 03/02/24 15: Absolute Neuts (auto) 3.1 x10*3/uL (2.0-8.3) 03/02/24 15: Absolute Nucleated RBC 0.000 X10*3/uL (0.0-0.012) 03/03/24 04:29 Nucleated RBC % (auto) 0.0 /100WBC (0.0-0.2) 03/03/24 04:29 ESR 67 MM/HR (0-20) H 03/02/24 15:28 Sodium 141 mmol/L (135-145) 03/03/24 04:29 Potassium 3.8 mmol/L (3.3-5.1) 03/03/24 04:29 Chloride 108 mmol/L (96-108) 03/03/24 04:29 Carbon Dioxide 26 mmol/L (22-29) 03/03/24 04:29 Anion Gap 11 (12-20) L 03/03/24 04:29 BUN 11 mg/dL (9-16) 03/03/24 04:29 Creatinine 0.76 mg/dL (0.5-1.4) 03/03/24 04:29 Estim Creat Clear Calc 105.7 03/03/24 04:29 Estimated GFR > 60 03/03/24 04:29 Random Glucose 101 mg/dL (60-115) 03/03/24 04:29 Calcium 9.6 mg/dL (8.4-10.2) 03/03/24 04:29 Magnesium 1.9 mg/dL (1.6-2.6) 03/02/24 15:28 Total Bilirubin 0.7 mg/dL (0.0-1.0) 03/03/24 04:29 AST 23 U/L (5-31) 03/03/24 04:29 ALT 23 U/L (0-31) 03/03/24 04:29 Alkaline Phosphatase 75 U/L (39-117) 03/03/24 04:29 C-Reactive Protein 2.21 mg/dL (< or = 0.50) H 03/02/24 15:28 Total Protein 6.4 g/dL (6.5-8.0) L 03/03/24 04:29 Albumin 3.7 g/dL (3.5-5.0) 03/03/24 04:29 Impressions Hand X-Ray 03/02/24 14:42 IMPRESSION: Unremarkable plain radiographs of the left hand. Electronically signed by: Silverio Drake MD 03/02/2024 04:41 PM EDT RP Discharge Plan Discharge Anticipated Discharge Date/Time: 03/05/24 09:12 Patient Disposition: Home, Self-Care Discharge Diagnosis: cat bite cellulitis, vaginal candidiasis Referrals: [facility]ational Re[facility] [place] [facility] [place] - 1 Week Jayy Carroll PA [Physician Manager Fashion] - 1 Week Jeri Snyder MD [Primary Care Provider] - 1 Week Discharge Medications: New fluconazole 150 mg tablet 150 mg PO Q3D Qty: 2 0RF Rx Instructions: Take on 03/08 and 03/11 Continued cholecalciferol (vitamin D3) 125 mcg (5,000 unit) capsule 125 mcg PO DAILY Qty: 30 2RF pyridoxine (vitamin B6) 100 mg tablet 100 mg PO DAILY 90 Days Qty: 90 3RF famotidine [Pepcid] 20 mg tablet 20 mg PO BEDTIME Qty: 30 3RF albuterol sulfate [Ventolin HFA] 90 mcg/actuation HFA aerosol inhaler 2 puff inhalation Q6H PRN (Reason: shortness of breath or wheezing) Qty: 8.5 1RF celecoxib [Celebrex] 100 mg capsule 100 mg PO Q12H Qty: 60 3RF omega-3 fatty acids 1,000 mg Capsule 1,000 mg PO DAILY hydroxyzine HCl 10 mg tablet 5 mg PO DAILY PRN (Reason: Anxiety) pantoprazole 40 mg tablet,delayed release (DR/EC) 40 mg PO DAILY@0630 Rx Instructions: take one tablet half an hour before breakfast magnesium oxide 250 mg magnesium tablet 250 mg PO BEDTIME rosuvastatin 5 mg tablet 5 mg PO BEDTIME fluticasone furoate-vilanterol [Breo Ellipta] 100-25 mcg/dose blister with device 1 ea inhalation DAILY amoxicillin-pot clavulanate 875-125 mg tablet 1 tab PO BID 5 Days Qty: 10 0RF Xeljanz XR 11 mg tablet extended release 24 hr 11 mg PO BEDTIME ropinirole 0.25 mg tablet 0.25 mg PO BEDTIME Qty: 30 1RF Rx Instructions: administer 1-3 hours before bedtime folic acid 800 mcg tablet 0.8 mg PO DAILY Qty: 30 2RF hydroxyzine HCl 10 mg tablet 10 mg PO BEDTIME betamethasone dipropionate 0.05 % ointment 1 appl topical BID leflunomide 20 mg tablet 20 mg PO BEDTIME lamotrigine 25 mg tablet 50 mg PO BEDTIME lamotrigine 200 mg tablet 200 mg PO BEDTIME spironolactone 50 mg tablet 50 mg PO BID clindamycin phosphate 1 % lotion 1 appl topical DAILY sucralfate 1 gram tablet 1 g PO DAILY@1700 Qty: 30 4RF Discharge Orders: Discharge Order (Routine); Ordered 03/05/24 Ordered By: Jeanette Dougherty Diet: Advance to usual diet Activity on Discharge: As tolerated Stand Alone Forms: Patient Portal Discharge page Print Language: Kosovan Care Plan Goals: cure of infection Health Concerns: cat bite cellulitis, vaginal candidiasis Plan of Treatment: Daily dressing changes and daily warm soaks Acetaminophen [Tylenol] for pain control Follow up with [facility] in 1 week Outpatient occupational therapy Take amoxicillin-clavulanate twice daily for 5 days For yeast infection, take fluconazole once on 03/08 and again on 03/11 Please follow up with your primary care doctor within 1 week. Return to the hospital if you experience recurrent or worsening symptoms. Assessment: See Discharge Summary. Patient Instructions: Animal Bite (DC), Cellulitis (DC)
--- NOTE | 2024-03-05 11:17 | MHC.CM.PN ---
PT TO DC HOME TODAY WITH NO SERVICES VIA PRIVATE TRANSPORT
== END 2024-03-05 11:10 | disposition home or self-care (01) | DRG 383 ==
LOC: HO.ED 16:34 → HO.EDOVER 17:20 → HO.S3 19:11
PROVIDERS: Physician Assistant Medical; Admitting Provider Nurse Practitioner Acute Care; Emergency Provider Emergency Medicine; PCP Internal Medicine; Visit Provider Family Medicine
DX: L03.114 Cellulitis of left upper limb (principal); B37.31 Acute candidiasis of vulva and vagina; E78.5 Hyperlipidemia, unspecified; S61.432A Puncture wound without foreign body of left hand, initial encounter; M06.9 Rheumatoid arthritis, unspecified; W55.01XA Bitten by cat, initial encounter; Z79.51 Long term (current) use of inhaled steroids; Z79.620 Long term (current) use of immunosuppressive biologic; Z87.891 Personal history of nicotine dependence; Z79.899 Other long term (current) drug therapy
CPT/HCPCS: 36415; 73130; 80053; 83735; 85025; 85027; 85652; 86140; 90656; 94640; 97110; 97165; 99285; J2405; J2543

== ENCOUNTER → 2024-03-02 17:14 | Outpatient (BNV) | payer OTHER, SELFPAY | PROVIDERS: Admitting Provider Nurse Practitioner Acute Care; Emergency Provider Emergency Medicine; PCP Internal Medicine; Visit Provider Internal Medicine | DX: L03.114 Cellulitis of left upper limb (principal); S61.452A Open bite of left hand, initial encounter; W55.01XA Bitten by cat, initial encounter | CPT/HCPCS: 99222 ==

== ENCOUNTER → 2024-03-02 17:14 | Outpatient (BNV) | payer OTHER, SELFPAY | PROVIDERS: Admitting Provider Nurse Practitioner Acute Care; Emergency Provider Emergency Medicine; PCP Internal Medicine; Visit Provider Nurse Practitioner Acute Care | DX: L03.114 Cellulitis of left upper limb (principal); S61.452A Open bite of left hand, initial encounter; W55.01XA Bitten by cat, initial encounter | CPT/HCPCS: 99222; 99232; 99239 ==

== ENCOUNTER → 2024-03-02 17:14 | Outpatient (BNV) | payer OTHER, SELFPAY | PROVIDERS: Admitting Provider Nurse Practitioner Acute Care; Emergency Provider Emergency Medicine; PCP Internal Medicine | DX: L03.114 Cellulitis of left upper limb (principal); S61.452A Open bite of left hand, initial encounter; W55.01XA Bitten by cat, initial encounter | CPT/HCPCS: 99222; 99232 ==

== ENCOUNTER 2024-03-11 13:06 | Outpatient (AMB) | payer OTHER, SELFPAY ==
--- NOTE | 2024-03-11 13:14 | A.OFFVIS_ITS ---
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 Patient reports his hand is getting better but continues experiencing weakness. She admits attempting to lift her laundry despite of her 2 lb restriction. Denies numbness, tingling, finger locking. She takes Ibuprofen for pain PRN. She continues to take her antibiotics. She is concerned for the pain and a lump on the dorsal aspect of the left wrist. 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 She was admitted to the hospital on , given IV Zosyn, and discharged on 03/05/24 with a 10-day course of PO Augmentin. She presents today saying she still has some pain & weakness in her hand along with a painful lump on the back of her hand. She says she struggles to lift things such as a laundry basket at home. 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 [facility] Medical History Restless leg syndrome History of nephrolithiasis GERD (gastroesophageal reflux disease) BMI 38.0-38.9,adult Obesity (BMI 35.0-39.9 without comorbidity) Nephrolithiasis Bilateral sacroiliitis Depression with anxiety Rheumatoid arthritis Mixed dyslipidemia Surgical History History of bilateral salpingectomy History of robot-assisted laparoscopic hysterectomy Hx of ovarian cystectomy H/O dilation and curettage Status post laser lithotripsy of ureteral calculus History of tubal ligation Hx of myringotomy H/O excision of ganglion cyst Previous section Hx of appendectomy Hx laparoscopic cholecystectomy Hx of tonsillectomy Family History Father HTN (hypertension) Diabetes mellitus Depression Dyslipidemia Substance use disorder Mental health disorder Mother Pancreatic cancer Anxiety Brother Substance use disorder Mental health disorder Daughter Mental health disorder Sister Substance use disorder Mental health disorder Maternal Uncle Mental health disorder Daughter Mental health disorder Daughter Mental health disorder Social History (Updated 03/11/24 @ 13:38 by LOIS Luciano) Household Members: Family Housing: House Alcohol intake: current Alcohol intake frequency: does not drink Patient Tobacco Use Status: Former Tobacco user Years Smoked: 25 yrs e-Cigarette/Vaping Use: Never Used Second Hand Smoke Exposure: No service: No Current occupational status: employed 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, 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 Cognitive needs: No Hearing needs: No Vision needs: Yes Review of Systems Const All systems reviewed & are unremarkable except as noted in HPI and below Physical Exam Vital Signs: BMI result Body Mass Index 40.6 Const General: cooperative, healthy appearing and no acute distress Orientation/consciousness: patient oriented x3 HEENT Head: Yes normocephalic and Yes atraumatic Eyes EOM: EOMs intact bilaterally Resp Effort & Inspection: normal respiratory effort and able to speak in complete sentences Cardio Jugular venous distension: no JVD Skin General skin exam: turgor normal Rashes: no rashes Neuro General: patient oriented x3 Extrem Other: Evaluation of Left Upper Extremity: The patient is alert, oriented, and in no acute distress Neuro: Median, Ulnar, Radial nerves motor and sensory intact and sensation is normal to the tips of all digits Vascular: Cap refill brisk ROM: She can make a fist and extend all her digits Full and symmetrical pronosupination She is lacking perhaps ~20 degrees of wrist flexion & extension, secondary to discomfort No pain with resisted wrist or finger extension Skin: 2 Healed puncture wounds to the dorsal aspect of wrist No drainage or erythema A focal area of fullness ~1cm in diameter to the ulnar puncture wound. This does not move with finger ROM. It may represent some scar tissue. It is not particularly tender. Mildly tender General: No Ecchymosis. No Erythema or warmth Psych Appearance: grossly normal Affect: normal affect Attitude: cooperative Assessment & Plan Assessment & Plan (1) Cellulitis of left hand: Code(s): L03.114 - Cellulitis of left upper limb Category: Medical (2) Cat bite of left hand: Code(s): S61.452A - Open bite of left hand, initial encounter; W55.01XA - Bitten by cat, initial encounter Category: Medical Plan Assessment & Plan: 1. Left hand cellulitis, S/P cat bite DOI: 02/28/24 I educated her about this condition I explained the signs and symptoms of infection, if the patient develops any new or worsening erythema, drainage, pain, or warmth they should contact the clinic or attend the ED. She should continue her PO Abx as instructed I discussed activity modifications, she is to lift nothing heavier than a cellphone for the next two weeks She should work on gentle hand & wrist ROM exercises at home She can follow up prn Scribed for Lakeshia Willett MD by Reed Jones, medical sales representative, on 03/11/24 at 1:55 PM, EST. Coding Level of Care Code Est Pt Level 3 (22902) Diagnoses Cellulitis of left hand L03.114 Cat bite of left hand S61.452A; W55.01XA
[2024-03-11 13:15] VITALS: BMI 40.6
== END 2024-03-11 14:11 | disposition home or self-care (01) ==
LOC: HO.HOS 13:07
PROVIDERS: PCP Internal Medicine; Visit Provider Orthopaedic Surgery
DX: L03.114 Cellulitis of left upper limb (principal); S61.452A Open bite of left hand, initial encounter; W55.01XA Bitten by cat, initial encounter
CPT/HCPCS: 99213

== ENCOUNTER → 2024-03-11 13:06 | Outpatient (BNVA) | payer OTHER, SELFPAY | PROVIDERS: PCP Internal Medicine; Visit Provider Orthopaedic Surgery ==

== ENCOUNTER 2024-03-12 08:51 | Outpatient (REF) | payer OTHER, SELFPAY ==
[2024-03-12 10:50] LABS: Alanine Aminotransferase 32 U/L (0-31); Anion Gap 12 (12-20); Aspartate Amino Transferase 27 U/L (5-31); Blood Urea Nitrogen 11 mg/dL (9-16); Calcium 10.1 mg/dL (8.4-10.2); Carbon Dioxide 26 mmol/L (22-29); Chloride 107 mmol/L (96-108); Cholesterol 197 mg/dL (<200); Estimated Glomerular Filt Rate > 60; Glucose Fasting 98 mg/dL (60-99); HDL Cholesterol 54 mg/dL (>40); LDL Cholesterol Calculated 108 mg/dL (<100); Potassium 4.2 mmol/L (3.3-5.1); Sodium 141 mmol/L (135-145); Triglycerides 175 mg/dL (<150); Vitamin D 25-OH Total 59.5 ng/mL (>30)
[2024-03-12 10:58] LABS: Vitamin B12 563 pg/mL (200-900)
[2024-03-12 11:27] LABS: Folate > 20.0 ng/mL (> or = 4.0)
[2024-03-13 14:23] LABS: Transglutaminase Ab IgG <1.0 U/mL; Transglutaminase IgA <1.0 U/mL
== END 2024-03-12 08:52 | disposition home or self-care (01) ==
LOC: HO.HMGCLDS 08:51
PROVIDERS: Nurse Practitioner Family; PCP Internal Medicine; Referring Provider Physician Assistant Medical; Visit Provider Internal Medicine
DX: L73.2 Hidradenitis suppurativa (principal); R10.9 Unspecified abdominal pain; E53.8 Deficiency of other specified B group vitamins; R25.2 Cramp and spasm; E78.2 Mixed hyperlipidemia; M06.9 Rheumatoid arthritis, unspecified; D86.9 Sarcoidosis, unspecified; E66.9 Obesity, unspecified; K21.9 Gastro-esophageal reflux disease without esophagitis; F50.819 Binge eating disorder, unspecified
CPT/HCPCS: 36415; 80048; 80061; 82306; 82550; 82607; 82746; 83735; 84450; 84460; 86364

== ENCOUNTER 2024-03-12 10:04 | Outpatient (AMB) | payer OTHER, SELFPAY ==
--- NOTE | 2024-03-12 10:52 | A.OFFPC_ITS ---
Vital Signs 03/12/24 10:56 Height 5 ft 3 in Weight 227 lb BMI 40.2 BP 110/78 Blood Pressure Location Rt brachial Position Sitting Pulse 82 Pulse Source Pulse Oximeter Pulse Oximetry (%) 97 Oxygen Delivery Method Room Air Intake Visit Reasons: [facility] cellulitis Intake Note: Pt is here today [facility] cellulitis Lt hand Allergies tocilizumab [From Actemra] Allergy (Severe, Verified 03/12/24 11:08) Difficulty Breathing Medication List - Last Reconciled 03/12/24 by Jeri Snyder MD albuterol sulfate 90 mcg/actuation (Ventolin HFA) 2 puffs inhalation Q6H PRN amoxicillin-pot clavulanate 875-125 mg 1 tab PO BID 5 days betamethasone dipropionate 0.05% 1 appl topical BID celecoxib (Celebrex) 100 mg PO Q12H cholecalciferol (vitamin D3) 125 mcg PO DAILY clindamycin phosphate 1% 1 appl topical DAILY famotidine (Pepcid) 20 mg PO BEDTIME fluconazole 150 mg PO Q3D 2 doses fluticasone furoate-vilanterol 100-25 mcg/dose (Breo Ellipta) 1 ea inhalation DAILY folic acid 0.8 mg PO DAILY hydroxyzine HCl 10 mg PO BEDTIME lamotrigine 50 mg PO BEDTIME lamotrigine 200 mg PO BEDTIME leflunomide 20 mg PO BEDTIME magnesium oxide 250 mg PO BEDTIME omega-3 fatty acids 1,000 mg PO DAILY pantoprazole 40 mg PO DAILY@0630 pyridoxine (vitamin B6) 100 mg PO DAILY 90 days ropinirole 0.25 mg PO BEDTIME rosuvastatin 5 mg PO BEDTIME spironolactone 50 mg PO BID sucralfate 1 g PO DAILY@1700 tofacitinib ER (Xeljanz XR) 11 mg PO BEDTIME Tobacco use date assessed: 03/12/24 Dental Screening Dental Screen Date: 03/12/24 Did you have a dental visit in the last 12 months?: Yes Did you have a dental problem in the last 6 months where you did not have access to dental care?: Yes Was dental information given to patient?: Patient has dentist [facility] H[facility] Details 48 year old right hand dominant woman here today for follow-up after a left hand cat bite, DOI: ~02/28/24. She was admitted to the hospital on 03/02/24, given IV Zosyn, and discharged on 03/05/24 with a 10-day course of PO Augmentin.She still has some pain & weakness in her hand along with a painful lump on the dorsal aspect of her hand, and has a hard time lifting anything heavy with left hand. Has been a febrile Has restless leg syndrome, currently stable controlled on ropinirole 0.25 mg taken at bedtime, would like a refill on her prescription. [facility] Medical History Restless leg syndrome History of nephrolithiasis GERD (gastroesophageal reflux disease) BMI 38.0-38.9,adult Obesity (BMI 35.0-39.9 without comorbidity) Nephrolithiasis Bilateral sacroiliitis Depression with anxiety Rheumatoid arthritis Mixed dyslipidemia Surgical History History of bilateral salpingectomy History of robot-assisted laparoscopic hysterectomy Hx of ovarian cystectomy H/O dilation and curettage Status post laser lithotripsy of ureteral calculus History of tubal ligation Hx of myringotomy H/O excision of ganglion cyst Previous section Hx of appendectomy Hx laparoscopic cholecystectomy Hx of tonsillectomy Family History Father HTN (hypertension) Diabetes mellitus Depression Dyslipidemia Substance use disorder Mental health disorder Mother Pancreatic cancer Anxiety Brother Substance use disorder Mental health disorder Daughter Mental health disorder Sister Substance use disorder Mental health disorder Maternal Uncle Mental health disorder Daughter Mental health disorder Daughter Mental health disorder Social History Household Members: Family Housing: House Alcohol intake: current Alcohol intake frequency: does not drink Patient Tobacco Use Status: Former Tobacco user Years Smoked: 25 yrs e-Cigarette/Vaping Use: Never Used Second Hand Smoke Exposure: No service: No Current occupational status: employed 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, 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 Cognitive needs: No Hearing needs: No Vision needs: Yes Questionnaire Thrive Questionnaire Date Thrive assessed: 01/16/24 I am a: Patient What is your living situation today?: I have a steady place to live Within the past 12 months, did the food you bought not last and you didn't have the money to get more?: Never true Within the past 12 months, did you worry whether your food would run out before you got money to buy more?: Never true Do you have trouble paying for medicines?: No Do you have trouble getting transportation to medical appointments?: No Do you have trouble paying your heating and electricity bill?: No Do you have trouble taking care of your child, family member or friend?: No Do you have trouble with day-to-day activities such as bathing, preparing meals, shopping, managing finances, etc.?: No Are you currently unemployed and looking for a job?: No Are you interested in more education?: No Please select the resources that you would like help with: None Currently or been in a relationship where the following occur: No concerns reported THRIVE Score: 0 MATT-7 AMB Questionnaire MATT-7 Date MATT - 7 assessed: 01/10/23 Source: Developed by Drs. Ralph Dozier, Gogo Larkin, Christopher Patrick and colleagues, with an educational annabelle from [employer]. Review of Systems Const All systems reviewed & are unremarkable except as noted in HPI and below Physical exam (Primary Care) Vital Signs: Last Vital Signs Pulse 82 03/12/24 10:56 BP 110/78 03/12/24 10:56 Pulse Ox 97 03/12/24 10:56 Oxygen Delivery Method Room Air 03/12/24 10:56 BMI result Body Mass Index 40.2 Tobacco/Smoking Status: Tobacco use Status Tobacco use date assessed 03/12/24 03/12/24 10:58 Patient Tobacco Use Status Former Tobacco user 03/12/24 10:58 e-Cigarette/Vaping Use Never Used 03/12/24 10:58 Thrive Assessment: Date of Thrive Assessment Date Thrive assessed 01/16/24 03/12/24 10:58 Currently or been in a relationship where the following occur: No concerns reported Const General: comfortable, no acute distress and alert Orientation/consciousness: patient oriented x3 Neck Neck: Yes full ROM, Yes no lymphadenopathy and Yes supple Skin Other: Healed puncture wounds dorsal aspect of left hand, with slight swelling over site, no erythema , increased warmth or active drainage from wound Neuro General: patient oriented x3 Extrem Other: Full range of motion of left wrist joint, no joint swelling seen Coding Level of Care Code Est Pt Level 4 (63726) Diagnoses Cat bite of left hand, subsequent encounter S61.452D; W55.01XD Encounter type: subsequent encounter Restless leg syndrome G25.81 Assessment & Plan Assessment & Plan (1) Cat bite of left hand: Code(s): S61.452A - Open bite of left hand, initial encounter; W55.01XA - Bitten by cat, initial encounter Category: Medical Qualifiers: Encounter type: subsequent encounter Qualified Code(s): S61.452D - Open bite of left hand, subsequent encounter; W55.01XD - Bitten by cat, subsequent encounter Plan: Continue taking Augmentin to complete 10 day course, no lifting more than a cell phone with left hand, continue doing [id number] exercises, call if no complete resolution of swelling and pain noted after completion of antibiotic. (2) Restless leg syndrome: Code(s): G25.81 - Restless legs syndrome Category: Medical Plan: Controlled with ropinirole 0.25 mg taken at bedtime, refill sent Medications: Refilled ropinirole administer 1-3 hours before bedtime 0.25 mg PO BEDTIME 90 tabs 1RF
[2024-03-12 10:56] VITALS: BP 110/78; PULSE 82; O2SAT 97; BMI 40.2
== END 2024-03-12 11:42 | disposition home or self-care (01) ==
LOC: HO.HMCC 10:04
PROVIDERS: PCP Internal Medicine; Visit Provider Internal Medicine
DX: S61.452D Open bite of left hand, subsequent encounter (principal); W55.01XD Bitten by cat, subsequent encounter; G25.81 Restless legs syndrome

== ENCOUNTER 2024-05-08 08:16 | Outpatient (REF) | payer OTHER, SELFPAY | END 2024-05-08 08:17 | disposition home or self-care (01) | LOC: HO.MAMMO 08:16 | PROVIDERS: PCP Internal Medicine; Visit Provider Internal Medicine | DX: Z12.31 Encounter for screening mammogram for malignant neoplasm of breast (principal) | CPT/HCPCS: 77063; 77067 ==

== ENCOUNTER → 2024-05-08 08:30 | Outpatient (BNV) | payer OTHER, SELFPAY | PROVIDERS: PCP Internal Medicine; Visit Provider Internal Medicine | DX: Z12.31 Encounter for screening mammogram for malignant neoplasm of breast (principal) | CPT/HCPCS: 77063; 77067 ==

== ENCOUNTER 2024-07-09 13:38 | Outpatient (REF) | payer OTHER, SELFPAY ==
--- OUTSIDE RECORDS SUMMARY | 2024-07-09 16:48 | XMS_ITS | Encounter Summary ---
Author Organization [facility] Address [address] [place] [address] Care Team Providers Care Printer Assistant Name Role Phone Jeri Snyder Md, MD Primary Care Provider Unavailable Encounter Details Date Type Department Care Team Description 04/19/2018 Release of Information Medical Records [address] [place] [address] Abstract, Provider Social History Tobacco Use Types Packs/Day Years Used Date Smoking Tobacco: Every Day Cigarettes 0.5 24 Smokeless Tobacco: Never Alcohol Use Standard Drinks/Week Comments Yes 0 (1 standard drink = 0.6 oz pur e alcohol) berna Sex Assigned at Date Recorded Not on file documented as of this encounter Plan of Treatment Not on file documented as of this encounter Visit Diagnoses Not on filedocumented in this encounter Care Teams Printer Assistant Relationship Specialty Start Date End Date Jeri Snyder MD, MD PCP - General Internal Medicine 02/26/18 documented as of this encounter
--- OUTSIDE RECORDS SUMMARY | 2024-07-09 16:48 | XMS_ITS | Clinical Summary ---
Author Organization [facility] ity Address [address] [place] [address] Care Team Providers Care Wood Engraver Name Role Phone Jeri Snyder MD Primary Care Provider [phone] Medical History Medical History Date Comments Rheumatoid [...] age to complete this topic Care Teams Wood Engraver Relationship Specialty Start Date End Date Jeri Snyder MD [address] [place] [address] PCP - General Internal Medicine 02/26/18
--- OUTSIDE RECORDS SUMMARY | 2024-07-09 16:48 | XMS_ITS | Encounter Summary ---
Author Organization [facility] Address [address] [place] [address] Care Team Providers Care Environmental Engineering Intern Name Role Phone Jeri Snyder Md, MD Primary Care Provider Unavailable Encounter Details Date Type Department Care Team Description 10/05/2021 Transfer Records Medical Records [address] [place] [address] Abstract, Provider Social History Tobacco Use Types [...] on filedocumented in this encounter Care Teams Environmental Engineering Intern Relationship Specialty Start Date End Date Jeri Snyder MD, MD PCP - General Internal Medicine 02/26/18 documented as of this encounter
--- OUTSIDE RECORDS SUMMARY | 2024-07-09 16:48 | XMS_ITS | Encounter Summary ---
Author Organization [facility] Address [address] [place] [address] Care Team Providers Care Dental Chairside Assistant Name Role Phone Jeri Snyder Md MD Primary Care Provider Unavailable Encounter Details Date Type Department Care Team Description 02/25/2018 Pants Presser Automatic Report Medical Records [address] [place] [address] Sally Farias MD Social History Tobacco Use Types Packs/Day Years Used Date Smoking Tobacco: Never Assessed Sex Assigned at Date Recorded Not on file documented as of this encounter Plan of Treatment Not on file documented as of this encounter Visit Diagnoses Not on filedocumented in this encounter Care Teams Dental Chairside Assistant Relationship Specialty Start Date End Date Jeri Snyder MD, MD PCP - General Internal Medicine 02/26/18 documented as of this encounter
--- OUTSIDE RECORDS SUMMARY | 2024-07-09 16:48 | XMS_ITS | Encounter Summary ---
Author Organization [facility] Address [address] [place] [address] Care Team Providers Care Density Control Puncher Name Role Phone Jeri Snyder Md, MD Primary Care Provider Unavailable Encounter Details Date Type Department Care Team Description 04/07/2018 Telephone [facility] [address] [place], [place] [id number] Cynthia Euceda DO Social History Tobacco Use Types Packs/Day Years Used Date Smoking Tobacco: Every Day Cigarettes 0.5 24 Smokeless Tobacco: Never Alcohol Use Standard Drinks/Week Comments Yes 0 (1 standard drink = 0.6 oz pur e alcohol) [facility] Sex Assigned at Date Recorded Not on file documented as of this encounter Miscellaneous Notes * Telephone Encounter - Lorena Galan - 05/23/2018 11:15 AM EST Forward [facility] report to Dr. Euceda. AM * Telephone Encounter - Lorena Galan - 05/15/2018 3:21 PM EST Robotic hysterectomy with bilateral salpingectomy, cystoscopy, right ovarian cystectomy has been scheduled on 06/23/2018 at [facility] with Dr. Euceda. Patient has been notified by phone and a letter has been sent to her. calendar has been updated and schedulers have been notified. AM * Telephone Encounter - Lorena Galan - 04/21/2018 3:40 PM EST Left voice message for pt. AM * Telephone Encounter - Cynthia Euceda DO - 04/07/2018 12:00 PM EST BONING ROOM WORKER SURGICAL BOOKING WORKSHEET 04/07/2018 Patient's Name: Alejandra Olguin : 1975 Payor information: Payor: [employer] FFS / Plan: [employer] / Product Type: MEDICAIDRISK Allergies: No Known Allergies LMP: No LMP recorded. Diagnosis: dypurunia, pelvic pain, right ovarian Surgery Procedure Planned: robotic hyst right ovarian cystectomy, bilateral salpingectomy, cystoscopy. Special Instructions/Equipment needed: Type of Anesthesia: gen Stay: Daystay Location:[facility] Plaster Patternmaker Needed? YES Time Needed: 3 Urgency: elective Medicaid Sterilization (within 30 days - 180 days) and/or Medicare HI-1 form signed, if needed? N\A Date signed? Medical Clearance? YES Pre Op OIL LEASE OPERATOR visit: YES Pap Needed at Pre Op Visit? NO No orders of the defined types were placed in this encounter. documented in this encounter Plan of Treatment Not on file documented as of this encounter Visit Diagnoses Not on filedocumented in this encounter Care Teams Density Control Puncher Relationship Specialty Start Date End Date Jeri Snyder MD, MD PCP - General Internal Medicine 02/26/18 documented as of this encounter
--- OUTSIDE RECORDS SUMMARY | 2024-07-09 16:48 | XMS_ITS | Encounter Summary ---
Author Organization [facility] Address [address] [place] [address] Care Team Providers Care Lobster Man Name Role Phone Jeri Snyder Md, MD Primary Care Provider Unavailable Encounter Details Date Type Department Care Team Description 02/06/2019 Old Medical Records Medical Records [address] [place] [address] Abstract, Provider Social History Tobacco Use Types Packs/Day Years Used Date Smoking Tobacco: Every Day Cigarettes 0.5 24 Smokeless Tobacco: Never Alcohol Use Standard Drinks/Week Comments Yes 0 (1 standard drink = 0.6 oz pur e alcohol) lenaley Sex Assigned at Date Recorded Not on file documented as of this encounter Plan of Treatment Not on file documented as of this encounter Visit Diagnoses Not on filedocumented in this encounter Care Teams Lobster Man Relationship Specialty Start Date End Date Jeri Snyder MD, MD PCP - General Internal Medicine 02/26/18 documented as of this encounter
--- OUTSIDE RECORDS SUMMARY | 2024-07-09 16:48 | XMS_ITS | Encounter Summary ---
Author Organization [facility] Address [address] [place] [address] Care Team Providers Care Spd Tech Name Role Phone Jeri Snyder Md, MD Primary Care Provider Unavailable Encounter Details Date Type Department Care Team Description 02/06/2019 Finish Specialist Report Medical Records [address] [place] [address] Lucio Morris MD Social History Tobacco Use Types Packs/Day Years Used Date Smoking Tobacco: Every Day Cigarettes 0.5 24 Smokeless Tobacco: Never Alcohol Use Standard Drinks/Week Comments Yes 0 (1 standard drink = 0.6 oz pur e alcohol) rarley Sex Assigned at Date Recorded Not on file documented as of this encounter Plan of Treatment Not on file documented as of this encounter Visit Diagnoses Not on filedocumented in this encounter Care Teams Spd Tech Relationship Specialty Start Date End Date Jeri Snyder MD, MD PCP - General Internal Medicine 02/26/18 documented as of this encounter
[2024-07-10 10:18] LABS: RPR Rapid Plasma Reagin NON-REACTIVE (NON-REACTIVE)
[2024-07-10 10:41] LABS: CT PCR NOT DETECTED (Not Detect.); NG PCR NOT DETECTED (Not Detect.)
== END 2024-07-09 13:39 | disposition home or self-care (01) ==
LOC: HO.LAB 13:38
PROVIDERS: PCP Internal Medicine; Visit Provider Physician Assistant
DX: Z20.2 Contact with and (suspected) exposure to infections with a predominantly sexual mode of transmission (principal)
CPT/HCPCS: 36415; 86592; 87491; 87591

== ENCOUNTER 2024-07-09 13:38 | Outpatient (AMB) | payer OTHER, SELFPAY ==
--- NOTE | 2024-07-09 13:40 | MHC.OFFWIV ---
Intake Vital Signs 07/09/24 13:48 Weight 227 lb BP 140/100 H Blood Pressure Location Lt brachial Position Sitting Pulse 99 Pulse Source Pulse Oximeter Pulse Oximetry (%) 98 Oxygen Delivery Method Room Air Intake Visit Reasons: EP STD screening Intake Note: Patient here because she was told that her spouse was having relations outside of marriage and she would like to be tested for STD's Patient Tobacco Use Status: Former Tobacco user Allergies tocilizumab [From Actemra] Allergy (Severe, Verified 07/09/24 13:48) Difficulty Breathing HPI HPI Comments History of Present Illness Details History of Present Illness - The patient is a 48-year-old female presenting with concerns regarding potential exposure to sexually transmitted infections (STIs). - She reports no specific symptoms or abnormal signs such as discharge, pain, or bleeding. - The patient states she is seeking screening due to a reported infidelity by her , expressing a desire for comprehensive screening including gonorrhea, chlamydia, syphilis, and herpes simplex virus (HSV). 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 Physical Exam General: Cooperative, healthy appearing, comfortable, no acute distress and well developed Orientation: Patient oriented x3 Limitations: No limitations Head: Normal to inspection Ears: Hearing grossly normal bilaterally Nose: Normal external nose present Face and sinus: Normal facial exam Eyes: Appearance normal, both eyes and all related structures Neck: Normal visual inspection and Yes full ROM Respiratory: Normal respiratory effort and able to speak in complete sentences. Skin: No rashes or lesions noted Neuro: Patient oriented x3 Extremities: Normal to inspection [facility] Medical History Restless leg syndrome History of nephrolithiasis GERD (gastroesophageal reflux disease) BMI 38.0-38.9,adult Obesity (BMI 35.0-39.9 without comorbidity) Nephrolithiasis Bilateral sacroiliitis Depression with anxiety Rheumatoid arthritis Mixed dyslipidemia Surgical History History of bilateral salpingectomy History of robot-assisted laparoscopic hysterectomy Hx of ovarian cystectomy H/O dilation and curettage Status post laser lithotripsy of ureteral calculus History of tubal ligation Hx of myringotomy H/O excision of ganglion cyst Previous section Hx of appendectomy Hx laparoscopic cholecystectomy Hx of tonsillectomy Family History Father HTN (hypertension) Diabetes mellitus Depression Dyslipidemia Substance use disorder Mental health disorder Mother Pancreatic cancer Anxiety Brother Substance use disorder Mental health disorder Daughter Mental health disorder Sister Substance use disorder Mental health disorder Maternal Uncle Mental health disorder Daughter Mental health disorder Daughter Mental health disorder Social History Household Members: Family Housing: House Alcohol intake: current Alcohol intake frequency: does not drink Patient Tobacco Use Status: Former Tobacco user Years Smoked: 25 yrs e-Cigarette/Vaping Use: Never Used Second Hand Smoke Exposure: No service: No Current occupational status: employed 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, 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 Cognitive needs: No Hearing needs: No Vision needs: Yes Review of Systems Const All systems reviewed & are unremarkable except as noted in HPI and below Physical Exam Vital Signs: Last Vital Signs Pulse 99 07/09/24 13:48 BP 140/100 H 07/09/24 13:48 Pulse Ox 98 07/09/24 13:48 Oxygen Delivery Method Room Air 07/09/24 13:48 Assessment & Plan Assessment & Plan (1) Possible exposure to STD: Code(s): Z20.2 - Contact with and (suspected) exposure to infections with a predominantly sexual mode of transmission Plan: Plan Testing will be performed with a urine sample already collected for gonorrhea and chlamydia screening, while blood tests for syphilis and herpes simplex virus HSV will be arranged. It is understood that some testing, such as HIV and hepatitis assessments, require coordination with a primary care provider. The patient wishes to proceed with HSV testing despite no active symptoms, with further counseling provided regarding HSV dormancy and STI prevention. Results will be communicated as they become available for appropriate management. Additionally, it is advised that her undergo testing considering potential exposure. Patient declined counseling services as she is a [facility] patient and can arrange therapy through them, when she is ready. Patient was informed and verbally consented to the use of an ambient scribe for clinic note documentation during this visit. Orders: Orders CT NG by PCR Today Z20.2 - Contact with and (suspected) exposure to infections with a predominantly sexual mode of transmission RPR Monitor reflex titer Today Z20.2 - Contact with and (suspected) exposure to infections with a predominantly sexual mode of transmission Coding Level of Care Code Est Pt Level 3 (38699) Diagnoses Possible exposure to STD Z20.2
[2024-07-09 13:48] VITALS: BP 140/100; PULSE 99; O2SAT 98
--- OUTSIDE RECORDS SUMMARY | 2024-07-09 16:21 | XMS_ITS | Clinical Summary ---
Author Organization [facility] ity Address [address] [place] [address] Care Team Providers Care Grader Marker Name Role Phone Jeri Snyder MD Primary Care Provider Medical History Medical History Date Comments Rheumatoid arthritis (CMS/HCC) D X:Rheumatoid arthritis (HCC); COMMENT: with active disease Sarcoidosis DX:Sarcoidosis Social History Tobacco Use Types Packs/Day Years Used Date Smoking Tobacco: Every Day Cigarettes Smokeless Tobacco: Never Alcohol Use Standard Drinks/Week Comments Yes 0 (1 standard drink = 0.6 oz pur e alcohol) Comments Unknown Sex and Gender Information Value Date Recorded Sex Assigned at Not on file Legal Sex Female 3:59 PM EST Gender Identity Not on file Sexual Orientation Not on file Obstetrics History Plan of Treatment Health Maintenance Due Date Last Done Comments Breast Cancer Screening 1976 COVID-19 Vaccine (#1) 1981 DTaP,Tdap,and Td Vaccines (1 - Tdap) 11/01/1995 Hepatitis B Vaccines (1 of 3 - 19+ 3-dose series) 11/01/1995 Pneumococcal Vaccine: Pediat rics (0 to 5 Years) and At-Risk Patients (6 to 64 Years) (1 of 2 - PCV) 11/01/1995 Cervical Cancer Screening: P ap Smear 1997 Colorectal Cancer Screening: Colonoscopy 04/11/2022 Depression Screening 04/11/2022 HIV Screening 04/11/2022 Hepatitis C Screening 04/11/2022 Social Influencers of Health Screening 04/11/2022 Influenza Vaccine (#1) 2024 HIB Vaccines Aged Out No longer eligi ble based on patient's age to complete this topic HPV Vaccines Aged Out No longer eligi ble based on patient's age to complete this topic Hepatitis A Vaccines Aged Out No long er eligible based on patient's age to complete this topic IPV Vaccines Aged Out No longer eligi ble based on patient's age to complete this topic MMR Vaccines Aged Out No longer eligi ble based on patient's age to complete this topic Meningococcal ACWY Vaccine Aged Out N o longer eligible based on patient's age to complete this topic Meningococcal B Vacine Aged Out No lo nger eligible based on patient's age to complete this topic RSV Immunization Patients Un aquiles 20 months Aged Out No longer eligible b ased on patient's age to complete this topic Varicella Vaccines Aged Out No longer eligible based on patient's age to complete this topic Care Teams Grader Marker Relationship Specialty Start Date End Date Jeri Snyder MD [address] [place] [address] PCP - General Internal Medicine 02/26/18
== END 2024-07-09 14:29 | disposition home or self-care (01) ==
PROVIDERS: PCP Internal Medicine; Visit Provider Physician Assistant
DX: Z20.2 Contact with and (suspected) exposure to infections with a predominantly sexual mode of transmission (principal)

== ENCOUNTER 2024-07-09 13:59 | Outpatient (REF) | payer OTHER, SELFPAY ==
--- OUTSIDE RECORDS SUMMARY | 2024-07-09 16:56 | XMS_ITS | Encounter Summary ---
Author Organization [facility] Address [address] [place] [address] Care Team Providers Care Sec Accountant Name Role Phone Jeri Snyder Md, MD Primary Care Provider Unavailable Encounter Details Date Type Department Care Team Description 09/09/2023 Hospital Medical Records [address] [place], [place] [address] [place] [address] Social History Tobacco Use Types Packs/Day Years Used Date Smoking Tobacco: Every Day Cigarettes 0.5 24 Smokeless Tobacco: Never Alcohol Use Standard Drinks/Week Comments Yes 0 (1 standard drink = 0.6 oz pur e alcohol) rarley Sex Assigned at Date Recorded Not on file documented as of this encounter Plan of Treatment Not on file documented as of this encounter Procedures Procedure Name Priority Date/Time Associated Diagnosis Comments OUTSIDE ECHO Routine 09/09/2023 documented in this encounter Results * OUTSIDE ECHO (09/09/2023) Provider Default CARDIOLOGY [facility] documented in this encounter Visit Diagnoses Not on filedocumented in this encounter Care Teams Sec Accountant Relationship Specialty Start Date End Date Jeri Snyder MD, MD PCP - General Internal Medicine 02/26/18 documented as of this encounter
--- OUTSIDE RECORDS SUMMARY | 2024-07-09 16:56 | XMS_ITS | Encounter Summary ---
Author Organization [facility] Address [address] [place] [address] Care Team Providers Care Program Support Clerk Name Role Phone Jeri Snyder Md, MD Primary Care Provider Unavailable Encounter Details Date Type Department Care Team Description 06/25/2018 Orders Only Medical Records [address] [place] [address] Cynthia Euceda DO Social History Tobacco Use [...] Name Priority Date/Time Associated Diagnosis Comments OUTSIDE PATHOLOGY Routine 06/23/2018 documented in this encounter Results * OUTSIDE PATHOLOGY (06/23/2018) Cynthia Euceda DO OUTSIDE LAB documented in this encounter Visit Diagnoses Not on filedocumented in this encounter Care Teams Program Support Clerk Relationship Specialty Start Date End Date Jeri Snyder MD, MD PCP - General Internal Medicine 02/26/18 documented as of this encounter
--- OUTSIDE RECORDS SUMMARY | 2024-07-09 16:56 | XMS_ITS | Encounter Summary ---
Author Organization [facility] Address [address] [place] [address] Care Team Providers Care Asbestos Pipe Supervisor Name Role Phone Jeri Snyder Md, MD Primary Care Provider Unavailable Encounter Details Date Type Department Care Team Description 06/06/2018 Line Supervisor Report Medical Records [address] [place] [address] Jeri Snyder MD, MD Social History Tobacco Use Types Packs/Day [...] on filedocumented in this encounter Care Teams Asbestos Pipe Supervisor Relationship Specialty Start Date End Date Jeri Snyder MD, MD PCP - General Internal Medicine 02/26/18 documented as of this encounter
== END 2024-07-09 14:00 | disposition home or self-care (01) ==
LOC: HO.HMGCLDS 13:59
PROVIDERS: PCP Internal Medicine; Visit Provider Physician Assistant
DX: Z13.89 Encounter for screening for other disorder (principal)

== ENCOUNTER 2024-07-21 15:30 | Outpatient (AMB) | payer OTHER, SELFPAY ==
--- NOTE | 2024-07-21 15:36 | A.OFFVIS_ITS ---
Vital Signs 07/21/24 15:48 Height 5 ft 3 in Weight 228 lb 13.437 oz BMI 40.5 BP 126/66 Blood Pressure Location Rt brachial Position Sitting Pulse 86 Pulse Source Pulse Oximeter Pulse Oximetry (%) 96 Oxygen Delivery Method Room Air Intake Visit Reasons: 6 mnth follow up Intake Note: ESTABLISHED PATIENT for GERD mgmt. Labs done. Chief Complaint; C/O worsening reflux w/o dysphagia, epigastric pain, nausea w/o vomiting. Pt denies any other sx or concerns. Pt does need refill of famotidine. 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 Epigastric pain postprandially. Will check transglutaminase. Patient will continue taking pantoprazole and will hold famot idine for now. Start sucralfate at bedtime. Avoid dietary triggers and late night snacking. Staying upright for minimum 3 hours after meals discussed with patient. Patient will follow-up in 6 months, sooner on as needed basis. She is agreeable to this plan and verbalizes understanding of instructions. She was given the opportunity to ask questions and all questions answered. ? Thank you for allowing me to participate in her care Orders Orders Transglutaminase Ab IgG 01/29/24 R10.9 Transglutaminase IgA 01/29/24 R10.9 Medications New sucralfate 1 g PO DAILY@1700 30 tabs 4RF R19.7 Refilled pantoprazole take one tablet half an hour before breakfast 40 mg PO DAILY 90 tabs 2RF K21.9 On Hold famotidine (Pepcid) Hold Comment: Doctor's Order 20 mg PO BEDTIME 30 tabs 3RF K21.9 TODAY'S VISIT: Patient is here today for follow-up. Patient reports that she has been feeling better since started on pantoprazole, however she continues to have a epigastric pain and occasional acid reflux. Patient noticed that when he drink lactose her symptoms are worse. Patient is trying to eliminate food and see what causes those symptoms. Patient is taking Celebrex for rheumatoid arthritis another Ohms taking it with food. Patient reports that for the most part she is moving her bowels well without any issues. Patient reports of occasional dyspepsia without dysphagia or odynophagia. Denies melena, hematochezia, unintentional weight loss or ribbon like stools. Patient reports occasional nausea specially in the morning. Patient is not taking sucralfate instead is taking famotidine at bedtime. We ruled out celiac disease. Patient reports that she for the most part is eating gluten free food as her daughter has celiac. Patient also reports abdominal bloating postprandially sometimes no matter what she eats. [facility] Medical History Restless leg syndrome History of nephrolithiasis GERD (gastroesophageal reflux disease) BMI 38.0-38.9,adult Obesity (BMI 35.0-39.9 without comorbidity) Nephrolithiasis Bilateral sacroiliitis Depression with anxiety Rheumatoid arthritis Mixed dyslipidemia Surgical History History of bilateral salpingectomy History of robot-assisted laparoscopic hysterectomy Hx of ovarian cystectomy H/O dilation and curettage Status post laser lithotripsy of ureteral calculus History of tubal ligation Hx of myringotomy H/O excision of ganglion cyst Previous section Hx of appendectomy Hx laparoscopic cholecystectomy Hx of tonsillectomy Family History Father HTN (hypertension) Diabetes mellitus Depression Dyslipidemia Substance use disorder Mental health disorder Mother Pancreatic cancer Anxiety Brother Substance use disorder Mental health disorder Daughter Mental health disorder Sister Substance use disorder Mental health disorder Maternal Uncle Mental health disorder Daughter Mental health disorder Daughter Mental health disorder Social History Household Members: Family Housing: House Alcohol intake: current Alcohol intake frequency: does not drink Patient Tobacco Use Status: Former Tobacco user Years Smoked: 25 yrs e-Cigarette/Vaping Use: Never Used Second Hand Smoke Exposure: No service: No Current occupational status: employed 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, 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 Cognitive needs: No Hearing needs: No Vision needs: Yes Review of Systems Const Denies weight gain and Denies weight loss ENT Reports no additional complaints, Denies dysphagia and Denies odynophagia Card Reports no additional complaints Resp Reports no additional complaints GI Reports abdominal pain (epigastric), Denies belching, Denies melena, Denies bloating, Denies change in bowel habits, Denies dysphagia, Denies excessive flatus, Denies dyspepsia, Reports heartburn, Denies diarrhea, Denies loose stools, Reports nausea, Denies odynophagia and Denies vomiting Reports no additional complaints Musc Reports no additional complaints Neuro Reports no additional complaints Psych Reports no additional complaints Endo Reports no additional complaints Physical Exam Vital Signs: Last Vital Signs Pulse 86 07/21/24 15:48 BP 126/66 07/21/24 15:48 Pulse Ox 96 07/21/24 15:48 Oxygen Delivery Method Room Air 07/21/24 15:48 BMI result Body Mass Index 40.5 Const General: healthy appearing, no acute distress and well developed Nutritional Appearance: obese Orientation/consciousness: patient oriented x3 Resp Effort & Inspection: normal respiratory effort, able to speak in complete sentences, no tracheal deviation and symmetric chest movement Auscultation: clear to auscultation bilaterally Cardio Rate: regular rate GI Inspection: Yes normal to inspection, No distended and Yes obesity Palpation (GI): Soft to palpation, not firm, nontender and No hepatosplenomegaly present Auscultation: normal bowel sounds General: Yes no CVA tenderness Back/Spine/Pelvis Back: no CVA tenderness Skin General skin exam: elasticity normal, turgor normal and dry skin Neuro General: patient oriented x3 Psych Appearance: grossly normal Mental Status: mental status grossly normal Results Reviewed Results Reviewed: Laboratory Tests 03/12/24 09:15 Tiss Transglutamin IgG <1.0 Tiss Transglutamin IgA <1.0 Assessment & Plan Assessment & Plan (1) Chronic heartburn: Code(s): R12 - Heartburn Category: Medical (2) GERD (gastroesophageal reflux disease): Code(s): K21.9 - Gastro-esophageal reflux disease without esophagitis Category: Medical Qualifiers: Esophagitis presence: esophagitis presence not specified Qualified Code(s): K21.9 - Gastro-esophageal reflux disease without esophagitis (3) Obesity: Code(s): E66.9 - Obesity, unspecified Category: Medical Qualifiers: Obesity type: due to excess calories Obesity classification: adult class 3 (BMI >= 40) Serious obesity comorbidity presence: unspecified whether serious comorbidity present Body mass index: BMI 40.0-44.9 Qualified Code(s): E66.01 - Morbid (severe) obesity due to excess calories; Z68.41 - Body mass index [BMI] 40.0-44.9, adult (4) Nausea: Code(s): R11.0 - Nausea (5) Postprandial abdominal bloating: Code(s): R14.0 - Abdominal distension (gaseous) Plan Patient will start taking Nexium in the morning and stop pantoprazole. Aware that patient is taking magnesium 250 mg okay to take 40 mg of as omeprazole magnesium as only less than 45 mg of magnesium. Avoid dietary triggers in late night snacking. Staying upright for minimum 3 hours after meals discussed with patient. Continue famotidine at bedtime. Patient reports postprandial abdominal bloating. Discussed with patient low FODMAP diet. List of food recommended as well as list of food to avoid given to patient. Patient will call us in 1-2 weeks to report effectiveness of as omeprazole. If patient will feel better taking as omeprazole we will order 90 day supply for her. Patient is agreeable to plan of care and verbalizes understanding of instructions. She was given the opportunity to ask questions and all questions answered. Thank you for allowing me to participate in her care Medications: New esomeprazole magnesium (Nexium) 40 mg PO DAILY 30 caps 5RF K21.9 - Gastro- esophageal reflux disease without esophagitis Refilled famotidine (Pepcid) 20 mg PO BEDTIME 90 tabs 3RF K21.9 - Gastro-esophageal reflux disease without esophagitis Discontinued sucralfate Discontinued Reason: Doctor's Order 1 g PO DAILY@1700 30 tabs 4RF R19.7 - Diarrhea, unspecified Coding Level of Care Code Est Pt Level 4 (09882) Complex EM visit Add On G2211 Diagnoses Chronic heartburn R12 Gastroesophageal reflux disease, unspecified whether esophagitis present K21.9 Esophagitis presence: esophagitis presence not specified Class 3 severe obesity due to excess calories with body mass index (BMI) of 40.0 to 44.9 in adult, unspecified whether serious comorbidity present E66.01; Z68.41 Obesity type: due to excess calories Obesity classification: adult class 3 (BMI >= 40) Serious obesity comorbidity presence: unspecified whether serious comorbidity present Body mass index: BMI 40.0-44.9 Nausea R11.0 Postprandial abdominal bloating R14.0 Time Spent (min) 35 Comment 25 minute spent with patient and additional 10 minutes spent reviewing her records
[2024-07-21 15:48] VITALS: BP 126/66; PULSE 86; O2SAT 96; BMI 40.5
--- OUTSIDE RECORDS SUMMARY | 2024-07-21 18:45 | XMS_ITS | Clinical Summary ---
Author Organization [facility] [facility] ity Address [address] [place] [address] Care Team Providers Care Sales Service Supervisor Name Role Phone Jeri Snyder MD Primary Care Provider [phone] Medical History Medical History Date Comments Rheumatoid [...] age to complete this topic Care Teams Sales Service Supervisor Relationship Specialty Start Date End Date Jeri Snyder MD [address] [place] [address] PCP - General Internal Medicine 02/26/18
== END 2024-07-21 16:12 | disposition home or self-care (01) ==
LOC: HO.HGI 15:30
PROVIDERS: PCP Internal Medicine; Visit Provider Nurse Practitioner Family
DX: R12 Heartburn (principal); K21.9 Gastro-esophageal reflux disease without esophagitis; E66.01 Morbid (severe) obesity due to excess calories; Z68.41 Body mass index [BMI] 40.0-44.9, adult; R11.0 Nausea; R14.0 Abdominal distension (gaseous)
CPT/HCPCS: 99214

== ENCOUNTER → 2024-07-24 07:50 | Outpatient (REF) | payer OTHER, SELFPAY ==
--- OUTSIDE RECORDS SUMMARY | 2024-07-24 07:52 | XMS_ITS | Clinical Summary ---
Author Organization [facility] ity Address [address] [place] [address] Care Team Providers Care Refrigeration Plant Cork Insulator Name Role Phone Jeri Snyder MD Primary [...] age to complete this topic Care Teams Refrigeration Plant Cork Insulator Relationship Specialty Start Date End Date Jeri Snyder MD [address] [place] [address] PCP - General Internal Medicine 02/26/18
--- NOTE | 2024-07-24 07:54 | CA_ITS ---
Transthoracic Echocardiogram Patient (Last, First, Middle): Alejandra Ortega L Gender: Female Date of : 1975 Age: 48 Procedure Date: 07/24/2024 Procedure Type: Transthoracic Echocardiogram Location: OP Height: 160.02 cm Weight: 106.6 kg BSA: 2.07 m2 Heart Rate: bpm BP: 124 / 68 mmHg Combine Mechanic: Referring MD: Araceli Leonard BENCH MOLDERLincoln Symptoms: I42.2 - Other hypertrophic cardiomyopathy Study Quality: Good ECG Rhythm: Sinus Conclusions: - The left ventricular systolic function is normal. The calculated ejection fraction is 62% by biplane method. - There is mild septal asymmetric hypertrophy. - No obvious valvular pathology seen on this study. Findings Left Ventricle Normal left ventricular cavity size. The left ventricular systolic function is normal. The calculated ejection fraction is 62% by biplane method. There is no evidence of regional wall motion abnormalities. Diastolic function is normal for age. There is mild septal asymmetric hypertrophy. Right Ventricle Normal right ventricular cavity size and systolic function. Atria Both atria are normal in size. Aortic Valve There is a normal trileaflet aortic valve. There is no aortic valve stenosis. There is no aortic valve regurgitation. Mitral Valve The mitral valve appears normal. There is no mitral valve regurgitation. There is no mitral valve stenosis. Pulmonic Valve The pulmonic valve is likely normal. Tricuspid Valve There is trace tricuspid valve regurgitation. There is no evidence of pulmonary hypertension. Great Vessels The asc aorta is normal in size. Venous The inferior vena cava is normal in size and collapses greater than 50% with inspiration. Pericardium/Pleural There is no evidence of pericardial effusion. Prior Study Comparison No significant change compared to prior study dated: 04/02/2022. Recommendations, Care & Conclusions No obvious valvular pathology seen on this study. Measurements 2D Linear Measurements IVSd: 1.04 0.6-0.9/0.6-1.0 cm LVIDd: 3.76 3.9-5.3/4.2-5.9 cm LVIDd Index: 1.82 2.4-3.2/2.2-3.1 cm/m2 LVIDs: 2.58 2.0-3.6 cm LVPWd: 1.10 0.7-1.1 cm Ao Root: 2.80 2.1-3.5 cm LA Diam: 3.50 2.7-3.8/3.0-4.0 cm LAIDs Index: 1.69 1.5-2.3 cm/m2 LV Mass: 158.31 67-162/88-224 g LV Mass Index: 76.48 43-95/49-115 g/m2 LVOT Diam: 2.00 3.0+(-)1.3 cm 2D Systolic Function EF 4C: 63.00 >55% EF 2C: 60.90 >55% EF BiP: 61.70 >55% Mitral Valve MV Pk E: 0.64 MV PK A: 0.74 MV Decel Time: 163.00 E/A: 0.90 E'Lateral: 10.90 E'Medial: 7.51 E/E' Med: 8.50 E/E' Lat: 5.90 PHT: 48.00 MVA PHT: 4.58 Decel [place]: 3.92 Aortic Valve AoV Pk Brooks: 1.43 AoV Mn Brooks: 0.82 AoV VTI: 0.29 AoV Pk Grad: 8.00 Aov Mn Grad: 3.00 JUSTYNA Cont.VTI: 2.22 LVOT LVOT Pk Brooks: 0.88 LVOT Mn Brooks: 0.55 LVOT VTI: 0.21 LVOT Pk Grad: 3.00 LVOT Mn Grad: 1.00 LVOT Diam: 2.00 LVOT Area: 3.14 Diastolic Function MV Pk E: 0.64 MV Pk A: 0.74 E/A: 0.90 E'Medial: 7.51 E/E' Med: 8.50 E' Laterial: 10.90 E/E' Lat: 5.90 Right Ventricle TAPSE (mm): 18.00 Tricuspid Valve TR Pk Brooks: 2.28 TR Pk Grad: 21.00 RA Press: 3.00 RVSP: 24.00 Great Vessels Aorta Ao Root-2D: 2.80 2.0-3.7 cm Ao Asc: 2.80 2.1-3.4 cm Pulmonary Valve PV Pk Brooks: 1.03 Peak PV Grad: 4.00 Updated in Other Vendor System with Status of Final Jamie Hood MD electronically signed on 07/25/2024 12:06:12 PM with status of Final
== END ==
LOC: HO.CARD 07:50
PROVIDERS: PCP Internal Medicine; Visit Provider Nurse Practitioner Family
DX: I42.2 Other hypertrophic cardiomyopathy (principal)
CPT/HCPCS: 93306

== ENCOUNTER → 2024-07-24 07:54 | Outpatient (BNV) | payer OTHER, SELFPAY | PROVIDERS: PCP Internal Medicine; Visit Provider Internal Medicine | DX: I42.2 Other hypertrophic cardiomyopathy (principal) | CPT/HCPCS: 93306 ==

== ENCOUNTER 2024-08-07 08:19 | Outpatient (AMB) | payer OTHER, SELFPAY ==
[2024-08-07 08:22] VITALS: BP 126/90; PULSE 77; BMI 40.3
--- NOTE | 2024-08-07 08:22 | A.OFFVIS_ITS ---
Vital Signs 08/07/24 08:22 Height 5 ft 3 in Weight 227 lb 8.273 oz BMI 40.3 BP 126/90 H Blood Pressure Location Lt brachial Position Sitting Pulse 77 Intake Visit Reasons: followup after echo Continuum Of Care Manager Required: No Accompanied by: Spouse Allergies tocilizumab [From Actemra] Allergy (Severe, Verified 07/21/24 15:37) Difficulty Breathing Medication List - Last Reconciled 08/07/24 by Araceli Leonard, CLOTHING PRESSER-C albuterol sulfate 90 mcg/actuation (Ventolin HFA) 2 puffs inhalation Q6H PRN betamethasone dipropionate 0.05% 1 appl topical BID celecoxib (Celebrex) 100 mg PO Q12H cholecalciferol (vitamin D3) 125 mcg PO DAILY clindamycin phosphate 1% 1 appl topical DAILY esomeprazole magnesium (Nexium) 40 mg PO DAILY famotidine (Pepcid) 20 mg PO BEDTIME hydroxyzine HCl 10 mg PO BEDTIME lamotrigine 50 mg PO BEDTIME lamotrigine 200 mg PO BEDTIME leflunomide 20 mg PO BEDTIME magnesium oxide 250 mg PO BEDTIME omega-3 fatty acids 1,000 mg PO DAILY pyridoxine (vitamin B6) 100 mg PO DAILY 90 days ropinirole 0.25 mg PO BEDTIME rosuvastatin 5 mg PO DAILY spironolactone 50 mg PO BID tofacitinib ER (Xeljanz XR) 11 mg PO BEDTIME HPI HPI followup after echo: Details: Alejandra is a 48 yo female with PMH of obesity, prior smoking, asthma, rheumato id arthritis, sarcoidosis, old septal asymmetric hypertrophy who presents for follow-up after recent echocardiogram. Today she reports she has been doing well since her last visit here 06/19/2022. S he still feels occasionall heart palpitations, which last a few sec and resolve. She has had no sustained rapid heartbeats. No chest discomfort at rest or with exertion. No presyncope, syncope. Denies sob, PND, orthopnea or edema. Is active but does no routine exercise. Significant other present. [facility] Medical History Restless leg syndrome History of nephrolithiasis GERD (gastroesophageal reflux disease) BMI 38.0-38.9,adult Obesity (BMI 35.0-39.9 without comorbidity) Nephrolithiasis Bilateral sacroiliitis Depression with anxiety Rheumatoid arthritis Mixed dyslipidemia Surgical History History of bilateral salpingectomy History of robot-assisted laparoscopic hysterectomy Hx of ovarian cystectomy H/O dilation and curettage Status post laser lithotripsy of ureteral calculus History of tubal ligation Hx of myringotomy H/O excision of ganglion cyst Previous section Hx of appendectomy Hx laparoscopic cholecystectomy Hx of tonsillectomy Family History Father HTN (hypertension) Diabetes mellitus Depression Dyslipidemia Substance use disorder Mental health disorder Mother Pancreatic cancer Anxiety Brother Substance use disorder Mental health disorder Daughter Mental health disorder Sister Substance use disorder Mental health disorder Maternal Uncle Mental health disorder Daughter Mental health disorder Daughter Mental health disorder Social History Household Members: Family Housing: House Alcohol intake: current Alcohol intake frequency: does not drink Patient Tobacco Use Status: Former Tobacco user Years Smoked: 25 yrs e-Cigarette/Vaping Use: Never Used Second Hand Smoke Exposure: No service: No Current occupational status: employed 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, 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 Cognitive needs: No Hearing needs: No Vision needs: Yes Review of Systems Const All systems reviewed & are unremarkable except as noted in HPI and below Denies chills, Denies fatigue, Denies fever(s), Denies weight gain and Denies weight loss ENT Denies dizziness Card Details: occ breif palpitations Denies chest pain, Denies leg edema, Denies lightheadedness, Reports palpitations, Reports dyspnea on exertion, Denies orthopnea and Denies other Resp Denies cough and Reports dyspnea on exertion GI Denies hematochezia and Denies change in stool character Musc Denies abnormal gait, Denies muscle weakness, Denies numbness, Denies radiating pain into limb and Denies tingling Neuro Denies abnormal gait, Denies dizziness, Denies numbness and Denies tingling Endo Denies fatigue and Reports palpitations Physical Exam Vital Signs: Last Vital Signs Pulse 77 08/07/24 08:22 BP 126/90 H 08/07/24 08:22 BMI result Body Mass Index 40.3 Const Other: morbidly obese General: cooperative, healthy appearing, comfortable and no acute distress Orientation/consciousness: patient oriented x3 Neck Neck: Yes normal visual inspection and Yes no JVD Resp Effort & Inspection: normal respiratory effort Auscultation: clear to auscultation bilaterally, no rales, no rhonchi and no wheezes Cardio Rate: regular rate Rhythm: regular rhythm Heart sounds: S1 normal heart sound present, S2 normal heart sound present, no gallops, no murmurs and no rubs Neuro General: patient oriented x3 Extrem General: Yes normal to inspection, No no pedal edema and No calf tenderness Psych Appearance: grossly normal Mental Status: mental status grossly normal Speech and movement: Normal speech and movement present Office Procedures EKG Details: Today, read by me, normal sinus rhythm, rate 77, Qtc 430ms [id number], Complete Assessment & Plan Assessment & Plan (1) Heart palpitations: Code(s): R00.2 - Palpitations Category: Medical Plan: Reports of heart palpitations which feel like brief episodes of rapid heartbeat. Echocardiogram done on 07/24/2024 showed EF 62%, normal valves, no WMA, mild septal assymetric hypertrophy. Holter done on 04/23/22 for 7 days showed SR, average rate 82, no afib, rare PACs, symptoms correlated with SR, ST. EKG done today showing normal sinus rhythm, rate 77. Her palpitations are likely extrasystoles, PACs. Reviewed avoidance of caffeinated beverages, get adequate rest, exercise as tolerated. Emergency care if ever needed for sustained rapid palpitations. Cardiology follow-up p.r.n. (2) Asymmetric septal hypertrophy: Comment: mild 03/2022 Code(s): I42.2 - Other hypertrophic cardiomyopathy Category: Medical Plan: Echocardiogram 03/2022 showed normal EF and mild asymmetric hypertrophy. Repeat echocardiogram 07/24/2024 again shows mild asymmetric septal hypertrophy, no change from prior. Test results reviewed with her. Her blood pressure is controlled. She can follow with us p.r.n.. Instructed to notify this office if she notices increasing shortness of breath, exertional chest discomfort or has presyncope/syncope. (3) Obesity (BMI 35.0-39.9 without comorbidity): Code(s): E66.9 - Obesity, unspecified Category: Medical Plan: She is working on weight loss. (4) Sarcoidosis: Code(s): D86.9 - Sarcoidosis, unspecified Category: Medical Plan: No evidence of cardiac involvement at this time. Plan Time spent on chart review, documentation, interview and assessment. Coding Level of Care Code Est Pt Level 3 (28408) Complex EM visit Add On G2211 Diagnoses Heart palpitations R00.2 Asymmetric septal hypertrophy I42.2 Obesity (BMI 35.0-39.9 without comorbidity) E66.9 Sarcoidosis D86.9 CPT Codes EKG - CPT: [id number], Complete ([id number]) Time Spent (min) 24
== END 2024-08-07 08:52 | disposition home or self-care (01) ==
LOC: HO.HCS 08:20
PROVIDERS: PCP Internal Medicine; Visit Provider Nurse Practitioner Family
DX: R00.2 Palpitations (principal); I42.2 Other hypertrophic cardiomyopathy; E66.9 Obesity, unspecified; D86.9 Sarcoidosis, unspecified
CPT/HCPCS: 93010; 99213

== ENCOUNTER → 2024-08-07 08:19 | Outpatient (BNVA) | payer OTHER, SELFPAY | PROVIDERS: PCP Internal Medicine; Visit Provider Nurse Practitioner Family | DX: I42.2 Other hypertrophic cardiomyopathy (principal); R00.2 Palpitations; E66.9 Obesity, unspecified; D86.9 Sarcoidosis, unspecified; Z68.41 Body mass index [BMI] 40.0-44.9, adult | CPT/HCPCS: 93005 ==

== ENCOUNTER 2024-11-30 09:12 | Outpatient (AMB) | payer OTHER, SELFPAY ==
[2024-11-30 09:24] VITALS: BP 132/84; PULSE 76; TEMP 36.8; O2SAT 98; BMI 39.9
--- NOTE | 2024-11-30 09:24 | MHC.OFFWIV ---
Intake Vital Signs 11/30/24 09:24 Height 5 ft 3 in Weight 225 lb BMI 39.9 BP 132/84 Blood Pressure Location Rt brachial Position Sitting Pulse 76 Pulse Source Pulse Oximeter Temp 98.2 F Temp Source Oral Pulse Oximetry (%) 98 Oxygen Delivery Method Room Air Intake Visit Reasons: EP nauseas, dizzy, headache, pain on LT side Intake Note: presents with diarrhea, nausea, dizziness, headache and left flank pain for a few days. pt reports h/o kidney stones Patient Tobacco Use Status: Former Tobacco user Allergies tocilizumab (From Actemra) Allergy (Severe, Verified 11/30/24 09:35) Difficulty Breathing Do you need a note to return to daycare/school/sports/work: Yes HPI EP nauseas, dizzy, headache, pain on LT side HPI Details This is a 49-year-old female patient who presents to the walk-in clinic today with report of a 3 day history of headache, nausea, diarrhea, intermittent dizziness, muscle aches and back pain, more so on the left side. Denies any urinary symptoms. Took a COVID test at home that was negative. Denies any respiratory symptoms. Denies any known exposure to sick contacts. [facility] Medical History Restless leg syndrome History of nephrolithiasis GERD (gastroesophageal reflux disease) BMI 38.0-38.9,adult Obesity (BMI 35.0-39.9 without comorbidity) Nephrolithiasis Bilateral sacroiliitis Depression with anxiety Rheumatoid arthritis Mixed dyslipidemia Surgical History History of bilateral salpingectomy History of robot-assisted laparoscopic hysterectomy Hx of ovarian cystectomy H/O dilation and curettage Status post laser lithotripsy of ureteral calculus History of tubal ligation Hx of myringotomy H/O excision of ganglion cyst Previous section Hx of appendectomy Hx laparoscopic cholecystectomy Hx of tonsillectomy Family History Father HTN (hypertension) Diabetes mellitus Depression Dyslipidemia Substance use disorder Mental health disorder Mother Pancreatic cancer Anxiety Brother Substance use disorder Mental health disorder Daughter Mental health disorder Sister Substance use disorder Mental health disorder Maternal Uncle Mental health disorder Daughter Mental health disorder Daughter Mental health disorder Social History Household Members: Family Housing: House Alcohol intake: current Alcohol intake frequency: does not drink Patient Tobacco Use Status: Former Tobacco user Years Smoked: 25 yrs e-Cigarette/Vaping Use: Never Used Second Hand Smoke Exposure: No service: No Current occupational status: employed 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, 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 Cognitive needs: No Hearing needs: No Vision needs: Yes Review of Systems Const All systems reviewed & are unremarkable except as noted in HPI and below Physical Exam Vital Signs: Last Vital Signs Temp 98.2 F 11/30/24 09:24 Pulse 76 11/30/24 09:24 BP 132/84 11/30/24 09:24 Pulse Ox 98 11/30/24 09:24 Oxygen Delivery Method Room Air 11/30/24 09:24 BMI result Body Mass Index 39.9 Const General: cooperative and no acute distress Limitations: no limitations HEENT Head: Yes normal to inspection Ears: hearing grossly normal bilaterally General nose exam: Normal external nose present Face and sinus: Yes normal facial exam Throat: Yes posterior oropharynx normal Resp Effort & Inspection: normal respiratory effort Auscultation: clear to auscultation bilaterally Cardio Rate: regular rate Rhythm: regular rhythm GI Palpation (GI): Soft to palpation (nontender) General: Yes no CVA tenderness Back/Spine/Pelvis Other: Lower thoracic/lumbar paraspinal muscle tenderness/tightness to palpation, left greater than right. Normal range of motion. Back: no CVA tenderness Skin General skin exam: no rashes or lesions noted Extrem General: Yes capillary refill normal and Yes no clubbing, cyanosis or edema Psych Appearance: grossly normal Mental Status: mental status grossly normal Speech and movement: Normal speech and movement present Results AMB Urinalysis, Automated UA Leukoctes 0 Garth/uL Last Edit by Roseann Campbell MA on 11/30/24 10:04 UA Nitrite Negative Last Edit by Roseann Campbell MA on 11/30/24 10:04 UA Urobilinogen 0.2 mg/dL Last Edit by Roseann Campbell MA on 11/30/24 10:04 UA Protein 0 mg/dL Last Edit by Roseann Campbell MA on 11/30/24 10:04 UA pH 6.0 Last Edit by Roseann Campbell MA on 11/30/24 10:04 UA Blood 0 Maicol/uL Last Edit by Roseann Campbell MA on 11/30/24 10:04 UA Specific Cameron 1.025 Last Edit by Roseann Campbell MA on 11/30/24 10:04 UA Ketone Negative Last Edit by Roseann Campbell MA on 11/30/24 10:04 UA Bilirubin 0 mg/dL Last Edit by Roseann Campbell MA on 11/30/24 10:04 UA Glucose 0 mg/dL Last Edit by Roseann Campbell MA on 11/30/24 10:04 Assessment & Plan Assessment & Plan (1) Viral illness: Code(s): B34.9 - Viral infection, unspecified Plan: Symptoms are consistent with a viral illness. I will prescribe Zofran for her ongoing nausea. Recommended bland diet and advancing as tolerated. Recommended increased fluid intake. Urine dip was negative. Low back pain is likely muscular in nature. I will prescribe her a short course of low-dose muscle relaxer to try at bedtime to see if this provides any benefit. Otherwise I have recommended rest, [id number] Tylenol/Motrin as needed. COVID/flu/RSV swab was obtained, and patient aware she will be notified of results once these are available. All questions were answered and patient verbalizes understanding and agrees to plan. Orders: Orders AMB Urinalysis Automated Today Z13.9 - Encounter for screening, unspecified SARS-CoV2/FLU/RSV Today J06.9 - Acute upper respiratory infection, unspecified Medications: New ondansetron 4 mg PO Q8H PRN 12 tabs 0RF nausea and vomiting B34.9 - Viral infection, unspecified cyclobenzaprine 5 mg PO BEDTIME PRN 3 tabs 0RF muscle spasm 3 days M54.50 - Low back pain, unspecified Coding Level of Care Code Est Pt Level 4 (89440) Diagnoses Viral illness B34.9
--- OUTSIDE RECORDS SUMMARY | 2024-11-30 09:32 | XMS_ITS | Clinical Summary ---
[facility] Address [address] [place] [address] Care Team Providers Care Physicist Astrophysics Name Role Phone Jeri Snyder MD Primary Care Provider Medical History Medical History Date Comments Rheumatoid arthritis (CMS/HC C V24, CMS/HCC V28) DX:Rheumatoid arthritis (HCC ); COMMENT: with active disease Sarcoidosis DX:Sarcoidosis Social [...] 5 Years) and At-Risk Patients (6 to 49 Years) (1 of 2 - PCV) 11/01/1995 Cervical Cancer Screening: P ap Smear 1997 Colorectal Cancer Screening: Colonoscopy 04/11/2022 HIV Screening 04/11/2022 Hepatitis C Screening 04/11/2022 Social Influencers of Health Screening 04/11/2022 Depression Screening 05/13/2024 Influenza Vaccine (#1) 2025 HIB Vaccines Aged Out No longer eligi [...] age to complete this topic Meningococcal B Vaccine Aged Out No l onger eligible based on patient's age to complete this topic RSV Immunization Patients Un aquiles 20 months Aged Out No longer eligible b ased on patient's age to complete this topic Varicella Vaccines Aged Out No longer eligible based on patient's age to complete this topic Care Teams Physicist Astrophysics Relationship Specialty Start Date End Date Jeri Snyder MD [address] [facility] [place] [address] PCP - General Internal Medicine 02/26/18
== END 2024-11-30 10:32 | disposition home or self-care (01) ==
PROVIDERS: PCP Internal Medicine; Visit Provider Nurse Practitioner Family
DX: Z13.9 Encounter for screening, unspecified (principal); B34.9 Viral infection, unspecified

== ENCOUNTER 2024-11-30 09:12 | Outpatient (REF) | payer OTHER, SELFPAY ==
[2024-11-30 14:32] LABS: Resp Syncy Virus RNA Qual PCR NEGATIVE (Negative); SARS COV2 PCR INHOUSE NEGATIVE (Negative)
== END 2024-11-30 09:13 | disposition home or self-care (01) ==
LOC: HO.LNP 09:12
PROVIDERS: Nurse Practitioner Family; Visit Provider Internal Medicine
DX: J06.9 Acute upper respiratory infection, unspecified (principal); Z13.9 Encounter for screening, unspecified
CPT/HCPCS: 81003; 87637

== ENCOUNTER 2025-01-04 08:53 | Outpatient (REF) | payer OTHER, SELFPAY ==
--- NOTE | ~2025-01-04 | US_ITS ---
CLINICAL HISTORY: N20.0 - Calculus of kidney US of kidneys Comparison: US/SR - US KIDNEY BILATERAL - 01/07/24 09:38 EDT Findings: Right kidney is normal in size, echogenicity and morphology, 12.1 cm in length. No calculus, mass or hydronephrosis. Left kidney is normal in size, echogenicity and morphology, 11.7 cm in length. 2 mm calculus in the lower pole, no mass or hydronephrosis. Limited color Doppler demonstrates unremarkable bilateral blood flow. Impression: 1. Nonobstructing left nephrolithiasis. This document has been electronically signed by: Jesusita Farias MD on 01/04/2025 15:52:50
--- OUTSIDE RECORDS SUMMARY | 2025-01-04 09:27 | XMS_ITS | Clinical Summary ---
[facility] Organization [facility] Address [address] [place] [address] Care Team Providers Care Supervisor [employer] Name Role Phone Jeri Snyder MD Primary [...] age to complete this topic Care Teams Supervisor [employer] Relationship Specialty Start Date End Date Jeri Snyder MD [address] [facility] [place] [address] PCP - General Internal Medicine 02/26/18
== END 2025-01-04 08:54 | disposition home or self-care (01) ==
LOC: HO.HMGCX 08:53
PROVIDERS: PCP Internal Medicine; Visit Provider Nurse Practitioner Family
DX: N20.0 Calculus of kidney (principal)
CPT/HCPCS: 76775

== ENCOUNTER → 2025-01-04 08:54 | Outpatient (BNV) | payer OTHER, SELFPAY | PROVIDERS: PCP Internal Medicine; Visit Provider Radiology Diagnostic Radiology | DX: N20.0 Calculus of kidney (principal) | CPT/HCPCS: 76775 ==

== ENCOUNTER 2025-01-19 08:43 | Outpatient (AMB) | payer OTHER, SELFPAY ==
[2025-01-19 09:02] VITALS: BP 130/90; PULSE 94; RESP 16; TEMP 36.8; O2SAT 95; BMI 41.3
--- NOTE | 2025-01-19 09:02 | A.OFFPC_ITS ---
Vital Signs 01/19/25 09:02 Height 5 ft 3 in Weight 233 lb BMI 41.3 BP 130/90 H Blood Pressure Location Lt brachial Position Sitting Respiration 16 Pulse 94 Pulse Source Pulse Oximeter Temp 98.3 F Temp Source Oral Pulse Oximetry (%) 95 Oxygen Delivery Method Room Air Intake Visit Reasons: discuss FMLA Intake Note: Pt is here today to discuss FMLA paperwork Allergies tocilizumab (From Actemra) Allergy (Severe, Verified 11/30/24 09:35) Difficulty Breathing Medication List - Last Reconciled 01/19/25 by Jeri Snyder MD albuterol sulfate 90 mcg/actuation (Ventolin HFA) 2 puffs inhalation Q6H PRN benzoyl peroxide 10% topical betamethasone dipropionate 0.05% 1 appl topical BID celecoxib (Celebrex) 100 mg PO Q12H cholecalciferol (vitamin D3) 125 mcg PO DAILY clindamycin phosphate 1% 1 appl topical DAILY esomeprazole magnesium (Nexium) 40 mg PO DAILY famotidine (Pepcid) 20 mg PO BEDTIME hydroxyzine HCl 10 mg PO BEDTIME lamotrigine 50 mg PO BEDTIME lamotrigine 200 mg PO BEDTIME leflunomide 20 mg PO BEDTIME magnesium oxide 250 mg PO BEDTIME olanzapine 2.5 mg PO BEDTIME omega-3 fatty acids 1,000 mg PO DAILY ondansetron 4 mg PO Q8H PRN pyridoxine (vitamin B6) 100 mg PO DAILY 90 days ropinirole 0.25 mg PO BEDTIME rosuvastatin 5 mg PO DAILY spironolactone 50 mg PO BID tofacitinib ER (Xeljanz XR) 11 mg PO BEDTIME Tobacco use date assessed: 01/19/25 Dental Screening Dental Screen Date: 01/19/25 Did you have a dental visit in the last 12 months?: Yes Did you have a dental problem in the last 6 months where you did not have access to dental care?: No Was dental information given to patient?: Patient has dentist HPI discuss FMLA HPI0 Details 49-year-old lady with history of patient , currently being followed at and, here requesting to get an FMLA application completed. Patient is jarett schwarz being seen at 10, currently taking olanzapine 2.5 mg at bedtime, lamotrigine 50 mg at bedtime, hydroxyzine 10 mg at bedtime and sees psychiatrist and therapist. Patient is currently considering partial hospitalization for treatment of depression. Has regular follow-ups with her psychiatrist, Claudia Dickerson and therapist at [facility] Medical History Restless leg syndrome History of nephrolithiasis GERD (gastroesophageal reflux disease) BMI 38.0-38.9,adult Obesity (BMI 35.0-39.9 without comorbidity) Nephrolithiasis Bilateral sacroiliitis Depression with anxiety Rheumatoid arthritis Mixed dyslipidemia Surgical History History of bilateral salpingectomy History of robot-assisted laparoscopic hysterectomy Hx of ovarian cystectomy H/O dilation and curettage Status post laser lithotripsy of ureteral calculus History of tubal ligation Hx of myringotomy H/O excision of ganglion cyst Previous section Hx of appendectomy Hx laparoscopic cholecystectomy Hx of tonsillectomy Family History Father HTN (hypertension) Diabetes mellitus Depression Dyslipidemia Substance use disorder Mental health disorder Mother Pancreatic cancer Anxiety Brother Substance use disorder Mental health disorder Daughter Mental health disorder Sister Substance use disorder Mental health disorder Maternal Uncle Mental health disorder Daughter Mental health disorder Daughter Mental health disorder Social History Household Members: Family Housing: House Alcohol intake: current Alcohol intake frequency: does not drink Patient Tobacco Use Status: Former Tobacco user Years Smoked: 25 yrs e-Cigarette/Vaping Use: Never Used Second Hand Smoke Exposure: No service: No Current occupational status: employed 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 1. Little interest or pleasure in doing things: nearly every day 2. Feeling down, depressed, or hopeless: nearly every day 3. Trouble falling or staying asleep, or sleeping too much: nearly every day 4. Feeling tired or having little energy: nearly every day 5. Poor appetite or overeating: several days 6. Feeling bad about yourself - or that you are a failure or have let yourself or your family down: more than half the days 7. Trouble concentrating on things, such as reading the newspaper or watching television: nearly every day 8. Moving or speaking so slowly that other people could have noticed. Or the opposite - being so fidgety or restless that you have been moving around a lot more than usual: several days 9. Thoughts that you would be better off or of hurting yourself in some way: not at all Total score: 19 Depression Screening Interpretation: Positive (Currently followed at [facility] with regular appointments with Claudia Self and therapist) Depression Screening Follow-up: Existing condition, In treatment and Community Mental Health Worker F/U Depression Screening Done: Yes 06181 - PHQ-9 Billing: Yes Source: Developed by Drs. Ralph Dozier, Gogo Larkin, Christopher Patrick and colleagues, with an educational annabelle from [employer]. Thrive Questionnaire Date Thrive assessed: 12/24/24 I am a: Patient What is your living situation today?: I have a steady place to live Within the past 12 months, did the food you bought not last and you didn't have the money to get more?: Never true Within the past 12 months, did you worry whether your food would run out before you got money to buy more?: Never true Do you have trouble paying for medicines?: No Do you have trouble getting transportation to medical appointments?: No Do you have trouble paying your heating and electricity bill?: No Do you have trouble taking care of your child, family member or friend?: No Do you have trouble with day-to-day activities such as bathing, preparing meals, shopping, managing finances, etc.?: No Are you currently unemployed and looking for a job?: No Are you interested in more education?: No Please select the resources that you would like help with: None Currently or been in a relationship where the following occur: No concerns reported THRIVE Score: 0 AUDIT C Alcohol Use Questionnaire (AUDIT-C) 1. How often do you have a drink containing alcohol?: Never Total Score: 0 Score Reviewed/Action Taken: Yes MATT-7 AMB Questionnaire MATT-7 Date MATT - 7 assessed: 01/19/25 Feeling nervous, anxious, or on edge: 3 = Nearly every day Not being able to stop or control worryin = More than half the days Worrying too much about different things: 2 = More than half the days Trouble relaxin = More than half the days Being so restless that it is hard to sit still: 0 = Not at all Becoming easily annoyed or irritable: 2 = More than half the days Feeling afraid as if something awful might happen: 0 = Not at all Total MATT-7 score (0-4 normal; 5-9 mild; 10-14 moderate; 15-21 severe): 11 Source: Developed by Drs. Ralph Dozier, Gogo Larkin, Christopher Patrick and colleagues, with an educational annabelle from [employer]. MATT-7 Assessment Billing MATT-7 Assessment Tool: MATT-7 Assessment 46595 Review of Systems Const Denies fatigue and Denies fever(s) ENT Denies dizziness Card Denies chest pain, Denies leg edema and Denies lightheadedness Resp Denies cough GI Reports no additional complaints Reports no additional complaints Musc Reports no additional complaints Neuro Denies dizziness Psych Reports as per HPI Endo Denies fatigue Physical exam (Primary Care) Vital Signs: Last Vital Signs Temp 98.3 F 01/19/25 09:02 Pulse 94 01/19/25 09:02 Resp 16 01/19/25 09:02 BP 130/90 H 01/19/25 09:02 Pulse Ox 95 01/19/25 09:02 Oxygen Delivery Method Room Air 01/19/25 09:02 BMI result Body Mass Index 41.3 Tobacco/Smoking Status: Tobacco use Status Tobacco use date assessed 01/19/25 01/19/25 09:25 Patient Tobacco Use Status Former Tobacco user 01/19/25 09:02 e-Cigarette/Vaping Use Never Used 01/19/25 09:02 PHQ-9: PHQ-9 Score PHQ-9: Total score 19 01/19/25 10:28 Depression Screening Interpretation: Positive (Currently followed at [facility] with regular appointments with Claudia Self and therapist) Depression Screening Follow-up: Existing condition, In treatment and Community Mental Health Worker F/U Thrive Assessment: Date of Thrive Assessment Date Thrive assessed 12/24/24 01/19/25 09:02 Currently or been in a relationship where the following occur: No concerns reported Const General: no acute distress and alert Orientation/consciousness: patient oriented x3 HENMT Head: Yes normocephalic Eyes General: appearance normal, both eyes and all related structures Neck Neck: Yes full ROM, Yes no lymphadenopathy and Yes supple Resp Auscultation: clear to auscultation bilaterally Cardio Other: S1-S2 present regular rate and rhythm GI Other: Normal bowel sounds, soft, nontender with mass Skin General skin exam: no rashes or lesions noted Neuro General: patient oriented x3, gait normal, moves all extremities and no focal motor deficits Extrem Other: Full range of motion of left wrist joint, no joint swelling seen Psych Appearance: grossly normal and well kempt Mental Status: mental status grossly normal Speech and movement: Normal speech and movement present Affect: Blunted affect present Coding Level of Care Code Est Pt Level 4 (55972) Diagnoses Depression with anxiety F41.8 Additional Codes MATT-7 Assessment Billing - MATT-7 Assessment Tool: MATT-7 Assessment 26533 ([id number]) PHQ-9 - 07127 - PHQ-9 Billing: Yes ([id number]) Assessment & Plan Assessment & Plan (1) Depression with anxiety: Comment: goes to [facility] Code(s): F41.8 - Other specified anxiety disorders Category: Medical Plan: Currently followed by Claudia Self at [facility] and regular therapy, considering part ial hospitalization needs FMLA application completed as she needs to have regular follow-ups with her psychiatrist and therapist
--- OUTSIDE RECORDS SUMMARY | 2025-01-19 09:50 | XMS_ITS | Encounter Summary ---
Author Organization [facility] Address [address] [place] [address] Care Team Providers Care Psychometric Examiner Name Role Phone Jeri Snyder Md, MD Primary Care Provider Unavailable Encounter Details Date Type Department Care Team Description 04/19/2018 Release of Information Medical Records [address] [place] [address] Abstract, Provider Social History Tobacco Use Types [...] on filedocumented in this encounter Care Teams Psychometric Examiner Relationship Specialty Start Date End Date Jeri Snyder MD, MD PCP - General Internal Medicine 02/26/18 documented as of this encounter
--- OUTSIDE RECORDS SUMMARY | 2025-01-19 09:50 | XMS_ITS | Clinical Summary ---
[facility] Organization [facility] Address [address] [place] [address] Care Team Providers Care Vice President Commercial [employer] Name Role Phone Jeri Snyder MD Primary [...] age to complete this topic Care Teams Vice President Commercial Bank Relationship Specialty Start Date End Date Jeri Snyder MD [address] [facility] [address] PCP - General Internal Medicine 02/26/18
--- OUTSIDE RECORDS SUMMARY | 2025-01-19 09:50 | XMS_ITS | Encounter Summary ---
Author Organization [facility] Address [address] [place] [address] Care Team Providers Care Side Laster Tack Name Role Phone Jeri Snyder Md, MD Primary Care Provider Unavailable Encounter Details Date Type Department Care Team Description 09/09/2023 Hospital Medical Records [address] [place], [place] [id number] [place] [address] Social History Tobacco Use Types Packs/Day Years [...] on filedocumented in this encounter Care Teams Side Laster Tack Relationship Specialty Start Date End Date Jeir Snyder MD, MD PCP - General Internal Medicine 02/26/18 documented as of this encounter
--- OUTSIDE RECORDS SUMMARY | 2025-01-19 09:50 | XMS_ITS | Encounter Summary ---
Author Organization [facility] Address [address] [place] [address] Care Team Providers Care Inside Upholsterer Name Role Phone Jeri Snyder Md MD Primary Care Provider Unavailable Encounter Details Date Type Department Care Team Description 02/25/2018 Air Conditioning Specialist Report Medical Records [address] [place] [address] Sally Farias MD Social History Tobacco Use Types Packs/Day Years Used Date Smoking Tobacco: Never Assessed Sex Assigned at Date Recorded Not on file documented as of this encounter Plan of Treatment Not on file documented as of this encounter Visit Diagnoses Not on filedocumented in this encounter Care Teams Inside Upholsterer Relationship Specialty Start Date End Date Jeri Snyder MD, MD PCP - General Internal Medicine 02/26/18 documented as of this encounter
--- OUTSIDE RECORDS SUMMARY | 2025-01-19 09:50 | XMS_ITS | Encounter Summary ---
Author Organization [facility] Address [address] [place] [address] Care Team Providers Care Hearing Impaired Itinerant Teacher Name Role Phone Jeri Snyder Md, MD Primary Care Provider Unavailable Encounter Details Date Type Department Care Team Description 10/05/2021 Transfer Records Medical Records [address] [place] [address] Abstract, Provider Social History Tobacco Use Types [...] on filedocumented in this encounter Care Teams Hearing Impaired Itinerant Teacher Relationship Specialty Start Date End Date Jeri Snyder MD, MD PCP - General Internal Medicine 02/26/18 documented as of this encounter
--- OUTSIDE RECORDS SUMMARY | 2025-01-19 09:50 | XMS_ITS | Encounter Summary ---
Author Organization [facility] Address [address] [place] [address] Care Team Providers Care In Tube Conversion Technician Name Role Phone Jeri Snyder Md, MD Primary Care Provider Unavailable Encounter Details Date Type Department Care Team Description 02/06/2019 Day Light Relief Operator Report Medical Records [address] [place] [address] Lucio Morris MD Social History Tobacco Use [...] on filedocumented in this encounter Care Teams In Tube Conversion Technician Relationship Specialty Start Date End Date Jeri Snyder MD, MD PCP - General Internal Medicine 02/26/18 documented as of this encounter
--- OUTSIDE RECORDS SUMMARY | 2025-01-19 09:50 | XMS_ITS | Encounter Summary ---
Author Organization [facility] Address [address] [place] [address] Care Team Providers Care Drum Sander Setter Name Role Phone Jeri Snyder Md, MD Primary Care Provider Unavailable Encounter Details Date Type Department Care Team Description 02/06/2019 Old Medical Records Medical Records [address] [place] [address] Abstract, Provider Social History Tobacco Use Types [...] on filedocumented in this encounter Care Teams Drum Sander Setter Relationship Specialty Start Date End Date Jeri Snyder MD, MD PCP - General Internal Medicine 02/26/18 documented as of this encounter
== END 2025-01-19 14:27 | disposition home or self-care (01) ==
LOC: HO.HMCC 08:44
PROVIDERS: PCP Internal Medicine; Visit Provider Internal Medicine
DX: F41.8 Other specified anxiety disorders (principal)

== ENCOUNTER → 2025-01-19 08:43 | Outpatient (BNVA) | payer OTHER, SELFPAY | PROVIDERS: PCP Internal Medicine; Visit Provider Internal Medicine | DX: K21.9 Gastro-esophageal reflux disease without esophagitis (principal); F41.8 Other specified anxiety disorders | CPT/HCPCS: 96127 ==

== ENCOUNTER 2025-02-03 08:00 | Outpatient (REF) | payer OTHER, SELFPAY ==
--- OUTSIDE RECORDS SUMMARY | 2025-02-03 08:06 | XMS_ITS | Clinical Summary ---
[facility] Address [address] [place] [address] Care Team Providers Care Senior Software Engineer Name Role Phone Jeri Snyder MD Primary Care Provider [phone] Medical History Medical History Date Comments Rheumatoid [...] age to complete this topic Care Teams Senior Software Engineer Relationship Specialty Start Date End Date Jeri Snyder MD [address] [facility] [place] [address] PCP - General Internal Medicine 02/26/18
[2025-02-03 11:52] LABS: Anion Gap 11 (12-20)
[2025-02-03 11:57] LABS: Alanine Aminotransferase 82 U/L (0-31); Aspartate Amino Transferase 60 U/L (5-31); Blood Urea Nitrogen 11 mg/dL (9-16); Calcium 9.9 mg/dL (8.4-10.2); Carbon Dioxide 28 mmol/L (22-29); Chloride 107 mmol/L (96-108); Cholesterol 221 mg/dL (<200); Estimated Glomerular Filt Rate > 60; HDL Cholesterol 57 mg/dL (>40); Potassium 4.3 mmol/L (3.3-5.1); Sodium 142 mmol/L (135-145); Triglycerides 190 mg/dL (<150)
== END 2025-02-03 08:01 | disposition home or self-care (01) ==
LOC: HO.HMGCLDS 08:00
PROVIDERS: PCP Internal Medicine; Visit Provider Internal Medicine
DX: Z13.21 Encounter for screening for nutritional disorder (principal); E78.2 Mixed hyperlipidemia; E89.41 Symptomatic postprocedural ovarian failure; D86.9 Sarcoidosis, unspecified; G25.81 Restless legs syndrome
CPT/HCPCS: 36415; 80048; 80061; 82306; 84450; 84460

== ENCOUNTER 2025-02-08 12:28 | Outpatient (AMB) | payer OTHER, SELFPAY ==
[2025-02-08 12:37] VITALS: BP 132/84; PULSE 69; O2SAT 97; BMI 41.1
--- NOTE | 2025-02-08 12:37 | MHC.PC.OV ---
Vital Signs 02/08/25 12:37 Height 5 ft 3 in Weight 232 lb BMI 41.1 BP 132/84 Blood Pressure Location Rt brachial Position Sitting Pulse 69 Pulse Source Pulse Oximeter Pulse Oximetry (%) 97 Intake Visit Reasons: PE Allergies tocilizumab (From Actemra) Allergy (Severe, Verified 02/08/25 12:37) Difficulty Breathing Medication List - Last Reconciled 02/08/25 by Jeri Snyder MD albuterol sulfate 90 mcg/actuation (Ventolin HFA) 2 puffs inhalation Q6H PRN benzoyl peroxide 10% topical betamethasone dipropionate 0.05% 1 appl topical BID celecoxib (Celebrex) 100 mg PO Q12H cholecalciferol (vitamin D3) 125 mcg PO DAILY clindamycin phosphate 1% 1 appl topical DAILY esomeprazole magnesium (Nexium) 40 mg PO DAILY famotidine (Pepcid) 20 mg PO BEDTIME hydroxyzine HCl 10 mg PO BID lamotrigine 50 mg PO BEDTIME lamotrigine 200 mg PO BEDTIME leflunomide 20 mg PO BEDTIME magnesium oxide 250 mg PO BEDTIME olanzapine 2.5 mg PO BEDTIME omega-3 fatty acids 1,000 mg PO DAILY ondansetron 4 mg PO Q8H PRN pyridoxine (vitamin B6) 100 mg PO DAILY 90 days ropinirole 0.25 mg PO BEDTIME rosuvastatin 5 mg PO DAILY sertraline 100 mg PO DAILY spironolactone 50 mg PO BID tofacitinib ER (Xeljanz XR) 11 mg PO BEDTIME Tobacco use date assessed: 01/19/25 Dental Screening Dental Screen Date: 01/19/25 [facility] Medical History (Updated 02/08/25 @ 13:32 by Jeri Snyder MD) Parosmia Restless leg syndrome History of nephrolithiasis GERD (gastroesophageal reflux disease) BMI 38.0-38.9,adult Obesity (BMI 35.0-39.9 without comorbidity) Nephrolithiasis Bilateral sacroiliitis Depression with anxiety Rheumatoid arthritis Mixed dyslipidemia Surgical History History of bilateral salpingectomy History of robot-assisted laparoscopic hysterectomy Hx of ovarian cystectomy H/O dilation and curettage Status post laser lithotripsy of ureteral calculus History of tubal ligation Hx of myringotomy H/O excision of ganglion cyst Previous section Hx of appendectomy Hx laparoscopic cholecystectomy Hx of tonsillectomy Family History Father HTN (hypertension) Diabetes mellitus Depression Dyslipidemia Substance use disorder Mental health disorder Mother Pancreatic cancer Anxiety Brother Substance use disorder Mental health disorder Daughter Mental health disorder Sister Substance use disorder Mental health disorder Maternal Uncle Mental health disorder Daughter Mental health disorder Daughter Mental health disorder Social History Household Members: Family Housing: House Alcohol intake: current Alcohol intake frequency: does not drink Patient Tobacco Use Status: Former Tobacco user Years Smoked: 25 yrs e-Cigarette/Vaping Use: Never Used Second Hand Smoke Exposure: No service: No Current occupational status: employed 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 1. Little interest or pleasure in doing things: nearly every day 2. Feeling down, depressed, or hopeless: nearly every day 3. Trouble falling or staying asleep, or sleeping too much: nearly every day 4. Feeling tired or having little energy: nearly every day 5. Poor appetite or overeating: several days 6. Feeling bad about yourself - or that you are a failure or have let yourself or your family down: more than half the days 7. Trouble concentrating on things, such as reading the newspaper or watching television: nearly every day 8. Moving or speaking so slowly that other people could have noticed. Or the opposite - being so fidgety or restless that you have been moving around a lot more than usual: several days 9. Thoughts that you would be better off or of hurting yourself in some way: not at all Total score: 19 Depression Screening Interpretation: Positive (Currently followed at [facility] with regular appointments with Claudia Self and therapist at [facility] ) Depression Screening Follow-up: Existing condition, In treatment and Community Mental Health Worker F/U Depression Screening Done: Yes Source: Developed by Drs. Ralph Dozier, Gogo LarkinChristopher and colleagues, with an educational annabelle from [employer]. Thrive Questionnaire Date Thrive assessed: 12/24/24 I am a: Patient What is your living situation today?: I have a steady place to live Within the past 12 months, did the food you bought not last and you didn't have the money to get more?: Never true Within the past 12 months, did you worry whether your food would run out before you got money to buy more?: Never true Do you have trouble paying for medicines?: No Do you have trouble getting transportation to medical appointments?: No Do you have trouble paying your heating and electricity bill?: No Do you have trouble taking care of your child, family member or friend?: No Do you have trouble with day-to-day activities such as bathing, preparing meals, shopping, managing finances, etc.?: No Are you currently unemployed and looking for a job?: No Are you interested in more education?: No Please select the resources that you would like help with: None Currently or been in a relationship where the following occur: No concerns reported THRIVE Score: 0 AUDIT C Alcohol Use Questionnaire (AUDIT-C) 1. How often do you have a drink containing alcohol?: Never Total Score: 0 MATT-7 AMB Questionnaire MATT-7 Date MATT - 7 assessed: 01/19/25 Feeling nervous, anxious, or on edge: 1 = Several days Not being able to stop or control worryin = Not at all Worrying too much about different things: 1 = Several days Trouble relaxin = More than half the days Being so restless that it is hard to sit still: 1 = Several days Becoming easily annoyed or irritable: 1 = Several days Feeling afraid as if something awful might happen: 0 = Not at all Total MATT-7 score (0-4 normal; 5-9 mild; 10-14 moderate; 15-21 severe): 6 Source: Developed by Drs. Ralph Dozier, Gogo Larkin, Christopher Patrick and colleagues, with an educational annabelle from [employer]. MATT-7 Assessment Billing MATT-7 Assessment Tool: MATT-7 Assessment 35075 (on IOP at [facility] in [place]) Review of Systems Eyes Details: Goes to [facility] has progressive lenses ENT Details: Goes for dental cleaning every 6 months Physical exam (Primary Care) Vital Signs: Last Vital Signs Pulse 69 02/08/25 12:37 BP 132/84 02/08/25 12:37 Pulse Ox 97 02/08/25 12:37 BMI result Body Mass Index 41.1 Tobacco/Smoking Status: Tobacco use Status Tobacco use date assessed 01/19/25 02/08/25 12:38 Patient Tobacco Use Status Former Tobacco user 02/08/25 12:38 e-Cigarette/Vaping Use Never Used 02/08/25 12:38 PHQ-9: PHQ-9 Score PHQ-9: Total score 19 02/08/25 13:12 Depression Screening Interpretation: Positive (Currently followed at [facility]) with regular appointments with Claudia Self and therapist at [facility] ) Depression Screening Follow-up: Existing condition, In treatment and Community Mental Health Worker F/U Thrive Assessment: Date of Thrive Assessment Date Thrive assessed 12/24/24 02/08/25 12:38 Currently or been in a relationship where the following occur: No concerns reported Office Procedures Flu Questionnaire Does the patient have a severe egg allergy?: No Does the patient have severe life threatening allergies?: No Does the patient have a fever or illness today?: No Has the patient ever had Guillain-Bapchule Syndrome?: No Has the patient ever had any past reaction to a flu shot?: No Immunizations Fluarix [id number] (PF) 45 mcg (15 mcg x 3)/0.5 mL IM syringe Performing Provider: Jeri Snyder MD Performing Location: [facility] Administered by: Tommy Reardon CMA on 02/08/25 13:44 Dose Route Admin Location Dispensed Lot Number Expiration Date [facility] [employer] 0.5 mL IM Left Deltoid 0.5 mL [id number] 11/09/25 [id number] [employer] VIS Given Date VIS Provided VIS Publication Date 02/08/25 Single Vaccine 24 Eligibility Eligibility Date Funding Source Not [facility] Eligible 02/08/25 Private Coding Diagnoses Obesity (BMI 35.0-39.9 without comorbidity) E66.9 Gastroesophageal reflux disease, unspecified whether esophagitis present K21.9 Esophagitis presence: esophagitis presence not specified Sarcoidosis D86.9 Rheumatoid arthritis M06.9 Rheumatoid arthritis location: multiple sites Depression with anxiety F41.8 Mixed dyslipidemia E78.2 Parosmia R43.1 Annual visit for general adult medical examination with abnormal findings Z00.01 Additional Codes MATT-7 Assessment Billing - MATT-7 Assessment Tool: MATT-7 Assessment 47185 ([id number]) Assessment & Plan Assessment & Plan (1) Obesity (BMI 35.0-39.9 without comorbidity): Code(s): E66.9 - Obesity, unspecified Category: Medical (2) GERD (gastroesophageal reflux disease): Code(s): K21.9 - Gastro-esophageal reflux disease without esophagitis Category: Medical Qualifiers: Esophagitis presence: esophagitis presence not specified Qualified Code(s): K21.9 - Gastro-esophageal reflux disease without esophagitis (3) Sarcoidosis: Code(s): D86.9 - Sarcoidosis, unspecified Category: Medical (4) Rheumatoid arthritis: Comment: Followed by Dr. lopez Code(s): M06.9 - Rheumatoid arthritis, unspecified Category: Medical Qualifiers: Rheumatoid arthritis location: multiple sites (5) Depression with anxiety: Comment: goes to [facility] Code(s): F41.8 - Other specified anxiety disorders Category: Medical (6) Mixed dyslipidemia: Code(s): E78.2 - Mixed hyperlipidemia Category: Medical (7) Parosmia: Code(s): R43.1 - Parosmia Category: Medical (8) Annual visit for general adult medical examination with abnormal findings: Code(s): Z00.01 - Encounter for general adult medical examination with abnormal findings Orders: Orders Alanine Aminotransferase 07/17/25 E78.2 - Mixed hyperlipidemia Aspartate Amino Transferase 07/17/25 E78.2 - Mixed hyperlipidemia Influenza [id number] Immunization Today Z23 - Encounter for immunization Lipid Panel 07/17/25 E78.2 - Mixed hyperlipidemia
--- OUTSIDE RECORDS SUMMARY | 2025-02-08 13:40 | XMS_ITS | Clinical Summary ---
Author Organization [facility] it Address [address] [place] [address] Care Team Providers Care Cold Saw Operator Name Role Phone Jeri Snyder MD Primary [...] age to complete this topic Care Teams Cold Saw Operator Relationship Specialty Start Date End Date Jeri Snyder MD [address] [place] [place] [id number] PCP - General Internal Medicine 02/26/18
== END 2025-02-08 13:37 | disposition home or self-care (01) ==
LOC: HO.HMCC 12:29
PROVIDERS: PCP Internal Medicine; Visit Provider Internal Medicine
DX: Z23 Encounter for immunization (principal)

== ENCOUNTER → 2025-02-08 12:28 | Outpatient (BNVA) | payer OTHER, SELFPAY | PROVIDERS: PCP Internal Medicine; Visit Provider Internal Medicine | DX: Z00.01 Encounter for general adult medical examination with abnormal findings (principal); E66.9 Obesity, unspecified; F41.9 Anxiety disorder, unspecified; G25.81 Restless legs syndrome; E78.5 Hyperlipidemia, unspecified; L73.2 Hidradenitis suppurativa; K21.9 Gastro-esophageal reflux disease without esophagitis; D86.9 Sarcoidosis, unspecified; M06.9 Rheumatoid arthritis, unspecified; F41.8 Other specified anxiety disorders; E78.2 Mixed hyperlipidemia; R43.1 Parosmia; K29.70 Gastritis, unspecified, without bleeding; K44.9 Diaphragmatic hernia without obstruction or gangrene; K22.2 Esophageal obstruction; Z23 Encounter for immunization; Z87.442 Personal history of urinary calculi; Z79.899 Other long term (current) drug therapy; Z68.41 Body mass index [BMI] 40.0-44.9, adult | CPT/HCPCS: 90471; 90656; 96127 ==

== ENCOUNTER 2025-04-05 09:31 | Outpatient (AMB) | payer OTHER, SELFPAY ==
[2025-04-05 10:23] VITALS: BP 124/82; PULSE 88; TEMP 36.7; O2SAT 96; BMI 40.7
--- NOTE | 2025-04-05 10:23 | MHC.OFFWIV ---
Intake Vital Signs 04/05/25 10:23 Height 5 ft 3 in Weight 230 lb BMI 40.7 BP 124/82 Blood Pressure Location Lt brachial Position Sitting Pulse 88 Pulse Source Pulse Oximeter Temp 98.1 F Temp Source Oral Pulse Oximetry (%) 96 Oxygen Delivery Method Room Air Intake Visit Reasons: EP-sore throat, rt ear pain [phone] Intake Note: Patient presents c/o sore throat, right ear pain x3 days. Patient Tobacco Use Status: Former Tobacco user Allergies tocilizumab (From Actemra) Allergy (Severe, Verified 04/05/25 10:25) Difficulty Breathing Do you need a note to return to daycare/school/sports/work: Yes HPI HPI Comments History of Present Illness Details History - The patient is a 49 year old individual presenting with right ear pain and sore throat. - The right ear pain has been worsening, but no significant abnormalities were noted upon examination. - The sore throat is associated with pain upon swallowing, but no fever or significant congestion was reported. - The patient's daughter had the flu last week. - She denies fever, chills, chest pain, SOB, abd pain, n/v/d. Physical Exam General: Cooperative, healthy appearing, comfortable and no acute distress Orientation/consciousness: Patient oriented x3 Limitations: No limitations Head: Normal to inspection Ears: Right ear pain reported, hearing grossly normal bilaterally, external ears normal and TM's normal bilaterally Nose: Normal external nose present, normal nares present, and no nasal discharge present. Face and sinus: Sinuses nontender to palpation. Mouth: Normal oral and palatal mucosa present and moist mucous membranes noted. Throat: Tonsils normal. Uvula is midline. Posterior oropharynx with erythema and no exudates. Eyes: Appearance normal, both eyes and all related structures Neck: Normal visual inspection, full ROM. No lymphadenopathy noted. Respiratory: Clear to auscultation bilaterally. Normal respiratory effort, able to speak in complete sentences. No respiratory distress, not tachypneic, no tripod positioning and no use of accessory muscles. Cardiovascular: Regular rate and rhythm. Normal S1 and S2 Skin: No rashes or lesions noted Patient was informed and verbally consented to the use of an ambient scribe for clinic note documentation during this visit [facility] Medical History (Updated 02/12/25 @ 11:11 by Jeri Snyder MD) Schatzki's ring Hiatal hernia Gastritis Erosive esophagitis Parosmia Restless leg syndrome History of nephrolithiasis GERD (gastroesophageal reflux disease) BMI 38.0-38.9,adult Obesity (BMI 35.0-39.9 without comorbidity) Nephrolithiasis Bilateral sacroiliitis Depression with anxiety Rheumatoid arthritis Mixed dyslipidemia Surgical History History of bilateral salpingectomy History of robot-assisted laparoscopic hysterectomy Hx of ovarian cystectomy H/O dilation and curettage Status post laser lithotripsy of ureteral calculus History of tubal ligation Hx of myringotomy H/O excision of ganglion cyst Previous section Hx of appendectomy Hx laparoscopic cholecystectomy Hx of tonsillectomy Family History Father HTN (hypertension) Diabetes mellitus Depression Dyslipidemia Substance use disorder Mental health disorder Mother Pancreatic cancer Anxiety Brother Substance use disorder Mental health disorder Daughter Mental health disorder Sister Substance use disorder Mental health disorder Maternal Uncle Mental health disorder Daughter Mental health disorder Daughter Mental health disorder Social History Household Members: Family Housing: House Alcohol intake: current Alcohol intake frequency: does not drink Patient Tobacco Use Status: Former Tobacco user Years Smoked: 25 yrs e-Cigarette/Vaping Use: Never Used Second Hand Smoke Exposure: No service: No Current occupational status: employed 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, 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 Cognitive needs: No Hearing needs: No Vision needs: Yes Review of Systems Const All systems reviewed & are unremarkable except as noted in HPI and below Physical Exam Vital Signs: Last Vital Signs Temp 98.1 F 04/05/25 10:23 Pulse 88 04/05/25 10:23 BP 124/82 04/05/25 10:23 Pulse Ox 96 04/05/25 10:23 Oxygen Delivery Method Room Air 04/05/25 10:23 BMI result Body Mass Index 40.7 Results AMB Rapid Strep AMB Rapid Strep Negative Last Edit by Haley Gómez CMA on 04/05/25 10:46 Results Reviewed Results Reviewed: Laboratory Last Values Strep Scn Rapid Clinic Negative 04/05/25 10:46 Assessment & Plan Assessment & Plan (1) Sore throat: Code(s): J02.9 - Acute pharyngitis, unspecified Plan Most likely strep vs covid vs RSV vs flu vs viral illness rapid was negative in the office plan - Plan includes monitoring symptoms and using analgesics such as ibuprofen for pain management. - Recommended symptomatic treatment with lemon, honey, tea, and alternating Tylenol and Motrin. - Advised to consume soft foods and maintain hydration. - Further testing for flu, COVID, and RSV was conducted to confirm the viral etiology. - Patient advised to rest and monitor symptoms. - will call with results - follow up with PCP Orders: Orders AMB Rapid Strep Screen Today Z13.9 - Encounter for screening, unspecified SARS-CoV2/FLU/RSV Today R09.89 - Other specified symptoms and signs involving the circulatory and respiratory systems Coding Level of Care Code Est Pt Level 3 (83747) Diagnoses Sore throat J02.9
--- OUTSIDE RECORDS SUMMARY | 2025-04-05 10:55 | XMS_ITS | Clinical Summary ---
Author Organization [facility] ity Address [address] [place] [address] Care Team Providers Care Brush Finisher Name Role Phone Jeri Snyder MD Primary [...] Last Done Comments Breast Cancer Screening 1976 Colorectal Cancer Screening: Colonoscopy 1976 DTaP,Tdap,and Td Vaccines (1 - Tdap) 11/01/1995 Hepatitis B Vaccines (1 of 3 - 19+ 3-dose series) 11/01/1995 Pneumococcal Vaccine: Pediat rics (0 to 5 Years) and At-Risk Patients (6 to 49 Years) (1 of 2 - PCV) 11/01/1995 Cervical Cancer Screening: P ap Smear 1997 HIV Screening 04/11/2022 Hepatitis C Screening 04/11/2022 Social Influencers of Health Screening 04/11/2022 Depression Screening 05/13/2024 COVID-19 Vaccine (1 - 2024-2 6 season) 2025 Influenza Vaccine (#1) 2025 RSV Immunization Adult Patie nts (1 - 1-dose 75+ series) 11/01/2051 HIB Vaccines Aged Out No longer eligi [...] age to complete this topic Care Teams Brush Finisher Relationship Specialty Start Date End Date Jeri Snyder MD [address] [place] [address] PCP - General Internal Medicine 02/26/18
== END 2025-04-05 11:16 | disposition home or self-care (01) ==
PROVIDERS: PCP Internal Medicine; Visit Provider Physician Assistant Medical
DX: J02.9 Acute pharyngitis, unspecified (principal); Z13.9 Encounter for screening, unspecified

== ENCOUNTER 2025-04-05 09:31 | Outpatient (REF) | payer OTHER, SELFPAY ==
[2025-04-05 13:49] LABS: Resp Syncy Virus RNA Qual PCR NEGATIVE (Negative); SARS COV2 PCR INHOUSE NEGATIVE (Negative)
== END 2025-04-05 09:32 | disposition home or self-care (01) ==
LOC: HO.LAB 09:31
PROVIDERS: Physician Assistant Medical; PCP Internal Medicine
DX: J02.9 Acute pharyngitis, unspecified (principal); R09.89 Other specified symptoms and signs involving the circulatory and respiratory systems; Z87.891 Personal history of nicotine dependence
CPT/HCPCS: 87637; 87880